=== PATIENT | female | born 1955 | race Caucasian/White ===

== ENCOUNTER 2020-04-24 11:10 | Observation (INO) | payer OTHER ==
[2020-04-24 11:48] LABS: Absolute Lymphocytes (CBC) 1.1 K/uL (0.7-4.9); Basophils % 0.3 % (0-1.3); Protime INR 1.03
[2020-04-24] MEDS ORDERED: ASPIRIN 81 MG CHEWABLE TABLET ONE (11:48)
[2020-04-24] MEDS ORDERED: METOPROLOL TARTRATE 5 MG/5 ML INJ IV ONE (11:49)
[2020-04-24 11:52] LABS: Hematocrit 44.4 % (36.0-45.0); Lymphocytes % 10.5 % (15.3-44.8)
[2020-04-24] MEDS ORDERED: NA CHLORIDE 0.9% 1,000 ML ONE (12:02)
--- NOTE | 2020-04-24 12:10 | RAD REPORT ---
EXAM DESCRIPTION: RAD - Chest Single View - 04/24/2020 12:05 pm CLINICAL HISTORY: CHEST PAIN Chest pain. COMPARISON: No comparisons FINDINGS: Portable technique limits examination quality. The lungs are grossly clear. The heart is normal in size. No displaced fractures. IMPRESSION: No acute intrathoracic process suspected.
[2020-04-24 12:13] LABS: ALT/SGPT 10 U/L (12-78); AST/SGOT 7 U/L (15-37); Albumin 3.6 g/dL (3.4-5.0); Alkaline Phosphatase 55 U/L (45-117); BUN Blood Urea Nitrogen 22 mg/dL (7-18); Bicarbonate 24 mmol/L (21-32); Bilirubin Direct 0.4 mg/dL (0-0.2); Bilirubin Total 0.8 mg/dL (0.2-1.0); Glucose Level 95 mg/dL (74-106); Magnesium 2.3 mg/dL (1.8-2.4); NT PRO-BNP 700 pg/mL (<125); Potassium 3.6 mmol/L (3.5-5.1); Protein, Total 7.9 g/dL (6.4-8.2); Sodium Level 136 mmol/L (136-145); Troponin (Emerg Dept Use Only) < 0.02 ng/mL (0.0-0.045)
[2020-04-24 12:19] LABS: Blood Morphology Comment NOT SEEN (NOT SEEN); Platelet Estimate ADEQ
[2020-04-24] MEDS ORDERED: MORPHINE 4 MG/ML SYR ONE (12:41)
[2020-04-24] MEDS ORDERED: ONDANSETRON 4 MG/2 ML VIAL ONE (12:42)
--- NOTE | 2020-04-24 13:12 | RAD REPORT ---
EXAM DESCRIPTION: CT - Head Brain Wo Cont - 04/24/2020 12:49 pm CLINICAL HISTORY: HEADACHE Headache, drowsiness COMPARISON: No comparisons TECHNIQUE: All CT scans are performed using dose optimization technique as appropriate and may inclu de automated exposure control or mA/KV adjustment according to patient size. FINDINGS: No intracranial hemorrhage, hydrocephalus or extra-axial fluid collection.Mild brain atrop hy is present.No areas of brain edema or evidence of midline shift. The paranasal sinuses and mastoids are clear. The calvarium is intact. IMPRESSION: No acute intracranial abnormality.
--- NOTE | 2020-04-24 13:13 | RAD REPORT ---
EXAM DESCRIPTION: CT - Chest For Pe Angio - 04/24/2020 12:49 pm CLINICAL HISTORY: Chest pain. Chest pain;SOB COMPARISON: No comparisons TECHNIQUE: CT angiogram of the pulmonary arteries was performed with MIP. All CT scans are performed using dose optimization technique as appropriate and may include automated exposure control or mA/KV adjustment according to patient size. FINDINGS: No evidence of pulmonary thromboembolism. No acute aortic finding demonstrated. Interstitial prominence is present throughout the lungs. Small right pleural effusion is noted. No concerning bony finding. Postsurgical changes are present about the stomach. IMPRESSION: No evidence of pulmonary thromboembolism. Mild interstitial pulmonary edema versus viral pneumonitis/ bronchitis pattern.
--- NOTE | 2020-04-24 13:32 | ER ---
Nurse's Notes [facility] Name: Kianna Lan Age: 64 yrs Sex: Female : 1955 Arrival Date: 04/24/2020 Time: 11:14 Bed 6 Private MD: Diagnosis: Chest pain, unspecified;Tachycardia, unspecified Presentation: 04/24 11:28 Chief complaint: Patient states: intermittent chest pressure that began 4-5 days ago. ss Pt reports that today she has been short of breath and that is what ultimately made her come to the ED today. Also c/o headache that began today and a few occasions yesterday where she was getting her words mixed up every so often which is unusual for her. Coronavirus screen: Client denies travel out of the [place] in the last 14 days. Ebola Screen: Patient denies exposure to infectious person. Patient denies travel to an Ebola-affected area in the 21 days before illness onset. Initial Sepsis Screen: Does the patient meet any 2 criteria? No. Patient's initial sepsis screen is negative. Does the patient have a suspected source of infection? No. Patient's initial sepsis screen is negative. Risk Assessment: Do you want to hurt yourself or someone else? Patient reports no desire to harm self or others. Onset of symptoms was April 19, 2020. 11:28 Method Of Arrival: Ambulatory 11:28 Acuity: MICHAEL 3 Triage Assessment: 12:27 General: Appears comfortable, Behavior is calm, cooperative. Pain: Complains of pain in ll1 chest. Historical: - Allergies: 11:33 Demerol; ss 11:33 Augmentin; ss - PMHx: 11:33 Seizures; Hypertension; ss - Immunization history:: Adult Immunizations up to date. - Social history:: Smoking status: Patient denies any tobacco usage or history of. Screenin:27 Abuse screen: Denies threats or abuse. Nutritional screening: No deficits noted. ll1 Tuberculosis screening: No symptoms or risk factors identified. Fall Risk IV access (20 points). Gait- Weak (10 pts.). Total Verdugo Fall Scale indicates Low Risk Score (25-44 pts). Fall prevention measures have been instituted. Side Rails Up X 2 Frequent Obs/Assesments occuring As available Patient and Family Educated on Fall Prevention Program and strategies. Assessment: 12:25 Pain: Complains of pain in chest Pain does not radiate. Quality of pain is described as ll1 aching, Pain began 4-5 days ago. Neuro: No deficits noted. Cardiovascular: Reports chest pain, shortness of breath, Heart tones S1 S2 Capillary refill < 3 seconds Clubbing of nail beds is absent JVD is absent Patient's skin is warm and dry. Rhythm is sinus tachycardia. Respiratory: Airway is patent Trachea midline Respiratory effort is even, unlabored, Respiratory pattern is regular, symmetrical, Breath sounds are clear the patient has mild shortness of breath. GI: No deficits noted. 13:30 Reassessment: Patient and/or family updated on plan of care and expected duration. Pain ll1 level reassessed. Patient is alert, oriented x 3, equal unlabored respirations, skin warm/dry/pink. 14:30 Reassessment: Patient and/or family updated on plan of care and expected duration. Pain ll1 level reassessed. Patient is alert, oriented x 3, equal unlabored respirations, skin warm/dry/pink. 15:35 Reassessment: Awaiting admit orders for bed assignment. ss 16:30 Reassessment: Patient and/or family updated on plan of care and expected duration. Pain ll1 level reassessed. Patient is alert, oriented x 3, equal unlabored respirations, skin warm/dry/pink. 17:25 Reassessment: Patient and/or family updated on plan of care and expected duration. Pain ll1 level reassessed. Patient is alert, oriented x 3, equal unlabored respirations, skin warm/dry/pink. Vital Signs: 11:28 BP 132 / 72; Pulse 140; Resp 20; Temp 98.7(TE); Pulse Ox 99% on R/A; Weight 116.12 kg; ss Height 5 ft. 5 in. (165.10 cm); Pain 6/10; 12:02 BP 106 / 74; Pulse 108; ll1 12:25 BP 107 / 67; Pulse 108; Resp 18; Pulse Ox 100% ; ll1 13:57 BP 113 / 71; Pulse 103; ll1 15:17 BP 113 / 77; Pulse 108; Resp 18; Pulse Ox 100% ; ll1 16:49 BP 122 / 85; Pulse 108; Resp 18; Temp 98.1; Pulse Ox 100% ; Pain 6/10; ll1 11:28 Body Mass Index 42.60 (116.12 kg, 165.10 cm) ED Course: 11:14 Patient arrived in ED. mr 11:17 Stanley Awan, JAIDA is PHCP. pm1 11:18 Ayo Vogel MD is Attending Physician. pm1 11:29 Initial lab(s) drawn, by me, sent to lab. EKG done, by ED staff, reviewed by Stanley cummins1 Emperatriz SENA. 11:29 Inserted saline lock: 20 gauge in right antecubital area, using aseptic technique. kj1 Blood collected. 11:30 Hayley Guzman, RN is Primary Nurse. hb 11:32 Triage completed. ss 11:33 Arm band placed on left wrist. ss 12:00 Patient has correct armband on for positive identification. Placed in gown. Bed in low ll1 position. Call light in reach. Side rails up X 1. athletic monitor on. Pulse ox on. NIBP on. 12:05 XRAY Chest (1 view) In Process Unspecified. EDMS 12:28 No provider procedures requiring assistance completed. Patient maintains SpO2 ll1 saturation greater than 95% on room air. 12:49 CT Chest For PE Angio In Process Unspecified. EDMS 12:50 CT Head Brain wo Cont In Process Unspecified. EDMS 13:31 Tim Wilson MD is Hospitalizing Provider. pm1 15:17 Chad Foley, BRIDGER is Primary Nurse. ll1 17:25 Patient admitted, IV remains in place. ll1 Administered Medications: 11:44 Drug: Aspirin Chewable Tablet 324 mg Route: PO; ll1 15:19 Follow up: Response: No adverse reaction ll1 11:45 Drug: Lopressor 5 mg Route: IVP; Site: right antecubital; ll1 11:56 Drug: Lopressor 5 mg Route: IVP; Site: right antecubital; ll1 11:56 Drug: NS 0.9% 1000 ml Route: IV; Rate: 1000 ml; Site: right antecubital; ll1 15:20 Follow up: Response: No adverse reaction; IV Status: Completed infusion; IV Intake: ll1 1000ml 13:28 Drug: Lopressor 5 mg Route: IVP; Site: right antecubital; ll2 15:19 Follow up: Response: No adverse reaction; RASS: Alert and Calm (0) ll1 13:28 Drug: morphine 4 mg Route: IVP; Site: right antecubital; ll2 15:19 Follow up: Response: No adverse reaction ll1 13:28 Drug: Zofran (Ondansetron) 4 mg Route: IVP; Site: right antecubital; ll2 15:19 Follow up: Response: No adverse reaction ll1 13:51 Drug: Lovenox 1 mg/kg Route: Sub-Q; Site: abdomen; ll2 15:19 Follow up: Response: No adverse reaction ll1 Intake: 15:20 IV: 1000ml; Total: 1000ml. ll1 Outcome: 13:32 Decision to Hospitalize by Provider. pm1 17:25 Admitted to Tele accompanied by tech, via wheelchair, room 425, with chart, Report ll1 called to Nurse Abbey on 4th. 17:25 Condition: stable 17:25 Instructed on the need for admit. 17:45 Patient left the ED. 1 Signatures: Dispatcher [employer] Katty Quintero Shelby, RN RN Stanley Alvarado, NIGHT TIME BABYSITTER NIGHT TIME BABYSITTER pm1 Hayley Guzman RN RN Susana Garcias kj1 Adriane Bolden RN RN ll2 Chad Foley RN RN ll1
--- NOTE | 2020-04-24 13:32 | EDPHYS ---
Physician Documentation [facility] Name: Kianna Lan Age: 64 yrs Sex: Female : 1955 Arrival Date: 04/24/2020 Time: 11:14 Bed 6 Private MD: ED Physician Ayo Vogel HPI: 04/24 11:36 This 64 yrs old Female presents to ER via Ambulatory with complaints of Chest pm1 Pain. 11:36 The patient or guardian reports chest pain that is located primarily in the mid-sternal pm1 area. Onset: 3 day(s) ago. The pain does not radiate. Associated signs and symptoms: Pertinent positives: headache, shortness of breath, Pertinent negatives: abdominal pain, cough, nausea, vomiting. The chest pain is described as a pressure. Duration: The patient or guardian reports multiple episodes, that are intermittent, vary in duration. At its worse last night it lasted for 4 hours. Currently pain lasting for the past 2 hours. Modifying factors: The symptoms are alleviated by nothing. the symptoms are aggravated by nothing. Severity of pain: in the emergency department the pain has improved is a 7 / 10. The patient has not experienced similar symptoms in the past. The patient has not recently seen a physician, and does not have an established primary care provider, just moved [facility]. Historical: - Allergies: 11:33 Demerol; ss 11:33 Augmentin; ss - PMHx: 11:33 Seizures; Hypertension; ss - Immunization history:: Adult Immunizations up to date. - Social history:: Smoking status: Patient denies any tobacco usage or history of. ROS: 11:36 Constitutional: Negative for fever, chills, and weight loss, Eyes: Negative for injury, pm1 pain, redness, and discharge, ENT: Negative for injury, pain, and discharge, Neck: Negative for injury, pain, and swelling. 11:36 Abdomen/GI: Negative for abdominal pain, nausea, vomiting, diarrhea, and constipation, Back: Negative for injury and pain, MS/Extremity: Negative for injury and deformity, Skin: Negative for injury, rash, and discoloration. 11:36 Cardiovascular: Positive for chest pain, Negative for edema, palpitations. 11:36 Respiratory: Positive for shortness of breath, Negative for cough, sputum production, wheezing. 11:36 Neuro: Positive for headache, Dizziness yesterday. Exam: 11:36 Constitutional: This is a well developed, well nourished patient who is awake, alert, pm1 and in no acute distress. Head/Face: Normocephalic, atraumatic. Chest/axilla: Normal chest wall appearance and motion. Nontender with no deformity. No lesions are appreciated. 11:36 Back: No spinal tenderness. No costovertebral tenderness. Full range of motion. Skin: Warm, dry with normal turgor. Normal color with no rashes, no lesions, and no evidence of cellulitis. MS/ Extremity: Pulses equal, no cyanosis. Neurovascular intact. Full, normal range of motion. 11:36 Cardiovascular: Rate: tachycardic, actual rate is 140 bpm, Rhythm: regular, Pulses: no pulse deficits are appreciated, Edema: is not appreciated. 11:36 Respiratory: Exam negative for acute changes, respiratory distress, shortness of breath. 11:36 Abdomen/GI: Exam negative for acute changes, Inspection: abdomen appears normal, Palpation: abdomen is soft and non-tender, in all quadrants. 11:36 Neuro: Exam negative for acute changes, Orientation: is normal, Mentation: is normal, Motor: is normal, moves all fours, Sensation: is normal, no obvious gross deficits. Vital Signs: 11:28 BP 132 / 72; Pulse 140; Resp 20; Temp 98.7(TE); Pulse Ox 99% on R/A; Weight 116.12 kg; ss Height 5 ft. 5 in. (165.10 cm); Pain 6/10; 12:02 BP 106 / 74; Pulse 108; ll1 12:25 BP 107 / 67; Pulse 108; Resp 18; Pulse Ox 100% ; ll1 13:57 BP 113 / 71; Pulse 103; ll1 15:17 BP 113 / 77; Pulse 108; Resp 18; Pulse Ox 100% ; ll1 16:49 BP 122 / 85; Pulse 108; Resp 18; Temp 98.1; Pulse Ox 100% ; Pain 6/10; ll1 11:28 Body Mass Index 42.60 (116.12 kg, 165.10 cm) MDM: 11:18 Patient medically screened. pm1 13:31 Data reviewed: vital signs. Data interpreted: Pulse oximetry: on room air is 100 %. pm1 Interpretation: normal. Counseling: I had a detailed discussion with the patient and/or guardian regarding: the historical points, exam findings, and any diagnostic results supporting the discharge/admit diagnosis, lab results, radiology results, the need for further work-up and treatment in the hospital. 13:57 Physician consultation: Tim Wilson MD regarding admission, patient's condition, and pm1 will see patient. 04/24 11:30 Order name: Basic Metabolic Panel; Complete Time: 12:14 pm04/24 11:30 Order name: CBC with Diff; Complete Time: 12:23 pm04/24 11:30 Order name: LFT's; Complete Time: 12:14 pm1 04/24 11:30 Order name: Magnesium; Complete Time: 12:14 pm04/24 11:30 Order name: NT PRO-BNP; Complete Time: 12:14 pm04/24 11:30 Order name: PT-INR; Complete Time: 12:05 pm04/24 11:30 Order name: Troponin (emerg Dept Use Only); Complete Time: 12:14 pm04/24 11:31 Order name: TSH; Complete Time: 12:14 pm04/24 11:32 Order name: Depakote; Complete Time: 12:05 pm1 04/24 11:40 Order name: Glucose, Ancillary Testing; Complete Time: 12:05 [facility] 04/24 11:53 Order name: Manual Differential; Complete Time: 12:23 [facility] 04/24 15:51 Order name: Basic Metabolic Panel [facility] 04/24 15:51 Order name: Basic Metabolic Panel [facility] 04/24 15:51 Order name: CBC with Automated Diff [facility] 04/24 11:30 Order name: XRAY Chest (1 view); Complete Time: 12:14 pm04/24 11:31 Order name: CT Chest For PE Angio; Complete Time: 13:18 pm04/24 12:30 Order name: CT Head Brain wo Cont; Complete Time: 13:14 pm04/24 15:51 Order name: Echo with Doppler [facility] 04/24 15:51 Order name: CBC with Automated Diff [facility] 04/24 15:51 Order name: Lipid Profile [facility] 04/24 15:51 Order name: Lipid Profile [facility] 04/24 15:51 Order name: Troponin I [facility] 04/24 15:51 Order name: Troponin I [facility] 04/24 15:51 Order name: Troponin I [facility] 04/24 11:31 Order name: EKG; Complete Time: 11:31 pm04/24 11:31 Order name: Cardiac monitoring; Complete Time: 11:49 pm04/24 11:31 Order name: EKG - Nurse/Tech; Complete Time: 11:49 pm04/24 11:31 Order name: IV Saline Lock; Complete Time: 11:49 pm04/24 11:31 Order name: Labs collected and sent; Complete Time: 11:49 pm04/24 11:31 Order name: O2 Per Protocol; Complete Time: 11:49 pm04/24 11:31 Order name: O2 Sat Monitoring; Complete Time: 11:49 pm04/24 15:51 Order name: CONS Physician Consult [facility] 04/24 15:51 Order name: Heart Healthy [facility] 04/24 15:51 Order name: NPO [facility] 04/24 15:51 Order name: EKG Electrocardiogram [facility] 04/24 15:51 Order name: EKG Electrocardiogram [facility] Administered Medications: 11:44 Drug: Aspirin Chewable Tablet 324 mg Route: PO; ll1 15:19 Follow up: Response: No adverse reaction ll1 11:45 Drug: Lopressor 5 mg Route: IVP; Site: right antecubital; ll1 11:56 Drug: Lopressor 5 mg Route: IVP; Site: right antecubital; ll1 11:56 Drug: NS 0.9% 1000 ml Route: IV; Rate: 1000 ml; Site: right antecubital; ll1 15:20 Follow up: Response: No adverse reaction; IV Status: Completed infusion; IV Intake: ll1 1000ml 13:28 Drug: Lopressor 5 mg Route: IVP; Site: right antecubital; ll2 15:19 Follow up: Response: No adverse reaction; RASS: Alert and Calm (0) ll1 13:28 Drug: morphine 4 mg Route: IVP; Site: right antecubital; ll2 15:19 Follow up: Response: No adverse reaction ll1 13:28 Drug: Zofran (Ondansetron) 4 mg Route: IVP; Site: right antecubital; ll2 15:19 Follow up: Response: No adverse reaction ll1 13:51 Drug: Lovenox 1 mg/kg Route: Sub-Q; Site: abdomen; ll2 15:19 Follow up: Response: No adverse reaction ll1 Disposition: 04/25 10:57 Co-signature as Attending Physician, yAo Vogel MD I agree with the assessment and xiomara plan of care. Disposition: 04/24/20 13:32 Hospitalization ordered by Tim Wilson for Observation. Preliminary diagnosis are Chest pain, unspecified, Tachycardia, unspecified. - Bed requested for Telemetry/MedSurg (observation). - Status is Observation. ll1 - Condition is Stable. - Problem is new. - Symptoms have improved. Signatures: Dispatcher [employer] EDAddis Cagle RN Ayo Lauren MD MD cha Smirch, Shelby RN Stanley Reddy, JAIDA ADOBE ARCHITECT pm1 Adriane Bolden RN RN ll2 Chad Foley RN RN ll1 Corrections: (The following items were deleted from the chart) 04/24 16:46 13:32 Hospitalization Ordered by Tim Wilson MD for Observation. Preliminary dw diagnosis is Chest pain, unspecified; Tachycardia, unspecified. Bed requested for Telemetry/MedSurg (observation). Status is Observation. Condition is Stable. Problem is new. Symptoms have improved. pm1 17:45 16:46 04/24/2020 13:32 Hospitalization Ordered by Tim Wilson MD for Observation. ll1 Preliminary diagnosis is Chest pain, unspecified; Tachycardia, unspecified. Bed requested for Telemetry/MedSurg (observation). Status is Observation. Condition is Stable. Problem is new. Symptoms have improved. dw
[2020-04-24] MEDS ORDERED: ENOXAPARIN 100 MG/ML SYR SQ ONE (13:42)
[2020-04-24] MEDS ORDERED: ENOXAPARIN 30 MG/0.3 ML SQ ONE ×2 (13:43→13:52)
[2020-04-24] MEDS ORDERED: ENOXAPARIN 40 MG/0.4 ML SQ ONE (13:52)
[2020-04-24] MEDS ORDERED: ENOXAPARIN 80 MG/0.8 ML SQ ONE (13:57)
[2020-04-24] MEDS ORDERED: ALPRAZOLAM 0.25 MG TABLET PO PRN (15:48)
[2020-04-24] MEDS ORDERED: ACETAMINOPHEN 500 MG TAB PO PRN (15:48)
--- NOTE | 2020-04-24 17:04 | P.HP ---
Certification for Inpatient Patient admitted to: Observation With expected LOS: <2 Midnights Patient will require the following post-hospital care: None Practitioner: I am a practitioner with admitting privileges, knowledge of patient current condition, hospital course, and medical plan of care. Services: Services provided to patient in accordance with Admission requirements found in Title 42 Section 412.3 of the Code of Federal Regulations Patient History Date of Service: 04/24/20 Reason for admission: Chest pain rule out acute coronary syndrome History of Present Illness: Patient is a 64-year-old female came to the hospital with chest discomfort. Pain was mainly in the sternal region. She states that it also hurt when she took a deep breath. She decided to come into the emergency room for further evaluation. She lives in the [facility] but moved here recently. She has had a cardiac workup about 4 years ago including stress test and cardiac catheterization that was unremarkable. The chest pain came about 3 days ago and it has been waxing and waning. She also has been having vertigo. She says the room is been spending whenever she gets up. She was trying to deal with it but when the chest pain got progressively worse she came into the emergency room. Initial workup in the ER including EKG and troponins have been unremarkable. She does have a sinus tachyarrhythmia. Will get further cardiac testing and lab testing to try to figure out what's causing her sinus tachycardia. Allergies amoxicillin [From Augmentin] Allergy (Verified 04/24/20 15:16) Hives/Rash clavulanic acid [From Augmentin] Allergy (Verified 04/24/20 15:16) Hives/Rash meperidine [From Demerol] Allergy (Verified 04/24/20 15:16) Hives - Past Medical/Surgical History -: Seizure history -: Hypertension Past Surgical History: Patient denies surgical history - Family History Father Family History: Reviewed- Non-Contributory - Social History Smoking Status: Never smoker CD- Drugs: No Caffeine use: No Review of Systems 10-point ROS is otherwise unremarkable Physical Examination - Vital Signs Temperature: 98.9 F Blood Pressure: 140/70 Pulse: 120 Respirations: 18 Pulse Ox (%): 96 - Physical Exam General: Alert, In no apparent distress, Oriented x3 HEENT: Atraumatic, PERRLA, Mucous membr. moist/pink, EOMI, Sclerae nonicteric Neck: Supple, 2+ carotid pulse no bruit, No LAD, Without JVD or thyroid abnormal ity Respiratory: Clear to auscultation bilaterally, Normal air movement Cardiovascular: Regular rate/rhythm, Normal S1 S2, No murmurs Gastrointestinal: Normal bowel sounds, Soft and benign, Non-distended, No tenderness Musculoskeletal: No clubbing, No swelling, No tenderness Integumentary: No rashes Neurological: Normal gait, Normal speech, Normal strength at 5/5 x4 extr, Normal tone, Sensation intact, Cranial nerves 3-12 intact, Normal affect Lymphatics: No axilla or inguinal lymphadenopathy - Studies Laboratory Data (last 24 hrs) 04/24/20 11:29: PT 12.1, INR 1.03 04/24/20 11:29: WBC 10.6, Hgb 14.8, Hct 44.4, Plt Count 192 04/24/20 11:29: Sodium 136, Potassium 3.6, BUN 22 H, Creatinine 0.78, Glucose 95, Magnesium 2.3, Total Bilirubin 0.8, AST 7 L, ALT 10 L, Alkaline Phosphatase 55 Assessment & Plan - Problems (Diagnosis) (1) Chest pain, rule out acute myocardial infarction Current Visit: Yes Status: Acute (2) Hypertension Current Visit: Yes Status: Acute (3) Vertigo Current Visit: Yes Status: Acute - Plan 1. Serial troponins and EKG 2. Cardiology consultation 3. Echocardiogram and stress test if cardiology is agreeable 4. Anti-platelet therapy, anti coagulation, beta-aakash, statin, and O2 as needed 5. Monitor on telemetry 6. Carotid Doppler 7. Antivert 8. GI and DVT prophylaxis Discharge Plan: Home Plan to discharge in: 24 Hours - Advance Directives Does patient have a Living Will: No Does patient have a Durable POA for Healthcare: No - Code Status/Comfort Care Code Status Assessed: Yes Code Status: Full Code Critical Care: No Time Spent Managing PTS Care (In Minutes): 45
[2020-04-24 17:51] VITALS: BMI 25.6
[2020-04-24] MEDS: MORPHINE 4 MG/ML SYR IV PRN (18:54)
[2020-04-24] MEDS: DIVALPROEX DR 500MG TAB PO SCH (20:03)
[2020-04-24] MEDS: lamoTRIgine 150 MG TAB PO SCH (20:46)
[2020-04-24] MEDS ORDERED: ATORVASTATIN 10 MG TAB PO SCH (21:00)
[2020-04-24] MEDS ORDERED: METOPROLOL TAR 25 MG TAB PO SCH (21:00)
[2020-04-24] MEDS ORDERED: METOPROLOL TAR 50 MG TAB PO SCH (21:00)
[2020-04-25] MEDS: MORPHINE 4 MG/ML SYR IV PRN ×2 (00:04→08:11)
[2020-04-25 04:10] LABS: Absolute Lymphocytes (CBC) 1.5 K/uL (0.7-4.9); Basophils % 0.2 % (0-1.3); Lymphocytes % 20.9 % (15.3-44.8); RBC Red Blood Cell Count 3.65 M/uL (3.86-4.86)
[2020-04-25 04:21] LABS: BUN Blood Urea Nitrogen 18 mg/dL (7-18); Bicarbonate 27 mmol/L (21-32); Glucose Level 89 mg/dL (74-106); HDL Cholesterol 61 mg/dL (40-60); LDL Cholesterol, Calculated 63 (<130); Sodium Level 135 mmol/L (136-145)
[2020-04-25] MEDS: DIVALPROEX DR 500MG TAB PO SCH ×2 (08:12→14:00)
[2020-04-25] MEDS: lamoTRIgine 150 MG TAB PO SCH (08:12)
[2020-04-25] MEDS ORDERED: ASPIRIN EC 81 MG TAB PO SCH (09:00)
[2020-04-25] MEDS ORDERED: lisinopriL 10 MG TAB PO SCH (09:00)
[2020-04-25] MEDS ORDERED: ENOXAPARIN 40 MG/0.4 ML SQ SCH (09:00)
[2020-04-25] MEDS ORDERED: PNEUMOCOCCAL VACCINE 0.5 ML IMVAC ONE ×2 (10:00→17:00)
[2020-04-25] MEDS ORDERED: NA CHLORIDE 0.9% 0 ML ONE (11:24)
--- NOTE | 2020-04-25 11:28 | CON ---
Date of Consultation: 04/25/2020 Chief Complaint: Chest pain. History Of Present Illness: A 64-year-old female comes in with chest pain. She has history of hyper tension. No other medical history. Chest pain started yesterday, pressure-like, travels to her neck , on and off, waxing and waning, but feels slightly nauseated and no diaphoresis. Pain is not relate d to the exertion and the patient otherwise is healthy. No other medical problems. Medications: Refer to reconciliation sheet for detailed list. Past Medical History: Hypertension and seizure disorder. Allergies: SHE IS ALLERGIC TO AMOXICILLIN, CLAVULANIC ACID, AND MEPERIDINE. Social History: She does not smoke or drink. Does not use any drugs. Family History: No premature coronary artery disease or cancer. Review of Systems: All systems reviewed and they were negative except for mentioned in the HPI. Physical Examination: Vital Signs: Temperature is 97.8, pulse 80, breathing at 14, blood pressure 120/62, saturating 97% o n room air. General: Pleasant middle-aged female, in no apparent distress. Head and Neck: Pupils are equal, react to light. Intact eye movements. No JVD. No cervical lympha denopathy. Neck is supple. Thyroid is not enlarged. Lungs: Clear to auscultation bilaterally. No rhonchi, rales, crackles. No accessory muscle use. Heart: Regular rate and rhythm. No extra sounds. Abdomen: Soft, nontender. Bowel sounds positive. No organomegaly. No masses or hernia. No rigidi ty or rebound. Extremities: No edema, clubbing, or cyanosis. Intact pulses. Skin: No rashes. Neurologic: Alert, awake, oriented x3. No acute focal deficits appreciated. Investigations: Sodium 135, creatinine 0.59. Troponin less than 0.02. TSH 1.4. White blood cell c ount 7, hemoglobin 11.9, platelet count is 153. Assessment And Plan: Chest pain, etiology could be cardiac as the pain is being coming and going sin ce yesterday and this could represent unstable angina. Given the fact that she is still symptomatic, recommend to proceed with coronary angiogram. Risks, benefits, and alternatives were explained to h er. She agreed with the procedure and signed informed consent. We will plan to keep her n.p.o. for coronary angiography later this morning. Thank you for the courtesy of this consultation. /MANI Voice ID: [id number] Report ID: [id number]
[2020-04-25] MEDS ORDERED: HEPA 1000U/500MLS 2,000 UNIT/1,000 ML BAG IV ONE (11:45)
[2020-04-25] MEDS ORDERED: NA CHLORIDE 0.9% 500 ML ONE (12:33)
--- NOTE | 2020-04-25 13:49 | ECHO ---
HEIGHT: 5 ft 5 in WEIGHT: 154 lb 0 oz DATE OF STUDY: 04/25/[address]: Tim Wilson MD 2-DIMENSIONAL: YES M.MODE: YES DOPPLER: YES COLOR FLOW: YES TDS: NO PORTABLE: NO DEFINITY: NO BUBBLE STUDY: NO DIAGNOSIS: CHEST PAIN CARDIAC HISTORY: CATHERIZATION: NO SURGERY: NO PROSTHETIC VALVE: NO PACEMAKER: NO MEASUREMENTS (cm) DIASTOLIC (NORMALS) SYSTOLIC (NORMALS) IVSd 1.1 (0.6-1.2) LA Diam 3.1 (1.9-4.0) LVEF 59% LVIDd 3.9 (3.5-5.7) LVIDs 2.7 (2.0-3.5) %FS 31% LVPWd 1.2 (0.6-1.2) Ao Diam 2.5 (2.0-3.7) 2 DIMENSIONAL ASSESSMENT: RIGHT ATRIUM: NORMAL LEFT ATRIUM: POORLY SEEN RIGHT VENTRICLE: NORMAL LEFT VENTRICLE: APPEARS NORMAL TRICUSPID VALVE: NORMAL MITRAL VALVE: NORMAL PULMONIC VALVE: NORMAL AORTIC VALVE: NORMAL PERICARDIAL EFFUSION: NONE AORTIC ROOT: NORMAL LEFT VENTRICULAR WALL MOTION: UNABLE TO EVALUATE DUE TO POOR WINDOWS. DOPPLER/COLOR FLOW: NORMAL. COMMENTS: LEFT VENTRICULAR EJECTION FRACTION APPEARS NORMAL 55-60%. POOR STUDY OTHERWISE. TECHNOLOGIST: OLU HURLEY
[2020-04-25] MEDS ORDERED: HEPARIN 5000 UNIT/ML 1 ML VIAL ONE (14:20)
[2020-04-25] MEDS ORDERED: ATROPINE SULF 1 MG/10 ML SYR IV ONE (14:20)
[2020-04-25] MEDS ORDERED: MIDAZOLAM HCL 2 MG/2 ML INJ ONE ×2 (14:20→14:29)
[2020-04-25] MEDS ORDERED: HEPARIN 10,000 UNIT/10 ML VIAL IV ONE (14:20)
[2020-04-25] MEDS ORDERED: NITROGLYCERIN 100 MCG/ML SYR (for cath lab use only) IV ONE (14:20)
[2020-04-25] MEDS ORDERED: NICARDIPINE HCL 25 MG/10 ML IV ONE (14:20)
[2020-04-25] MEDS ORDERED: FENTANYL CITR 100 MCG/2 ML ONE (14:20)
--- NOTE | 2020-04-25 15:01 | P.DS ---
Admission Date: 04/24/20 Discharge Date: 04/25/20 Disposition: ROUTINE DISCHARGE Discharge Condition: GOOD Reason for Admission: Chest pain rule out acute coronary syndrome Consultations: cardiology-Dr. Devine Procedures: ECHO: 59% LEFT VENTRICULAR WALL MOTION: UNABLE TO EVALUATE DUE TO POOR WINDOWS. DOPPLER/COLOR FLOW: NORMAL. COMMENTS: LEFT VENTRICULAR EJECTION FRACTION APPEARS NORMAL 55-60%. POOR STUDY OTHERWISE. CT Head: Unremarkable CTA Chest: FINDINGS: No evidence of pulmonary thromboembolism. No acute aortic finding demonstrated. Interstitial prominence is present throughout the lungs. Small right pleural effusion is noted. No concerning bony finding. Postsurgical changes are present about the stomach. IMPRESSION: No evidence of pulmonary thromboembolism. Mild interstitial pulmonary edema versus viral pneumonitis/ bronchitis pattern. Medical Problem List: Chest pain atypical heart catheterization unremarkable Hypertension Seizure disorder Brief History of Present Illness: 64-year-old female presented with chest pain. Patient with history of hypertension. Patient admitted for further evaluation and treatment. Hospital Course: Patient presented with chest pain. Patient was seen and evaluated by Cardiology. Echocardiogram unremarkable. CT chest unremarkable. CT head unremarkable. Cardiac enzymes unremarkable. Cardiology recommended heart catheterization to further evaluate. Heart catheterization unremarkable. No further workup required at this time. Patient without chest pain at discharge. Patient with underlying hypertension. Patient may continue with her medications including metoprolol 25 mg at bedtime and lisinopril 2.5 mg daily. Recommend to maintain blood pressure less 150/80. Further adjustment can be done by her PCP. May need to hold medication if blood pressure systolic less than 110. Patient with seizure disorder. At discharge she will continue with her medications including Depakote and Lamictal. Recommend follow up with neurology as an outpatient to further evaluate. CT head unremarkable. Vital Signs/Physical Exam: Temp Pulse Resp BP Pulse Ox 97 F 81 15 120/62 98 04/25/20 12:19 04/25/20 12:19 04/25/20 12:04/25/20 12:04/25/20 12:00 General: Alert, In no apparent distress, Oriented x3, Cooperative HEENT: Atraumatic Neck: Supple Respiratory: Clear to auscultation bilaterally, Normal air movement Cardiovascular: Normal pulses, Regular rate/rhythm Gastrointestinal: Normal bowel sounds, Soft and benign, Non-distended, No tenderness, No masses, No rebound, No guarding Neurological: Normal speech, Normal strength at 5/5 x4 extr, Normal tone, Normal affect Laboratory Data at Discharge: WBC 7.0 K/uL (4.3-10.9) D 04/25/20 03:40 Hgb 11.9 g/dL (12.0-15.0) L D 04/25/20 03:40 Hct 35.0 % (36.0-45.0) L D 04/25/20 03:40 Plt Count 153 K/uL (152-406) D 04/25/20 03:40 PT 12.1 SECONDS (9.5-12.5) 04/24/20 11:29 INR 1.03 04/24/20 11:29 Sodium 135 mmol/L (136-145) L 04/25/20 03:40 Potassium 4.0 mmol/L (3.5-5.1) 04/25/20 03:40 BUN 18 mg/dL (7-18) 04/25/20 03:40 Creatinine 0.59 mg/dL (0.55-1.3) 04/25/20 03:40 Glucose 89 mg/dL (74-106) 04/25/20 03:40 Magnesium 2.3 mg/dL (1.8-2.4) 04/24/20 11:29 Total Bilirubin 0.8 mg/dL (0.2-1.0) 04/24/20 11:29 AST 7 U/L (15-37) L 04/24/20 11:29 ALT 10 U/L (12-78) L 04/24/20 11:29 Alkaline Phosphatase 55 U/L (45-117) 04/24/20 11:29 Troponin I < 0.02 ng/mL (0.0-0.045) 04/25/20 03:40 Triglycerides Cancelled 04/25/20 06:00 Cholesterol Cancelled 04/25/20 06:00 HDL Cholesterol Cancelled 04/25/20 06:00 Cholesterol/HDL Ratio Cancelled 04/25/20 06:00 Home Medications: Atorvastatin Calcium 1 tab PO BEDTIME 04/24/20 Divalproex Sodium 1 tab PO TID 04/24/20 Lamotrigine [Lamictal] 75 mg PO BID 04/24/20 Metoprolol Tartrate 25 mg PO BEDTIME 04/24/20 lisinopriL [Lisinopril] 2.5 mg PO DAILY 04/24/20 Patient Discharge Instructions: 1. Follow up with PCP to further monitor and address. 2. Patient presented with atypical chest pain evaluated by Cardiology. Heart catheterization unremarkable. Patient also with underlying hypertension. At discharge she may continue with her current medications. Recommend follow up with cardiology in 2-4 weeks to follow up this hospitalization. No further intervention required at this time. 3. Patient with seizure disorder. At discharge she may continue with her medication. Diet: AHA Activity: Ad bryon Time spent managing pt's care (in minutes): 55
[2020-04-25 15:43] VITALS: O2SAT 100
[2020-04-25 16:50] VITALS: BP 120/56; TEMP 97.6
[2020-04-25] MEDS ORDERED: METOPROLOL TAR 25 MG TAB PO SCH (21:00)
--- NOTE | 2020-04-26 02:38 | OP ---
Date of Procedure: 04/25/2020 Surgeon: BREONNA WARD Procedures Performed: 1.Selective coronary angiogram. 2.Left heart catheterization. Indication: Unstable angina. Access: Right radial artery 6-Mexican closed with TR band. Anesthesia: Total sedation time was 20 minutes. Complications: None. Bleeding: Less than 5 mL. Description Of Procedure: After risks, benefits, and alternatives were explained to the patient, the patient agreed to proceed and signed informed consent. The patient was brought back to the cardiac labor supervisor and prepped and draped in the usual sterile fashion. Then, we accessed the right radial art winnie using a pediatric micropuncture kit and placed a 6-Mexican slender sheath. Took a 5-Mexican [place] catheter into the aortic root over a J-wire, accessed the right coronary artery and left main coronar y artery and took standard views. Then, we removed all catheters and wires, and closed the access wi th TR band. Findings: 1.Left main is normal. 2.LAD, normal proximal mid and distal portions, moderate-size vessel. 3.Left circumflex normal. No significant disease. 4.RCA is dominant circulation and normal. Conclusion: 1.Normal coronary angiogram. 2.Advanced the catheter over the wire into the LV across aortic valve, measured LVEDP at 30 mmHg and upon pullback, there was no difference in pressure. We took all the catheters out and we closed wit h a TR band with good hemostasis. Recommendations: Medical management. SR/MODL Voice ID: [id number] Report ID: [id number]
[2020-04-26] MEDS ORDERED: lisinopriL 5 MG TAB PO SCH (09:00)
== END 2020-04-25 17:39 | disposition home or self-care (01) ==
LOC: ER 11:10 → ERHOLD 15:48 → 4TH 17:25
PROVIDERS: ADMIT Hospitalist; ATTEND Family Medicine
DX: R07.89 Other chest pain (principal); I10 Essential (primary) hypertension; G40.909 Epilepsy, unspecified, not intractable, without status epilepticus; R00.0 Tachycardia, unspecified; R42 Dizziness and giddiness; Z23 Encounter for immunization; Z20.828 Contact with and (suspected) exposure to other viral communicable diseases; Z88.0 Allergy status to penicillin; Z88.6 Allergy status to analgesic agent; Z82.49 Family history of ischemic heart disease and other diseases of the circulatory system
CPT/HCPCS: 96361; 93005 ×2; 93306; 85025 ×2; 80048 ×2; 36415; 83735; 85610; 80061; 82947; 85379; 80076; 80164; 84443; 84484 ×3; 83880; 70450; 71275; 71045; 90471; 93458; 90670; 96375; 96372; 96374; 99285; U0002; Q9967; C1893; J1644 ×2; J2250 ×2; J3010; G0378 ×4; J7040; J7030; J2405; J1650

== ENCOUNTER 2020-05-18 13:45 | Inpatient (IN) | payer OTHER ==
[2020-05-18 14:37] LABS: Absolute Lymphocytes (CBC) 0.5 K/uL (0.7-4.9); Basophils % 0.2 % (0-1.3); Hematocrit 36.3 % (36.0-45.0); MPV 8.6 fL (7.6-11.3); RBC Red Blood Cell Count 3.81 M/uL (3.86-4.86)
[2020-05-18] MEDS ORDERED: NA CHLORIDE 0.9% 1,000 ML ONE (14:41)
--- NOTE | 2020-05-18 14:50 | RAD REPORT ---
EXAM DESCRIPTION: CT - Head Brain Wo Cont - 05/18/2020 2:32 pm CLINICAL HISTORY: weakness;Dizziness Headache, drowsiness COMPARISON: Head Brain Wo Cont dated 04/24/2020 TECHNIQUE: All CT scans are performed using dose optimization technique as appropriate and may inclu de automated exposure control or mA/KV adjustment according to patient size. FINDINGS: No intracranial hemorrhage, hydrocephalus or extra-axial fluid collection.Moderate brain a trophy.No areas of brain edema or evidence of midline shift. The paranasal sinuses and mastoids are clear. The calvarium is intact. IMPRESSION: No acute intracranial abnormality.
[2020-05-18 15:01] LABS: BUN Blood Urea Nitrogen 34 mg/dL (7-18); Bicarbonate 23 mmol/L (21-32); Glucose Level 112 mg/dL (74-106); Magnesium 2.6 mg/dL (1.8-2.4); Potassium 4.2 mmol/L (3.5-5.1); Sodium Level 134 mmol/L (136-145); Thyroid Stimulating Hormone 0.573 uIU/mL (0.360-3.740)
--- NOTE | 2020-05-18 15:02 | RAD REPORT ---
EXAM DESCRIPTION: CTAbdomen Pelvis W Contrast - 05/18/2020 2:32 pm CLINICAL HISTORY: Abdominal pain. abd pain, vomiting COMPARISON: Chest For Pe Angio dated 04/24/2020 TECHNIQUE: Biphasic CT imaging of the abdomen and pelvis was performed with 100 ml non-ionic IV cont rast. All CT scans are performed using dose optimization technique as appropriate and may include automated exposure control or mA/KV adjustment according to patient size. FINDINGS: Small bilateral pleural effusions are present with atelectasis in both lung bases, greater on the left. Small pericardial effusion. Postsurgical changes about the stomach noted. No aggressive liver lesion. No biliary dilatation. Sple en, pancreas, adrenal glands and kidneys are within normal limits. No bowel obstruction, free air, free fluid or abscess. The appendix is dilated to 13 mm. There is mi nimal periappendiceal fat stranding of the distal aspect of the appendix. No evidence of significant lymphadenopathy. No suspicious bony findings. IMPRESSION: Appendix is thickened to 13 mm with minimal distal periappendiceal stranding. Acute appe ndicitis is suspected. Small bilateral pleural effusions and small pericardial effusion. Opacities in both lung bases, great er on the left, could represent atelectasis or developing pneumonia.
--- NOTE | 2020-05-18 15:04 | RAD REPORT ---
EXAM DESCRIPTION: RAD - Chest Single View - 05/18/2020 2:53 pm CLINICAL HISTORY: COUGH Chest pain. COMPARISON: Chest Single View dated 04/24/2020 FINDINGS: Portable technique limits examination quality. Small opacity in the left lung base may represent atelectasis or developing infiltrate. The heart is mildly prominent in size. No displaced fractures.
--- NOTE | 2020-05-18 15:22 | EDPHYS ---
Physician Documentation [facility] Name: Kianna Lan Age: 64 yrs Sex: Female : 1955 Arrival Date: 05/18/2020 Time: 13:47 Bed 7 Private MD: ED Physician Evert Reyes HPI: 05/18 14:32 This 64 yrs old Female presents to ER via Wheelchair with complaints of rn Nausea/Vomiting, Trouble Walking, Decreased Appetite. 14:32 The patient presents to the emergency department with nausea, vomiting. rn 14:32 The patient presents with generalized weakness, confusion. rn 14:33 Onset: The symptoms/episode began/occurred 3 day(s) ago. Possible causes: unknown. rn Current symptoms: In the emergency department the patient's symptoms have improved. The patient has experienced a previous episode. Reports nausea/vomiting, confusion, generalized weakness, trouble walking and concentrating, happening for a couple of weeks, worse over last 3 days, similar episode in past but worse last time, diagnosed and admitted for metabolic encephalopathy. Reports takes depakote and lamictal. Son also reports she sneaks unprescribed lunesta and pain medication. Historical: - Allergies: 14:04 Augmentin; ca1 14:04 Demerol; ca1 - Home Meds: 14:04 Lamictal Oral [Active]; Depakote Oral [Active]; ca1 - PMHx: 14:04 Hypertension; Seizures; ca1 - PSHx: 14:04 Gastric Bypass; ca1 - Immunization history:: Adult Immunizations not up to date. - Social history:: Smoking status: Patient denies any tobacco usage or history of. - Family history:: not pertinent. - Hospitalizations: : No recent hospitalization is reported. ROS: 14:33 Constitutional: Negative for fever, chills Eyes: Negative for injury, pain, redness, rn and discharge, Neck: Negative for injury, pain, and swelling, Cardiovascular: Negative for chest pain, palpitations, and edema, Respiratory: Negative for shortness of breath, cough, wheezing, and pleuritic chest pain, Abdomen/GI: Negative for constipation : Negative for injury, bleeding, discharge, and swelling, MS/Extremity: Negative for injury and deformity, Skin: Negative for injury, rash, and discoloration, Neuro: Negative for headache, numbness, tingling, and seizure. Exam: 14:33 Constitutional: This is a well developed, well nourished patient who is awake, alert, rn and in no acute distress. Head/Face: Normocephalic, atraumatic. ENT: dry mm Cardiovascular: Tachycardic, regular Respiratory: Speaking full sentences. No increased work of breathing, no retractions or nasal flaring. Abdomen/GI: soft, mild right sided tenderness, no rebound or peritoneal signs. Skin: Warm, dry MS/ Extremity: Pulses equal, no cyanosis. No clonus. Neuro: Awake and alert, GCS 15, oriented to person, place, time, and situation. Cranial nerves II-XII grossly intact. Motor strength 4/5 bilateral upper ext, 3+/5 bilateral lower extremities. Sensory grossly intact. Vital Signs: 14:00 BP 130 / 94; Pulse 129; Resp 18 S; Temp 97.1(TE); Pulse Ox 96% on R/A; Weight 68.95 kg ca1 (R); Height 5 ft. 8 in. (172.72 cm) (R); 14:53 BP 131 / 80; Pulse 128; Resp 16 S; Pulse Ox 99% on R/A; aa5 15:45 BP 127 / 85; Pulse 125; Resp 14 S; Temp 97.9(O); Pulse Ox 99% on R/A; aa5 16:25 BP 139 / 69; Pulse 124; Resp 16 S; Temp 98.0(O); Pulse Ox 100% on R/A; aa5 14:00 Body Mass Index 23.11 (68.95 kg, 172.72 cm) ca1 MDM: 13:50 Patient medically screened. rn 15:15 Differential Diagnosis: electrolyte abnormality, pneumonia, seizure, sepsis, TIA, UTI, rn volume depletion, appendicitis. Data reviewed: vital signs, nurses notes, lab test result(s), radiologic studies, CT scan, and as a result, I will admit patient. Counseling: I had a detailed discussion with the patient and/or guardian regarding: the historical points, exam findings, and any diagnostic results supporting the discharge/admit diagnosis, lab results, radiology results, the need for further work-up and treatment in the hospital. Response to treatment: the patient's symptoms have mildly improved after treatment, and as a result, I will admit patient. Admission orders: after a detailed discussion of the patient's condition and case, the admit orders are written by me. ED course: Improving mental status with fluids, + possible pneumonia given CXR finding of infiltrate and reported cough, + acute appendicitis on CT abdomen. Will admit to Dr. Mittal with consult out to Dr. Cain. . 05/18 14:15 Order name: CBC with Diff rn 05/18 14:15 Order name: Basic Metabolic Panel rn 05/18 14:15 Order name: Urine Drug Screen rn 05/18 14:15 Order name: Urine Culture rn 05/18 14:15 Order name: Urine Microscopic Only rn 05/18 14:15 Order name: Depakote rn 05/18 14:15 Order name: AMMONIA; Complete Time: 14:55 rn 05/18 14:15 Order name: TSH rn 05/18 14:15 Order name: T4 Free rn 05/18 14:15 Order name: Magnesium rn 05/18 14:16 Order name: CBC with Automated Diff; Complete Time: 14:55 EDMS 05/18 16:03 Order name: LAB Add On bd 05/18 16:43 Order name: Liver (Hepatic) Function EDMS 05/18 16:43 Order name: CREATININE WHOLE BLOOD EDMS 05/18 14:15 Order name: CT Head Brain wo Cont; Complete Time: 14:55 rn 05/18 14:15 Order name: IV Start; Complete Time: 14:27 rn 05/18 14:15 Order name: EKG; Complete Time: 14:16 rn 05/18 14:15 Order name: EKG - Nurse/Tech; Complete Time: 14:42 rn 05/18 14:15 Order name: CT Abd/Pelvis - IV Contrast Only; Complete Time: 15:04 rn 05/18 14:17 Order name: XRAY Chest (1 view); Complete Time: 15:10 rn 05/18 15:14 Order name: NPO; Complete Time: 15:30 rn Administered Medications: 14:42 Drug: NS 0.9% 1000 ml Route: IV; Rate: 1000 ml; Site: right antecubital; aa5 15:45 Follow up: IV Status: Completed infusion; IV Intake: 1000ml aa5 15:45 Drug: Flagyl 500 mg Volume: 100 ml; Route: IVPB; Rate: 200 ml/hr; Infused Over: 30 aa5 mins; Site: right antecubital; 16:16 Follow up: Response: No adverse reaction; IV Status: Completed infusion aa5 16:16 Follow up: Response: No adverse reaction; IV Status: Completed infusion aa5 16:16 Drug: LevaQUIN 750 mg Volume: 150 ml; Route: IVPB; Infused Over: 90 mins; Site: right aa5 antecubital; 16:30 Follow up: Response: No adverse reaction aa5 16:55 Follow up: Response: No adverse reaction; IV Status: Infusion continued upon admission aa5 Disposition: 05/18/20 15:22 Hospitalization ordered by [facility] for Inpatient Admission. Preliminary diagnosis are Dehydration, Acute appendicitis, Weakness. - Bed requested for Telemetry/MedSurg (Inpatient). - Status is Inpatient Admission. aa5 - Condition is Stable. - Problem is new. - Symptoms have improved. Signatures: Dispatcher [employer] EDMS Nataliia Foley RN RN kl Nieto, Roman, MD MD rn Calderon, Audri, RN RN aa5 Rosa M Starks RN BRIDGER ca1 Corrections: (The following items were deleted from the chart) 15:56 15:22 Hospitalization Ordered by Prince Daxa GRIGGS for Inpatient Admission. Preliminary kl diagnosis is Dehydration; Acute appendicitis; Weakness. Bed requested for Telemetry/MedSurg (Inpatient). Status is Inpatient Admission. Condition is Stable. Problem is new. Symptoms have improved. rn 16:30 14:15 Urine Dipstick-Ancillary ordered. bridger lópez 17:09 15:56 05/18/2020 15:22 Hospitalization Ordered by Prince Daxa GRIGGS for Inpatient aa5 Admission. Preliminary diagnosis is Dehydration; Acute appendicitis; Weakness. Bed requested for Telemetry/MedSurg (Inpatient). Status is Inpatient Admission. Condition is Stable. Problem is new. Symptoms have improved. kl
--- NOTE | 2020-05-18 15:22 | ER ---
Nurse's Notes [facility] Name: Kianna Lan Age: 64 yrs Sex: Female : 1955 Arrival Date: 05/18/2020 Time: 13:47 Bed 7 Private MD: Diagnosis: Dehydration;Acute appendicitis;Weakness Presentation: 05/18 14:00 Chief complaint: Patient states: N/V/ decreased appetite, generalized weakness, mostly ca1 on bilateral lower extremities x 3 days. Reports R sided abdominal pain today. Reports cough. Denies fever. Denies urinary symptoms. Coronavirus screen: Client denies travel out of the [place] in the last 14 days. fatigue, nausea, vomiting. Client presents with at least one sign or symptom that may indicate coronavirus-19. Standard/surgical mask placed on the client. Provider contacted for isolation considerations. Ebola Screen: Patient negative for fever greater than or equal to 101.5 degrees Fahrenheit, and additional compatible Ebola Virus Disease symptoms Patient denies exposure to infectious person. Patient denies travel to an Ebola-affected area in the 21 days before illness onset. No symptoms or risks identified at this time. Initial Sepsis Screen: Does the patient meet any 2 criteria? No. Patient's initial sepsis screen is negative. Does the patient have a suspected source of infection? No. Patient's initial sepsis screen is negative. Risk Assessment: Do you want to hurt yourself or someone else? Patient reports no desire to harm self or others. Onset of symptoms Onset of symptoms was May 18, 2020. 14:00 Method Of Arrival: Wheelchair ca1 14:00 Acuity: MICHAEL 3 ca1 Historical: - Allergies: 14:04 Augmentin; ca1 14:04 Demerol; ca1 - Home Meds: 14:04 Lamictal Oral [Active]; Depakote Oral [Active]; ca1 - PMHx: 14:04 Hypertension; Seizures; ca1 - PSHx: 14:04 Gastric Bypass; ca1 - Immunization history:: Adult Immunizations not up to date. - Social history:: Smoking status: Patient denies any tobacco usage or history of. - Family history:: not pertinent. - Hospitalizations: : No recent hospitalization is reported. Screenin:43 Abuse screen: Denies threats or abuse. Nutritional screening: No deficits noted. aa5 Tuberculosis screening: No symptoms or risk factors identified. Fall Risk Secondary diagnosis (15 points) seizures, IV access (20 points). Total Verdugo Fall Scale indicates Low Risk Score (25-44 pts). Fall prevention measures have been instituted. Side Rails Up X 2 Placed close to Nursing Station. Assessment: 14:00 General: Appears comfortable, Behavior is calm, cooperative. Pain: Complains of pain in aa5 right upper quadrant and right lower quadrant Pain does not radiate. Pain currently is 7 out of 10 on a pain scale. Is continuous. Neuro: Level of Consciousness is awake, alert, obeys commands, Oriented to person, place, time, situation, Chemic Mangler are weak bilaterally Moves all extremities. Speech is normal, Facial symmetry appears normal, Reports Generalized weakness . Cardiovascular: Heart tones S1 S2 present Rhythm is regular. Respiratory: Reports cough that is non-productive, Pt reports negative COVID-19 approximately 1 week ago, pt states "I had a colonoscopy and endoscopy last week and they tested me for COVID". Airway is patent Respiratory effort is even, unlabored, Respiratory pattern is regular, symmetrical. GI: Abdomen is round non-distended, Bowel sounds present X 4 quads. Abd is soft and non tender X 4 quads. Reports nausea, and decreased appetite Patient currently denies vomiting, Pt reports she is still waiting on colonoscopy and endoscopy results. : Denies burning with urination, inability to void. EENT: No signs and/or symptoms were reported regarding the EENT system. Derm: Skin is pink, warm \\T\\ dry. Musculoskeletal: Range of motion: intact in all extremities. 14:42 Reassessment: Patient is alert, oriented x 3, equal unlabored respirations, skin aa5 warm/dry/pink. Pt back from CT scan, EKG completed by [facility] and x-ray being completed at this time. . 15:45 Reassessment: Patient is alert, oriented x 3, equal unlabored respirations, skin aa5 warm/dry/pink. Awaiting room assignment . 15:45 General: Appears comfortable. aa5 15:55 Reassessment: Dr. Mittal (Hospitalist) at bedside . aa5 16:16 Reassessment: Patient is alert, oriented x 3, equal unlabored respirations, skin aa5 warm/dry/pink. Vital Signs: 14:00 BP 130 / 94; Pulse 129; Resp 18 S; Temp 97.1(TE); Pulse Ox 96% on R/A; Weight 68.95 kg ca1 (R); Height 5 ft. 8 in. (172.72 cm) (R); 14:53 BP 131 / 80; Pulse 128; Resp 16 S; Pulse Ox 99% on R/A; aa5 15:45 BP 127 / 85; Pulse 125; Resp 14 S; Temp 97.9(O); Pulse Ox 99% on R/A; aa5 16:25 BP 139 / 69; Pulse 124; Resp 16 S; Temp 98.0(O); Pulse Ox 100% on R/A; aa5 14:00 Body Mass Index 23.11 (68.95 kg, 172.72 cm) ca1 ED Course: 13:47 Patient arrived in ED. ag5 13:50 Evert Reyes MD is Attending Physician. rn 14:00 Arm band placed on right wrist. aa5 14:00 Patient has correct armband on for positive identification. Placed in gown. Bed in low aa5 position. Call light in reach. Side rails up X2. 14:03 Argenis Yost, RN is Primary Nurse. aa5 14:03 Triage completed. ca1 14:15 Missed attempt(s): 20 gauge in right antecubital area. Bleeding controlled, band aid aa5 applied, catheter tip intact. 14:17 Initial lab(s) drawn, by ca, sent to lab. Inserted saline lock: 20 gauge in right aa5 antecubital area, using aseptic technique. Blood collected. 14:30 CT Head Brain wo Cont In Process Unspecified. EDMS 14:32 CT Abd/Pelvis - IV Contrast Only In Process Unspecified. EDMS 14:53 XRAY Chest (1 view) In Process Unspecified. EDMS 15:21 Prince Mittal MD is Hospitalizing Provider. rn 16:25 No provider procedures requiring assistance completed. Patient admitted, IV remains in aa5 place. Administered Medications: 14:42 Drug: NS 0.9% 1000 ml Route: IV; Rate: 1000 ml; Site: right antecubital; aa5 15:45 Follow up: IV Status: Completed infusion; IV Intake: 1000ml aa5 15:45 Drug: Flagyl 500 mg Volume: 100 ml; Route: IVPB; Rate: 200 ml/hr; Infused Over: 30 aa5 mins; Site: right antecubital; 16:16 Follow up: Response: No adverse reaction; IV Status: Completed infusion aa5 16:16 Follow up: Response: No adverse reaction; IV Status: Completed infusion aa5 16:16 Drug: LevaQUIN 750 mg Volume: 150 ml; Route: IVPB; Infused Over: 90 mins; Site: right aa5 antecubital; 16:30 Follow up: Response: No adverse reaction aa5 16:55 Follow up: Response: No adverse reaction; IV Status: Infusion continued upon admission aa5 Intake: 15:45 IV: 1000ml; Total: 1000ml. aa5 Outcome: 15:22 Decision to Hospitalize by Provider. rn 16:25 Admitted to Med/surg accompanied by tech, via wheelchair, with chart, Report called to aa5 BRIDGER Santa at 1625 16:25 Condition: stable 16:25 Instructed on the need for admit, Demonstrated understanding of instructions. 16:55 Patient left the ED. aa5 Signatures: Dispatcher [facility] EDMS Evert Reyes MD MD rn Calderon, Audri RN RN aa5 Rosa M Starks RN RN ca1 Leann, [place] ag5 Corrections: (The following items were deleted from the chart) 14:35 14:04 Arm band placed on right wrist. ca1 aa5 14:48 14:00 GI: Abdomen is round non-distended, Bowel sounds present X 4 quads. Abd is soft aa5 and non tender X 4 quads. Reports nausea, and decreased appetite Patient currently denies vomiting, aa5 15:54 15:45 Reassessment: Patient is alert, oriented x 3, equal unlabored respirations, skin aa5 warm/dry/pink. Awaiting room assignment . aa5 15:54 15:00 BP 131 / 80; Pulse 128bpm; Resp 16bpm; Spontaneous; Pulse Ox 99% RA; aa5 aa5 17:12 17:09 Patient left the ED. aa5 aa5 17:25 16:55 Response: No adverse reaction; IV Status: Completed infusion aa5 aa5
--- NOTE | 2020-05-18 15:45 | P.HP ---
Certification for Inpatient Patient admitted to: Inpatient With expected LOS: >2 Midnights Practitioner: I am a practitioner with admitting privileges, knowledge of patient current condition, hospital course, and medical plan of care. Services: Services provided to patient in accordance with Admission requirements found in Title 42 Section 412.3 of the Code of Federal Regulations Patient History Date of Service: 05/18/20 History of Present Illness: Raymon is a 64-year-old female with a past medical history of seizure disorder, hypertension and hyperlipidemia. She comes to the ER accompanied by complaining of a four-day history of right-sided abdominal pain. She is reporting a non-radiating right lower quadrant pain along with nausea, vomiting and diarrhea. She has had a few episodes of vomiting and diarrhea. Patient is been extremely weak over this period. She is unable to stand or ambulate without assistance. ER course was marked by a rapid atrial flutter. CT abdomen and pelvis showed acute appendicitis. She received a dose of levofloxacin and Flagyl along with 1 L bolus IV fluid. Surgery has been consulted by ER. Allergies amoxicillin [From Augmentin] Allergy (Verified 04/24/20 15:16) Hives/Rash clavulanic acid [From Augmentin] Allergy (Verified 04/24/20 15:16) Hives/Rash meperidine [From Demerol] Allergy (Verified 04/24/20 15:16) Hives Home Medications: Atorvastatin Calcium 1 tab PO BEDTIME 04/24/20 Divalproex Sodium 1 tab PO TID 04/24/20 Lamotrigine [Lamictal] 75 mg PO BID 04/24/20 Metoprolol Tartrate 25 mg PO BEDTIME 04/24/20 lisinopriL [Lisinopril] 2.5 mg PO DAILY 04/24/20 - Past Medical/Surgical History Diabetic: No -: Seizure history -: Hypertension -: Gastric Bypass -: Colonoscopy -: Endoscopy - Family History Father -: Cancer Mother -: Cancer, Other (see notes) Notes: Leukemia - Social History Alcohol use: No CD- Drugs: No Caffeine use: Yes Physical Examination - Physical Exam General: Cooperative, Mild distress, Other (extremily lethargic) HEENT: Atraumatic, Normocephalic, EOMI Neck: Supple Respiratory: Clear to auscultation bilaterally, Normal air movement Cardiovascular: Regular rate/rhythm, Normal S1 S2, Other (tachycardic) Gastrointestinal: Normal bowel sounds, Soft and benign, Non-distended Musculoskeletal: No clubbing, No swelling, No contractures, No erythema, No tenderness, No warmth Integumentary: No rashes, No breakdown, No significant lesion, No tenderness/swelling, No erythema, No warmth, No cyanosis Neurological: Normal speech, Sensation intact, Normal affect - Studies Laboratory Data (last 24 hrs) 05/18/20 14:17: Sodium 134 L, Potassium 4.2, BUN 34 H, Creatinine 0.62, Glucose 112 H, Magnesium 2.6 H 05/18/20 14:17: WBC 7.8, Hgb 12.2, Hct 36.3, Plt Count 224 Assessment and Plan - Problems (Diagnosis) (1) Acute appendicitis Current Visit: Yes Status: Acute (2) Atrial flutter with rapid ventricular response Current Visit: Yes Status: Acute (3) Generalized weakness Current Visit: Yes Status: Acute (4) Seizure disorder Current Visit: Yes Status: Acute (5) Hyperlipidemia Current Visit: Yes Status: Acute (6) Hypertension Current Visit: No Status: Acute - Advance Directives Does patient have a Living Will: No Does patient have a Durable POA for Healthcare: Yes Physician Review Additional Text: Assessment Patient is a 64-year-old female with a past medical history of hypertension, hyperlipidemia, seizure disorder currently admitted with right lower quadrant pain and generalized weakness. A CT scan showed acute appendicitis. She has already received 1 round of levofloxacin, Flagyl and a 1 bolus of IV fluids. 1. Acute appendicitis 2. Rapid atrial flutter 3. Generalized weakness 4. Seizure disorder 5. Hypertension 6. Hyperlipidemia PLAN Admit inpatient with telemetry Continue IV fluid infusion along with antibiotics (levofloxacin and Flagyl) Consult Cardiology for rapid atrial flutter Resume home dose of metoprolol Resume home dose of Valproic acid and lamotrigine PT/OT
[2020-05-18] MEDS ORDERED: Levofloxacin 750mg IV 750 MG/150 ML BAG IV ONE (15:51)
[2020-05-18] MEDS ORDERED: METRONIDAZOLE 500mg IVPB 500 MG/100 ML BAG IV ONE (15:51)
[2020-05-18 16:43] LABS: ALT/SGPT 7 U/L (12-78); AST/SGOT 7 U/L (15-37); Albumin 2.7 g/dL (3.4-5.0); Alkaline Phosphatase 67 U/L (45-117); Bilirubin Direct 0.3 mg/dL (0-0.2); Bilirubin Total 0.6 mg/dL (0.2-1.0); Protein, Total 7.6 g/dL (6.4-8.2)
[2020-05-18] MEDS: METRONIDAZOLE 500mg IVPB 500 MG/100 ML BAG IV SCH (17:01)
[2020-05-18] MEDS ORDERED: Levofloxacin 750mg IV 750 MG/150 ML BAG IV SCH (17:01)
[2020-05-18] MEDS: ONDANSETRON 4 MG/2 ML VIAL IV PRN (17:07)
[2020-05-18 17:31] VITALS: BMI 25.2
[2020-05-18] MEDS: lamoTRIgine 150 MG TAB PO SCH (20:48)
[2020-05-18] MEDS: MORPHINE 2 MG/ML SYR IV PRN (20:48)
[2020-05-18] MEDS: DIVALPROEX DR 500MG TAB PO SCH (20:48)
[2020-05-18] MEDS: ATORVASTATIN 10 MG TAB PO SCH (20:48)
[2020-05-18] MEDS ORDERED: HOME MED 1 EA UNK (Metoprolol Tartrate [Metoprolol Tartrate] 25 MG) PO SCH (21:00)
[2020-05-18] MEDS ORDERED: METOPROLOL TAR 25 MG TAB PO SCH (21:00)
[2020-05-18] MEDS ORDERED: NA CHLORIDE 0.9% 1,000 ML IV SCH (23:00)
--- NOTE | 2020-05-18 23:33 | P.CNS ---
Date of Consult: 05/18/20 PC: I was asked to see this 64-year-old female regards to her right lower quadrant abdominal pain HPC: This patient presented to the emergency room with a 2 to three-day history of abdominal pain being in the right lower quadrant. Causing her increasing pain in discomfort. Says she was unable stand up earlier today. Says her health has been poor this last couple of months. Has lost 75 lb since [place]. Does not have much of an appetite. PMH: Hypertension, hypercholesterolemia PSHx: Gastric bypass 15 years ago, upper endoscopy, colonoscopies, SOC: Allergies to amoxicillin and general SYS REVIEW: Says she has had a dry hacking cough for the last few weeks. Nonproductive. Concert have dry heaves. Has not had much of an appetite. No urinary complaints. O/E awake alert vital signs are stable not in any acute distress does not complain after she coughs or retches HEENT: Nonicteric Chest: Chest movement equal bilaterally ABD: Flat no visible masses abdomen is soft, has some right lower tenderness but no true guarding or rebound LOCO: Intact DATA: White cell count some 0.3 with left jackson IMPRESSION: Abdominal pain possible appendicitis PLAN: The CT scan was read as possible appendicitis. Clinically she does have right lower quadrant abdominal pain. I had intended on taking her to the operating room for laparoscopic appendectomy. However the CV was noted that the patient had atrial flutter. Apparently has had some kind of a workup for this recently. I will postpone her surgery until tomorrow pending a cardiology consult. In the meantime, IV fluids, antibiotics, pain medicine, and reassess in the a.m..
[2020-05-19] MEDS: METRONIDAZOLE 500mg IVPB 500 MG/100 ML BAG IV SCH ×4 (00:29→17:00)
[2020-05-19] MEDS: MORPHINE 2 MG/ML SYR IV PRN (06:14)
[2020-05-19] MEDS ORDERED: DIGOXIN 0.25 MG/ML AMP IV ONE (06:44)
[2020-05-19] MEDS: lisinopriL 5 MG TAB PO SCH (09:00)
[2020-05-19] MEDS: NA CHLORIDE 0.9% 1,000 ML IV SCH ×3 (09:10→20:17)
[2020-05-19] MEDS: DIVALPROEX DR 500MG TAB PO SCH ×3 (09:11→20:56)
[2020-05-19] MEDS: lamoTRIgine 150 MG TAB PO SCH ×2 (09:11→20:56)
--- NOTE | 2020-05-19 09:22 | P.PN ---
Subjective Date of Service: 05/19/20 Subjective: Improving (Tachycardic and hypotensive. Holding beta blockers. Received a dose of digoxin. Surgery requesting cardiology clearance prior to appendectomy) Physical Examination - Vital Signs Temperature: 97.2 F Blood Pressure: 100/60 Pulse: 124 Respirations: 18 Pulse Ox (%): 96 - Physical Exam General: Alert, In no apparent distress, Cooperative HEENT: Atraumatic, Normocephalic, EOMI Neck: Supple Respiratory: Clear to auscultation bilaterally, Normal air movement Cardiovascular: No edema, Normal S1 S2 (Tachycardia), Other Gastrointestinal: Normal bowel sounds, Soft and benign, Non-distended Musculoskeletal: No clubbing, No swelling, No contractures, No erythema, No tenderness, No warmth Integumentary: No rashes, No breakdown, No significant lesion, No tenderness/swelling, No erythema, No warmth, No cyanosis Neurological: Normal speech, Sensation intact, Normal affect - Studies Laboratory Data (last 24 hrs) 05/18/20 14:17: Sodium 134 L, Potassium 4.2, BUN 34 H, Creatinine 0.62, Glucose 112 H, Magnesium 2.6 H, Total Bilirubin 0.6, AST 7 L, ALT 7 L, Alkaline Phosphatase 67 05/18/20 14:17: WBC 7.8, Hgb 12.2, Hct 36.3, Plt Count 224 Assessment & Plan - Problems (Diagnosis) (1) Acute appendicitis Current Visit: Yes Status: Acute (2) Atrial flutter with rapid ventricular response Current Visit: Yes Status: Acute (3) Generalized weakness Current Visit: Yes Status: Acute (4) Seizure disorder Current Visit: Yes Status: Acute (5) Hyperlipidemia Current Visit: Yes Status: Acute (6) Hypertension Current Visit: No Status: Acute Physician Review Additional Text: Assessment Patient is a 64-year-old female with a past medical history of hypertension, hyperlipidemia, seizure disorder currently admitted with right lower quadrant pain and generalized weakness. A CT scan showed acute appendicitis. Surgery agrees with appendectomy but to request cardiology clearance 1st for rapid atrial flutter. 1. Acute appendicitis 2. Rapid atrial flutter 3. Generalized weakness 4. Seizure disorder 5. Hypertension 6. Hyperlipidemia PLAN Continue telemetry monitoring Give 1x injection of digoxin, 500 mcg Continue IV fluid infusion along with antibiotics (levofloxacin and Flagyl) Consult Cardiology for rapid atrial flutter Hold home dose of metoprolol Control home dose of Valproic acid and lamotrigine PT/OT post op
[2020-05-19] MEDS ORDERED: METOPROLOL XL 50 MG TAB PO STA (11:42)
[2020-05-19 12:16] LABS: Urine Appearance CLOUDY; Urine Blood NEGATIVE (NEG); Urine Color DK YELLOW; Urine Glucose NEGATIVE (NEG); Urine Protein 1+ (NEG); Urine Specific Gravity >=1.030 (1.005-1.030); Urine pH 6.5 (5.0-7.0)
[2020-05-19 12:17] LABS: Urine Bilirubin 2+ (NEG); Urine Microscopic Reflex ORDER UMIC
[2020-05-19 12:18] LABS: Absolute Lymphocytes (CBC) 0.9 K/uL (0.7-4.9); Basophils % 0.3 % (0-1.3); Hematocrit 33.2 % (36.0-45.0); Lymphocytes % 17.9 % (15.3-44.8); MPV 8.1 fL (7.6-11.3); RBC Red Blood Cell Count 3.48 M/uL (3.86-4.86)
[2020-05-19 12:27] LABS: Urine Bacteria >50 /HPF (<20); Urine Culture Reflex Order REFLEXED; Urine RBC <5 /HPF (NONE SEEN)
[2020-05-19 12:28] LABS: BUN Blood Urea Nitrogen 24 mg/dL (7-18); Bicarbonate 27 mmol/L (21-32); Glucose Level 91 mg/dL (74-106); Potassium 4.3 mmol/L (3.5-5.1); Sodium Level 138 mmol/L (136-145)
--- NOTE | 2020-05-19 14:56 | P.PN ---
Date of Service: 05/19/20 S: Patient states she feels a whole lot better today. Now states her pain that was on her right side is over on the left but it is not as bad as yesterday and she is feeling a little better. She states she would just like to eat. O: Abdomen is soft, nontender at the moment, no guarding rebound or any peritoneal sign A: Patient yesterday had signs of early appendicitis on the CT scan. Today her clinical exam is less than impressive. Her white cell count is also gone down. She is being investigated from a medical point of view regarding her atrial flutter atrial fibrillation. She does not require any surgical intervention at the moment. 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 She is probably not going t o need any surgical intervention during this hospital stay. She does however need a workup which could be done as an outpatient for weight loss and general malaise.
--- NOTE | 2020-05-19 15:17 | CON ---
Date of Consultation: 05/19/2020 Reason For Consultation: Atrial fibrillation/flutter. History Of Present Illness: This is a 64-year-old female with history of seizure disorder, hypertens ion, dyslipidemia, who was diagnosed with acute appendicitis. She was taken to the OR and then she w ent into atrial flutter with rapid ventricular response. Surgery was canceled and I was consulted to see the patient. Apparently, the patient had recent coronary angiogram that was normal. By bedside , she is asymptomatic. Past Medical History: As outlined above in the HPI. Medications: Refer to reconciliation sheet for detailed list. Allergies: AMOXICILLIN, AUGMENTIN, AND MEPERIDINE. Social History: Does not smoke or drink. Does not use any drugs. Review of Systems: All systems reviewed and they were negative except what mentioned in the HPI. Physical Examination: Vital Signs: Temperature is 97.3, pulse 92, breathing 18, blood pressure 111/62, saturating 96% on r oom air. General: Pleasant, middle-aged female, in no apparent distress. Head and Neck: Pupils are equal, reactive to light. Intact eye movements. No JVD. No cervical lym phadenopathy. Neck is supple. Thyroid is not enlarged. Lungs: Clear to auscultation bilaterally. No rhonchi, rales, or crackles. No accessory muscle use. Heart: Regular rate and rhythm. No extra sounds. Abdomen: Soft, nontender. Bowel sounds positive. No organomegaly. No masses or hernia. No rigidi ty or rebound. Extremities: No edema, clubbing, or cyanosis. Intact pulses. Skin: No rash noted. Neurologic: Alert, awake, oriented x3. No acute focal deficits appreciated. Investigations: Sodium 138, creatinine 0.6. White blood cell count is 5.1, hemoglobin 11.1. Assessment And Plan: Atrial fibrillation/flutter with rapid ventricular response, now rate is contro lled. Recommend to load with amiodarone 150 mg over 10 minutes and then 1 mg per minute after that. From Cardiology standpoint, it is okay to proceed with the appendectomy as soon as today if determin ed appropriate by Surgery and no further testing is needed prior to the surgery. Once the patient wa s loaded with amiodarone for 24 hours, this can be switched to oral for rate control. If she does no t convert to sinus rhythm, then possible anticoagulation upon discharge. Thank you for the courtesy of this consultation. ANTOINE Voice ID: [id number] Report ID: [id number]
[2020-05-19] MEDS ORDERED: AMIODARONE HCL 150 MG in D5W 100 ML IV STA (15:30)
[2020-05-19] MEDS ORDERED: Levofloxacin 750mg IV 750 MG/150 ML BAG IV SCH (16:00)
[2020-05-19] MEDS: AMIODARONE HCL 900 MG in Dextrose 5%-Water 482 ML IV SCH (16:12)
[2020-05-19] MEDS ORDERED: PIPER/TAZO/NS 3.375gm 3.375 GM/100 ML BAG IVPB SCH (17:00)
[2020-05-19] MEDS: METOPROLOL XL 50 MG TAB PO SCH ×2 (18:00→20:56)
[2020-05-19] MEDS ORDERED: METRONIDAZOLE 500mg IVPB 500 MG/100 ML BAG IV ONE (18:08)
[2020-05-19] MEDS: CEFEPIME/SWI 1gm 10 ML IVP SCH (18:24)
[2020-05-19] MEDS ORDERED: MORPHINE 2 MG/ML SYR IV PRN (19:54)
[2020-05-19] MEDS ORDERED: DIVALPROEX DR 500MG TAB PO ONE (20:54)
[2020-05-19] MEDS ORDERED: METOPROLOL XL 50 MG TAB PO ONE (20:54)
[2020-05-19] MEDS ORDERED: ATORVASTATIN 10 MG TAB ONE (20:54)
[2020-05-19] MEDS: ATORVASTATIN 10 MG TAB PO SCH (20:58)
[2020-05-19 22:53] LABS: Barbiturates NEGATIVE (NEGATIVE); Benzodiazepines NEGATIVE (NEGATIVE); Cocaine NEGATIVE (NEGATIVE); METHAMPHETAM NEGATIVE (NEGATIVE); Methadone NEGATIVE (NEGATIVE); Opiates POSITIVE (NEGATIVE); Phencyclidine NEGATIVE (NEGATIVE); THC Cannibis NEGATIVE (NEGATIVE)
[2020-05-20] MEDS: METRONIDAZOLE 500mg IVPB 500 MG/100 ML BAG IV SCH ×4 (00:13→16:25)
[2020-05-20] MEDS ORDERED: METRONIDAZOLE 500mg IVPB 500 MG/100 ML BAG IV ONE ×3 (00:24→16:36)
[2020-05-20] MEDS: ONDANSETRON 4 MG/2 ML VIAL IV PRN (03:04)
[2020-05-20] MEDS ORDERED: ONDANSETRON 4 MG/2 ML VIAL ONE (03:16)
[2020-05-20] MEDS: METOPROLOL XL 50 MG TAB PO SCH (05:40)
[2020-05-20] MEDS: NA CHLORIDE 0.9% 1,000 ML IV SCH ×2 (05:41→16:25)
[2020-05-20] MEDS ORDERED: NA CHLORIDE 0.9% 1,000 ML ONE ×2 (05:46→16:36)
[2020-05-20 05:56] LABS: Absolute Lymphocytes (CBC) 1.1 K/uL (0.7-4.9); Basophils % 0.4 % (0-1.3); Hematocrit 35.4 % (36.0-45.0); MPV 8.1 fL (7.6-11.3)
[2020-05-20 05:58] LABS: BUN Blood Urea Nitrogen 17 mg/dL (7-18); Bicarbonate 26 mmol/L (21-32); Glucose Level 91 mg/dL (74-106); Potassium 3.9 mmol/L (3.5-5.1); Sodium Level 140 mmol/L (136-145)
[2020-05-20 07:48] LABS: Blood Morphology Comment NOT SEEN (NOT SEEN); Platelet Estimate ADEQ; White Blood Cell Scan OK (OK)
[2020-05-20] MEDS: AMIODARONE HCL 900 MG in Dextrose 5%-Water 482 ML IV SCH (08:28)
[2020-05-20] MEDS: CEFEPIME/SWI 1gm 10 ML IVP SCH ×2 (08:35→20:38)
[2020-05-20] MEDS: lisinopriL 5 MG TAB PO SCH (08:57)
[2020-05-20] MEDS: lamoTRIgine 150 MG TAB PO SCH ×2 (08:59→20:38)
[2020-05-20] MEDS ORDERED: lisinopriL 5 MG TAB ONE (09:06)
[2020-05-20] MEDS: DIVALPROEX DR 500MG TAB PO SCH ×3 (09:55→20:39)
--- NOTE | 2020-05-20 11:10 | P.DS ---
Admission Date: 05/18/20 Discharge Date: 05/20/20 Disposition: ROUTINE DISCHARGE Discharge Condition: GOOD - Problems (1) Acute appendicitis Current Visit: Yes Status: Acute (2) Atrial flutter with rapid ventricular response Current Visit: Yes Status: Acute (3) Generalized weakness Current Visit: Yes Status: Acute (4) Seizure disorder Current Visit: Yes Status: Acute (5) Hyperlipidemia Current Visit: Yes Status: Acute (6) Hypertension Current Visit: No Status: Acute Brief History of Present Illness: Raymon is a 64-year-old female with a past medical history of seizure disorder, hypertension and hyperlipidemia. She comes to the ER accompanied by complaining of a four-day history of right-sided abdominal pain. She is reporting a non-radiating right lower quadrant pain along with nausea, vomiting and diarrhea. She has had a few episodes of vomiting and diarrhea. Patient is been extremely weak over this period. She is unable to stand or ambulate without assistance. ER course was marked by a rapid atrial flutter. CT abdomen and pelvis showed acute appendicitis. She received a dose of levofloxacin and Flagyl along with 1 L bolus IV fluid. Surgery has been consulted by ER. Hospital Course: Patient was admitted with a working diagnosis of acute appendicitis. Surgery requested Cardiology clearance as patient went into a rapid atrial flutter. After evaluation, Surgery decided this could probably be followed up and worked up as outpatient. Surgery was deemed non urgent for this admission. Patient is currently feeling better. Vital Signs/Physical Exam: Temp Pulse Resp BP Pulse Ox 98.5 F 61 20 125/73 99 05/20/20 08:00 05/20/20 09:00 05/20/20 09:00 05/20/20 09:00 05/20/20 09:00 General: Alert, In no apparent distress, Cooperative HEENT: Atraumatic, Normocephalic, EOMI Neck: Supple Respiratory: Clear to auscultation bilaterally, Normal air movement Cardiovascular: No edema, Normal pulses, Regular rate/rhythm, Normal S1 S2 Gastrointestinal: Normal bowel sounds, Soft and benign, Non-distended, No tenderness Musculoskeletal: No clubbing, No swelling, No contractures, No erythema, No tenderness, No warmth Integumentary: No rashes, No breakdown, No significant lesion, No tenderness/swelling, No erythema, No warmth, No cyanosis Neurological: Normal speech, Sensation intact, Normal affect Laboratory Data at Discharge: WBC 5.9 K/uL (4.3-10.9) D 05/20/20 05:23 Hgb 12.0 g/dL (12.0-15.0) 05/20/20 05:23 Hct 35.4 % (36.0-45.0) L 05/20/20 05:23 Plt Count 244 K/uL (152-406) 05/20/20 05:23 Sodium 140 mmol/L (136-145) 05/20/20 05:23 Potassium 3.9 mmol/L (3.5-5.1) 05/20/20 05:23 BUN 17 mg/dL (7-18) 05/20/20 05:23 Creatinine 0.52 mg/dL (0.55-1.3) L 05/20/20 05:23 Glucose 91 mg/dL (74-106) 05/20/20 05:23 Magnesium 2.6 mg/dL (1.8-2.4) H 05/18/20 14:17 Total Bilirubin 0.6 mg/dL (0.2-1.0) 05/18/20 14:17 AST 7 U/L (15-37) L 05/18/20 14:17 ALT 7 U/L (12-78) L 05/18/20 14:17 Alkaline Phosphatase 67 U/L (45-117) 05/18/20 14:17 Home Medications: Atorvastatin Calcium 1 tab PO BEDTIME 04/24/20 Divalproex Sodium 1 tab PO TID 04/24/20 Lamotrigine [Lamictal] 75 mg PO BID 04/24/20 lisinopriL [Lisinopril] 2.5 mg PO DAILY 04/24/20 Metoprolol Succinate [Toprol Xl*] 50 mg PO BID 6AM 6PM #60 tab 05/20/20 New Medications: Metoprolol Succinate [Toprol Xl*] 50 mg PO BID 6AM 6PM #60 tab Diet: AHA
[2020-05-20] MEDS: AMIODARONE HCL 200 MG TAB PO SCH ×2 (11:42→20:38)
[2020-05-20] MEDS ORDERED: AMIODARONE HCL 200 MG TAB ONE (11:52)
--- NOTE | 2020-05-20 13:58 | P.PN ---
Date of Service: 05/20/20 S: Patient is a specific complaints. Still has some occasional minimal tenderness in the lower abdomen. O: Abdomen soft, no tenderness to guarding or rebound A: Surgically stable P: Patient is not require surgery at this time. She will be discharged from my point of view. She apparently has an appointment with the GI doctor who has been working with her on Saturday. I have requested that she be sent home with her disc of the CT scan for further review. Should she have any questions or problems, she knows to return to the emergency room or contact me.
--- NOTE | 2020-05-20 14:02 | P.PN ---
Subjective Date of Service: 05/20/20 Subjective: Improving Physical Examination - Vital Signs Temperature: 98.6 F Blood Pressure: 125/73 Pulse: 65 Respirations: 20 Pulse Ox (%): 99 - Physical Exam General: In no apparent distress, Cooperative, Other (deconditioned) HEENT: Atraumatic, Normocephalic, EOMI Neck: Supple Respiratory: Clear to auscultation bilaterally, Normal air movement Cardiovascular: No edema, Normal pulses, Regular rate/rhythm, Normal S1 S2 Gastrointestinal: Normal bowel sounds, Soft and benign, Non-distended, No tenderness Musculoskeletal: No clubbing, No swelling, No contractures, No erythema, No tenderness, No warmth Integumentary: No rashes, No breakdown, No significant lesion, No tenderness/swelling, No erythema, No warmth, No cyanosis Neurological: Normal speech, Sensation intact, Normal affect Assessment & Plan - Problems (Diagnosis) (1) Acute appendicitis Current Visit: Yes Status: Acute (2) Atrial flutter with rapid ventricular response Current Visit: Yes Status: Acute (3) Generalized weakness Current Visit: Yes Status: Acute (4) Seizure disorder Current Visit: Yes Status: Acute (5) Hyperlipidemia Current Visit: Yes Status: Acute (6) Hypertension Current Visit: No Status: Acute Physician Review Additional Text: Assessment Patient is a 64-year-old female with a past medical history of hypertension, hyperlipidemia, seizure disorder currently admitted with right lower quadrant pain and generalized weakness. A CT scan showed acute appendicitis. She developed rapid atrial flutter while in the ER. Surgery initially contemplated appendectomy after cardiac clearance. However, after re- evaluation, it's been decided that her appendicitis can be followed up as outpatient. She is medically cleared pending PT/OT clearance. She did poorly with her first session of physical therapy. Discharge cancelled. 1. Acute appendicitis 2. Rapid atrial flutter 3. Generalized weakness 4. Seizure disorder 5. Hypertension 6. Hyperlipidemia PLAN Transition from IV to PO amiodarone. 400 mg BID x 7 days, and 200 mg daily Continue metoprolol 50 mg BID Downgrade to general floor Control home dose of Valproic acid and lamotrigine Consult case management for disposition
[2020-05-20] MEDS: RIVAROXABAN 20 MG TABLET PO SCH (17:12)
[2020-05-20] MEDS: ATORVASTATIN 10 MG TAB PO SCH (20:39)
[2020-05-21] MEDS: NA CHLORIDE 0.9% 1,000 ML IV SCH ×4 (00:33→16:49)
[2020-05-21] MEDS: METRONIDAZOLE 500mg IVPB 500 MG/100 ML BAG IV SCH ×3 (00:33→16:49)
[2020-05-21] MEDS: ACETAMINOPHEN 325 MG TABLET PO PRN (03:32)
[2020-05-21] MEDS: ONDANSETRON 4 MG/2 ML VIAL IV PRN (06:40)
[2020-05-21] MEDS: AMIODARONE HCL 200 MG TAB PO SCH ×2 (07:51→20:46)
[2020-05-21] MEDS: lisinopriL 5 MG TAB PO SCH (07:51)
[2020-05-21] MEDS: DIVALPROEX DR 500MG TAB PO SCH ×3 (07:51→20:48)
[2020-05-21] MEDS: lamoTRIgine 150 MG TAB PO SCH ×2 (07:53→20:48)
[2020-05-21] MEDS: CEFEPIME/SWI 1gm 10 ML IVP SCH ×2 (09:33→20:49)
--- NOTE | 2020-05-21 11:12 | P.PN ---
Subjective Date of Service: 05/21/20 Subjective: Improving (Patient is medically cleared pending placement to rehab) Physical Examination - Vital Signs Temperature: 97.1 F Blood Pressure: 124/62 Pulse: 60 Respirations: 16 Pulse Ox (%): 96 - Physical Exam General: In no apparent distress, Cooperative, Other (physical deconditioning) HEENT: Atraumatic, Normocephalic, EOMI Neck: Supple Respiratory: Clear to auscultation bilaterally, Normal air movement Cardiovascular: No edema, Normal pulses, Regular rate/rhythm, Normal S1 S2 Gastrointestinal: Normal bowel sounds, Soft and benign, Non-distended Neurological: Normal speech, Sensation intact, Normal affect Assessment & Plan - Problems (Diagnosis) (1) Acute appendicitis Current Visit: Yes Status: Acute (2) Atrial flutter with rapid ventricular response Current Visit: Yes Status: Acute (3) Generalized weakness Current Visit: Yes Status: Acute (4) Seizure disorder Current Visit: Yes Status: Acute (5) Hyperlipidemia Current Visit: Yes Status: Acute (6) Hypertension Current Visit: No Status: Acute Physician Review Additional Text: Assessment Patient is a 64-year-old female with a past medical history of hypertension, hyperlipidemia, seizure disorder currently admitted with right lower quadrant pain and generalized weakness. A CT scan showed acute appendicitis. She developed rapid atrial flutter while in the ER. Surgery initially contemplated appendectomy after cardiac clearance. However, after re- evaluation, it's been decided that her appendicitis can be followed up as outpatient. She is medically cleared pending PT/OT clearance. She did poorly with her first session of physical therapy. Discharge cancelled. 1. Acute appendicitis 2. Rapid atrial flutter 3. Generalized weakness 4. Seizure disorder 5. Hypertension 6. Hyperlipidemia PLAN Continue multi-modal pain regimen Continue amiodarone 400 mg BID x 6 days, and 200 mg daily Continue metoprolol 50 mg BID Continue home dose of Valproic acid and lamotrigine Patient is pending placement to rehab
[2020-05-21] MEDS: RIVAROXABAN 20 MG TABLET PO SCH (16:49)
[2020-05-21] MEDS: ATORVASTATIN 10 MG TAB PO SCH (20:46)
--- NOTE | 2020-05-21 21:13 | PN ---
Subjective: Ms. Lan was seen by Dr. Devine for cardiac clearance on 05/19/2020. The patient w as going to have surgery for gallstone, possible acute pancreatitis. She was found to be in atrial f ibrillation flutter. She was started by Dr. Devine on IV amiodarone and she went back to sinus rhyth m. She has a history of seizure, hypertension, dyslipidemia, normal coronaries in the past. Surgery apparently was canceled at this point. There is a normal echocardiogram that was done. She can go home on p.o. amiodarone 400 mg 1 p.o. b.i.d. for a week along with Xarelto 20 mg daily. I will see h er in the office in 1 week. LIA/MANI Voice ID: [id number] Report ID: [id number]
[2020-05-22] MEDS: NA CHLORIDE 0.9% 1,000 ML IV SCH ×5 (00:23→23:00)
[2020-05-22] MEDS: METRONIDAZOLE 500mg IVPB 500 MG/100 ML BAG IV SCH ×2 (00:23→07:55)
[2020-05-22] MEDS: ACETAMINOPHEN 325 MG TABLET PO PRN (07:52)
[2020-05-22] MEDS: lisinopriL 5 MG TAB PO SCH (07:53)
[2020-05-22] MEDS: DIVALPROEX DR 500MG TAB PO SCH ×3 (07:53→20:38)
[2020-05-22] MEDS: AMIODARONE HCL 200 MG TAB PO SCH ×2 (07:54→20:40)
[2020-05-22] MEDS: lamoTRIgine 150 MG TAB PO SCH ×2 (07:55→20:41)
[2020-05-22] MEDS: CEFEPIME/SWI 1gm 10 ML IVP SCH (07:56)
--- NOTE | 2020-05-22 09:50 | P.PN ---
Subjective Date of Service: 05/22/20 Subjective: No new changes, Improving Physical Examination - Vital Signs Temperature: 97.4 F Blood Pressure: 144/67 Pulse: 60 Respirations: 16 Pulse Ox (%): 95 - Physical Exam General: Alert, In no apparent distress, Cooperative, Other (lethargic) HEENT: Atraumatic, Normocephalic, EOMI Neck: Supple Respiratory: Clear to auscultation bilaterally, Normal air movement Cardiovascular: No edema, Normal pulses, Regular rate/rhythm, Normal S1 S2 Gastrointestinal: Normal bowel sounds, Soft and benign, Non-distended, Other (mild RLQ tenderness), Tenderness Musculoskeletal: No clubbing, No swelling, No contractures, No erythema, No tenderness, No warmth Integumentary: No rashes, No breakdown, No significant lesion, No tenderness/swelling, No erythema, No warmth, No cyanosis Neurological: Normal speech, Sensation intact, Normal affect, Other (bilateral lower extremity weakness, 2-3/5 strenght) Assessment & Plan - Problems (Diagnosis) (1) Acute appendicitis Current Visit: Yes Status: Acute (2) Atrial flutter with rapid ventricular response Current Visit: Yes Status: Acute (3) Generalized weakness Current Visit: Yes Status: Acute (4) Seizure disorder Current Visit: Yes Status: Acute (5) Hyperlipidemia Current Visit: Yes Status: Acute (6) Hypertension Current Visit: No Status: Acute Physician Review Additional Text: Assessment Patient is a 64-year-old female with a past medical history of hypertension, hyperlipidemia, seizure disorder currently admitted with right lower quadrant pain and generalized weakness. A CT scan showed acute appendicitis. She developed rapid atrial flutter while in the ER. Surgery initially contemplated appendectomy after cardiac clearance. However, after re- evaluation, it's been decided that her appendicitis can be followed up as outpatient. She is medically cleared pending PT/OT clearance. She did poorly with her first session of physical therapy. Discharge cancelled. Pending transfer to rehab upstairs (5th floor). 1. Acute appendicitis 2. Rapid atrial flutter 3. Generalized weakness 4. Seizure disorder 5. Hypertension 6. Hyperlipidemia PLAN Switch IV abx to Augmentin. Tx for a total of 7 days Continue multi-modal pain regimen Continue amiodarone 400 mg BID x 5 days, and 200 mg daily Continue metoprolol 50 mg BID Continue home dose of Valproic acid and lamotrigine Patient is pending placement to rehab
--- NOTE | 2020-05-22 11:17 | EKG ---
Test Date: 2020-05-20 Test Time: 02:06:17 Detasseler: UNA MEASUREMENT RESULTS: Intervals: Rate: 62 WI: 182 QRSD: 98 QT: 416 QTc: 422 Peacham: P: 5 WI: 182 QRS: 46 T: -14 INTERPRETIVE STATEMENTS: Normal sinus rhythm Low voltage QRS Nonspecific T wave abnormality Abnormal ECG Compared to ECG 05/18/2020 14:43:11 Low QRS voltage now present T-wave abnormality now present Atrial flutter no longer present ST (T wave) deviation no longer present Electronically Signed On 05-22-20 11:14:00 CDT by Robert Varma
[2020-05-22] MEDS: RIVAROXABAN 20 MG TABLET PO SCH (16:13)
[2020-05-22] MEDS ORDERED: RIVAROXABAN 10 MG TABLET ONE ×2 (16:21→16:22)
[2020-05-22] MEDS: ATORVASTATIN 10 MG TAB PO SCH (20:40)
[2020-05-22] MEDS ORDERED: AMOX/K CLAV 875 MG TAB PO SCH (21:00)
[2020-05-22] MEDS: metroNIDAZOLE 500 MG TABLET PO SCH (23:31)
[2020-05-22] MEDS ORDERED: levoFLOXacin 750 MG TAB PO SCH (23:45)
[2020-05-23] MEDS: ACETAMINOPHEN 325 MG TABLET PO PRN (02:40)
[2020-05-23] MEDS: metroNIDAZOLE 500 MG TABLET PO SCH ×2 (06:45→14:36)
[2020-05-23] MEDS: AMIODARONE HCL 200 MG TAB PO SCH (08:16)
[2020-05-23] MEDS: METOPROLOL TAR 25 MG TAB PO SCH ×2 (08:17→16:59)
[2020-05-23] MEDS ORDERED: METOPROLOL TAR 25 MG TAB ONE (08:25)
[2020-05-23] MEDS: DIVALPROEX DR 500MG TAB PO SCH ×2 (08:29→14:35)
[2020-05-23 08:39] VITALS: O2SAT 93
[2020-05-23] MEDS ORDERED: metroNIDAZOLE 500 MG TABLET PO SCH (09:00)
[2020-05-23] MEDS ORDERED: levoFLOXacin 750 MG TAB PO SCH (09:00)
[2020-05-23] MEDS: lamoTRIgine 150 MG TAB PO SCH (11:35)
[2020-05-23] MEDS: lisinopriL 5 MG TAB PO SCH (11:35)
--- NOTE | 2020-05-23 14:59 | P.DS ---
Admission Date: 05/18/20 Discharge Date: 05/23/20 Disposition: TRANSFER TO INPATIENT REHAB Discharge Condition: GOOD - Problems (1) Acute appendicitis Current Visit: Yes Status: Acute (2) Atrial flutter with rapid ventricular response Current Visit: Yes Status: Acute (3) Generalized weakness Current Visit: Yes Status: Acute (4) Seizure disorder Current Visit: Yes Status: Acute (5) Hyperlipidemia Current Visit: Yes Status: Acute (6) Hypertension Current Visit: No Status: Acute Brief History of Present Illness: Raymon is a 64-year-old female with a past medical history of seizure disorder, hypertension and hyperlipidemia. She comes to the ER accompanied by complaining of a four-day history of right-sided abdominal pain. She is reporting a non-radiating right lower quadrant pain along with nausea, vomiting and diarrhea. She has had a few episodes of vomiting and diarrhea. Patient is been extremely weak over this period. She is unable to stand or ambulate without assistance. ER course was marked by a rapid atrial flutter. CT abdomen and pelvis showed acute appendicitis. She received a dose of levofloxacin and Flagyl along with 1 L bolus IV fluid. Surgery has been consulted by ER. Hospital Course: Patient was admitted with a working diagnosis of acute appendicitis. Surgery evaluated the patient on multiple occasions and opted he eventually for a nonoperative approach. Patient will need to follow up with surgery if her symptoms recurred. Patient's hospital course was marked by rapid AFib shortly after admission. Cardiology was consulted and started on amiodarone. She is also on metoprolol. She is going to be discharged to inpatient rehab due to physical deconditioning Vital Signs/Physical Exam: Temp Pulse Resp BP Pulse Ox 98.1 F 63 19 122/70 96 05/23/20 12:00 05/23/20 12:00 05/23/20 12:00 05/23/20 12:00 05/23/20 12:00 General: In no apparent distress, Cooperative, Other (deconditioned) HEENT: Atraumatic, Normocephalic, EOMI Neck: Supple Respiratory: Clear to auscultation bilaterally, Normal air movement Cardiovascular: No edema, Normal pulses, Regular rate/rhythm, Normal S1 S2 Gastrointestinal: Normal bowel sounds, Soft and benign, Non-distended, No tenderness Musculoskeletal: No clubbing, No swelling, No contractures, No erythema, No tenderness, No warmth Neurological: Normal speech, Sensation intact, Normal affect Laboratory Data at Discharge: WBC 5.9 K/uL (4.3-10.9) D 05/20/20 05:23 Hgb 12.0 g/dL (12.0-15.0) 05/20/20 05:23 Hct 35.4 % (36.0-45.0) L 05/20/20 05:23 Plt Count 244 K/uL (152-406) 05/20/20 05:23 Sodium 140 mmol/L (136-145) 05/20/20 05:23 Potassium 3.9 mmol/L (3.5-5.1) 05/20/20 05:23 BUN 17 mg/dL (7-18) 05/20/20 05:23 Creatinine 0.52 mg/dL (0.55-1.3) L 05/20/20 05:23 Glucose 91 mg/dL (74-106) 05/20/20 05:23 Magnesium 2.6 mg/dL (1.8-2.4) H 05/18/20 14:17 Total Bilirubin 0.6 mg/dL (0.2-1.0) 05/18/20 14:17 AST 7 U/L (15-37) L 05/18/20 14:17 ALT 7 U/L (12-78) L 05/18/20 14:17 Alkaline Phosphatase 67 U/L (45-117) 05/18/20 14:17 Home Medications: Atorvastatin Calcium 1 tab PO BEDTIME 04/24/20 Divalproex Sodium 1 tab PO TID 04/24/20 Lamotrigine [Lamictal] 75 mg PO BID 04/24/20 lisinopriL [Lisinopril] 2.5 mg PO DAILY 04/24/20 Amiodarone HCl [Cordarone*] 400 mg PO BID #14 tab 05/20/20 Rivaroxaban [Xarelto] 20 mg PO DAILY #14 tablet 05/20/20 Acetaminophen [Tylenol*] 650 mg PO Q6H PRN tab 05/23/20 Metoprolol Tartrate [Lopressor*] 25 mg PO BID 6AM 6PM tab 05/23/20 New Medications: Amiodarone HCl [Cordarone*] 400 mg PO BID #14 tab Rivaroxaban [Xarelto] 20 mg PO DAILY #14 tablet Diet: AHA Followup: Robert Varma MD [ACTIVE - CAN ADMIT] - If your Symptoms Worsen (appointment at 05/26/20 @0830 am to follow up)
[2020-05-23] MEDS: RIVAROXABAN 20 MG TABLET PO SCH (16:40)
[2020-05-23 17:00] VITALS: BP 135/88
[2020-05-23 17:27] VITALS: TEMP 97.6
== END 2020-05-23 19:42 | DRG 395 ==
LOC: ER 13:45 → ERHOLD 15:40 → 2ND 16:30 → ERHOLD 05-19 15:31 → 4TH 05-20 16:59 → 2ND 05-22 15:16
PROVIDERS: ADMIT Internal Medicine; ATTEND Internal Medicine
DX: K35.80 Unspecified acute appendicitis (principal); I48.91 Unspecified atrial fibrillation; I10 Essential (primary) hypertension; E78.5 Hyperlipidemia, unspecified; Z88.5 Allergy status to narcotic agent; Z88.1 Allergy status to other antibiotic agents; Z79.899 Other long term (current) drug therapy; Z98.84 Bariatric surgery status; Z20.828 Contact with and (suspected) exposure to other viral communicable diseases
CPT/HCPCS: 36415; 70450; 71045; 74177; 80048; 80076; 80164; 80307; 81003; 81015; 82140; 82565; 83735; 84439; 84443; 85025; 87086; 87088; 93005; 94010; 96361; 96365; 96367; 97112; 97116; 97161; 97530; 99285; J0282; J0692; J1160; J2270; J2405; J7030; J7060; Q9967; U0002

== ENCOUNTER 2020-05-23 11:45 | Inpatient (IN) | payer OTHER ==
--- NOTE | 2020-05-23 14:43 | R.PREADM ---
PRE-ADMISSION SCREENING FORM SCREENING DATE AND TIME 05/23/2020 13:03 (CDT) ANTICIPATED REHAB ADMISSION DATE 05/25/2020 REFERRING FACILITY [facility] REFERRAL DATE AND TIME 05/23/2020 13:04 (CDT) REFERRAL ROOM# 206 ACUTE ADMIT DATE 05/23/2020 Previous Rehabilitation(s): No. ACUTE LIBRARY MONITOR/DC SALES VICE PRESIDENT Marita ATTENDING PHYSICIAN KHOAPRINCE Errol REFERRING PHYSICIAN [facility] CLINICAL LIAISON Tarik Robins PHYSICIAN REVIEWER Dr. Arsh Milton M.D. MR# [id number] NAME RON MEDRANO ADDRESS [address] [place] [address] PHONE [facility] [id number] DATE OF 1955 AGE 64 SSN# [id number] GENDER female MARITAL STATUS RACE unknown race ADMIT FROM 02 - [facility] PRE-HOSPITAL LIVING SETTING 01 - Home (private home/apt. board/care, assisted living, alf, transitional living) HOME TYPE AND DETAILS Type of home: single family house # of levels in the residence: 1 # of steps within the residence: 0 # of steps to enter the residence: 0 PRE-HOSPITAL LIVING WITH Family/Relatives FAMILY SUPPORT Yes PRIMARY FAMILY CONTACT NAME RACHELLE MEDRANO PRIMARY FAMILY CONTACT PHONE PHONE PRIMARY FAMILY CONTACT ON ADM.? no IS PRIMARY FAMILY CONTACT AUTH. REP.? no 1ST EMERGENCY CONTACT RACHELLE MEDRANO 1ST CONTACT PHONE PHONE 1ST CONTACT ON ADM. no IS 1ST CONTACT AUTH. REP.? no PHONE 2ND CONTACT ON ADM.? no PATIENT EMPLOYMENT STATUS Retired (for age) PATIENT EMPLOYER No Employer PAYOR INFORMATION: 1ST PAYOR NAME MEDICARE 1ST PAYOR PHONE 1ST PAYOR INJURY/ILLNESS DUE TO ACCIDENT? No ANOTHER CONSTITUTION PARTY RESPONSIBLE? No PRIMARY REHAB/ACUTE DIAGNOSIS: ATRIAL FLUTTER WITH RAPID VENTRICULAR RESPONSE ONSET DATE 05/23/2020 REHAB IMPAIRMENT CATEGORY (TRACY): 14 Cardiac does NOT meet 60% rule PRIMARY DIAGNOSIS-RELATED SURGERIES: No surgeries related to the primary diagnosis were performed. SUMMARY OF ACUTE HOSPITALIZATION: Pt. is a 64 yo Right-handed female of unknown race. On 05/23/2020 she was admitted to [facility] with diagnosis ATRIAL FLUTTER WITH RAPID VE NTRICULAR RESPONSE. Her impairment category is Cardiac 09 - Cardiac Disorders (09). Pre-morbidly, Pt. was independent/mod-I in Safety Awareness, Balance, Social Cognition, Self-Care, an d Communication; and she had good Sphincter Control and Locomotion. Currently, she has deficits of Balance, Communication, Endurance, and Locomotion. Pt. is now referred to [facility] for acute in-patient rehabilitation in order to maximize patient's functional independence in activities of daily living, strength, ROM, and mobi lity. Patient has realistic goal of being discharged at assistance level 7-Ind to reside at Home with Fami ly/Relatives. Ron Medrano is a 64 year -old female that lives independently at home with her Rachelle, in a one-story house. She has one stair to enter the home. Patient has a past medical history of seizure disorder,hypertension,and hyperlipidemia. She came to the ER accompanied by her complaining of a four -day history of right-sided abdominal pain. She is unable to stand or ambulate without assistance. The ER was worry about atrial flutter. CT abdomen and pelvis showed acute appendicitis. She received a dose of levofloxacin and flagyl along with 1 l bolus IV fluid. The patient would most definitely benefit from acute inpatient rehab and has become severely debilitated and unable to live at her prior level of activity at home getting her stronger to be back living at home independently is our goal. It is reasonable and necessary for the patient to come to acute inpatient rehab for approximately 7-10 days in order to return to her prior level of care. She now being transferred to [facility] Inpatient rehabilitation and is medically stable with relatively stable labs. She is now medically stable but in need of 24 hour nursing, doctor supervision and oversight while receiving active and participate in 3 hours of therapy a day/15 hours per week and receive care with intensive interdisciplinary approach. COVID-19 screening performed; spoke with patient via phone. Patient denies new onset of fever, cough, difficulty breathing, sore throat, body aches and non-allergy nasal congestion in the past 24 hours. Patient denies travel outside of [place] in the past 14 days. Patient denies any contact with someone who has a confirmed diagnosis of or is under investigation for COVID-19 in the past 14 days. Patient has been tested negative for COVID- 19. PAST MEDICAL HISTORY SEIZURE HISTORY HYPERTENSION GASTRIC BYPASS COLONOSCOPY ENDOSCOPY MEDICATION ALLERGIES: No Known Drug Allergies (NKDA) ENVIRONMENTAL ALLERGIES: - Substance Allergies None Known - Other Allergies None Known CODE STATUS: Full code WEIGHT/HEIGHT/BMI: WEIGHT 152 lbs HEIGHT 5' HE5IGHT_INCHES" BMI 25.3 DIET: - Diet Type Regular - Diet - Solid Texture Regular - Diet - Liquid Texture Regular - Tube Feed N/A REVIEW OF SYSTEMS: - Gen Alert and awake Lying in bed No apparent distress Oriented to: person, time, and place - Vital Signs Temperature: 98.1 F SBP/DBP: 122/70 Pulse: 63 SP 19 Vital signs stable, afebrile - CVS RRR VITAL SIGNS Temperature: 98.1 F SBP/DBP: 122/70 Pulse: 63 Resp: 19 Vital signs stable, afebrile MEDICATIONS/TREATMENT: Other- See attached MAR (Medication Administration Record). CURRENT SPHINCTER CONTROL: Pre-hospital bladder status: unspecified # of bladder accidents in the last 7 days prior to screenin Pre-hospital bowel status: unspecified # of bowel accidents in the last 7 days prior to screenin Last Bowel Movement Date: 05/23/2020 CURRENT LOCOMOTION STATUS: distance walked 270 feet WITH RW DETAILED CURRENT FUNCTIONAL STATUS: - Bladder accident frequency: Ind - No accidents in the past 7 days - Bowel accident frequency: Ind - No accidents in the past 7 days - Walking score based on distance walked: 0(N/A) score based on distance walked: 3(>=150ft) - Wheelchair score based on distance traveled: 0(N/A) QI SCORES: - Self-Care A. Eating 03-Partial/moderate assistance B. Oral hygiene 03-Partial/moderate assistance C. Toileting hygiene 03-Partial/moderate assistance E. Shower/bathe self 03-Partial/moderate assistance F. Upper body dressing 03-Partial/moderate assistance G. Lower body dressing 03-Partial/moderate assistance H. Putting on/taking off footwear 88-Not attempted due to medical condition or safety concerns - Mobility A. Roll left and right 03-Partial/moderate assistance B. Sit to lying 03-Partial/moderate assistance C. Lying to sitting on side of bed 03-Partial/moderate assistance D. Sit to stand 03-Partial/moderate assistance E. Chair/fzz-mu-ferdc transfer 03-Partial/moderate assistance F. Toilet transfer 03-Partial/moderate assistance G. Car transfer 88-Not attempted due to medical condition or safety concerns I. Walk 10 feet 03-Partial/moderate assistance J. Walk 50 feet with two turns 03-Partial/moderate assistance K. Walk 150 feet 03-Partial/moderate assistance L. Walking 10 feet on uneven surfaces 88-Not attempted due to medical condition or safety concerns M. 1 step (curb) 88-Not attempted due to medical condition or safety concerns N. 4 steps 88-Not attempted due to medical condition or safety concerns O. 12 steps 88-Not attempted due to medical condition or safety concerns P. Picking up object 88-Not attempted due to medical condition or safety concerns R. Wheel 50 feet with two turns 03-Partial/moderate assistance S. Wheel 150 feet 88-Not attempted due to medical condition or safety concerns - Bladder and Bowel Bladder continence Bowel continence - Endurance Fair - Balance Poor - Safety Awareness Fair CURRENT FUNC. DEFICITS: Self-Care, Mobility, Endurance, Balance, and Safety Awareness CURRENT / PREVIOUS ASSISTIVE DEVICES: Rolling Walker HISTORY OF FALLS. HAS THE PATIENT HAD TWO OR MORE FALLS IN THE PAST YEAR OR ANY FALL WITH INJURY IN T HE PAST YEAR?: No PRIOR SURGERY. DID THE PATIENT HAVE MAJOR SURGERY DURING THE 100 DAYS PRIOR TO ADMISSION?: No THERAPY NOTES FROM ACUTE CARE: Attached. SPECIAL NEEDS: - Safety Concerns Skin breakdown precautions needed due to skin breakdown risk PATIENT NEEDS ACTIVE AND ONGOING THERAPEUTIC INTERVENTION OF MULTIPLE THERAPY DISCIPLINES, INCLUDING: - Dietary and Nutrition Adequate Nutrition. Nutritional Education. Nutritional Supplements. PATIENT NEEDS CLOSE MEDICAL SUPERVISION BY A REHABILITATION PHYSICIAN FOR: Coordination of Treatment Team PATIENT REQUIRES 24X7 REHAB NURSING FOR MEDICAL AND FUNCTIONAL MGT. OF THE FOLLOWING DEFICITS: Disease Management Medication Management Patient/Family Education Providing Safe Environment PATIENT REQUIRES INTENSIVE, COORDINATED INTERDISCIPLINARY APPROACH TO REHAB: Arranging Home Equipment/Services Discharge Planning Family Intervention/Training Physical Therapy Assistant/Case Management PATIENT REHAB POTENTIAL: SergioAmanda MEDRANO is able and expected to receive 3 hours of individualized therapy daily on at least 5 of every 7 days Magali MEDRANO's prognosis for significant practical improvement within a reasonable period of time verito ears Good Expected level of measurable improvement will be of a practical value to Magali MEDRANO's functional ca pacity or adaptations to impairments Has a viable Discharge Plan Medically appropriate; condition is sufficiently stable to participate in intensive rehab program DISCHARGE PLAN: - Estimated Length of Stay (days) 10. - Consensus on plan Discharge plan has been discussed with primary caregiver. Patient/Family is in agreement with the diane n. Primary caregiver is in agreement with the plan. - Patient/Family Goals Return home independently. - Planned Living Setting Upon Discharge Home, to live with Family/Relatives. Transitional Living. RECOMMENDED CARE LEVEL: IRF RECOMMENDATION DETAILS: Recommended Admission to Comprehensive Rehabilitation Program to Increase Functional [place] SCREENER'S COMPLETENESS CONFIRMATION: - Screening Confirmation The patient data collection on this preadmission screening form is finished PHYSICIANS REVIEW AND ADMISSION DETERMINATION Admit - Based on my review of the Pre-Admission Screening results, in my medical judgment and experie nce, I concur with the findings and recommend admission to [facility], as this patient requires an IRF level of care. SIGNATURE PANEL: Clinical Nurse Leader - [electronically] signed by Tarik Robins on 05/23/2020 at 13:48 (CDT) Clinical Nurse Leader - [electronically] signed by Sukhdeep Sal PT on 05/23/2020 at 14:12 (CDT) Physician Reviewer - [electronically] signed by Dr. Arsh Milton M.D. on 05/23/2020 at 14:41 (CDT )
[2020-05-23] MEDS: ACETAMINOPHEN 325 MG TABLET PO PRN (21:22)
[2020-05-23] MEDS: DIVALPROEX DR 500MG TAB PO SCH (21:22)
[2020-05-23] MEDS: ATORVASTATIN 10 MG TAB PO SCH (21:22)
[2020-05-23] MEDS: ZOLPIDEM TARTRATE 5 MG TABLET PO PRN (21:23)
[2020-05-24] MEDS: METOPROLOL TAR 25 MG TAB PO SCH ×2 (05:27→16:45)
[2020-05-24 06:07] LABS: Absolute Lymphocytes (CBC) 1.5 K/uL (0.7-4.9); Basophils % 0.8 % (0-1.3); Hematocrit 33.8 % (36.0-45.0); Lymphocytes % 31.7 % (15.3-44.8); MPV 7.5 fL (7.6-11.3); RBC Red Blood Cell Count 3.61 M/uL (3.86-4.86)
[2020-05-24 06:22] LABS: Albumin 2.4 g/dL (3.4-5.0); BUN Blood Urea Nitrogen 4 mg/dL (7-18); Bicarbonate 30 mmol/L (21-32); Glucose Level 85 mg/dL (74-106); Potassium 3.2 mmol/L (3.5-5.1); Prealbumin 12.5 mg/dL (20-40); Sodium Level 141 mmol/L (136-145)
[2020-05-24 07:20] LABS: Blood Morphology Comment NOT SEEN (NOT SEEN); Platelet Estimate ADEQ
[2020-05-24] MEDS: ACETAMINOPHEN 325 MG TABLET PO PRN ×2 (07:58→16:10)
[2020-05-24] MEDS: DIVALPROEX DR 500MG TAB PO SCH ×3 (07:59→20:14)
[2020-05-24] MEDS: lisinopriL 5 MG TAB PO SCH (07:59)
[2020-05-24] MEDS ORDERED: AMIODARONE HCL 200 MG TAB PO SCH (08:00)
[2020-05-24] MEDS: lamoTRIgine 150 MG TAB PO SCH ×2 (08:00→20:19)
[2020-05-24] MEDS: AMIODARONE HCL 200 MG TAB PO SCH ×2 (08:00→20:14)
[2020-05-24] MEDS ORDERED: POTASSIUM CL SA 10 MEQ TAB PO ONE (08:55)
[2020-05-24] MEDS: metroNIDAZOLE 500 MG TABLET PO SCH ×3 (08:58→20:14)
[2020-05-24 09:40] LABS: Urine Appearance CLEAR; Urine Bilirubin NEGATIVE (NEG); Urine Blood NEGATIVE (NEG); Urine Color YELLOW; Urine Glucose NEGATIVE (NEG); Urine Protein NEGATIVE (NEG); Urine Urobilinogen 0.2 mg/dL (0.2-1.0); Urine pH 7.5 (5.0-7.0)
[2020-05-24] MEDS: ONDANSETRON 4 MG (ODT) TAB PO PRN (10:27)
[2020-05-24 10:29] LABS: Urine Bacteria <20 /HPF (<20); Urine Culture Reflex Order NOT NEEDED; Urine RBC NONE SEEN /HPF (NONE SEEN)
[2020-05-24] MEDS: MAGNESIUM OXIDE 400 MG TAB PO SCH (13:34)
[2020-05-24] MEDS: RIVAROXABAN 20 MG TABLET PO SCH (16:45)
[2020-05-24] MEDS ORDERED: RIVAROXABAN 10 MG TABLET PO SCH (17:00)
--- NOTE | 2020-05-24 18:25 | R.HP ---
HISTORY AND PHYSICAL FACILITY: [facility] ENCOUNTER DATE AND TIME: 05/24/2020 18:20 (CDT) MR#: [id number] NAME RON LAN ADDRESS: [address] [place] [address] CITY: [place] [address]IP [id number] PHONE: DATE OF : 1955 AGE: 64 SSN# [id number] GENDER: Female DEXTERITY Right-handed MARITAL STATUS RACE Unknown race PRE-HOSPITAL LIVING SETTING 01 - Home (private home/apt. board/care, assisted living, senior living, transitional living) PRE-HOSPITAL LIVING WITH Family/Relatives ENCOUNTER PHYSICIAN: Dr. Arsh Milton M.D. REFERRING DOCTOR: COLEMAN ROMAN DATE OF ADMISSION: 05/23/2020 18:05 (CDT) REFERRING FACILITY [facility] HOME TYPE AND DETAILS: Type of home: single family house # of levels in the residence: 1 # of steps within the residence: 0 # of steps to enter the residence: 0 ONSET DATE: 05/23/2020 PRIMARY DIAGNOSIS-RELATED SURGERIES: No surgeries related to the primary diagnosis were performed. HISTORY OF PRESENT ILLNESS (HPI): Pt. is a 64 yo Right-handed female of unknown race. On 05/23/2020 she was admitted to [facility] with diagnosis ATRIAL FLUTTER WITH RAPID VE NTRICULAR RESPONSE. Her impairment category is Cardiac 09 - Cardiac Disorders (09). Pre-morbidly, Pt. was independent/mod-I in Safety Awareness, Balance, Social Cognition, Self-Care, an d Communication; and she had good Sphincter Control and Locomotion. Currently, she has deficits of Balance, Communication, Endurance, and Locomotion. Pt. is now referred to [facility] for acute in-patient rehabilitation in order to maximize patient's functional independence in activities of daily living, strength, ROM, and mobi lity. Patient has realistic goal of being discharged at assistance level 7-Ind to reside at Home with Fami ly/Relatives. Ron Lan is a 64 year -old female that lives independently at home with her Uvaldo, in a one-story house. She has one stair to enter the home. Patient has a past medical history of seizure disorder,hypertension,and hyperlipidemia. She came to the ER accompanied by her complaining of a four -day history of right-sided abdominal pain. She is unable to stand or ambulate without assistance. The ER was worry about atrial flutter. CT abdomen and pelvis showed acute appendicitis. She received a dose of levofloxacin and flagyl along with 1 l bolus IV fluid. The patient would most definitely benefit from acute inpatient rehab and has become severely debilitated and unable to live at her prior level of activity at home getting her stronger to be back living at home independently is our goal. It is reasonable and necessary for the patient to come to acute inpatient rehab for approximately 7-10 days in order to return to her prior level of care. She now being transferred to [facility] Inpatient rehabilitation and is medically stable with relatively stable labs. She is now medically stable but in need of 24 hour nursing, doctor supervision and oversight while receiving active and participate in 3 hours of therapy a day/15 hours per week and receive care with intensive interdisciplinary approach. COVID-19 screening performed; spoke with patient via phone. Patient denies new onset of fever, cough, difficulty breathing, sore throat, body aches and non-allergy nasal congestion in the past 24 hours. Patient denies travel outside of [place] in the past 14 days. Patient denies any contact with someone who has a confirmed diagnosis of or is under investigation for COVID-19 in the past 14 days. Patient has been tested negative for COVID- 19. MEDICATION ALLERGIES: No Known Drug Allergies (NKDA) ENVIRONMENTAL ALLERGIES: - Substance Allergies None Known - Other Allergies None Known PAST MEDICAL HISTORY: SEIZURE HISTORY HYPERTENSION GASTRIC BYPASS COLONOSCOPY ENDOSCOPY SOCIAL HISTORY: - Home Living Family/Relatives REVIEW OF SYSTEMS: - Gen No Chills Fatigue No Fever - Eyes No Double Vision No itchiness - ENMT No Difficulty Swallowing - CVS No Chest Discomfort No Chest Pain Fatigue No Weight Gain - Resp No Cough No Shortness of Breath - GI Continent No Abdominal Pain No Constipation No Diarrhea - Continent No Kidney Pain No Painful Urination No Urinary Urgency - MSK No Joint Pain Muscle Cramps Stiffness - Skin No Itching No Rash No Suspicious Lesions - Neuro Coordination Difficulty No Difficulty with Concentration No Memory Loss No Seizures Weakness - Psych No Anxiety No Depression No HIV Exposure No Persistent Infections No Seasonal Allergies - Endo No Cold/Heat Intolerance No Excessive Hunger No Excessive Thirst No Excessive Urination PHYSICAL EXAM - Gen Alert and awake Lying in bed No apparent distress Oriented to: person, time, and place - Skin No skin breakdown. No abnormalities - Eyes No abnormalities - ENMT No abnormalities - Neck No abnormalities No cervical adenopathy - CVS RRR - Chest No abnormalities - Resp Clear to auscultation - Abd Soft - GI Non distended No abnormalities - No abnormalities - Ext Mild bilateral lower extremity edema. - MSK 4+/5 weakness in both lower extremities. - Neuro No focal deficits - Psych No abnormalities VITAL SIGNS Temperature: 98.1 F SBP/DBP: 118/60 Pulse: 56 Resp: 16 NURSING: - Shower allowing shower ACTIVITIES OOB only with supervision QI SCORES: - Self-Care A. Eating 03-Partial/moderate assistance B. Oral hygiene 03-Partial/moderate assistance C. Toileting hygiene 03-Partial/moderate assistance E. Shower/bathe self 03-Partial/moderate assistance F. Upper body dressing 03-Partial/moderate assistance G. Lower body dressing 03-Partial/moderate assistance H. Putting on/taking off footwear 88-Not attempted due to medical condition or safety concerns - Mobility A. Roll left and right 03-Partial/moderate assistance B. Sit to lying 03-Partial/moderate assistance C. Lying to sitting on side of bed 03-Partial/moderate assistance D. Sit to stand 03-Partial/moderate assistance E. Chair/fdi-fo-avrtl transfer 03-Partial/moderate assistance F. Toilet transfer 03-Partial/moderate assistance G. Car transfer 88-Not attempted due to medical condition or safety concerns I. Walk 10 feet 03-Partial/moderate assistance J. Walk 50 feet with two turns 03-Partial/moderate assistance K. Walk 150 feet 03-Partial/moderate assistance L. Walking 10 feet on uneven surfaces 88-Not attempted due to medical condition or safety concerns M. 1 step (curb) 88-Not attempted due to medical condition or safety concerns N. 4 steps 88-Not attempted due to medical condition or safety concerns O. 12 steps 88-Not attempted due to medical condition or safety concerns P. Picking up object 88-Not attempted due to medical condition or safety concerns R. Wheel 50 feet with two turns 03-Partial/moderate assistance S. Wheel 150 feet 88-Not attempted due to medical condition or safety concerns - Bladder and Bowel Bladder continence Bowel continence - Endurance Fair - Balance Poor - Safety Awareness Fair CURRENT FUNC. DEFICITS: Self-Care, Mobility, Endurance, Balance, and Safety Awareness MEDICATIONS: - Other See attached MAR (Medication Administration Record) ASSESSMENT: Pt. is a 64 yo Right-handed female of unknown race.On 05/23/2020 she was admitted to [facility] with diagnosis ATRIAL FLUTTER WITH RAPID VENTRICULAR RESPONSE.Her impairment category is Card iac 09 - Cardiac Disorders (09).Pre-morbidly, Pt. was independent/mod-I in Safety Awareness, Balance , Social Cognition, Self-Care, and Communication; and she had good Sphincter Control and Locomotion.C urrently, she has deficits of Balance, Communication, Endurance, and Locomotion.Pt. is now referred t [facility] for acute in-patient rehabilitation in order to maximize patient' s functional independence in activities of daily living, strength, ROM, and mobility.- Rehab Goal Patient has realistic goal of being discharged at assistance level 7-Ind to reside at Home with Fami ly/Relatives. Ron Lan is a 64 year -old female that lives independently at home with her Uvaldo, in a one-story house. She has one stair to enter the home. Patient has a past medical history of seizure disorder,hypertension,and hyperlipidemia. She came to the ER accompanied by her complaining of a four -day history of right-sided abdominal pain. She is unable to stand or ambulate without assistance. The ER was worry about atrial flutter. CT abdomen and pelvis showed acute appendicitis. She received a dose of levofloxacin and flagyl along with 1 l bolus IV fluid. The patient would most definitely benefit from acute inpatient rehab and has become severely debilitated and unable to live at her prior level of activity at home getting her stronger to be back living at home independently is our goal. It is reasonable and necessary for the patient to come to acute inpatient rehab for approximately 7-10 days in order to return to her prior level of care. She now being transferred to [facility] Inpatient rehabilitation and is medically stable with relatively stable labs. She is now medically stable but in need of 24 hour nursing, doctor supervision and oversight while receiving active and participate in 3 hours of therapy a day/15 hours per week and receive care with intensive interdisciplinary approach. COVID-19 screening performed; spoke with patient via phone. Patient denies new onset of fever, cough, difficulty breathing, sore throat, body aches and non-allergy nasal congestion in the past 24 hours. Patient denies travel outside of [place] in the past 14 days. Patient denies any contact with someone who has a confirmed diagnosis of or is under investigation for COVID-19 in the past 14 days. Patient has been tested negative for COVID- 19.REHAB PLAN: - Physical Therapy Gait dysfunction - to improve, our physical therapists will perform initial evaluation of pt's status upon admission and devise an individualized program for Gait Training, and Wheel Chair mobility Need for home safety evaluation - to improve, our physical therapists will perform initial evaluation of pt's status upon admission and devise an individualized program for Home Evaluation Need in caregiver upon discharge - to improve, our physical therapists will perform initial evaluatio n of pt's status upon admission and devise an individualized program for Caregiver Training New precaution - to improve, our physical therapists will perform initial evaluation of pt's status u desirae admission and devise an individualized program for Patient precaution education Edema - to improve, our physical therapists will perform initial evaluation of pt's status upon admi ssion and devise an individualized program for Elevation Training, and Lymphedema Therapy Poor balance - to improve, our physical therapists will perform initial evaluation of pt's status upo n admission and devise an individualized program for Balance Training Poor endurance - to improve, our physical therapists will perform initial evaluation of pt's status u desirae admission and devise an individualized program for Endurance Training Weakness - to improve, our physical therapists will perform initial evaluation of pt's status upon ad mission and devise an individualized program for Aquatic Therapy, Neuromuscular Reeducation, and Stre ngthening Achieving independence - to improve, our physical therapists will perform initial evaluation of pt's status upon admission and devise an individualized program for Community Reintegration Activities - Occupational Therapy Need for care director rn - to improve, our occupation therapists will perform initial evaluation of pt's s tatus upon admission and devise an individualized program for Caregiver Training Weakness - to improve, our occupation therapists will perform initial evaluation of pt's status upon admission and devise an individualized program for Aquatic Therapy, Balance, Endurance, UE ROM, and U E strengthening MEDICAL PLAN: - Diet Type Start Regular - Diet - Liquid Texture Start Regular - Tube Feed Start N/A - Other See attached MAR (Medication Administration Record) - Diet - Solid Texture Regular - Shower shower DISCHARGE PLAN: - Estimated Length of Stay (days) 10. - Consensus on plan Discharge plan has been discussed with primary caregiver. Patient/Family is in agreement with the diane n. Primary caregiver is in agreement with the plan. - Patient/Family Goals Return home independently. - Planned Living Setting Upon Discharge Home, to live with Family/Relatives. Transitional Living. SIGNATURE PANEL: (CDT)
--- NOTE | 2020-05-24 18:40 | PAPE ---
POST ADMISSION PHYSICIAN EVALUATION PATIENT: [facility] MR# [id number] REFERRING DOCTOR COLEMAN ROMAN EVALUATION DATE AND TIME 05/24/2020 18:37 (CDT) NAME RON MEDRANO DATE OF 1955 AGE 64 PHONE N# [id number] GENDER female EVALUATING PHYSICIAN Dr. Arsh Milton M.D. ADMISSION DIAGNOSIS: ATRIAL FLUTTER WITH RAPID VENTRICULAR RESPONSE ONSET DATE 05/23/2020 POST-ADMISSION FUNCTIONAL/MEDICAL STATUS: - Bladder Same accident frequency: Ind - No accidents in the past 7 days - Bowel Same accident frequency: Ind - No accidents in the past 7 days - Walking Same score based on distance walked: 0(N/A) Same score based on distance walked: 3(>=150ft) - Wheelchair Same score based on distance traveled: 0(N/A) STATUS CHANGE EVALUATION: No change in Functional or Medical Status is identified compared with Pre-Admission screening. PATIENT NEEDS CLOSE MEDICAL SUPERVISION BY A REHABILITATION PHYSICIAN FOR: Coordination of Treatment Team PATIENT REQUIRES 24X7 REHAB NURSING FOR MEDICAL AND FUNCTIONAL MGT. OF THE FOLLOWING DEFICITS: Disease Management Medication Management Patient/Family Education Providing Safe Environment PATIENT REQUIRES INTENSIVE, COORDINATED INTERDISCIPLINARY APPROACH TO REHAB: Arranging Home Equipment/Services Discharge Planning Family Intervention/Training System Admin/Case Management LIST OF IDENTIFIED AND POTENTIAL PROBLEMS: Alteration in leisure activities Bladder, Incontinence Bowel, Incontinence Infection, Actual or Potential Mobility Impaired Pain, Alteration in Comfort Self Care Deficit Skin Integrity, Actual or Potential Urinary Tract Infection (UTI), Actual or Potential PATIENT COULD BE AT RISK FOR COMPLICATIONS FROM ADVERSE MEDICAL CONDITIONS DUE TO HIS/HER COMORBIDITI ES AND THE RIGORS OF THE INTENSIVE REHABILLITATION PROGRAM. METHODS OR INTERVENTIONS TO AVOID COMPLIC ATIONS INCLUDE: - Infection Clinical staff to assess and manage the signs and symptoms of infection including fever, redness, war mth, etc. - Urinary Tract Infection - Falls Patient will be evaluated for Fall Precautions and will be placed on Fall Precautions as indicated pe r protocol. - Skin Breakdown Nursing will assess skin daily using assessment tool and will place on Skin Breakdown Precautions as indicated per protocol. - Pain Clinical staff may employ non-medication methods such as massage, distraction, decrease stimulus, etc . as needed. Clinical staff will assess patient's pain level every shift per protocol to assess and e nsure pain management effectiveness. Medications will be given and the pain level re-assessed. PRELIMINARY PLAN OF CARE: - Physical Therapy Patient needs Physical Therapy for a daily minimum of 1.5 hours at least 5 out of 7 days, to improve: Mobility, Strengthening, Transfers, Stretching, ROM, Endurance, Ability to manage stairs, Gait, and Balance. - Speech Therapy Patient needs Speech Therapy for a daily minimum of 0.5 hours at least 5 out of 7 days, to improve: S wallowing, Cognition, Language Skills, and Compensatory Strategies. - Rehabilitation Nursing Patient requires 24x7 Rehabilitation Nursing for: Pain Issues, Identifying and preventing risk factor s, Monitoring and reporting current medical conditions, Assisting with ambulation and transfer, Hai ting with all ADL-s, Teaching patients about disease process and medications, Family teaching, Provid ing safe environment, Bowel and Bladder Issues, Skin Integrity, and Medication Management. Patient needs System Admin and/or Case Management for: Discharge Planning, Arranging Home Equipmen t or Services, and Family Interventions. - Dietary and Nutrition Services Patient needs Dietary and Nutrition Services for: Adequate Nutrition, Nutritional Supplements, and Nu tritional Education. - Occupational Therapy Patient needs Occupational Therapy for a daily minimum of 1.5 hours at least 5 out of 7 days, to impr ove Activities of Daily Living, including: Eating, Grooming, Bathing, Dressing, Toileting, Toilet Tra nsfers, Community Reintegration, Higher functional activities, Adaptive Equipment, Splinting, Househo ld Tasks, and Other activities as determined. QI SCORES: - Self-Care A. Eating 03-Partial/moderate assistance B. Oral hygiene 03-Partial/moderate assistance C. Toileting hygiene 03-Partial/moderate assistance E. Shower/bathe self 03-Partial/moderate assistance F. Upper body dressing 03-Partial/moderate assistance G. Lower body dressing 03-Partial/moderate assistance H. Putting on/taking off footwear 88-Not attempted due to medical condition or safety concerns - Mobility A. Roll left and right 03-Partial/moderate assistance B. Sit to lying 03-Partial/moderate assistance C. Lying to sitting on side of bed 03-Partial/moderate assistance D. Sit to stand 03-Partial/moderate assistance E. Chair/kmh-to-ctuzz transfer 03-Partial/moderate assistance F. Toilet transfer 03-Partial/moderate assistance G. Car transfer 88-Not attempted due to medical condition or safety concerns I. Walk 10 feet 03-Partial/moderate assistance J. Walk 50 feet with two turns 03-Partial/moderate assistance K. Walk 150 feet 03-Partial/moderate assistance L. Walking 10 feet on uneven surfaces 88-Not attempted due to medical condition or safety concerns M. 1 step (curb) 88-Not attempted due to medical condition or safety concerns N. 4 steps 88-Not attempted due to medical condition or safety concerns O. 12 steps 88-Not attempted due to medical condition or safety concerns P. Picking up object 88-Not attempted due to medical condition or safety concerns R. Wheel 50 feet with two turns 03-Partial/moderate assistance S. Wheel 150 feet 88-Not attempted due to medical condition or safety concerns - Bladder and Bowel Bladder continence Bowel continence - Endurance Fair - Balance Poor - Safety Awareness Fair POTENTIAL FUNCTIONAL GOALS FOR PATIENT TO ACHIEVE BY DISCHARGE: - Safety Precaution Patient will remain free from falls or injury at time of discharge. - Bed Mobility Patient will perform bed mobility at 4-Nicole level of assistance. - Transfers Patient will complete transfers from bed to chair at 4-Nicole level of assistance. - Mobility Patient will ambulate 150 ft with 4-Nicole level of assistance with RW. PATIENT REHAB POTENTIAL Magali MEDRANO is able and expected to receive 3 hours of individualized therapy daily on at least 5 of every 7 days Magali MEDRANO's prognosis for significant practical improvement within a reasonable period of time verito ears Good Expected level of measurable improvement will be of a practical value to Magali MEDRANO's functional ca pacity or adaptations to impairments Has a viable Discharge Plan Medically appropriate; condition is sufficiently stable to participate in intensive rehab program DISCHARGE PLAN: - Estimated Length of Stay (days) 10. - Consensus on plan Discharge plan has been discussed with primary caregiver. Patient/Family is in agreement with the diane n. Primary caregiver is in agreement with the plan. - Patient/Family Goals Return home independently. - Planned Living Setting Upon Discharge Home, to live with Family/Relatives. Transitional Living. CONCLUSION ON REHABILITATION NECESSITY: I have evaluated patient's pre-admission functional status and, comparing it to the patient's post-ad mission functional status now, I conclude that the pre-admission assessment was accurate. Patient's c ondition on admission supports the medical necessity of admission to [facility]. It is safe to proceed with patient's therapy program. SIGNATURE PANEL: (CDT)
[2020-05-24] MEDS: ATORVASTATIN 10 MG TAB PO SCH (20:14)
[2020-05-24] MEDS: ZOLPIDEM TARTRATE 5 MG TABLET PO PRN (20:15)
[2020-05-24] MEDS: ENSURE HIGH PROTEIN 237 ML CAN PO SCH (20:19)
[2020-05-25] MEDS: METOPROLOL TAR 25 MG TAB PO SCH ×2 (05:05→17:17)
[2020-05-25] MEDS: ACETAMINOPHEN 325 MG TABLET PO PRN ×3 (07:08→20:20)
[2020-05-25] MEDS: lisinopriL 5 MG TAB PO SCH (09:15)
[2020-05-25] MEDS: lamoTRIgine 150 MG TAB PO SCH ×2 (09:15→20:19)
[2020-05-25] MEDS: DIVALPROEX DR 500MG TAB PO SCH ×3 (09:16→20:21)
[2020-05-25] MEDS: MAGNESIUM OXIDE 400 MG TAB PO SCH (09:16)
[2020-05-25] MEDS: POTASSIUM CL SA 10 MEQ TAB PO SCH (09:16)
[2020-05-25] MEDS: metroNIDAZOLE 500 MG TABLET PO SCH ×3 (09:16→20:21)
[2020-05-25] MEDS: AMIODARONE HCL 200 MG TAB PO SCH ×2 (09:16→20:21)
[2020-05-25] MEDS: ENSURE HIGH PROTEIN 237 ML CAN PO SCH ×3 (09:18→20:22)
--- NOTE | 2020-05-25 16:05 | FAST ---
OT QI REPORT FORM ENCOUNTER DATE AND TIME: 05/25/2020 08:00 (CDT) NAME RON MEDRANO DATE OF : 1955 DATE OF ADMISSION: 05/23/2020 18:05 (CDT) PHONE: AGE: 64 N# [id number] GENDER: Female ENCOUNTER PHYSICIAN: Dr. Arsh Milton M.D. ADMISSION DIAGNOSIS: - Cardiac 09 - Cardiac Disorders () ATRIAL FLUTTER WITH RAPID VENTRICULAR RESPONSE. EATING: Not assessed/no information CODE: - ORAL HYGIENE: Not assessed/no information CODE: - TOILETING HYGIENE: Not assessed/no information CODE: - BATHING: Not assessed/no information CODE: - DRESSING - UPPER BODY: DRESSING - UPPER BODY - STEP 1: Does the patient complete the activity by him/herself with no assistance (physical, verbal/nonverbal cueing, setup/clean-up)? No. DRESSING - UPPER BODY - STEP 2: Does the patient need only setup/clean-up assistance from one helper? Yes. 1. [id number] ADMISSION PERFORMANCE: Setup or clean-up assistance CODE: 05 DRESSING - LOWER BODY: DRESSING - LOWER BODY - STEP 1: Does the patient complete the activity by him/herself with no assistance (physical, verbal/nonverbal cueing, setup/clean-up)? No. DRESSING - LOWER BODY - STEP 2: Does the patient need only setup/clean-up assistance from one helper? Yes. 1. [id number] ADMISSION PERFORMANCE: Setup or clean-up assistance CODE: 05 PUTTING ON/TAKING OFF FOOTWEAR: Not assessed/no information CODE: - DOES THE PATIENT USE A WHEELCHAIR/SCOOTER? CODE: EXPR INDICATE THE TYPE OF WHEELCHAIR/SCOOTER USED: CODE: EXPR INDICATE THE TYPE OF WHEELCHAIR/SCOOTER USED: CODE: EXPR BLADDER AND BOWEL: CODE: EXPR CODE: EXPR SIGNATURE PANEL: The following modified sections: 1. [id number] Admission Performance, 1. [id number] Admission Performance w ere [electronically] signed by Natalya Lockwood OT on SatMay 25 2020 16:05:05 GMT-0500 ([place] Daylight Time)
[2020-05-25] MEDS: RIVAROXABAN 20 MG TABLET PO SCH (17:17)
--- NOTE | 2020-05-25 19:33 | R.PN ---
PROGRESS NOTES ENCOUNTER DATE AND TIME: 05/25/2020 19:28 (CDT) NAME RON MEDRANO DATE OF : 1955 DATE OF ADMISSION: 05/23/2020 18:05 (CDT) ATRIAL FLUTTER WITH RAPID VENTRICULAR RESPONSECHIEF COMPLAINT: Debility and aflutter with rapid response SUBJECTIVE: Pt denied any Shortness of Breath. Pt denied any depression. WBC 4.8, Hgb 11.5, prealbumin 12.5, UA is normal. Ambulated 1000' with standby assistance without an assistive device. VITAL SIGNS Temperature: 97.7 F SBP/DBP: 124/60 Pulse: 63 Resp: 16 MEDICATION ALLERGIES: No Known Drug Allergies (NKDA) ENVIRONMENTAL ALLERGIES: - Substance Allergies None Known - Other Allergies None Known NURSING: - Shower allowing shower ACTIVITIES OOB only with supervision THERAPIES: - Dietary and Nutrition Adequate Nutrition. Nutritional Education. Nutritional Supplements. PHYSICAL EXAM - Gen Alert and awake Lying in bed No apparent distress Oriented to: person, time, and place - Skin No skin breakdown. No abnormalities - Eyes No abnormalities - ENMT No abnormalities - Neck No abnormalities No cervical adenopathy - CVS RRR - Chest No abnormalities - Resp Clear to auscultation - Abd Soft - GI Non distended No abnormalities - No abnormalities - Ext Mild bilateral lower extremity edema. - MSK 4+/5 weakness in both lower extremities. - Neuro No focal deficits - Psych No abnormalities ASSESSMENT: Pt. is a 64 yo Right-handed female of unknown race.On 05/23/2020 she was admitted to [facility] with diagnosis ATRIAL FLUTTER WITH RAPID VENTRICULAR RESPONSE.Her impairment category is Card iac 09 - Cardiac Disorders (09).Pre-morbidly, Pt. was independent/mod-I in Safety Awareness, Balance , Social Cognition, Self-Care, and Communication; and she had good Sphincter Control and Locomotion.C urrently, she has deficits of Balance, Communication, Endurance, and Locomotion.Pt. is now referred t [facility] for acute in-patient rehabilitation in order to maximize patient' s functional independence in activities of daily living, strength, ROM, and mobility.- Rehab Goal Patient has realistic goal of being discharged at assistance level 7-Ind to reside at Home with Fami ly/Relatives. MDM/PLAN: - Physical Therapy Gait dysfunction - to improve, our physical therapists will perform initial evaluation of pt's statu s upon admission and devise an individualized program for Gait Training, and Wheel Chair mobility Need for home safety evaluation - to improve, our physical therapists will perform initial evaluatio n of pt's status upon admission and devise an individualized program for Home Evaluation Need in caregiver upon discharge - to improve, our physical therapists will perform initial evaluati on of pt's status upon admission and devise an individualized program for Caregiver Training New precaution - to improve, our physical therapists will perform initial evaluation of pt's status upon admission and devise an individualized program for Patient precaution education Edema - to improve, our physical therapists will perform initial evaluation of pt's status upon admis siva and devise an individualized program for Elevation Training, and Lymphedema Therapy Poor balance - to improve, our physical therapists will perform initial evaluation of pt's status up on admission and devise an individualized program for Balance Training Poor endurance - to improve, our physical therapists will perform initial evaluation of pt's status upon admission and devise an individualized program for Endurance Training Weakness - to improve, our physical therapists will perform initial evaluation of pt's status upon a dmission and devise an individualized program for Aquatic Therapy, Neuromuscular Reeducation, and Str engthening Achieving independence - to improve, our physical therapists will perform initial evaluation of pt's status upon admission and devise an individualized program for Community Reintegration Activities - Occupational Therapy Need for patient care coordinator - to improve, our occupation therapists will perform initial evaluation of pt's status upon admission and devise an individualized program for Caregiver Training Weakness - to improve, our occupation therapists will perform initial evaluation of pt's status upon admission and devise an individualized program for Aquatic Therapy, Balance, Endurance, UE ROM, and UE strengthening - Other See attached MAR (Medication Administration Record) - Diet Type Continue Regular - Diet - Liquid Texture Continue Regular - Tube Feed Continue N/A - Diet - Solid Texture Continue Regular - Shower allowing shower FUNCTIONAL STATUS: UPDATED AT WEEKLY TEAM CONFERENCE - Bladder Same accident frequency: 7-Ind - No accidents in the past 7 days - Bowel Same accident frequency: 7-Ind - No accidents in the past 7 days - Walking Same score based on distance walked: 0(N/A) Same score based on distance walked: 3(>=150ft) - Wheelchair Same score based on distance traveled: 0(N/A) FUNCTIONAL STATUS: - Self-Care A. Eating Ind B. Grooming Sarah C. Bathing sup D. Dressing - Upper sup E. Dressing - Lower Nicole F. Toileting sup - Sphincter Control G. Bladder control sup H. Bowel control sup - Transfers Control I. Bed/Chair/Wheelchair Sarah J. Toilet Sarah K. Tub/Shower sup - Locomotion L. Walk/Wheelchair (B) Sarah M. Stairs Sarah - Communication N. Comprehension (B) Ind O. Expression (B) Ind - Social Cognition P. Social Interaction Ind Q. Problem Solving Ind R. Memory Ind - Endurance Good - Balance Good - Safety Awareness Good QI SCORES: - Self-Care A. Eating 03-Partial/moderate assistance B. Oral hygiene 03-Partial/moderate assistance C. Toileting hygiene 03-Partial/moderate assistance E. Shower/bathe self 03-Partial/moderate assistance F. Upper body dressing 03-Partial/moderate assistance G. Lower body dressing 03-Partial/moderate assistance H. Putting on/taking off footwear 88-Not attempted due to medical condition or safety concerns - Mobility A. Roll left and right 03-Partial/moderate assistance B. Sit to lying 03-Partial/moderate assistance C. Lying to sitting on side of bed 03-Partial/moderate assistance D. Sit to stand 03-Partial/moderate assistance E. Chair/gcq-zv-dsyeg transfer 03-Partial/moderate assistance F. Toilet transfer 03-Partial/moderate assistance G. Car transfer 88-Not attempted due to medical condition or safety concerns I. Walk 10 feet 03-Partial/moderate assistance J. Walk 50 feet with two turns 03-Partial/moderate assistance K. Walk 150 feet 03-Partial/moderate assistance L. Walking 10 feet on uneven surfaces 88-Not attempted due to medical condition or safety concerns M. 1 step (curb) 88-Not attempted due to medical condition or safety concerns N. 4 steps 88-Not attempted due to medical condition or safety concerns O. 12 steps 88-Not attempted due to medical condition or safety concerns P. Picking up object 88-Not attempted due to medical condition or safety concerns R. Wheel 50 feet with two turns 03-Partial/moderate assistance S. Wheel 150 feet 88-Not attempted due to medical condition or safety concerns - Bladder and Bowel Bladder continence Bowel continence - Endurance Fair - Balance Poor - Safety Awareness Fair CURRENT [facility]. DEFICITS: Self-Care, Mobility, Endurance, Balance, and Safety Awareness SIGNATURE PANEL: (CDT)
[2020-05-25] MEDS: ATORVASTATIN 10 MG TAB PO SCH (20:21)
[2020-05-25] MEDS: ZOLPIDEM TARTRATE 5 MG TABLET PO PRN (20:21)
[2020-05-26] MEDS: METOPROLOL TAR 25 MG TAB PO SCH ×2 (04:59→17:58)
[2020-05-26 06:52] LABS: Absolute Lymphocytes (CBC) 1.3 K/uL (0.7-4.9); Basophils % 0.3 % (0-1.3); Hematocrit 34.9 % (36.0-45.0); Lymphocytes % 15.8 % (15.3-44.8); MPV 7.6 fL (7.6-11.3); RBC Red Blood Cell Count 3.71 M/uL (3.86-4.86)
[2020-05-26 07:13] LABS: Albumin 2.5 g/dL (3.4-5.0); BUN Blood Urea Nitrogen 9 mg/dL (7-18); Bicarbonate 28 mmol/L (21-32); Glucose Level 85 mg/dL (74-106); Prealbumin 14.4 mg/dL (20-40); Sodium Level 139 mmol/L (136-145)
[2020-05-26] MEDS: lisinopriL 5 MG TAB PO SCH (08:00)
[2020-05-26] MEDS: lamoTRIgine 150 MG TAB PO SCH ×2 (08:28→19:40)
[2020-05-26] MEDS: AMIODARONE HCL 200 MG TAB PO SCH ×2 (08:28→19:41)
[2020-05-26] MEDS: MAGNESIUM OXIDE 400 MG TAB PO SCH (08:28)
[2020-05-26] MEDS: metroNIDAZOLE 500 MG TABLET PO SCH ×3 (08:30→19:59)
[2020-05-26] MEDS: ENSURE HIGH PROTEIN 237 ML CAN PO SCH ×3 (08:31→19:59)
[2020-05-26] MEDS: POTASSIUM CL SA 10 MEQ TAB PO SCH (08:31)
[2020-05-26] MEDS: DIVALPROEX DR 500MG TAB PO SCH ×3 (08:33→19:59)
[2020-05-26] MEDS: ACETAMINOPHEN 325 MG TABLET PO PRN (09:05)
--- NOTE | 2020-05-26 14:59 | RAD REPORT ---
EXAM DESCRIPTION: RAD - Chest Pa And Lat (2 Views) - 05/26/2020 2:50 pm CLINICAL HISTORY: chest pain COMPARISON: May 18 chest film, May 18 CT study TECHNIQUE: Frontal and lateral views of the chest were obtained. FINDINGS: The lungs are normal volume. Left base opacification is present. Patient has a known left pleural effusion. There is additional atelectasis/ or infiltrate present in the posterior left base. Remainder of the left lung field is clear. The right lung field is clear. Heart size is normal and c entral vasculature is within normal limits. No pleural effusion or pneumothorax seen. No acute bony finding noted. No aortic abnormality. IMPRESSION: Small left pleural effusion with infiltrate and/or atelectasis present.
[2020-05-26] MEDS: HYDROCODONE/APAP 5/325 MG TAB PO PRN ×2 (16:25→21:25)
[2020-05-26] MEDS: RIVAROXABAN 20 MG TABLET PO SCH (17:13)
--- NOTE | 2020-05-26 17:37 | R.PN ---
PROGRESS NOTES ENCOUNTER DATE AND TIME: 05/26/2020 17:31 (CDT) NAME RON MEDRANO DATE OF : 1955 DATE OF ADMISSION: 05/23/2020 18:05 (CDT) ATRIAL FLUTTER WITH RAPID VENTRICULAR RESPONSECHIEF COMPLAINT: Debility and aflutter with rapid response SUBJECTIVE: Pt denied any Shortness of Breath. Pt denied any depression. WBC 8.2, Hgb 12.0, prealbumin 14.4, UA is normal. Chest x-ray shows known mild left lung base pleural effusion. Will encourage incentive spirometry. Ambulated 1000' with standby assistance without an assistive device. VITAL SIGNS Temperature: 98.4 F SBP/DBP: 121/61 Pulse: 63 Resp: 16 MEDICATION ALLERGIES: No Known Drug Allergies (NKDA) ENVIRONMENTAL ALLERGIES: - Substance Allergies None Known - Other Allergies None Known NURSING: - Shower allowing shower ACTIVITIES OOB only with supervision THERAPIES: - Dietary and Nutrition Adequate Nutrition. Nutritional Education. Nutritional Supplements. PHYSICAL EXAM - Gen Alert and awake Lying in bed No apparent distress Oriented to: person, time, and place - Skin No skin breakdown. No abnormalities - Eyes No abnormalities - ENMT No abnormalities - Neck No abnormalities No cervical adenopathy - CVS RRR - Chest No abnormalities - Resp Clear to auscultation - Abd Soft - GI Non distended No abnormalities - No abnormalities - Ext Mild bilateral lower extremity edema. - MSK 4+/5 weakness in both lower extremities. - Neuro No focal deficits - Psych No abnormalities ASSESSMENT: Pt. is a 64 yo Right-handed female of unknown race.On 05/23/2020 she was admitted to [facility] with diagnosis ATRIAL FLUTTER WITH RAPID VENTRICULAR RESPONSE.Her impairment category is Card iac 09 - Cardiac Disorders (09).Pre-morbidly, Pt. was independent/mod-I in Safety Awareness, Balance , Social Cognition, Self-Care, and Communication; and she had good Sphincter Control and Locomotion.C urrently, she has deficits of Balance, Communication, Endurance, and Locomotion.Pt. is now referred t [facility] for acute in-patient rehabilitation in order to maximize patient' s functional independence in activities of daily living, strength, ROM, and mobility.- Rehab Goal Patient has realistic goal of being discharged at assistance level 7-Ind to reside at Home with Fami ly/Relatives. MDM/PLAN: - Physical Therapy Gait dysfunction - to improve, our physical therapists will perform initial evaluation of pt's statu s upon admission and devise an individualized program for Gait Training, and Wheel Chair mobility Need for home safety evaluation - to improve, our physical therapists will perform initial evaluatio n of pt's status upon admission and devise an individualized program for Home Evaluation Need in caregiver upon discharge - to improve, our physical therapists will perform initial evaluati on of pt's status upon admission and devise an individualized program for Caregiver Training New precaution - to improve, our physical therapists will perform initial evaluation of pt's status upon admission and devise an individualized program for Patient precaution education Edema - to improve, our physical therapists will perform initial evaluation of pt's status upon admi ssion and devise an individualized program for Elevation Training, and Lymphedema Therapy Poor balance - to improve, our physical therapists will perform initial evaluation of pt's status up on admission and devise an individualized program for Balance Training Poor endurance - to improve, our physical therapists will perform initial evaluation of pt's status upon admission and devise an individualized program for Endurance Training Weakness - to improve, our physical therapists will perform initial evaluation of pt's status upon a dmission and devise an individualized program for Aquatic Therapy, Neuromuscular Reeducation, and Str engthening Achieving independence - to improve, our physical therapists will perform initial evaluation of pt's status upon admission and devise an individualized program for Community Reintegration Activities - Occupational Therapy Need for specialist wound care - to improve, our occupation therapists will perform initial evaluation of pt's status upon admission and devise an individualized program for Caregiver Training Weakness - to improve, our occupation therapists will perform initial evaluation of pt's status upon admission and devise an individualized program for Aquatic Therapy, Balance, Endurance, UE ROM, and UE strengthening - Other See attached MAR (Medication Administration Record) - Diet Type Continue Regular - Diet - Liquid Texture Continue Regular - Tube Feed Continue N/A - Diet - Solid Texture Continue Regular - Shower allowing shower FUNCTIONAL STATUS: UPDATED AT WEEKLY TEAM CONFERENCE - Bladder Same accident frequency: 7-Ind - No accidents in the past 7 days - Bowel Same accident frequency: 7-Ind - No accidents in the past 7 days - Walking Same score based on distance walked: 0(N/A) Same score based on distance walked: 3(>=150ft) - Wheelchair Same score based on distance traveled: 0(N/A) FUNCTIONAL STATUS: - Self-Care A. Eating Ind B. Grooming Sarah C. Bathing sup D. Dressing - Upper sup E. Dressing - Lower Nicole F. Toileting sup - Sphincter Control G. Bladder control sup H. Bowel control sup - Transfers Control I. Bed/Chair/Wheelchair Sarah J. Toilet Sarah K. Tub/Shower sup - Locomotion L. Walk/Wheelchair (B) Sarah M. Stairs Sarah - Communication N. Comprehension (B) Ind O. Expression (B) Ind - Social Cognition P. Social Interaction Ind Q. Problem Solving Ind R. Memory Ind - Endurance Good - Balance Good - Safety Awareness Good QI SCORES: - Self-Care A. Eating 03-Partial/moderate assistance B. Oral hygiene 03-Partial/moderate assistance C. Toileting hygiene 03-Partial/moderate assistance E. Shower/bathe self 03-Partial/moderate assistance F. Upper body dressing 03-Partial/moderate assistance G. Lower body dressing 03-Partial/moderate assistance H. Putting on/taking off footwear 88-Not attempted due to medical condition or safety concerns - Mobility A. Roll left and right 03-Partial/moderate assistance B. Sit to lying 03-Partial/moderate assistance C. Lying to sitting on side of bed 03-Partial/moderate assistance D. Sit to stand 03-Partial/moderate assistance E. Chair/mkt-at-oiwog transfer 03-Partial/moderate assistance F. Toilet transfer 03-Partial/moderate assistance G. Car transfer 88-Not attempted due to medical condition or safety concerns I. Walk 10 feet 03-Partial/moderate assistance J. Walk 50 feet with two turns 03-Partial/moderate assistance K. Walk 150 feet 03-Partial/moderate assistance L. Walking 10 feet on uneven surfaces 88-Not attempted due to medical condition or safety concerns M. 1 step (curb) 88-Not attempted due to medical condition or safety concerns N. 4 steps 88-Not attempted due to medical condition or safety concerns O. 12 steps 88-Not attempted due to medical condition or safety concerns P. Picking up object 88-Not attempted due to medical condition or safety concerns R. Wheel 50 feet with two turns 03-Partial/moderate assistance S. Wheel 150 feet 88-Not attempted due to medical condition or safety concerns - Bladder and Bowel Bladder continence Bowel continence - Endurance Fair - Balance Poor - Safety Awareness Fair CURRENT [facility]. DEFICITS: Self-Care, Mobility, Endurance, Balance, and Safety Awareness SIGNATURE PANEL: (CDT)
[2020-05-26] MEDS: ATORVASTATIN 10 MG TAB PO SCH (19:59)
[2020-05-26] MEDS: ZOLPIDEM TARTRATE 5 MG TABLET PO PRN (19:59)
[2020-05-27] MEDS: HYDROCODONE/APAP 5/325 MG TAB PO PRN ×4 (02:40→21:37)
[2020-05-27] MEDS: METOPROLOL TAR 25 MG TAB PO SCH ×2 (04:59→16:59)
[2020-05-27] MEDS: ACETAMINOPHEN 325 MG TABLET PO PRN (07:53)
[2020-05-27] MEDS: POTASSIUM CL SA 10 MEQ TAB PO SCH (07:55)
[2020-05-27] MEDS: lisinopriL 5 MG TAB PO SCH (07:55)
[2020-05-27] MEDS: DULOXETINE 20 MG CAP PO SCH (07:55)
[2020-05-27] MEDS: metroNIDAZOLE 500 MG TABLET PO SCH ×3 (07:55→20:13)
[2020-05-27] MEDS: DIVALPROEX DR 500MG TAB PO SCH ×3 (07:55→20:13)
[2020-05-27] MEDS: MAGNESIUM OXIDE 400 MG TAB PO SCH (07:56)
[2020-05-27] MEDS: lamoTRIgine 150 MG TAB PO SCH ×2 (07:56→19:52)
[2020-05-27] MEDS: ENSURE HIGH PROTEIN 237 ML CAN PO SCH ×2 (07:57→13:57)
[2020-05-27] MEDS: AMIODARONE HCL 200 MG TAB PO SCH ×2 (07:59→19:52)
[2020-05-27] MEDS: ONDANSETRON 4 MG (ODT) TAB PO PRN ×2 (09:50→15:25)
--- NOTE | 2020-05-27 09:55 | P.RH.PN ---
Estimated Length of Stay: 11 Expected Discharge Date: 06/02/20 Discharge Disposition Plan: Home Family Support: Yes Mcfp Goal: Mobility, Transfers, Self Care Vital Signs: Last Vital Signs Temp 98.0 F 05/27/20 07:22 Pulse 73 05/27/20 07:55 Resp 17 05/27/20 09:15 BP 115/59 L 05/27/20 07:55 Pulse Ox 94 05/27/20 09:15 Laboratory: Laboratory Last Values WBC 8.2 K/uL (4.3-10.9) D 05/26/20 06:17 RBC 3.71 M/uL (3.86-4.86) L 05/26/20 06:17 Hgb 12.0 g/dL (12.0-15.0) 05/26/20 06:17 Hct 34.9 % (36.0-45.0) L 05/26/20 06:17 MCV 94.2 fL (80-100) 05/26/20 06:17 MCH 32.3 pg (27.0-35.0) 05/26/20 06:17 MCHC 34.3 g/dL (32.0-36.0) 05/26/20 06:17 RDW 14.7 % (12.1-15.2) 05/26/20 06:17 Plt Count 303 K/uL (152-406) 05/26/20 06:17 MPV 7.6 fL (7.6-11.3) 05/26/20 06:17 Neutrophils % 67.7 % (41.7-73.7) 05/26/20 06:17 Lymphocytes % 15.8 % (15.3-44.8) 05/26/20 06:17 Monocytes % 15.7 % (3.3-12.3) H 05/26/20 06:17 Eosinophils % 0.5 % (0-4.4) 05/26/20 06:17 Basophils % 0.3 % (0-1.3) 05/26/20 06:17 Absolute Neutrophils 5.6 K/uL (1.8-8.0) 05/26/20 06:17 Segmented Neutrophils 49 % (40-80) 05/24/20 05:44 Absolute Lymphocytes 1.3 K/uL (0.7-4.9) 05/26/20 06:17 Lymphocytes 34 % (15-42) 05/24/20 05:44 Monocytes 13 % (0-10) H 05/24/20 05:44 Absolute Monocytes 1.3 K/uL (0.1-1.3) 05/26/20 06:17 Absolute Eosinophils 0.0 K/uL (0-0.5) 05/26/20 06:17 Absolute Basophils 0.0 K/uL (0-0.5) 05/26/20 06:17 Metamyelocytes 4 % (0-0) H 05/24/20 05:44 Platelet Estimate Adeq 05/24/20 05:44 Morphology Comment Not seen (NOT SEEN) 05/24/20 05:44 Sodium 139 mmol/L (136-145) 05/26/20 06:17 Potassium 4.0 mmol/L (3.5-5.1) 05/26/20 06:17 Chloride 105 mmol/L (98-107) 05/26/20 06:17 Carbon Dioxide 28 mmol/L (21-32) 05/26/20 06:17 BUN 9 mg/dL (7-18) 05/26/20 06:17 Creatinine 0.57 mg/dL (0.55-1.3) 05/26/20 06:17 Estimated GFR > 90 mL/min (=/>90) 05/26/20 06:17 Glucose 85 mg/dL (74-106) 05/26/20 06:17 Calcium 8.0 mg/dL (8.5-10.1) L 05/26/20 06:17 Magnesium 2.0 mg/dL (1.8-2.4) D 05/24/20 05:44 Albumin 2.5 g/dL (3.4-5.0) L 05/26/20 06:17 Prealbumin 14.4 mg/dL (20-40) L 05/26/20 06:17 Urine Color Yellow 05/24/20 09:15 Urine Appearance Clear 05/24/20 09:15 Urine pH 7.5 (5.0-7.0) H 05/24/20 09:15 Ur Specific Lucien 1.010 (1.005-1.030) 05/24/20 09:15 Glucose (UA)(Auto) Negative (NEG) 05/24/20 09:15 Urine Ketones Trace (NEG) 05/24/20 09:15 Urine Blood Negative (NEG) 05/24/20 09:15 Urine Nitrite Negative (NEG) 05/24/20 09:15 Urine Bilirubin Negative (NEG) 05/24/20 09:15 Urine Urobilinogen 0.2 mg/dL (0.2-1.0) 05/24/20 09:15 Ur Leukocyte Esterase Negative (NEG) 05/24/20 09:15 Urine RBC None seen /HPF (NONE SEEN) 05/24/20 09:15 Urine WBC <5 /HPF (<5) 05/24/20 09:15 Ur Squamous Epith Cells <5 /HPF (NONE SEEN) 05/24/20 09:15 Urine Bacteria <20 /HPF (<20) 05/24/20 09:15 Urine Culture Reflexed Not needed 05/24/20 09:15 Urine Total Protein Negative (NEG) 05/24/20 09:15 Weight: 152 lb Wound Present: No Closed Surgical Incision Present: No Negative Pressure Wound Therapy Present: No Physician Update: Her blood work was reviewed and are essentially unremarkable. She has mild left upper chest disconfort with her physical exercises. She is making fair overall progress with all therapy. Summary: Patient's care plan and alf goals have been reviewed and revised as necessary. Please see the Rehabilitation Signature page for all necessary signatures.
[2020-05-27] MEDS: RIVAROXABAN 20 MG TABLET PO SCH (17:01)
[2020-05-27] MEDS: ZOLPIDEM TARTRATE 5 MG TABLET PO PRN (20:13)
[2020-05-27] MEDS: ATORVASTATIN 10 MG TAB PO SCH (20:13)
[2020-05-28] MEDS: HYDROCODONE/APAP 5/325 MG TAB PO PRN ×3 (00:27→15:58)
[2020-05-28] MEDS: METOPROLOL TAR 25 MG TAB PO SCH ×2 (05:08→17:06)
[2020-05-28] MEDS: lisinopriL 5 MG TAB PO SCH ×2 (08:00→12:13)
[2020-05-28] MEDS: metroNIDAZOLE 500 MG TABLET PO SCH ×3 (08:37→20:07)
[2020-05-28] MEDS: DULOXETINE 20 MG CAP PO SCH (08:37)
[2020-05-28] MEDS: DIVALPROEX DR 500MG TAB PO SCH ×3 (08:39→20:07)
[2020-05-28] MEDS: MAGNESIUM OXIDE 400 MG TAB PO SCH (08:40)
[2020-05-28] MEDS: AMIODARONE HCL 200 MG TAB PO SCH ×2 (08:40→20:07)
[2020-05-28] MEDS: POTASSIUM CL SA 10 MEQ TAB PO SCH (08:40)
[2020-05-28] MEDS: lamoTRIgine 150 MG TAB PO SCH ×2 (08:41→20:07)
[2020-05-28] MEDS: ONDANSETRON 4 MG (ODT) TAB PO PRN ×2 (10:11→20:31)
--- NOTE | 2020-05-28 14:54 | FAST ---
[employer] FORM SHIFT START DATE/TIME: 05/28/2020 07:00 (CDT) SHIFT END DATE/TIME: 05/28/2020 19:00 (CDT) NAME RON MEDRANO DATE OF : 1955 DATE OF ADMISSION: 05/23/2020 18:05 (CDT) PHONE: AGE: 64 N# [id number] GENDER: Female ENCOUNTER PHYSICIAN: Dr. Arsh Milton M.D. ADMISSION DIAGNOSIS: - Cardiac 09 - Cardiac Disorders () ATRIAL FLUTTER WITH RAPID VENTRICULAR RESPONSE. EATING: EATING - STEP 1: Does the patient complete the activity by him/herself with no assistance (physical, verbal/nonverbal cueing, setup/clean-up)? No. EATING - STEP 2: Does the patient need only setup/clean-up assistance from one helper? Yes. 1. [id number] ADMISSION PERFORMANCE: Setup or clean-up assistance CODE: 05 ORAL HYGIENE: ORAL HYGIENE - STEP 1: Does the patient complete the activity by him/herself with no assistance (physical, verbal/nonverbal cueing, setup/clean-up)? No. ORAL HYGIENE - STEP 2: Does the patient need only setup/clean-up assistance from one helper? Yes. 1. [id number] ADMISSION PERFORMANCE: Setup or clean-up assistance CODE: 05 TOILETING HYGIENE: TOILETING HYGIENE - STEP 1: Does the patient complete the activity by him/herself with no assistance (physical, verbal/nonverbal cueing, setup/clean-up)? No. TOILETING HYGIENE - STEP 2: Does the patient need only setup/clean-up assistance from one helper? Yes. 1. [id number] ADMISSION PERFORMANCE: Setup or clean-up assistance CODE: 05 BATHING: Not assessed/no information CODE: - DRESSING - UPPER BODY: DRESSING - UPPER BODY - STEP 1: Does the patient complete the activity by him/herself with no assistance (physical, verbal/nonverbal cueing, setup/clean-up)? No. DRESSING - UPPER BODY - STEP 2: Does the patient need only setup/clean-up assistance from one helper? No. DRESSING - UPPER BODY - STEP 3: Does the patient need only verbal/nonverbal cueing or touching/steadying/contact guard assistance fro m one helper? Yes. 1. [id number] ADMISSION PERFORMANCE: Supervision or touching assistance CODE: 04 DRESSING - LOWER BODY: DRESSING - LOWER BODY - STEP 1: Does the patient complete the activity by him/herself with no assistance (physical, verbal/nonverbal cueing, setup/clean-up)? No. DRESSING - LOWER BODY - STEP 2: Does the patient need only setup/clean-up assistance from one helper? No. DRESSING - LOWER BODY - STEP 3: Does the patient need only verbal/nonverbal cueing or touching/steadying/contact guard assistance fro m one helper? Yes. 1. [id number] ADMISSION PERFORMANCE: Supervision or touching assistance CODE: 04 PUTTING ON/TAKING OFF FOOTWEAR: FOOTWEAR - STEP 1: Does the patient complete the activity by him/herself with no assistance (physical, verbal/nonverbal cueing, setup/clean-up)? No. FOOTWEAR - STEP 2: Does the patient need only setup/clean-up assistance from one helper? No. FOOTWEAR - STEP 3: Does the patient need only verbal/nonverbal cueing or touching/steadying/contact guard assistance fro m one helper? Yes. 1. [id number] ADMISSION PERFORMANCE: Supervision or touching assistance CODE: 04 ROLL LEFT AND RIGHT: ROLL LEFT AND RIGHT - STEP 1: Does the patient complete the activity by him/herself with no assistance (physical, verbal/nonverbal cueing, setup/clean-up)? No. ROLL LEFT AND RIGHT - STEP 2: Does the patient need only setup/clean-up assistance from one helper? Yes. 1. [id number] ADMISSION PERFORMANCE: Setup or clean-up assistance CODE: 05 SIT TO LYING: SIT TO LYING - STEP 1: Does the patient complete the activity by him/herself with no assistance (physical, verbal/nonverbal cueing, setup/clean-up)? No. SIT TO LYING - STEP 2: Does the patient need only setup/clean-up assistance from one helper? Yes. 1. [id number] ADMISSION PERFORMANCE: Setup or clean-up assistance CODE: 05 LYING TO SITTING: LYING TO SITTING ON SIDE OF BED - STEP 1: Does the patient complete the activity by him/herself with no assistance (physical, verbal/nonverbal cueing, setup/clean-up)? No. LYING TO SITTING ON SIDE OF BED - STEP 2: Does the patient need only setup/clean-up assistance from one helper? Yes. 1. [id number] ADMISSION PERFORMANCE: Setup or clean-up assistance CODE: 05 SIT TO STAND: SIT TO STAND - STEP 1: Does the patient complete the activity by him/herself with no assistance (physical, verbal/nonverbal cueing, setup/clean-up)? No. SIT TO STAND - STEP 2: Does the patient need only setup/clean-up assistance from one helper? Yes. 1. [id number] ADMISSION PERFORMANCE: Setup or clean-up assistance CODE: 05 TRANSFERS: BED, CHAIR: CHAIR/[id number] TRANSFER - STEP 1: Does the patient complete the activity by him/herself with no assistance (physical, verbal/nonverbal cueing, setup/clean-up)? No. CHAIR/[id number] TRANSFER - STEP 2: Does the patient need only setup/clean-up assistance from one helper? Yes. 1. [id number] ADMISSION PERFORMANCE: Setup or clean-up assistance CODE: 05 TRANSFER TOILET: TOILET TRANSFER - STEP 1: Does the patient complete the activity by him/herself with no assistance (physical, verbal/nonverbal cueing, setup/clean-up)? No. TOILET TRANSFER - STEP 2: Does the patient need only setup/clean-up assistance from one helper? Yes. 1. [id number] ADMISSION PERFORMANCE: Setup or clean-up assistance CODE: 05 TRANSFERS: CAR: Not assessed/no information CODE: - WALK 10 FEET: Not assessed/no information CODE: - 1 STEP (CURB): Not assessed/no information CODE: - PICKING UP OBJECT: Not assessed/no information CODE: - DOES THE PATIENT USE A WHEELCHAIR/SCOOTER? Q1. DOES THE PATIENT USE A WHEELCHAIR/SCOOTER?: Yes CODE: 1 WHEEL 50 FEET WITH TWO TURNS: WHEEL 50 FEET WITH TWO TURNS - STEP 1: Does the patient complete the activity by him/herself with no assistance (physical, verbal/nonverbal cueing, setup/clean-up)? No. WHEEL 50 FEET WITH TWO TURNS - STEP 2: Does the patient need only setup/clean-up assistance from one helper? Yes. 1. [id number] ADMISSION PERFORMANCE: Setup or clean-up assistance CODE: 05 INDICATE THE TYPE OF WHEELCHAIR/SCOOTER USED: RR1. INDICATE THE TYPE OF WHEELCHAIR/SCOOTER USED.: Manual CODE: 1 WHEEL 150 FEET: Not assessed/no information CODE: - INDICATE THE TYPE OF WHEELCHAIR/SCOOTER USED: SS1. INDICATE THE TYPE OF WHEELCHAIR/SCOOTER USED.: Manual CODE: 1 BLADDER AND BOWEL: H350. BLADDER CONTINENCE (3-DAY ASSESSMENT PERIOD): Always continent (no documented incontinence) CODE: 0 H400. BOWEL CONTINENCE (3-DAY ASSESSMENT PERIOD): Always continent CODE: 0 SIGNATURE PANEL: The following modified sections: 1. [id number] Admission Performance, 1. [id number] Admission Performance, 1. WC1324B Admission Performance, 1. [id number] Admission Performance, 1. IW5400c Admission Performance, 1. ZX8714a Admission Performance, 1. [id number] Admission Performance, 1. [id number] Admission Performance , 1. [id number] Admission Performance, 1. [id number] Admission Performance, 1. [id number] Admission Performanc e, 1. [id number] Admission Performance, Q1. Does the patient use a wheelchair/scooter?, 1. [id number] Admis siva Performance, RR1. Indicate the type of wheelchair/scooter used., Code, SS1. Indicate the type of wheelchair/scooter used., H350. Bladder Continence (3-day assessment period), H400. Bowel Continence (3-day assessment period) were [electronically] signed by Samantha Callejas C.N.A. on Sat May 28 2020 14 :52:58 T-0500 (Central Daylight Time)
[2020-05-28] MEDS: RIVAROXABAN 20 MG TABLET PO SCH (17:03)
[2020-05-28] MEDS: PROMOD 30 ML DOSE PO SCH (20:07)
[2020-05-28] MEDS: ZOLPIDEM TARTRATE 5 MG TABLET PO PRN (20:07)
[2020-05-28] MEDS: ATORVASTATIN 10 MG TAB PO SCH (20:07)
[2020-05-28] MEDS: ACETAMINOPHEN 325 MG TABLET PO PRN (20:31)
[2020-05-29] MEDS: METOPROLOL TAR 25 MG TAB PO SCH ×2 (05:06→17:02)
[2020-05-29] MEDS: ACETAMINOPHEN 325 MG TABLET PO PRN ×2 (05:06→20:15)
[2020-05-29] MEDS ORDERED: AMIODARONE HCL 200 MG TAB PO SCH (08:00)
[2020-05-29] MEDS: lisinopriL 5 MG TAB PO SCH (08:00)
[2020-05-29] MEDS: POTASSIUM CL SA 10 MEQ TAB PO SCH (08:59)
[2020-05-29] MEDS: metroNIDAZOLE 500 MG TABLET PO SCH ×3 (08:59→20:04)
[2020-05-29] MEDS: DIVALPROEX DR 500MG TAB PO SCH ×3 (08:59→20:04)
[2020-05-29] MEDS: lamoTRIgine 150 MG TAB PO SCH ×2 (09:00→20:04)
[2020-05-29] MEDS: MAGNESIUM OXIDE 400 MG TAB PO SCH (09:00)
[2020-05-29] MEDS: DULOXETINE 20 MG CAP PO SCH (09:00)
[2020-05-29] MEDS: HYDROCODONE/APAP 5/325 MG TAB PO PRN ×2 (09:03→15:47)
[2020-05-29] MEDS: ONDANSETRON 4 MG (ODT) TAB PO PRN ×2 (13:33→20:15)
[2020-05-29] MEDS: PROMOD 30 ML DOSE PO SCH ×2 (13:33→20:05)
[2020-05-29 15:35] LABS: Absolute Lymphocytes (CBC) 1.3 K/uL (0.7-4.9); Basophils % 0.2 % (0-1.3); Hematocrit 40.2 % (36.0-45.0); Lymphocytes % 9.6 % (15.3-44.8); MPV 8.3 fL (7.6-11.3); RBC Red Blood Cell Count 4.21 M/uL (3.86-4.86)
[2020-05-29 15:48] LABS: BUN Blood Urea Nitrogen 16 mg/dL (7-18); Bicarbonate 25 mmol/L (21-32); Glucose Level 146 mg/dL (74-106); Potassium 4.9 mmol/L (3.5-5.1); Sodium Level 127 mmol/L (136-145)
[2020-05-29 16:42] LABS: Blood Morphology Comment NOTED (NOT SEEN); Platelet Estimate ADEQ; Poikilocytosis 1+; White Blood Cell Scan OK (OK)
[2020-05-29] MEDS ORDERED: NA CHLORIDE 0.9% 1,000 ML IV SCH (17:00)
[2020-05-29] MEDS: RIVAROXABAN 20 MG TABLET PO SCH (17:30)
--- NOTE | 2020-05-29 18:15 | RAD REPORT ---
EXAM DESCRIPTION: RAD - Chest Single View - 05/29/2020 5:40 pm CLINICAL HISTORY: to compare with previous xray Chest pain. COMPARISON: Chest Pa And Lat (2 Views) dated 05/26/2020; Chest Single View dated 05/18/2020; Chest Si ngle View dated 04/24/2020 FINDINGS: Portable technique limits examination quality. Left lung base pleural and parenchymal opacification appear mildly worsened since comparative study. Right lung remains clear. Heart is mildly prominent. No displaced fractures. IMPRESSION: Mild worsening in left lung base aeration noted since comparative study.
[2020-05-29] MEDS: ATORVASTATIN 10 MG TAB PO SCH (20:04)
[2020-05-29] MEDS: ZOLPIDEM TARTRATE 5 MG TABLET PO PRN (20:05)
[2020-05-29 20:30] LABS: Urine Appearance CLOUDY; Urine Bilirubin NEGATIVE (NEG); Urine Blood NEGATIVE (NEG); Urine Color DK YELLOW; Urine Glucose NEGATIVE (NEG); Urine Protein NEGATIVE (NEG); Urine Specific Gravity 1.025 (1.005-1.030); Urine Urobilinogen 0.2 mg/dL (0.2-1.0)
[2020-05-29 20:45] LABS: Urine Microscopic Reflex ORDER UMIC
[2020-05-29 21:05] LABS: Urine Amorphous Sediment 3+ /HPF (NONE SEEN); Urine Bacteria 20-50 /HPF (<20); Urine Culture Reflex Order NOT NEEDED; Urine Mucus MOD /HPF (NONE SEEN); Urine RBC NONE SEEN /HPF (NONE SEEN)
[2020-05-30] MEDS: HYDROCODONE/APAP 5/325 MG TAB PO PRN ×4 (00:43→23:43)
[2020-05-30] MEDS: METOPROLOL TAR 25 MG TAB PO SCH (05:08)
[2020-05-30] MEDS: ACETAMINOPHEN 325 MG TABLET PO PRN (05:10)
[2020-05-30 06:13] LABS: Basophils % 0.3 % (0-1.3); Hematocrit 33.1 % (36.0-45.0); Lymphocytes % 9.9 % (15.3-44.8); RBC Red Blood Cell Count 3.52 M/uL (3.86-4.86)
[2020-05-30 06:25] LABS: BUN Blood Urea Nitrogen 13 mg/dL (7-18); Bicarbonate 25 mmol/L (21-32); Glucose Level 88 mg/dL (74-106); Potassium 4.4 mmol/L (3.5-5.1); Sodium Level 128 mmol/L (136-145)
[2020-05-30] MEDS: PANTOPRAZOLE 40MG TABLET PO SCH (06:27)
[2020-05-30 06:40] LABS: Blood Morphology Comment NOT SEEN (NOT SEEN); Platelet Estimate ADEQ
[2020-05-30] MEDS: POTASSIUM CL SA 10 MEQ TAB PO SCH (07:49)
[2020-05-30] MEDS: PROMOD 30 ML DOSE PO SCH ×3 (07:49→20:06)
[2020-05-30] MEDS: DULOXETINE 20 MG CAP PO SCH (07:50)
[2020-05-30] MEDS: MAGNESIUM OXIDE 400 MG TAB PO SCH (07:50)
[2020-05-30] MEDS: metroNIDAZOLE 500 MG TABLET PO SCH (07:50)
[2020-05-30] MEDS: DIVALPROEX DR 500MG TAB PO SCH ×4 (07:50→20:06)
[2020-05-30] MEDS: lamoTRIgine 150 MG TAB PO SCH ×2 (07:50→20:05)
[2020-05-30] MEDS: AMIODARONE HCL 200 MG TAB PO SCH (07:51)
[2020-05-30] MEDS: lisinopriL 5 MG TAB PO SCH ×2 (07:51→17:44)
[2020-05-30] MEDS: ONDANSETRON 4 MG/2 ML VIAL IV PRN ×3 (10:53→20:06)
[2020-05-30] MEDS: CRANBERRY FRUIT EXTRACT 200 MG CAP PO SCH ×2 (13:36→20:05)
[2020-05-30] MEDS: RIVAROXABAN 20 MG TABLET PO SCH (16:46)
--- NOTE | 2020-05-30 18:03 | R.PN ---
PROGRESS NOTES ENCOUNTER DATE AND TIME: 05/30/2020 17:58 (CDT) NAME RON MEDRANO DATE OF : 1955 DATE OF ADMISSION: 05/23/2020 18:05 (CDT) ATRIAL FLUTTER WITH RAPID VENTRICULAR RESPONSECHIEF COMPLAINT: Debility and aflutter with rapid response SUBJECTIVE: Pt denied any Shortness of Breath. Pt denied any depression. WBC 10.2, Hgb 11.5, Na 128, Calcium 7.7. Repeat UA shows 2+ esterase, bacteria 20-50. Will encourag e incentive spirometry. Ambulated 1000' with standby assistance without an assistive device. VITAL SIGNS Temperature: 97.5 F SBP/DBP: 151/73 Pulse: 75 Resp: 16 MEDICATION ALLERGIES: No Known Drug Allergies (NKDA) ENVIRONMENTAL ALLERGIES: - Substance Allergies None Known - Other Allergies None Known NURSING: - Shower allowing shower ACTIVITIES OOB only with supervision THERAPIES: - Dietary and Nutrition Adequate Nutrition. Nutritional Education. Nutritional Supplements. PHYSICAL EXAM - Gen Alert and awake Lying in bed No apparent distress Oriented to: person, time, and place - Skin No skin breakdown. No abnormalities - Eyes No abnormalities - ENMT No abnormalities - Neck No abnormalities No cervical adenopathy - CVS RRR - Chest No abnormalities - Resp Clear to auscultation - Abd Soft - GI Non distended No abnormalities - No abnormalities - Ext Mild bilateral lower extremity edema. - MSK 4+/5 weakness in both lower extremities. - Neuro No focal deficits - Psych No abnormalities ASSESSMENT: Pt. is a 64 yo Right-handed female of unknown race.On 05/23/2020 she was admitted to [facility] with diagnosis ATRIAL FLUTTER WITH RAPID VENTRICULAR RESPONSE.Her impairment category is Card iac 09 - Cardiac Disorders (09).Pre-morbidly, Pt. was independent/mod-I in Safety Awareness, Balance , Social Cognition, Self-Care, and Communication; and she had good Sphincter Control and Locomotion.C urrently, she has deficits of Balance, Communication, Endurance, and Locomotion.Pt. is now referred t [facility] for acute in-patient rehabilitation in order to maximize patient' s functional independence in activities of daily living, strength, ROM, and mobility.- Rehab Goal Patient has realistic goal of being discharged at assistance level 7-Ind to reside at Home with Fami ly/Relatives. MDM/PLAN: - Physical Therapy Gait dysfunction - to improve, our physical therapists will perform initial evaluation of pt's statu s upon admission and devise an individualized program for Gait Training, and Wheel Chair mobility Need for home safety evaluation - to improve, our physical therapists will perform initial evaluatio n of pt's status upon admission and devise an individualized program for Home Evaluation Need in caregiver upon discharge - to improve, our physical therapists will perform initial evaluati on of pt's status upon admission and devise an individualized program for Caregiver Training New precaution - to improve, our physical therapists will perform initial evaluation of pt's status upon admission and devise an individualized program for Patient precaution education Edema - to improve, our physical therapists will perform initial evaluation of pt's status upon admi ssion and devise an individualized program for Elevation Training, and Lymphedema Therapy Poor balance - to improve, our physical therapists will perform initial evaluation of pt's status up on admission and devise an individualized program for Balance Training Poor endurance - to improve, our physical therapists will perform initial evaluation of pt's status upon admission and devise an individualized program for Endurance Training Weakness - to improve, our physical therapists will perform initial evaluation of pt's status upon a dmission and devise an individualized program for Aquatic Therapy, Neuromuscular Reeducation, and Str engthening Achieving independence - to improve, our physical therapists will perform initial evaluation of pt's status upon admission and devise an individualized program for Community Reintegration Activities - Occupational Therapy Need for resident caregiver - to improve, our occupation therapists will perform initial evaluation of pt's status upon admission and devise an individualized program for Caregiver Training Weakness - to improve, our occupation therapists will perform initial evaluation of pt's status upon admission and devise an individualized program for Aquatic Therapy, Balance, Endurance, UE ROM, and UE strengthening - Other See attached MAR (Medication Administration Record) - Diet Type Continue Regular - Diet - Liquid Texture Continue Regular - Tube Feed Continue N/A - Diet - Solid Texture Continue Regular - Shower allowing shower FUNCTIONAL STATUS: UPDATED AT WEEKLY TEAM CONFERENCE - Bladder Same accident frequency: 7-Ind - No accidents in the past 7 days - Bowel Same accident frequency: 7-Ind - No accidents in the past 7 days - Walking Same score based on distance walked: 0(N/A) Same score based on distance walked: 3(>=150ft) - Wheelchair Same score based on distance traveled: 0(N/A) FUNCTIONAL STATUS: - Self-Care A. Eating Ind B. Grooming Sarah C. Bathing sup D. Dressing - Upper sup E. Dressing - Lower Nicole F. Toileting sup - Sphincter Control G. Bladder control sup H. Bowel control sup - Transfers Control I. Bed/Chair/Wheelchair Sarah J. Toilet Sarah K. Tub/Shower sup - Locomotion L. Walk/Wheelchair (B) Sarah M. Stairs Sarah - Communication N. Comprehension (B) Ind O. Expression (B) Ind - Social Cognition P. Social Interaction Ind Q. Problem Solving Ind R. Memory Ind - Endurance Good - Balance Good - Safety Awareness Good QI SCORES: - Self-Care A. Eating 03-Partial/moderate assistance B. Oral hygiene 03-Partial/moderate assistance C. Toileting hygiene 03-Partial/moderate assistance E. Shower/bathe self 03-Partial/moderate assistance F. Upper body dressing 03-Partial/moderate assistance G. Lower body dressing 03-Partial/moderate assistance H. Putting on/taking off footwear 88-Not attempted due to medical condition or safety concerns - Mobility A. Roll left and right 03-Partial/moderate assistance B. Sit to lying 03-Partial/moderate assistance C. Lying to sitting on side of bed 03-Partial/moderate assistance D. Sit to stand 03-Partial/moderate assistance E. Chair/zpg-jy-sbfyx transfer 03-Partial/moderate assistance F. Toilet transfer 03-Partial/moderate assistance G. Car transfer 88-Not attempted due to medical condition or safety concerns I. Walk 10 feet 03-Partial/moderate assistance J. Walk 50 feet with two turns 03-Partial/moderate assistance K. Walk 150 feet 03-Partial/moderate assistance L. Walking 10 feet on uneven surfaces 88-Not attempted due to medical condition or safety concerns M. 1 step (curb) 88-Not attempted due to medical condition or safety concerns N. 4 steps 88-Not attempted due to medical condition or safety concerns O. 12 steps 88-Not attempted due to medical condition or safety concerns P. Picking up object 88-Not attempted due to medical condition or safety concerns R. Wheel 50 feet with two turns 03-Partial/moderate assistance S. Wheel 150 feet 88-Not attempted due to medical condition or safety concerns - Bladder and Bowel Bladder continence Bowel continence - Endurance Fair - Balance Poor - Safety Awareness Fair CURRENT [facility]. DEFICITS: Self-Care, Mobility, Endurance, Balance, and Safety Awareness SIGNATURE PANEL: (CDT)
[2020-05-30] MEDS: ATORVASTATIN 10 MG TAB PO SCH (20:06)
[2020-05-30] MEDS: ZOLPIDEM TARTRATE 5 MG TABLET PO PRN (20:15)
[2020-05-31] MEDS: ACETAMINOPHEN 325 MG TABLET PO PRN (04:36)
[2020-05-31] MEDS: PANTOPRAZOLE 40MG TABLET PO SCH (06:29)
[2020-05-31] MEDS: HYDROCODONE/APAP 5/325 MG TAB PO PRN ×4 (06:33→20:25)
[2020-05-31] MEDS: ONDANSETRON 4 MG/2 ML VIAL IV PRN ×3 (06:34→19:20)
[2020-05-31] MEDS: PROMOD 30 ML DOSE PO SCH ×2 (07:35→20:00)
[2020-05-31] MEDS: AMIODARONE HCL 200 MG TAB PO SCH (07:47)
[2020-05-31] MEDS: lamoTRIgine 150 MG TAB PO SCH ×2 (07:47→20:00)
[2020-05-31] MEDS: CRANBERRY FRUIT EXTRACT 200 MG CAP PO SCH ×2 (07:48→20:25)
[2020-05-31] MEDS: lisinopriL 5 MG TAB PO SCH ×2 (07:49→15:18)
[2020-05-31] MEDS: MAGNESIUM OXIDE 400 MG TAB PO SCH (07:49)
[2020-05-31] MEDS: DIVALPROEX DR 500MG TAB PO SCH ×3 (07:49→20:25)
[2020-05-31] MEDS: POTASSIUM CL SA 10 MEQ TAB PO SCH (07:49)
[2020-05-31] MEDS: DULOXETINE 20 MG CAP PO SCH (07:49)
[2020-05-31] MEDS ORDERED: AMIODARONE HCL 200 MG TAB PO SCH (08:00)
--- NOTE | 2020-05-31 14:08 | RAD REPORT ---
EXAM DESCRIPTION: CT - Head Brain Wo Cont - 05/31/2020 1:51 pm CLINICAL HISTORY: ataxia COMPARISON: 05/18/2020 and April 2020 TECHNIQUE: Computed axial tomography of the head was obtained. IV contrast was not requested. All CT scans are performed using dose optimization technique as appropriate and may include automated exposure control or mA/KV adjustment according to patient size. FINDINGS: An intracranial bleed is not seen . The ventricles are normal in caliber. No extra-axial fluid collection is noted. Low-density area within right anterior basal ganglia and left centrum semiovale unchanged consistent with either areas ischemia or small old infarct. . Fluid within the sinuses/ mastoids is not seen. IMPRESSION: No acute intracranial abnormality is seen. If patient's symptoms persist MRI of the bra in would be recommended.
[2020-05-31] MEDS: RIVAROXABAN 20 MG TABLET PO SCH (16:42)
--- NOTE | 2020-05-31 16:52 | R.PN ---
PROGRESS NOTES ENCOUNTER DATE AND TIME: 05/31/2020 16:28 (CDT) NAME RON MEDRANO DATE OF : 1955 DATE OF ADMISSION: 05/23/2020 18:05 (CDT) ATRIAL FLUTTER WITH RAPID VENTRICULAR RESPONSECHIEF COMPLAINT: Debility and aflutter with rapid response SUBJECTIVE: Pt denied any Shortness of Breath. Pt denied any depression. WBC 10.2, Hgb 11.5, Na 128, Calcium 7.7. Repeat UA shows 2+ esterase, bacteria 20-50. Will encourag e incentive spirometry. Ambulated 200' with minimum to moderate assistance using a rolling walker. She appears mildly depress ed over the last 3-4 day and shows less participation. She is on Cymbalta 20 mg daily for depression. Will discuss with her daughter. Procalcitonin <0.05, lactic acid 1.0, valproic acid level is 98, head CT shows no acute changes. O2 s at 93 % on room air. BP 101/57 to 120/64. VITAL SIGNS Temperature: 97.5 F SBP/DBP: 140/67 Pulse: 80 Resp: 16 MEDICATION ALLERGIES: No Known Drug Allergies (NKDA) ENVIRONMENTAL ALLERGIES: - Substance Allergies None Known - Other Allergies None Known NURSING: - Shower allowing shower ACTIVITIES OOB only with supervision THERAPIES: - Dietary and Nutrition Adequate Nutrition. Nutritional Education. Nutritional Supplements. PHYSICAL EXAM - Gen Alert and awake Lying in bed No apparent distress Oriented to: person, time, and place - Skin No skin breakdown. No abnormalities - Eyes No abnormalities - ENMT No abnormalities - Neck No abnormalities No cervical adenopathy - CVS RRR - Chest No abnormalities - Resp Clear to auscultation - Abd Soft - GI Non distended No abnormalities - No abnormalities - Ext Mild bilateral lower extremity edema. - MSK 4+/5 weakness in both lower extremities. - Neuro No focal deficits - Psych No abnormalities ASSESSMENT: Pt. is a 64 yo Right-handed female of unknown race.On 05/23/2020 she was admitted to [facility] with diagnosis ATRIAL FLUTTER WITH RAPID VENTRICULAR RESPONSE.Her impairment category is Card iac 09 - Cardiac Disorders (09).Pre-morbidly, Pt. was independent/mod-I in Safety Awareness, Balance , Social Cognition, Self-Care, and Communication; and she had good Sphincter Control and Locomotion.C urrently, she has deficits of Balance, Communication, Endurance, and Locomotion.Pt. is now referred t [facility] for acute in-patient rehabilitation in order to maximize patient' s functional independence in activities of daily living, strength, ROM, and mobility.- Rehab Goal Patient has realistic goal of being discharged at assistance level 7-Ind to reside at Home with Fami ly/Relatives. MDM/PLAN: - Physical Therapy Gait dysfunction - to improve, our physical therapists will perform initial evaluation of pt's statu s upon admission and devise an individualized program for Gait Training, and Wheel Chair mobility Need for home safety evaluation - to improve, our physical therapists will perform initial evaluatio n of pt's status upon admission and devise an individualized program for Home Evaluation Need in caregiver upon discharge - to improve, our physical therapists will perform initial evaluati on of pt's status upon admission and devise an individualized program for Caregiver Training New precaution - to improve, our physical therapists will perform initial evaluation of pt's status upon admission and devise an individualized program for Patient precaution education Edema - to improve, our physical therapists will perform initial evaluation of pt's status upon admi ssion and devise an individualized program for Elevation Training, and Lymphedema Therapy Poor balance - to improve, our physical therapists will perform initial evaluation of pt's status up on admission and devise an individualized program for Balance Training Poor endurance - to improve, our physical therapists will perform initial evaluation of pt's status upon admission and devise an individualized program for Endurance Training Weakness - to improve, our physical therapists will perform initial evaluation of pt's status upon a dmission and devise an individualized program for Aquatic Therapy, Neuromuscular Reeducation, and Str engthening Achieving independence - to improve, our physical therapists will perform initial evaluation of pt's status upon admission and devise an individualized program for Community Reintegration Activities - Occupational Therapy Need for child care attendant - to improve, our occupation therapists will perform initial evaluation of pt's status upon admission and devise an individualized program for Caregiver Training Weakness - to improve, our occupation therapists will perform initial evaluation of pt's status upon admission and devise an individualized program for Aquatic Therapy, Balance, Endurance, UE ROM, and UE strengthening - Other See attached MAR (Medication Administration Record) - Diet Type Continue Regular - Diet - Liquid Texture Continue Regular - Tube Feed Continue N/A - Diet - Solid Texture Continue Regular - Shower allowing shower FUNCTIONAL STATUS: UPDATED AT WEEKLY TEAM CONFERENCE - Bladder Same accident frequency: 7-Ind - No accidents in the past 7 days - Bowel Same accident frequency: 7-Ind - No accidents in the past 7 days - Walking Same score based on distance walked: 0(N/A) Same score based on distance walked: 3(>=150ft) - Wheelchair Same score based on distance traveled: 0(N/A) FUNCTIONAL STATUS: - Self-Care A. Eating Ind B. Grooming Sarah C. Bathing sup D. Dressing - Upper sup E. Dressing - Lower Nicole F. Toileting sup - Sphincter Control G. Bladder control sup H. Bowel control sup - Transfers Control I. Bed/Chair/Wheelchair Sarah J. Toilet Sarah K. Tub/Shower sup - Locomotion L. Walk/Wheelchair (B) Sarah M. Stairs Sarah - Communication N. Comprehension (B) Ind O. Expression (B) Ind - Social Cognition P. Social Interaction Ind Q. Problem Solving Ind R. Memory Ind - Endurance Good - Balance Good - Safety Awareness Good QI SCORES: - Self-Care A. Eating 03-Partial/moderate assistance B. Oral hygiene 03-Partial/moderate assistance C. Toileting hygiene 03-Partial/moderate assistance E. Shower/bathe self 03-Partial/moderate assistance F. Upper body dressing 03-Partial/moderate assistance G. Lower body dressing 03-Partial/moderate assistance H. Putting on/taking off footwear 88-Not attempted due to medical condition or safety concerns - Mobility A. Roll left and right 03-Partial/moderate assistance B. Sit to lying 03-Partial/moderate assistance C. Lying to sitting on side of bed 03-Partial/moderate assistance D. Sit to stand 03-Partial/moderate assistance E. Chair/pjq-qy-goleq transfer 03-Partial/moderate assistance F. Toilet transfer 03-Partial/moderate assistance G. Car transfer 88-Not attempted due to medical condition or safety concerns I. Walk 10 feet 03-Partial/moderate assistance J. Walk 50 feet with two turns 03-Partial/moderate assistance K. Walk 150 feet 03-Partial/moderate assistance L. Walking 10 feet on uneven surfaces 88-Not attempted due to medical condition or safety concerns M. 1 step (curb) 88-Not attempted due to medical condition or safety concerns N. 4 steps 88-Not attempted due to medical condition or safety concerns O. 12 steps 88-Not attempted due to medical condition or safety concerns P. Picking up object 88-Not attempted due to medical condition or safety concerns R. Wheel 50 feet with two turns 03-Partial/moderate assistance S. Wheel 150 feet 88-Not attempted due to medical condition or safety concerns - Bladder and Bowel Bladder continence Bowel continence - Endurance Fair - Balance Poor - Safety Awareness Fair [facility] DEFICITS: Self-Care, Mobility, Endurance, Balance, and Safety Awareness SIGNATURE PANEL: (CDT)
[2020-05-31] MEDS: ZOLPIDEM TARTRATE 5 MG TABLET PO PRN (20:25)
[2020-05-31] MEDS: ATORVASTATIN 10 MG TAB PO SCH (20:25)
[2020-06-01] MEDS: ONDANSETRON 4 MG (ODT) TAB PO PRN (00:33)
[2020-06-01] MEDS: ACETAMINOPHEN 325 MG TABLET PO PRN (00:34)
[2020-06-01] MEDS: HYDROCODONE/APAP 5/325 MG TAB PO PRN ×3 (03:32→22:58)
[2020-06-01] MEDS: ONDANSETRON 4 MG/2 ML VIAL IV PRN ×3 (06:45→15:57)
[2020-06-01] MEDS: CRANBERRY FRUIT EXTRACT 200 MG CAP PO SCH ×2 (07:29→19:53)
[2020-06-01] MEDS: MAGNESIUM OXIDE 400 MG TAB PO SCH (07:29)
[2020-06-01] MEDS: POTASSIUM CL SA 10 MEQ TAB PO SCH (07:29)
[2020-06-01] MEDS: DULOXETINE 20 MG CAP PO SCH (07:29)
[2020-06-01] MEDS: PROMOD 30 ML DOSE PO SCH ×2 (07:30→19:20)
[2020-06-01] MEDS: lamoTRIgine 150 MG TAB PO SCH ×2 (07:30→19:53)
[2020-06-01] MEDS: PANTOPRAZOLE 40MG TABLET PO SCH (07:33)
[2020-06-01] MEDS: lisinopriL 5 MG TAB PO SCH (08:00)
[2020-06-01] MEDS: AMIODARONE HCL 200 MG TAB PO SCH (08:24)
[2020-06-01] MEDS: DIVALPROEX DR 500MG TAB PO SCH ×3 (08:24→19:54)
[2020-06-01] MEDS ORDERED: LORAZEPAM 0.5 MG TABLET PO PRN (13:56)
--- NOTE | 2020-06-01 17:29 | R.PN ---
PROGRESS NOTES ENCOUNTER DATE AND TIME: 06/01/2020 17:23 (CDT) NAME RON MEDRANO DATE OF : 1955 DATE OF ADMISSION: 05/23/2020 18:05 (CDT) ATRIAL FLUTTER WITH RAPID VENTRICULAR RESPONSECHIEF COMPLAINT: Debility and aflutter with rapid response SUBJECTIVE: Pt denied any Shortness of Breath. Pt denied any depression. WBC 10.2, Hgb 11.5, Na 128, Calcium 7.7. Repeat UA shows 2+ esterase, bacteria 20-50. Will encourag e incentive spirometry. Ambulated 100' with minimum assistance using a rolling walker. She appears mildly depressed over the last 3-4 day and shows less participation. She is on Cymbalta 20 mg daily for depression. Discuss wit h her daughter. Procalcitonin <0.05, lactic acid 1.0, valproic acid level is 98, head CT shows no acute changes. O2 s at 93 % on room air. BP 101/57 to 120/64. Brain MRI was attempted to evaluate vertigo but the patient refused. Will do Regine maneuver for posit ional vertigo. She has chronic dementia. Her MOCA is 23/30. Will start Namenda 5 mg daily. VITAL SIGNS Temperature: 97.2 F SBP/DBP: 103/57 Pulse: 74 Resp: 16 MEDICATION ALLERGIES: No Known Drug Allergies (NKDA) ENVIRONMENTAL ALLERGIES: - Substance Allergies None Known - Other Allergies None Known NURSING: - Shower allowing shower ACTIVITIES OOB only with supervision THERAPIES: - Dietary and Nutrition Adequate Nutrition. Nutritional Education. Nutritional Supplements. PHYSICAL EXAM - Gen Alert and awake Lying in bed No apparent distress Oriented to: person, time, and place - Skin No skin breakdown. No abnormalities - Eyes No abnormalities - ENMT No abnormalities - Neck No abnormalities No cervical adenopathy - CVS RRR - Chest No abnormalities - Resp Clear to auscultation - Abd Soft - GI Non distended No abnormalities - No abnormalities - Ext Mild bilateral lower extremity edema. - MSK 4+/5 weakness in both lower extremities. - Neuro No focal deficits - Psych No abnormalities ASSESSMENT: Pt. is a 64 yo Right-handed female of unknown race.On 05/23/2020 she was admitted to [facility] with diagnosis ATRIAL FLUTTER WITH RAPID VENTRICULAR RESPONSE.Her impairment category is Card iac 09 - Cardiac Disorders (09).Pre-morbidly, Pt. was independent/mod-I in Safety Awareness, Balance , Social Cognition, Self-Care, and Communication; and she had good Sphincter Control and Locomotion.C urrently, she has deficits of Balance, Communication, Endurance, and Locomotion.Pt. is now referred t [facility] for acute in-patient rehabilitation in order to maximize patient' s functional independence in activities of daily living, strength, ROM, and mobility.- Rehab Goal Patient has realistic goal of being discharged at assistance level 7-Ind to reside at Home with Fami ly/Relatives. MDM/PLAN: - Physical Therapy Gait dysfunction - to improve, our physical therapists will perform initial evaluation of pt's statu s upon admission and devise an individualized program for Gait Training, and Wheel Chair mobility Need for home safety evaluation - to improve, our physical therapists will perform initial evaluatio n of pt's status upon admission and devise an individualized program for Home Evaluation Need in caregiver upon discharge - to improve, our physical therapists will perform initial evaluati on of pt's status upon admission and devise an individualized program for Caregiver Training New precaution - to improve, our physical therapists will perform initial evaluation of pt's status upon admission and devise an individualized program for Patient precaution education Edema - to improve, our physical therapists will perform initial evaluation of pt's status upon admi ssion and devise an individualized program for Elevation Training, and Lymphedema Therapy Poor balance - to improve, our physical therapists will perform initial evaluation of pt's status up on admission and devise an individualized program for Balance Training Poor endurance - to improve, our physical therapists will perform initial evaluation of pt's status upon admission and devise an individualized program for Endurance Training Weakness - to improve, our physical therapists will perform initial evaluation of pt's status upon a dmission and devise an individualized program for Aquatic Therapy, Neuromuscular Reeducation, and Str engthening Achieving independence - to improve, our physical therapists will perform initial evaluation of pt's status upon admission and devise an individualized program for Community Reintegration Activities - Occupational Therapy Need for lawn care technician - to improve, our occupation therapists will perform initial evaluation of pt's status upon admission and devise an individualized program for Caregiver Training Weakness - to improve, our occupation therapists will perform initial evaluation of pt's status upon admission and devise an individualized program for Aquatic Therapy, Balance, Endurance, UE ROM, and UE strengthening - Other See attached MAR (Medication Administration Record) - Diet Type Continue Regular - Diet - Liquid Texture Continue Regular - Tube Feed Continue N/A - Diet - Solid Texture Continue Regular - Shower allowing shower FUNCTIONAL STATUS: UPDATED AT WEEKLY TEAM CONFERENCE - Bladder Same accident frequency: 7-Ind - No accidents in the past 7 days - Bowel Same accident frequency: 7-Ind - No accidents in the past 7 days - Walking Same score based on distance walked: 0(N/A) Same score based on distance walked: 3(>=150ft) - Wheelchair Same score based on distance traveled: 0(N/A) FUNCTIONAL STATUS: - Self-Care A. Eating Ind B. Grooming Sarah C. Bathing sup D. Dressing - Upper sup E. Dressing - Lower Nicole F. Toileting sup - Sphincter Control G. Bladder control sup H. Bowel control sup - Transfers Control I. Bed/Chair/Wheelchair Sarah J. Toilet Sarah K. Tub/Shower sup - Locomotion L. Walk/Wheelchair (B) Sarah M. Stairs Sarah - Communication N. Comprehension (B) Ind O. Expression (B) Ind - Social Cognition P. Social Interaction Ind Q. Problem Solving Ind R. Memory Ind - Endurance Good - Balance Good - Safety Awareness Good QI SCORES: - Self-Care A. Eating 03-Partial/moderate assistance B. Oral hygiene 03-Partial/moderate assistance C. Toileting hygiene 03-Partial/moderate assistance E. Shower/bathe self 03-Partial/moderate assistance F. Upper body dressing 03-Partial/moderate assistance G. Lower body dressing 03-Partial/moderate assistance H. Putting on/taking off footwear 88-Not attempted due to medical condition or safety concerns - Mobility A. Roll left and right 03-Partial/moderate assistance B. Sit to lying 03-Partial/moderate assistance C. Lying to sitting on side of bed 03-Partial/moderate assistance D. Sit to stand 03-Partial/moderate assistance E. Chair/[id number]-[id number] transfer 03-Partial/moderate assistance F. Toilet transfer 03-Partial/moderate assistance G. Car transfer 88-Not attempted due to medical condition or safety concerns I. Walk 10 feet 03-Partial/moderate assistance J. Walk 50 feet with two turns 03-Partial/moderate assistance K. Walk 150 feet 03-Partial/moderate assistance L. Walking 10 feet on uneven surfaces 88-Not attempted due to medical condition or safety concerns M. 1 step (curb) 88-Not attempted due to medical condition or safety concerns N. 4 steps 88-Not attempted due to medical condition or safety concerns O. 12 steps 88-Not attempted due to medical condition or safety concerns P. Picking up object 88-Not attempted due to medical condition or safety concerns R. Wheel 50 feet with two turns 03-Partial/moderate assistance S. Wheel 150 feet 88-Not attempted due to medical condition or safety concerns - Bladder and Bowel Bladder continence Bowel continence - Endurance Fair - Balance Poor - Safety Awareness Fair CURRENT [facility]. DEFICITS: Self-Care, Mobility, Endurance, Balance, and Safety Awareness SIGNATURE PANEL: (CDT)
[2020-06-01] MEDS: RIVAROXABAN 20 MG TABLET PO SCH (18:29)
[2020-06-01] MEDS: ZOLPIDEM TARTRATE 5 MG TABLET PO PRN (19:53)
[2020-06-01] MEDS: ATORVASTATIN 10 MG TAB PO SCH (19:53)
[2020-06-02] MEDS: ACETAMINOPHEN 325 MG TABLET PO PRN ×2 (02:36→08:15)
[2020-06-02] MEDS: HYDROCODONE/APAP 5/325 MG TAB PO PRN ×3 (04:49→20:46)
[2020-06-02 06:23] LABS: Absolute Lymphocytes (CBC) 1.1 K/uL (0.7-4.9); Basophils % 0.4 % (0-1.3); Hematocrit 36.3 % (36.0-45.0); Lymphocytes % 14.1 % (15.3-44.8); MPV 7.6 fL (7.6-11.3); RBC Red Blood Cell Count 3.92 M/uL (3.86-4.86)
[2020-06-02 06:43] LABS: Albumin 2.5 g/dL (3.4-5.0); BUN Blood Urea Nitrogen 8 mg/dL (7-18); Bicarbonate 27 mmol/L (21-32); Glucose Level 78 mg/dL (74-106); Magnesium 2.2 mg/dL (1.8-2.4); Potassium 4.7 mmol/L (3.5-5.1); Prealbumin 12.7 mg/dL (20-40); Sodium Level 130 mmol/L (136-145)
[2020-06-02] MEDS: lamoTRIgine 150 MG TAB PO SCH ×2 (07:09→20:45)
[2020-06-02] MEDS: DULOXETINE 20 MG CAP PO SCH (07:10)
[2020-06-02] MEDS: CRANBERRY FRUIT EXTRACT 200 MG CAP PO SCH ×2 (07:10→20:45)
[2020-06-02] MEDS: POTASSIUM CL SA 10 MEQ TAB PO SCH (07:10)
[2020-06-02] MEDS: AMIODARONE HCL 200 MG TAB PO SCH (07:11)
[2020-06-02] MEDS: MEMANTINE HCL 10 MG TABLET PO SCH (07:11)
[2020-06-02] MEDS: MAGNESIUM OXIDE 400 MG TAB PO SCH (07:11)
[2020-06-02] MEDS: PANTOPRAZOLE 40MG TABLET PO SCH (07:11)
[2020-06-02] MEDS: lisinopriL 5 MG TAB PO SCH (07:12)
[2020-06-02] MEDS: PROMOD 30 ML DOSE PO SCH ×2 (07:12→20:00)
[2020-06-02] MEDS: DIVALPROEX DR 500MG TAB PO SCH ×3 (08:17→20:45)
[2020-06-02] MEDS: ONDANSETRON 4 MG/2 ML VIAL IV PRN (08:30)
[2020-06-02] MEDS: MECLIZINE HCL 12.5 MG TAB PO PRN (09:10)
[2020-06-02] MEDS ORDERED: LORAZEPAM 0.5 MG TABLET PO ONE (13:54)
[2020-06-02] MEDS ORDERED: LORAZEPAM 0.5 MG TABLET PO PRN ×3 (13:55→14:36)
[2020-06-02] MEDS: RIVAROXABAN 20 MG TABLET PO SCH (17:14)
--- NOTE | 2020-06-02 17:40 | R.PN ---
PROGRESS NOTES ENCOUNTER DATE AND TIME: 06/02/2020 17:33 (CDT) NAME RON MEDRANO DATE OF : 1955 DATE OF ADMISSION: 05/23/2020 18:05 (CDT) ATRIAL FLUTTER WITH RAPID VENTRICULAR RESPONSECHIEF COMPLAINT: Debility and aflutter with rapid response SUBJECTIVE: Pt denied any Shortness of Breath. Pt denied any depression. WBC 7.7, Hgb 12.6, Na 130, Calcium 8.4. Repeat UA shows 2+ esterase, bacteria 20-50. Encourage incen tive spirometry. Valprocic acid level is 98.0 Ambulated 370' with standby assistance using a rolling walker. She appears less depressed over the la st 2 day and shows more participation. She is on Cymbalta 20 mg daily for depression. Discussed with her . Procalcitonin <0.05, lactic acid 1.0, valproic acid level is 98, head CT shows no acute changes. O2 s at 93 % on room air. BP 101/57 to 120/64. Brain MRI was attempted to evaluate vertigo but the patient refused. Will do Regine maneuver for posit ional vertigo. She has chronic dementia. Her MOCA is 23/30. Namenda 5 mg daily. VITAL SIGNS Temperature: 97.5 F SBP/DBP: 117/64 Pulse: 74 Resp: 16 MEDICATION ALLERGIES: No Known Drug Allergies (NKDA) ENVIRONMENTAL ALLERGIES: - Substance Allergies None Known - Other Allergies None Known NURSING: - Shower allowing shower ACTIVITIES OOB only with supervision THERAPIES: - Dietary and Nutrition Adequate Nutrition. Nutritional Education. Nutritional Supplements. PHYSICAL EXAM - Gen Alert and awake Lying in bed No apparent distress Oriented to: person, time, and place - Skin No skin breakdown. No abnormalities - Eyes No abnormalities - ENMT No abnormalities - Neck No abnormalities No cervical adenopathy - CVS RRR - Chest No abnormalities - Resp Clear to auscultation - Abd Soft - GI Non distended No abnormalities - No abnormalities - Ext Mild bilateral lower extremity edema. - MSK 4+/5 weakness in both lower extremities. - Neuro No focal deficits - Psych No abnormalities ASSESSMENT: Pt. is a 64 yo Right-handed female of unknown race.On 05/23/2020 she was admitted to [facility] with diagnosis ATRIAL FLUTTER WITH RAPID VENTRICULAR RESPONSE.Her impairment category is Card iac 09 - Cardiac Disorders (09).Pre-morbidly, Pt. was independent/mod-I in Safety Awareness, Balance , Social Cognition, Self-Care, and Communication; and she had good Sphincter Control and Locomotion.C urrently, she has deficits of Balance, Communication, Endurance, and Locomotion.Pt. is now referred t [facility] for acute in-patient rehabilitation in order to maximize patient' s functional independence in activities of daily living, strength, ROM, and mobility.- Rehab Goal Patient has realistic goal of being discharged at assistance level 7-Ind to reside at Home with Fami ly/Relatives. MDM/PLAN: - Physical Therapy Gait dysfunction - to improve, our physical therapists will perform initial evaluation of pt's statu s upon admission and devise an individualized program for Gait Training, and Wheel Chair mobility Need for home safety evaluation - to improve, our physical therapists will perform initial evaluatio n of pt's status upon admission and devise an individualized program for Home Evaluation Need in caregiver upon discharge - to improve, our physical therapists will perform initial evaluati on of pt's status upon admission and devise an individualized program for Caregiver Training New precaution - to improve, our physical therapists will perform initial evaluation of pt's status upon admission and devise an individualized program for Patient precaution education Edema - to improve, our physical therapists will perform initial evaluation of pt's status upon admi ssion and devise an individualized program for Elevation Training, and Lymphedema Therapy Poor balance - to improve, our physical therapists will perform initial evaluation of pt's status up on admission and devise an individualized program for Balance Training Poor endurance - to improve, our physical therapists will perform initial evaluation of pt's status upon admission and devise an individualized program for Endurance Training Weakness - to improve, our physical therapists will perform initial evaluation of pt's status upon a dmission and devise an individualized program for Aquatic Therapy, Neuromuscular Reeducation, and Str engthening Achieving independence - to improve, our physical therapists will perform initial evaluation of pt's status upon admission and devise an individualized program for Community Reintegration Activities - Occupational Therapy Need for long term care pharmacist - to improve, our occupation therapists will perform initial evaluation of pt's status upon admission and devise an individualized program for Caregiver Training Weakness - to improve, our occupation therapists will perform initial evaluation of pt's status upon admission and devise an individualized program for Aquatic Therapy, Balance, Endurance, UE ROM, and UE strengthening - Other See attached MAR (Medication Administration Record) - Diet Type Continue Regular - Diet - Liquid Texture Continue Regular - Tube Feed Continue N/A - Diet - Solid Texture Continue Regular - Shower allowing shower FUNCTIONAL STATUS: UPDATED AT WEEKLY TEAM CONFERENCE - Bladder Same accident frequency: 7-Ind - No accidents in the past 7 days - Bowel Same accident frequency: 7-Ind - No accidents in the past 7 days - Walking Same score based on distance walked: 0(N/A) Same score based on distance walked: 3(>=150ft) - Wheelchair Same score based on distance traveled: 0(N/A) FUNCTIONAL STATUS: - Self-Care A. Eating Ind B. Grooming Sarah C. Bathing sup D. Dressing - Upper sup E. Dressing - Lower Nicole F. Toileting sup - Sphincter Control G. Bladder control sup H. Bowel control sup - Transfers Control I. Bed/Chair/Wheelchair Sarah J. Toilet Sarah K. Tub/Shower sup - Locomotion L. Walk/Wheelchair (B) Sarah M. Stairs Sarah - Communication N. Comprehension (B) Ind O. Expression (B) Ind - Social Cognition P. Social Interaction Ind Q. Problem Solving Ind R. Memory Ind - Endurance Good - Balance Good - Safety Awareness Good QI SCORES: - Self-Care A. Eating 03-Partial/moderate assistance B. Oral hygiene 03-Partial/moderate assistance C. Toileting hygiene 03-Partial/moderate assistance E. Shower/bathe self 03-Partial/moderate assistance F. Upper body dressing 03-Partial/moderate assistance G. Lower body dressing 03-Partial/moderate assistance H. Putting on/taking off footwear 88-Not attempted due to medical condition or safety concerns - Mobility A. Roll left and right 03-Partial/moderate assistance B. Sit to lying 03-Partial/moderate assistance C. Lying to sitting on side of bed 03-Partial/moderate assistance D. Sit to stand 03-Partial/moderate assistance E. Chair/qau-qk-osnij transfer 03-Partial/moderate assistance F. Toilet transfer 03-Partial/moderate assistance G. Car transfer 88-Not attempted due to medical condition or safety concerns I. Walk 10 feet 03-Partial/moderate assistance J. Walk 50 feet with two turns 03-Partial/moderate assistance K. Walk 150 feet 03-Partial/moderate assistance L. Walking 10 feet on uneven surfaces 88-Not attempted due to medical condition or safety concerns M. 1 step (curb) 88-Not attempted due to medical condition or safety concerns N. 4 steps 88-Not attempted due to medical condition or safety concerns O. 12 steps 88-Not attempted due to medical condition or safety concerns P. Picking up object 88-Not attempted due to medical condition or safety concerns R. Wheel 50 feet with two turns 03-Partial/moderate assistance S. Wheel 150 feet 88-Not attempted due to medical condition or safety concerns - Bladder and Bowel Bladder continence Bowel continence - Endurance Fair - Balance Poor - Safety Awareness Fair CURRENT [facility]. DEFICITS: Self-Care, Mobility, Endurance, Balance, and Safety Awareness SIGNATURE PANEL: (CDT)
[2020-06-02] MEDS: ATORVASTATIN 10 MG TAB PO SCH (20:45)
[2020-06-02] MEDS: ZOLPIDEM TARTRATE 5 MG TABLET PO PRN (20:45)
--- NOTE | 2020-06-02 20:58 | RAD REPORT ---
EXAM DESCRIPTION: MRI - Brain W/Wo Cont - 06/02/2020 8:43 pm CLINICAL HISTORY: dizziness, poor balance, double vision Headache, drowsiness COMPARISON: MRA Head Wo Cont dated 06/02/2020 TECHNIQUE: Multi-sequence, multiplanar MR imaging of the brain was performed with contrast. FINDINGS: No intracranial hemorrhage, hydrocephalus, or extra-axial fluid collection.Mild periventri cular T2 and FLAIR hyperintensities compatible with chronic microvascular ischemia. No edema or shift of midline structures. No intracranial mass. DWI is negative for acute CVA. The midline structures are normally formed. Mastoid air cells and paranasal sinuses are clear. Post-contrast images show no abnormal enhancement to suggest tumor or infection. IMPRESSION: Negative for acute CVA or other acute intracranial process. No pathologic post-contrast enhancement suspected.
--- NOTE | 2020-06-02 21:00 | RAD REPORT ---
EXAM DESCRIPTION: MRI - MRA Head Wo Cont - 06/02/2020 8:43 pm CLINICAL HISTORY: dizziness, poor balance, double vision CVA COMPARISON: Head Brain Wo Cont dated 05/31/2020 FINDINGS: 3D noncontrast [id number] MR angiography of the [place] was performed. No aneurysm, flow-limiting stenosis or vascular malformation is seen. Forward flow seen in mildly lef t-sided dominant vertebral arteries. The visualized dural venous sinuses appear patent. IMPRESSION: No significant flow abnormality of the [place] is identified.
--- NOTE | 2020-06-02 21:02 | RAD REPORT ---
EXAM DESCRIPTION: MRI - MRA Neck W/Wo Cont - 06/02/2020 8:43 pm CLINICAL HISTORY: dizziness, poor balance, double vision Headache, drowsiness, poor balance COMPARISON: No comparisons FINDINGS: Contrast enhance 2D [id number] MR angiography of the neck vessels was performed. A left aortic arch is noted. Both common carotid arteries and subclavian arteries appear widely patent. Both internal carotid arteries are mildly tortuous without significant stenosis. Antegrade flow seen in both vertebral arteries. Small left pleural effusion is noted. IMPRESSION: No significant flow abnormality of neck vessels.
[2020-06-03] MEDS: HYDROCODONE/APAP 5/325 MG TAB PO PRN ×3 (03:49→19:09)
[2020-06-03] MEDS: PANTOPRAZOLE 40MG TABLET PO SCH (06:24)
[2020-06-03] MEDS: lamoTRIgine 150 MG TAB PO SCH ×2 (07:48→19:50)
[2020-06-03] MEDS: ONDANSETRON 4 MG/2 ML VIAL IV PRN ×2 (07:48→14:28)
[2020-06-03] MEDS: DIVALPROEX DR 500MG TAB PO SCH ×3 (07:49→20:20)
[2020-06-03] MEDS: CRANBERRY FRUIT EXTRACT 200 MG CAP PO SCH ×2 (07:49→19:49)
[2020-06-03] MEDS: AMIODARONE HCL 200 MG TAB PO SCH (07:50)
[2020-06-03] MEDS: DULOXETINE 20 MG CAP PO SCH (07:50)
[2020-06-03] MEDS: MEMANTINE HCL 10 MG TABLET PO SCH (07:50)
[2020-06-03] MEDS: POTASSIUM CL SA 10 MEQ TAB PO SCH ×2 (07:50→20:20)
[2020-06-03] MEDS: MAGNESIUM OXIDE 400 MG TAB PO SCH (07:51)
[2020-06-03] MEDS: lisinopriL 5 MG TAB PO SCH ×2 (07:51→20:20)
[2020-06-03] MEDS: PROMOD 30 ML DOSE PO SCH ×2 (07:51→19:49)
--- NOTE | 2020-06-03 09:48 | P.RH.PN ---
Estimated Length of Stay: 16 Expected Discharge Date: 06/07/20 Discharge Disposition Plan: Home Family Support: Yes Senior Care Goal: Mobility, Transfers, Self Care Vital Signs: Last Vital Signs Temp 97.4 F 06/03/20 07:40 Pulse 69 06/03/20 07:51 Resp 16 06/03/20 07:40 BP 126/60 06/03/20 07:51 Pulse Ox 98 06/03/20 07:40 Laboratory: Laboratory Last Values WBC 7.7 K/uL (4.3-10.9) D 06/02/20 06:06 RBC 3.92 M/uL (3.86-4.86) 06/02/20 06:06 Hgb 12.6 g/dL (12.0-15.0) 06/02/20 06:06 Hct 36.3 % (36.0-45.0) 06/02/20 06:06 MCV 92.6 fL (80-100) 06/02/20 06:06 MCH 32.0 pg (27.0-35.0) 06/02/20 06:06 MCHC 34.6 g/dL (32.0-36.0) 06/02/20 06:06 RDW 14.3 % (12.1-15.2) 06/02/20 06:06 Plt Count 375 K/uL (152-406) D 06/02/20 06:06 MPV 7.6 fL (7.6-11.3) 06/02/20 06:06 Neutrophils % 71.0 % (41.7-73.7) 06/02/20 06:06 Lymphocytes % 14.1 % (15.3-44.8) L 06/02/20 06:06 Monocytes % 13.8 % (3.3-12.3) H 06/02/20 06:06 Eosinophils % 0.7 % (0-4.4) 06/02/20 06:06 Basophils % 0.4 % (0-1.3) 06/02/20 06:06 Absolute Neutrophils 5.5 K/uL (1.8-8.0) 06/02/20 06:06 Segmented Neutrophils 70 % (40-80) 05/30/20 05:55 Absolute Lymphocytes 1.1 K/uL (0.7-4.9) 06/02/20 06:06 Lymphocytes 17 % (15-42) 05/30/20 05:55 Monocytes 12 % (0-10) H 05/30/20 05:55 Absolute Monocytes 1.1 K/uL (0.1-1.3) 06/02/20 06:06 Eosinophils 1 % (0-3) 05/30/20 05:55 Absolute Eosinophils 0.1 K/uL (0-0.5) 06/02/20 06:06 Absolute Basophils 0.0 K/uL (0-0.5) 06/02/20 06:06 Metamyelocytes 4 % (0-0) H 05/24/20 05:44 Platelet Estimate Adeq 05/30/20 05:55 Poikilocytosis 1+ 05/29/20 15:22 Morphology Comment Not seen (NOT SEEN) 05/30/20 05:55 Sodium 130 mmol/L (136-145) L 06/02/20 06:06 Potassium 4.7 mmol/L (3.5-5.1) 06/02/20 06:06 Chloride 97 mmol/L (98-107) L 06/02/20 06:06 Carbon Dioxide 27 mmol/L (21-32) 06/02/20 06:06 BUN 8 mg/dL (7-18) 06/02/20 06:06 Creatinine 0.51 mg/dL (0.55-1.3) L 06/02/20 06:06 Estimated GFR > 90 mL/min (=/>90) 06/02/20 06:06 Glucose 78 mg/dL (74-106) 06/02/20 06:06 Lactic Acid 1.0 mmol/L (0.4-2.0) 05/31/20 13:58 Calcium 8.4 mg/dL (8.5-10.1) L 06/02/20 06:06 Magnesium 2.2 mg/dL (1.8-2.4) 06/02/20 06:06 Albumin 2.5 g/dL (3.4-5.0) L 06/02/20 06:06 Prealbumin 12.7 mg/dL (20-40) L 06/02/20 06:06 Procalcitonin < 0.05 ng/mL (<0.50) 05/31/20 13:58 Urine Color Dk yellow 05/29/20 20:10 Urine Appearance Cloudy 05/29/20 20:10 Urine pH 7.0 (5.0-7.0) 05/29/20 20:10 Ur Specific [place] 1.025 (1.005-1.030) 05/29/20 20:10 Glucose (UA)(Auto) Negative (NEG) 05/29/20 20:10 Urine Ketones 1+ (NEG) H 05/29/20 20:10 Urine Blood Negative (NEG) 05/29/20 20:10 Urine Nitrite Negative (NEG) 05/29/20 20:10 Urine Bilirubin Negative (NEG) 05/29/20 20:10 Urine Urobilinogen 0.2 mg/dL (0.2-1.0) 05/29/20 20:10 Ur Leukocyte Esterase 2+ (NEG) H 05/29/20 20:10 Urine RBC None seen /HPF (NONE SEEN) 05/29/20 20:10 Urine WBC 5-10 /HPF (<5) H 05/29/20 20:10 Ur Squamous Epith Cells 20-50 /HPF (NONE SEEN) H 05/29/20 20:10 Amorphous Sediment 3+ /HPF (NONE SEEN) H 05/29/20 20:10 Urine Bacteria 20-50 /HPF (<20) H 05/29/20 20:10 Urine Mucus Mod /HPF (NONE SEEN) 05/29/20 20:10 Urine Culture Reflexed Not needed 05/29/20 20:10 Ur Random Sodium 91 mmol/L (27-287) 05/29/20 20:10 Urine Total Protein Negative (NEG) 05/29/20 20:10 Valproic Acid 98.0 ug/mL (50-100) 05/29/20 15:22 Smear Scan Ok (OK) 05/29/20 15:22 Weight: 151 lb 9 oz Wound Present: No Closed Surgical Incision Present: No Negative Pressure Wound Therapy Present: No Physician Update: She is doing better with her physical, occupational and speech therapy. Her brain MRI ruled out acute stroke. He has positive findings for peripheral vertigo and has improved her dizziness with the Regine maneuver. She will continue physical therapy until next week. Mild difficuly with memory and speed of information processing. Medical Issues: HX SEIZURE, HTN, GASTRIC BYPASS, ENDOSCOPY, COLONOSCOPY. Pain Issues: TAKING TYLENOL, NORCO 5/325 FOR PAIN. Functional Improvement: Patient experienced a set-back, possibly due to vertigo. Patient currently completing DHP manuever to aide in deficit; patient presented w/ improved balance and functional techniques post manuever. 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 Please see the Rehabilitation Signature page for all necessary signatures.
[2020-06-03] MEDS: POLYETHYL GLY 3350 17 GM/DOSE PO PRN (14:24)
[2020-06-03] MEDS: RIVAROXABAN 20 MG TABLET PO SCH (16:24)
[2020-06-03] MEDS: ONDANSETRON 4 MG (ODT) TAB PO PRN (19:03)
[2020-06-03] MEDS: MECLIZINE HCL 12.5 MG TAB PO PRN (19:03)
[2020-06-03] MEDS: ATORVASTATIN 10 MG TAB PO SCH (20:20)
[2020-06-03] MEDS: ZOLPIDEM TARTRATE 5 MG TABLET PO PRN (20:20)
[2020-06-03] MEDS: DOCUSATE NA/SENNA CONC 1 TAB PO PRN (20:20)
[2020-06-04] MEDS: HYDROCODONE/APAP 5/325 MG TAB PO PRN ×4 (02:10→19:11)
[2020-06-04 05:21] VITALS: BMI 24.7
[2020-06-04] MEDS: PANTOPRAZOLE 40MG TABLET PO SCH (07:29)
[2020-06-04] MEDS: PROMOD 30 ML DOSE PO SCH ×2 (08:00→19:11)
[2020-06-04] MEDS: CRANBERRY FRUIT EXTRACT 200 MG CAP PO SCH ×2 (08:25→19:10)
[2020-06-04] MEDS: DIVALPROEX DR 500MG TAB PO SCH ×3 (08:25→19:59)
[2020-06-04] MEDS: AMIODARONE HCL 200 MG TAB PO SCH (08:27)
[2020-06-04] MEDS: MAGNESIUM OXIDE 400 MG TAB PO SCH (08:27)
[2020-06-04] MEDS: MEGESTROL 40 MG TAB PO SCH (08:28)
[2020-06-04] MEDS: DULOXETINE 20 MG CAP PO SCH (08:28)
[2020-06-04] MEDS: MEMANTINE HCL 10 MG TABLET PO SCH (08:29)
[2020-06-04] MEDS: lamoTRIgine 150 MG TAB PO SCH ×2 (08:30→19:11)
[2020-06-04] MEDS ORDERED: BISACODYL 10 MG RECTAL SUPP PR PRN (09:43)
[2020-06-04] MEDS ORDERED: FLEET ENEMA ADULT PR PRN (10:56)
[2020-06-04] MEDS: POLYETHYL GLY 3350 17 GM/DOSE PO PRN (13:39)
[2020-06-04] MEDS ORDERED: MAGNESIUM HYDROXIDE 8% 30 ML PO PRN (13:43)
[2020-06-04] MEDS: RIVAROXABAN 20 MG TABLET PO SCH (16:24)
[2020-06-04] MEDS: MECLIZINE HCL 12.5 MG TAB PO PRN ×2 (18:55→19:00)
[2020-06-04] MEDS: DOCUSATE NA/SENNA CONC 1 TAB PO PRN (19:10)
[2020-06-04] MEDS: ZOLPIDEM TARTRATE 5 MG TABLET PO PRN (19:59)
[2020-06-04] MEDS: ATORVASTATIN 10 MG TAB PO SCH (19:59)
[2020-06-04] MEDS: lisinopriL 5 MG TAB PO SCH (19:59)
[2020-06-04] MEDS: POTASSIUM CL SA 10 MEQ TAB PO SCH (19:59)
[2020-06-05] MEDS: HYDROCODONE/APAP 5/325 MG TAB PO PRN ×3 (01:45→20:18)
[2020-06-05 06:26] LABS: Potassium 5.1 mmol/L (3.5-5.1)
[2020-06-05] MEDS: PANTOPRAZOLE 40MG TABLET PO SCH (06:57)
[2020-06-05] MEDS: PROMOD 30 ML DOSE PO SCH ×2 (08:00→20:00)
[2020-06-05] MEDS: MEMANTINE HCL 10 MG TABLET PO SCH (08:14)
[2020-06-05] MEDS: DULOXETINE 20 MG CAP PO SCH (08:15)
[2020-06-05] MEDS: DIVALPROEX DR 500MG TAB PO SCH ×3 (08:15→20:17)
[2020-06-05] MEDS: MAGNESIUM OXIDE 400 MG TAB PO SCH (08:16)
[2020-06-05] MEDS: MEGESTROL 40 MG TAB PO SCH (08:17)
[2020-06-05] MEDS: AMIODARONE HCL 200 MG TAB PO SCH (08:17)
[2020-06-05] MEDS: CRANBERRY FRUIT EXTRACT 200 MG CAP PO SCH ×2 (08:18→20:17)
[2020-06-05] MEDS: lamoTRIgine 150 MG TAB PO SCH ×2 (08:19→20:17)
[2020-06-05] MEDS: POLYETHYL GLY 3350 17 GM/DOSE PO PRN (10:55)
[2020-06-05] MEDS: ONDANSETRON 4 MG (ODT) TAB PO PRN (10:55)
[2020-06-05] MEDS: ACETAMINOPHEN 325 MG TABLET PO PRN (13:25)
[2020-06-05] MEDS: RIVAROXABAN 20 MG TABLET PO SCH (16:23)
[2020-06-05] MEDS: ATORVASTATIN 10 MG TAB PO SCH (20:17)
[2020-06-05] MEDS: MECLIZINE HCL 12.5 MG TAB PO PRN (20:17)
[2020-06-05] MEDS: lisinopriL 5 MG TAB PO SCH (20:17)
[2020-06-05] MEDS: ZOLPIDEM TARTRATE 5 MG TABLET PO PRN (20:18)
[2020-06-06] MEDS: HYDROCODONE/APAP 5/325 MG TAB PO PRN ×4 (01:18→20:48)
[2020-06-06] MEDS: PANTOPRAZOLE 40MG TABLET PO SCH (06:31)
[2020-06-06] MEDS: lamoTRIgine 150 MG TAB PO SCH ×2 (07:51→19:23)
[2020-06-06] MEDS: MEMANTINE HCL 10 MG TABLET PO SCH (07:52)
[2020-06-06] MEDS: CRANBERRY FRUIT EXTRACT 200 MG CAP PO SCH ×2 (07:52→19:22)
[2020-06-06] MEDS: DIVALPROEX DR 500MG TAB PO SCH ×3 (07:52→19:23)
[2020-06-06] MEDS: AMIODARONE HCL 200 MG TAB PO SCH (07:53)
[2020-06-06] MEDS: MAGNESIUM OXIDE 400 MG TAB PO SCH (07:53)
[2020-06-06] MEDS: DULOXETINE 20 MG CAP PO SCH (07:53)
[2020-06-06] MEDS: MEGESTROL 40 MG TAB PO SCH (07:53)
[2020-06-06] MEDS: PROMOD 30 ML DOSE PO SCH ×2 (07:53→19:23)
[2020-06-06] MEDS: ONDANSETRON 4 MG (ODT) TAB PO PRN ×2 (09:57→15:34)
[2020-06-06] MEDS: RIVAROXABAN 20 MG TABLET PO SCH (16:37)
--- NOTE | 2020-06-06 17:20 | R.PN ---
PROGRESS NOTES ENCOUNTER DATE AND TIME: 06/06/2020 17:14 (CDT) NAME RON MEDRANO DATE OF : 1955 DATE OF ADMISSION: 05/23/2020 18:05 (CDT) ATRIAL FLUTTER WITH RAPID VENTRICULAR RESPONSECHIEF COMPLAINT: Debility and aflutter with rapid response SUBJECTIVE: Pt denied any Shortness of Breath. Pt denied any depression. WBC 7.7, Hgb 12.6, Na 130, Calcium 8.5. Repeat UA shows 2+ esterase, bacteria 20-50. Encourage incen tive spirometry. Valprocic acid level is 98.0 She did not feel up to ambulating today. Discussed with her . Procalcitonin <0.05, lactic acid 1.0, valproic acid level is 98, head CT shows no acute changes. O2 s at 93 % on room air. BP 101/57 to 120/64. Brain MRI was attempted to evaluate vertigo but the patient refused. Will do Regine maneuver for posit ional vertigo. She has chronic dementia. Her MOCA is 23/30. Namenda 5 mg daily. She had an episode of hypotension this AM with SBP about 99. She felt tired. After her SBP increased to normal her fatigue resolved. VITAL SIGNS Temperature: 97.2 F SBP/DBP: 109/60 Pulse: 79 Resp: 16 MEDICATION ALLERGIES: No Known Drug Allergies (NKDA) ENVIRONMENTAL ALLERGIES: - Substance Allergies None Known - Other Allergies None Known NURSING: - Shower allowing shower ACTIVITIES OOB only with supervision THERAPIES: - Dietary and Nutrition Adequate Nutrition. Nutritional Education. Nutritional Supplements. PHYSICAL EXAM - Gen Alert and awake Lying in bed No apparent distress Oriented to: person, time, and place - Skin No skin breakdown. No abnormalities - Eyes No abnormalities - ENMT No abnormalities - Neck No abnormalities No cervical adenopathy - CVS RRR - Chest No abnormalities - Resp Clear to auscultation - Abd Soft - GI Non distended No abnormalities - No abnormalities - Ext Mild bilateral lower extremity edema. - MSK 4+/5 weakness in both lower extremities. - Neuro No focal deficits - Psych No abnormalities ASSESSMENT: Pt. is a 64 yo Right-handed female of unknown race.On 05/23/[address] [facility] with diagnosis ATRIAL FLUTTER WITH RAPID VENTRICULAR RESPONSE.Her impairment category is Card iac 09 - Cardiac Disorders (09).Pre-morbidly, Pt. was independent/mod-I in Safety Awareness, Balance , Social Cognition, Self-Care, and Communication; and she had good Sphincter Control and Locomotion.C urrently, she has deficits of Balance, Communication, Endurance, and Locomotion.Pt. is now referred t [facility] for acute in-patient rehabilitation in order to maximize patient' s functional independence in activities of daily living, strength, ROM, and mobility.- Rehab Goal Patient has realistic goal of being discharged at assistance level 7-Ind to reside at Home with Fami ly/Relatives. MDM/PLAN: - Physical Therapy Gait dysfunction - to improve, our physical therapists will perform initial evaluation of pt's statu s upon admission and devise an individualized program for Gait Training, and Wheel Chair mobility Need for home safety evaluation - to improve, our physical therapists will perform initial evaluatio n of pt's status upon admission and devise an individualized program for Home Evaluation Need in caregiver upon discharge - to improve, our physical therapists will perform initial evaluati on of pt's status upon admission and devise an individualized program for Caregiver Training New precaution - to improve, our physical therapists will perform initial evaluation of pt's status upon admission and devise an individualized program for Patient precaution education Edema - to improve, our physical therapists will perform initial evaluation of pt's status upon admi ssion and devise an individualized program for Elevation Training, and Lymphedema Therapy Poor balance - to improve, our physical therapists will perform initial evaluation of pt's status up on admission and devise an individualized program for Balance Training Poor endurance - to improve, our physical therapists will perform initial evaluation of pt's status upon admission and devise an individualized program for Endurance Training Weakness - to improve, our physical therapists will perform initial evaluation of pt's status upon a dmission and devise an individualized program for Aquatic Therapy, Neuromuscular Reeducation, and Str engthening Achieving independence - to improve, our physical therapists will perform initial evaluation of pt's status upon admission and devise an individualized program for Community Reintegration Activities - Occupational Therapy Need for manager critical care unit - to improve, our occupation therapists will perform initial evaluation of pt's status upon admission and devise an individualized program for Caregiver Training Weakness - to improve, our occupation therapists will perform initial evaluation of pt's status upon admission and devise an individualized program for Aquatic Therapy, Balance, Endurance, UE ROM, and UE strengthening - Other See attached MAR (Medication Administration Record) - Diet Type Continue Regular - Diet - Liquid Texture Continue Regular - Tube Feed Continue N/A - Diet - Solid Texture Continue Regular - Shower allowing shower FUNCTIONAL STATUS: UPDATED AT WEEKLY TEAM CONFERENCE - Bladder Same accident frequency: 7-Ind - No accidents in the past 7 days - Bowel Same accident frequency: 7-Ind - No accidents in the past 7 days - Walking Same score based on distance walked: 0(N/A) Same score based on distance walked: 3(>=150ft) - Wheelchair Same score based on distance traveled: 0(N/A) FUNCTIONAL STATUS: - Self-Care A. Eating Ind B. Grooming Sarah C. Bathing sup D. Dressing - Upper sup E. Dressing - Lower Nicole F. Toileting sup - Sphincter Control G. Bladder control sup H. Bowel control sup - Transfers Control I. Bed/Chair/Wheelchair Sarah J. Toilet Sarah K. Tub/Shower sup - Locomotion L. Walk/Wheelchair (B) Sarah M. Stairs Sarah - Communication N. Comprehension (B) Ind O. Expression (B) Ind - Social Cognition P. Social Interaction Ind Q. Problem Solving Ind R. Memory Ind - Endurance Good - Balance Good - Safety Awareness Good QI SCORES: - Self-Care A. Eating 03-Partial/moderate assistance B. Oral hygiene 03-Partial/moderate assistance C. Toileting hygiene 03-Partial/moderate assistance E. Shower/bathe self 03-Partial/moderate assistance F. Upper body dressing 03-Partial/moderate assistance G. Lower body dressing 03-Partial/moderate assistance H. Putting on/taking off footwear 88-Not attempted due to medical condition or safety concerns - Mobility A. Roll left and right 03-Partial/moderate assistance B. Sit to lying 03-Partial/moderate assistance C. Lying to sitting on side of bed 03-Partial/moderate assistance D. Sit to stand 03-Partial/moderate assistance E. Chair/ygc-es-qgwyj transfer 03-Partial/moderate assistance F. Toilet transfer 03-Partial/moderate assistance G. Car transfer 88-Not attempted due to medical condition or safety concerns I. Walk 10 feet 03-Partial/moderate assistance J. Walk 50 feet with two turns 03-Partial/moderate assistance K. Walk 150 feet 03-Partial/moderate assistance L. Walking 10 feet on uneven surfaces 88-Not attempted due to medical condition or safety concerns M. 1 step (curb) 88-Not attempted due to medical condition or safety concerns N. 4 steps 88-Not attempted due to medical condition or safety concerns O. 12 steps 88-Not attempted due to medical condition or safety concerns P. Picking up object 88-Not attempted due to medical condition or safety concerns R. Wheel 50 feet with two turns 03-Partial/moderate assistance S. Wheel 150 feet 88-Not attempted due to medical condition or safety concerns - Bladder and Bowel Bladder continence Bowel continence - Endurance Fair - Balance Poor - Safety Awareness Fair CURRENT [facility]. DEFICITS: Self-Care, Mobility, Endurance, Balance, and Safety Awareness SIGNATURE PANEL: (CDT)
[2020-06-06] MEDS: ZOLPIDEM TARTRATE 5 MG TABLET PO PRN (19:23)
[2020-06-06] MEDS: ATORVASTATIN 10 MG TAB PO SCH (19:23)
[2020-06-06] MEDS: lisinopriL 5 MG TAB PO SCH (19:23)
[2020-06-07] MEDS: HYDROCODONE/APAP 5/325 MG TAB PO PRN ×3 (02:22→15:51)
[2020-06-07] MEDS: PANTOPRAZOLE 40MG TABLET PO SCH (06:33)
[2020-06-07] MEDS: CRANBERRY FRUIT EXTRACT 200 MG CAP PO SCH ×2 (07:44→20:22)
[2020-06-07] MEDS: MEGESTROL 40 MG TAB PO SCH (07:44)
[2020-06-07] MEDS: AMIODARONE HCL 200 MG TAB PO SCH (07:44)
[2020-06-07] MEDS: lamoTRIgine 150 MG TAB PO SCH ×2 (07:45→20:23)
[2020-06-07] MEDS: MAGNESIUM OXIDE 400 MG TAB PO SCH (07:46)
[2020-06-07] MEDS: MEMANTINE HCL 10 MG TABLET PO SCH (07:46)
[2020-06-07] MEDS: DIVALPROEX DR 500MG TAB PO SCH ×3 (07:46→20:23)
[2020-06-07] MEDS: PROMOD 30 ML DOSE PO SCH ×2 (07:46→20:00)
[2020-06-07] MEDS: DULOXETINE 20 MG CAP PO SCH ×2 (07:46→13:31)
[2020-06-07] MEDS: ONDANSETRON 4 MG (ODT) TAB PO PRN ×2 (09:01→15:51)
[2020-06-07] MEDS: MECLIZINE HCL 12.5 MG TAB PO PRN (09:05)
[2020-06-07] MEDS ORDERED: NA CHLORIDE 0.9% 1,000 ML IV SCH (14:00)
[2020-06-07] MEDS: RIVAROXABAN 20 MG TABLET PO SCH (17:12)
--- NOTE | 2020-06-07 18:17 | R.PN ---
PROGRESS NOTES ENCOUNTER DATE AND TIME: 06/07/2020 18:11 (CDT) NAME RON MEDRANO DATE OF : 1955 DATE OF ADMISSION: 05/23/2020 18:05 (CDT) ATRIAL FLUTTER WITH RAPID VENTRICULAR RESPONSECHIEF COMPLAINT: Debility and aflutter with rapid response SUBJECTIVE: Pt denied any Shortness of Breath. Pt denied any depression. WBC 7.7, Hgb 12.6, Na 130, Calcium 8.5. Repeat UA shows 2+ esterase, bacteria 20-50. Encourage incen tive spirometry. Valprocic acid level is 98.0 She did not feel up to ambulating today. Discussed with her . Procalcitonin <0.05, lactic acid 1.0, valproic acid level is 98, head CT shows no acute changes. O2 s at 93 % on room air. BP 101/57 to 120/64. She has chronic dementia. Her MOCA is 23/30. Namenda 5 mg daily. Brain MRI negative for acute stroke or abnormalities. MRA of brain and neck show no significant flow abnormality. Ambulated 150' x 2 with contact guard to standby assistance using a rolling walker. Self-propelled wh eelchair 150' with standby assistance. VITAL SIGNS Temperature: 97.4 F SBP/DBP: 135/70 Pulse: 80 Resp: 16 MEDICATION ALLERGIES: No Known Drug Allergies (NKDA) ENVIRONMENTAL ALLERGIES: - Substance Allergies None Known - Other Allergies None Known NURSING: - Shower allowing shower ACTIVITIES OOB only with supervision THERAPIES: - Dietary and Nutrition Adequate Nutrition. Nutritional Education. Nutritional Supplements. PHYSICAL EXAM - Gen Alert and awake Lying in bed No apparent distress Oriented to: person, time, and place - Skin No skin breakdown. No abnormalities - Eyes No abnormalities - ENMT No abnormalities - Neck No abnormalities No cervical adenopathy - CVS RRR - Chest No abnormalities - Resp Clear to auscultation - Abd Soft - GI Non distended No abnormalities - No abnormalities - Ext Mild bilateral lower extremity edema. - MSK 4+/5 weakness in both lower extremities. - Neuro No focal deficits - Psych No abnormalities ASSESSMENT: Pt. is a 64 yo Right-handed female of unknown race.On 05/23/2020 she was admitted to [facility] with diagnosis ATRIAL FLUTTER WITH RAPID VENTRICULAR RESPONSE.Her impairment category is Card iac 09 - Cardiac Disorders (09).Pre-morbidly, Pt. was independent/mod-I in Safety Awareness, Balance , Social Cognition, Self-Care, and Communication; and she had good Sphincter Control and Locomotion.C urrently, she has deficits of Balance, Communication, Endurance, and Locomotion.Pt. is now referred t [facility] for acute in-patient rehabilitation in order to maximize patient' s functional independence in activities of daily living, strength, ROM, and mobility.- Rehab Goal Patient has realistic goal of being discharged at assistance level 7-Ind to reside at Home with Fami ly/Relatives. MDM/PLAN: - Physical Therapy Gait dysfunction - to improve, our physical therapists will perform initial evaluation of pt's statu s upon admission and devise an individualized program for Gait Training, and Wheel Chair mobility Need for home safety evaluation - to improve, our physical therapists will perform initial evaluatio n of pt's status upon admission and devise an individualized program for Home Evaluation Need in caregiver upon discharge - to improve, our physical therapists will perform initial evaluati on of pt's status upon admission and devise an individualized program for Caregiver Training New precaution - to improve, our physical therapists will perform initial evaluation of pt's status upon admission and devise an individualized program for Patient precaution education Edema - to improve, our physical therapists will perform initial evaluation of pt's status upon admi ssion and devise an individualized program for Elevation Training, and Lymphedema Therapy Poor balance - to improve, our physical therapists will perform initial evaluation of pt's status up on admission and devise an individualized program for Balance Training Poor endurance - to improve, our physical therapists will perform initial evaluation of pt's status upon admission and devise an individualized program for Endurance Training Weakness - to improve, our physical therapists will perform initial evaluation of pt's status upon a dmission and devise an individualized program for Aquatic Therapy, Neuromuscular Reeducation, and Str engthening Achieving independence - to improve, our physical therapists will perform initial evaluation of pt's status upon admission and devise an individualized program for Community Reintegration Activities - Occupational Therapy Need for resident caregiver - to improve, our occupation therapists will perform initial evaluation of pt's status upon admission and devise an individualized program for Caregiver Training Weakness - to improve, our occupation therapists will perform initial evaluation of pt's status upon admission and devise an individualized program for Aquatic Therapy, Balance, Endurance, UE ROM, and UE strengthening - Other See attached MAR (Medication Administration Record) - Diet Type Continue Regular - Diet - Liquid Texture Continue Regular - Tube Feed Continue N/A - Diet - Solid Texture Continue Regular - Shower allowing shower FUNCTIONAL STATUS: UPDATED AT WEEKLY TEAM CONFERENCE - Bladder Same accident frequency: 7-Ind - No accidents in the past 7 days - Bowel Same accident frequency: 7-Ind - No accidents in the past 7 days - Walking Same score based on distance walked: 0(N/A) Same score based on distance walked: 3(>=150ft) - Wheelchair Same score based on distance traveled: 0(N/A) FUNCTIONAL STATUS: - Self-Care A. Eating Ind B. Grooming Sarah C. Bathing sup D. Dressing - Upper sup E. Dressing - Lower Nicole F. Toileting sup - Sphincter Control G. Bladder control sup H. Bowel control sup - Transfers Control I. Bed/Chair/Wheelchair Sarah J. Toilet Sarah K. Tub/Shower sup - Locomotion L. Walk/Wheelchair (B) Sarah M. Stairs Sarah - Communication N. Comprehension (B) Ind O. Expression (B) Ind - Social Cognition P. Social Interaction Ind Q. Problem Solving Ind R. Memory Ind - Endurance Good - Balance Good - Safety Awareness Good QI SCORES: - Self-Care A. Eating 03-Partial/moderate assistance B. Oral hygiene 03-Partial/moderate assistance C. Toileting hygiene 03-Partial/moderate assistance E. Shower/bathe self 03-Partial/moderate assistance F. Upper body dressing 03-Partial/moderate assistance G. Lower body dressing 03-Partial/moderate assistance H. Putting on/taking off footwear 88-Not attempted due to medical condition or safety concerns - Mobility A. Roll left and right 03-Partial/moderate assistance B. Sit to lying 03-Partial/moderate assistance C. Lying to sitting on side of bed 03-Partial/moderate assistance D. Sit to stand 03-Partial/moderate assistance E. Chair/rjl-yl-resgk transfer 03-Partial/moderate assistance F. Toilet transfer 03-Partial/moderate assistance G. Car transfer 88-Not attempted due to medical condition or safety concerns I. Walk 10 feet 03-Partial/moderate assistance J. Walk 50 feet with two turns 03-Partial/moderate assistance K. Walk 150 feet 03-Partial/moderate assistance L. Walking 10 feet on uneven surfaces 88-Not attempted due to medical condition or safety concerns M. 1 step (curb) 88-Not attempted due to medical condition or safety concerns N. 4 steps 88-Not attempted due to medical condition or safety concerns O. 12 steps 88-Not attempted due to medical condition or safety concerns P. Picking up object 88-Not attempted due to medical condition or safety concerns R. Wheel 50 feet with two turns 03-Partial/moderate assistance S. Wheel 150 feet 88-Not attempted due to medical condition or safety concerns - Bladder and Bowel Bladder continence Bowel continence - Endurance Fair - Balance Poor - Safety Awareness Fair [facility] DEFICITS: Self-Care, Mobility, Endurance, Balance, and Safety Awareness SIGNATURE PANEL: (CDT)
[2020-06-07] MEDS: ZOLPIDEM TARTRATE 5 MG TABLET PO PRN (20:23)
[2020-06-07] MEDS: DOCUSATE NA/SENNA CONC 1 TAB PO PRN (20:23)
[2020-06-07] MEDS: ATORVASTATIN 10 MG TAB PO SCH (20:23)
[2020-06-08] MEDS: HYDROCODONE/APAP 5/325 MG TAB PO PRN (01:35)
[2020-06-08] MEDS: PANTOPRAZOLE 40MG TABLET PO SCH (06:53)
[2020-06-08 07:19] VITALS: BP 100/60; TEMP 97.3
[2020-06-08] MEDS ORDERED: DULOXETINE 20 MG CAP PO SCH (08:00)
[2020-06-08] MEDS: PROMOD 30 ML DOSE PO SCH (08:00)
[2020-06-08] MEDS: CRANBERRY FRUIT EXTRACT 200 MG CAP PO SCH (08:42)
[2020-06-08] MEDS: DIVALPROEX DR 500MG TAB PO SCH (08:42)
[2020-06-08] MEDS: AMIODARONE HCL 200 MG TAB PO SCH (08:42)
[2020-06-08] MEDS: MEMANTINE HCL 10 MG TABLET PO SCH (08:43)
[2020-06-08] MEDS: ACETAMINOPHEN 325 MG TABLET PO PRN (08:43)
[2020-06-08] MEDS: MAGNESIUM OXIDE 400 MG TAB PO SCH (08:43)
[2020-06-08] MEDS: MEGESTROL 40 MG TAB PO SCH (08:44)
[2020-06-08] MEDS: lamoTRIgine 150 MG TAB PO SCH (08:44)
[2020-06-08] MEDS: MECLIZINE HCL 12.5 MG TAB PO PRN (08:45)
--- NOTE | 2020-06-08 12:04 | FAST ---
OT QI REPORT FORM ENCOUNTER DATE AND TIME: 06/08/2020 08:00 (CDT) NAME RON MEDRANO DATE OF : 1955 DATE OF ADMISSION: 05/23/2020 18:05 (CDT) PHONE: AGE: 64 N# [id number] GENDER: Female ENCOUNTER PHYSICIAN: Dr. Arsh Milton M.D. ADMISSION DIAGNOSIS: - Cardiac 09 - Cardiac Disorders () ATRIAL FLUTTER WITH RAPID VENTRICULAR RESPONSE. EATING: Not assessed/no information CODE: - ORAL HYGIENE: ORAL HYGIENE - STEP 1: Does the patient complete the activity by him/herself with no assistance (physical, verbal/nonverbal cueing, setup/clean-up)? Yes. 1. [id number] ADMISSION PERFORMANCE: Independent CODE: 06 TOILETING HYGIENE: Not assessed/no information CODE: - BATHING: SHOWER/BATHE SELF - STEP 1: Does the patient complete the activity by him/herself with no assistance (physical, verbal/nonverbal cueing, setup/clean-up)? No. SHOWER/BATHE SELF - STEP 2: Does the patient need only setup/clean-up assistance from one helper? Yes. 1. [id number] ADMISSION PERFORMANCE: Setup or clean-up assistance CODE: 05 DRESSING - UPPER BODY: DRESSING - UPPER BODY - STEP 1: Does the patient complete the activity by him/herself with no assistance (physical, verbal/nonverbal cueing, setup/clean-up)? Yes. 1. [id number] ADMISSION PERFORMANCE: Independent CODE: 06 DRESSING - LOWER BODY: DRESSING - LOWER BODY - STEP 1: Does the patient complete the activity by him/herself with no assistance (physical, verbal/nonverbal cueing, setup/clean-up)? No. DRESSING - LOWER BODY - STEP 2: Does the patient need only setup/clean-up assistance from one helper? No. DRESSING - LOWER BODY - STEP 3: Does the patient need only verbal/nonverbal cueing or touching/steadying/contact guard assistance fro m one helper? Yes. 1. [id number] ADMISSION PERFORMANCE: Supervision or touching assistance CODE: 04 PUTTING ON/TAKING OFF FOOTWEAR: FOOTWEAR - STEP 1: Does the patient complete the activity by him/herself with no assistance (physical, verbal/nonverbal cueing, setup/clean-up)? Yes. 1. [id number] ADMISSION PERFORMANCE: Independent CODE: 06 DOES THE PATIENT USE A WHEELCHAIR/SCOOTER? CODE: EXPR INDICATE THE TYPE OF WHEELCHAIR/SCOOTER USED: CODE: EXPR INDICATE THE TYPE OF WHEELCHAIR/SCOOTER USED: CODE: EXPR BLADDER AND BOWEL: CODE: EXPR CODE: EXPR SIGNATURE PANEL: The following modified sections: 1. [id number] Admission Performance, 1. [id number] Admission Performance, 1. [id number] Admission Performance, 1. [id number] Admission Performance, 1. [id number] Admission Performance, 1. [id number] Admission Performance were [electronically] signed by FLIP Pedersen on SatJun 08 2020 12:03:52 T-0500 (Central Daylight Time)
== END 2020-06-08 11:15 | disposition home health service (06) | DRG 310 ==
LOC: 5TH 20:05
PROVIDERS: ADMIT Psychiatry & Neurology Neurology with Special Qualifications in Child Neurology; ATTEND Psychiatry & Neurology Neurology with Special Qualifications in Child Neurology
DX: I48.92 Unspecified atrial flutter (principal); F03.90 Unspecified dementia, unspecified severity, without behavioral disturbance, psychotic disturbance, mood disturbance, and anxiety; H81.399 Other peripheral vertigo, unspecified ear; I10 Essential (primary) hypertension; R53.81 Other malaise; Z98.84 Bariatric surgery status; Z20.828 Contact with and (suspected) exposure to other viral communicable diseases
CPT/HCPCS: 36415; 70450; 70544; 70549; 70553; 71045; 71046; 80048; 80164; 81001; 81003; 81015; 82040; 83605; 83735; 84134; 84145; 84300; 85025; 87086; 87088; 92507; 92523; 93005; 94010; 97110; 97112; 97116; 97127; 97140; 97161; 97530; A9577; J2405; J7030; U0002

== ENCOUNTER 2020-08-08 10:46 | Inpatient (IN) | payer OTHER ==
--- OUTSIDE RECORDS SUMMARY | 2020-08-08 11:16 | XMS REPORT | Continuity of Care Document ---
:1955 Author Organization [facility] Care Team Providers Name Role Phone [facility] Unavailable Un available Problems No Data Provided for This Section Medications Medication Details Route Status Patient Ordering Order Source Instructions Provider Date cetirizine 10 mg 10 mg = 1 Active MH oral tablet tab, PO, 020 Medical Daily, # 30 Group tab, 0 Refill(s), other Brompheniramine 7.5 mL, PO, Active MH Maleate 0.4 MG/ML / TID, PRN 020 Med ical Dextromethorphan cough, X 8 Grou p Hydrobromide 2 day, # 150 MG/ML / mL, 0 Pseudoephedrine Refill(s), Hydrochloride 6 Pharmacy: MG/ML Oral Solution [facility], 165.1, cm, 05/11/20 15:22:00 CDT, Height, 72.045, kg, 05/11/20 15:22:00 CDT, Weight Aspirin 81 MG 81 mg = 1 Active MH Chewable Tablet tab, PO, 020 Medical Daily, # 90 Group tab, 1 Refill(s), Pharmacy: [facility] 1221, 165.1, cm, 05/11/20 15:22:00 CDT, Height, 72.045, kg, 05/11/20 15:22:00 CDT, Weight Divalproex Sodium 500 mg = 1 Active MH 500 MG Enteric tab, PO, 020 Medical Coated Tablet TID, # 90 Group [Depakote] tab, 0 Refill(s) metoprolol 25 mg = 1 Active MH succinate 25 mg cap, PO, 020 Medical oral capsule, Daily, 0 Group extended release Refill(s) lisinopril 2.5 mg 2.5 mg = 1 Active MH oral tablet tab, PO, 020 Medical Daily, 0 Group Refill(s) atorvastatin 10 mg 10 mg = 1 Active oral tablet tab, PO, 020 Medical Daily, 0 Group Refill(s) lamotrigine 150 MG 1/2 TAB, Active Oral Tablet PO, BID, 0 020 Medical Refill(s) Group Allergies, Adverse Reactions, Alerts Substance Category Reaction Severity Reaction Status Date Comments S ource type Reported Augmentin Assertion Drug Active allergy Medical Group Demerol Assertion Drug Active allergy Medical Group Immunizations No Data Provided for This Section Results Order Results Value Reference Date Interpretation Comments Source Name Range LIPIDS Chol 156 <200 mg/dL Result 020 Comment: Medical
Lab test Group performed by:
[facility]
[address]
[place] [address]<br/ >Yousuf Rosales LIPIDS HDL 58 > OR = 50 mg/dL 020 Medical [facility] LIPIDS Trig 87 <150 mg/dL 020 [facility] LIPIDS LDL 81 Result (Calculate 020 Comment: Medical d) Reference Group range: <100

Desirable range <100 mg/dL for primary prevention;
<70 mg/dL for patients with CHD or diabetic patients
with > or = 2 CHD risk factors.

LDL-C is now calculated using the Katie
calculati on, which is a validated novel method providing
better accuracy than the Friedewald equation in the
estimatio n of LDL-C.
Vamshi KANG et al. MARY. 2013;310(19): 2048-0276
(http://e ducation.[facility].co m/faq/PXG862) LIPIDS CHD Risk 2.7 <5.0 (CALC) 020 [facility] LIPIDS Non HDL 98 <130 mg/dL Result Chol 020 Comment: For Medical patients with Group diabetes plus 1 major ASCVD risk
factor, treating to a non-HDL-C goal of <100 mg/dL
(LDL-C of <70 mg/dL) is considered a therapeutic
option.<b r/>FASTING:NO< br/>
FASTI NG: NO Pathology Reports No Data Provided for This Section Diagnostic Reports No Data Provided for This Section Consultation Notes No Data Provided for This Section Discharge Summaries No Data Provided for This Section History and Physicals No Data Provided for This Section Vital Signs Vital Sign Value Date Comments Source Systolic (mm Hg) 123 05/11/2020 Medical Group Diastolic (mm Hg) 75 05/11/2020 Medical Group Heart Rate 104 05/11/2020 Medical [facility] p Temperature Oral (F) 97.8 F 05/11/2020 [facility]i [facility] Height 165.1 cm 05/11/2020 Medical Gr[facility] p Weight 72.045 05/11/2020 Medical Gr[facility] p BMI Calculated 26.43 05/11/2020 Medical Gr oup Encounters Location Location Encounter Encounter Reason Attending ADM DC Stat us Source Details Type Number For Provider Date Date Visit Outpatient [id number] [facility] 05/11 [facility] Outpatient [id number] Aku[facility] 05/11 05/12 [facility] [place] Procedures No Data Provided for This Section Assessment and Plan No Data Provided for This Section Plan of Care No Data Provided for This Section Social History Social History Date Source Social History TypeResponse 05/11/2020 [facility] Smoking Status Never smoker; Exposure to Tobacco Smoke None; Cigarette Smoking Last 365 Days No; Reg Smoking Cessation Counseling No entered on: 05/11/20 Family History No Data Provided for This Section Advance Directives No Data Provided for This Section Functional Status No Data Provided for This Section
[2020-08-08] MEDS ORDERED: ONDANSETRON 4 MG/2 ML VIAL ONE ×2 (12:15→21:59)
[2020-08-08] MEDS ORDERED: MORPHINE 4 MG/ML SYR ONE ×3 (12:15→21:59)
[2020-08-08] MEDS ORDERED: NA CHLORIDE 0.9% 1,000 ML ONE ×3 (12:15→21:59)
[2020-08-08 12:25] LABS: Urine Blood 1+ (NEG); Urine Glucose NEGATIVE (NEG); Urine Protein 1+ (NEG)
[2020-08-08 12:27] LABS: Absolute Lymphocytes (CBC) 1.1 K/uL (0.7-4.9); Basophils % 0.5 % (0-1.3); Hematocrit 42.1 % (36.0-45.0); Lymphocytes % 17.5 % (15.3-44.8); MPV 9.6 fL (7.6-11.3)
[2020-08-08 12:46] LABS: Urine Bacteria 20-50 /HPF (<20); Urine Mucus MOD /HPF (NONE SEEN)
[2020-08-08 12:47] LABS: Albumin 3.6 g/dL (3.4-5.0); Bilirubin Direct 0.2 mg/dL (0-0.2); Bilirubin Total 0.6 mg/dL (0.2-1.0); Potassium 4.4 mmol/L (3.5-5.1); Protein, Total 7.5 g/dL (6.4-8.2)
--- NOTE | 2020-08-08 12:52 | RAD REPORT ---
EXAM DESCRIPTION: CT - Abdomen Pelvis W Contrast - 08/08/2020 12:33 pm CLINICAL HISTORY: FLANK PAIN, right lower COMPARISON: Abdomen Pelvis W Contrast dated 05/18/2020 TECHNIQUE: Biphasic, helical CT imaging of the abdomen and pelvis was performed following 100 ml non -ionic IV contrast. No oral contrast administered. All CT scans are performed using dose optimization technique as appropriate and may include automated exposure control or mA/KV adjustment according to patient size. FINDINGS: No suspicious findings in the lung bases. The liver, spleen, and pancreas show no suspicious findings. Intrahepatic and extrahepatic biliary tr ee dilatation are present with the common duct is 9 mm in diameter. No duct stone or mass seen though duct stones can be occult. Gallbladder is distended with no gallstones seen. Gallstones can be occul t. There is wall thickening and edema. A trace amount of pericholecystic fluid and edematous strandin g noted. Symmetric renal function is seen with no hydronephrosis or suspicious renal mass. No pyelonephritis o r acute parenchymal process. Urinary bladder is fully contracted. No adrenal abnormalities. Uterus is absent. Ovaries are absent or atrophic. Gastric surgical changes are noted with no gastric dilatation or mass. No dilated small bowel loops. Moderate stool volume present through the colon. The appendix is 8 mm in diameter which is upper norm al to slightly enlarged. This is a smaller diameter than seen in May and there is none of the terrell nt edema or stranding in the periappendiceal fat. No appendicolith seen. Acute appendicitis is not monroy spected for this retrocecal appendix. No free air, free fluid or pneumatosis. No other areas of inflammatory stranding. No hernia, mass o r bulky lymphadenopathy. No suspicious bony findings. IMPRESSION: Gallbladder is distended with wall thickening, edema and adjacent stranding. Biliary nguyen e is dilated. No mass identified. Gallstones and duct stones can be occult on CT imaging. Correlation is needed with any clinical findings that would support acute cholecystitis and/or acute biliary obstruction. As detailed above, there are no findings of acute appendicitis or other acute GI process.
--- NOTE | 2020-08-08 13:43 | RAD REPORT ---
EXAM DESCRIPTION: US - Abdomen Exam Limited - 08/08/2020 1:33 pm CLINICAL HISTORY: RUQ pain COMPARISON: Abdomen Pelvis W Contrast dated 08/08/2020 FINDINGS: Gallbladder is distended. No gallstones are identified. There is a small layer of sludge p resent. Gallbladder wall is thickened. Wall edema is seen. No focal mass the gallbladder wall. Common bile duct measures 6 mm on this study. CT imaging showed an 8 millimeter diameter with intrahe patic dilatation seen. Collective findings would support an obstructive biliary process. A duct stone is not identified. IMPRESSION: The combined ultrasound and CT findings are consistent with an acute cholecystitis. Combined CT and ultrasound findings would support biliary obstruction with no duct stone or mass iden tifiable.
[2020-08-08 15:12] LABS: Platelet Estimate DECR; White Blood Cell Scan OK (OK)
[2020-08-08 15:13] LABS: Blood Morphology Comment NOTED (NOT SEEN); Poikilocytosis 1+
[2020-08-08] MEDS ORDERED: LORazepam 2 MG/ML VIAL ONE (15:35)
[2020-08-08] MEDS ORDERED: CIPROFLOXACIN 400mg IV 400 MG/200 ML BAG IV ONE (15:41)
[2020-08-08] MEDS ORDERED: METRONIDAZOLE 500mg IVPB 500 MG/100 ML BAG IV ONE (15:41)
--- NOTE | 2020-08-08 16:39 | RAD REPORT ---
EXAM DESCRIPTION: MRI - Cholangiogram - 08/08/2020 4:30 pm CLINICAL HISTORY: Right flank pain, abdominal pain, abnormal CT study COMPARISON: Ultrasound same date, CT study same date TECHNIQUE: Axial and coronal heavily T2 weighted sequences were obtained. Coronal T2 HASTE fat satur ation static and coronal multiplane reconstruction imaging generated and reviewed. Horizontal and tamera tical axis rotational views obtained using maximum intensity projection (MIP) protocol. FINDINGS: Dilated gallbladder is again identified. No stone seen on MRCP imaging within the lumen of the gallbladder. Extrahepatic and intrahepatic biliary tree dilatation are present. This matches the CT study. No panc reatic duct dilatation. Exam has respiratory motion degradation limitations. No duct stone, stricture or mass confirmed on this study. IMPRESSION: Motion degraded study shows biliary tree dilatation similar to CT study with no strictur e, mass or stone identifiable. Dilated gallbladder with no gallstone identified.
--- NOTE | 2020-08-08 17:09 | EDPHYS ---
Physician Documentation [facility] Name: Kianna Lan Age: 65 yrs Sex: Female : 1955 Arrival Date: 08/08/2020 Time: 10:49 Bed 19 Private MD: ED Physician Evert Reyes HPI: 08/08 11:30 This 65 yrs old Female presents to ER via Wheelchair with complaints of Flank pm1 Pain. 11:30 The patient complains of pain in the right mid back and right lower quadrant. Onset: pm1 The symptoms/episode began/occurred 2 day(s) ago. Modifying factors: The symptoms are alleviated by nothing. the symptoms are aggravated by nothing. Associated signs and symptoms: Pertinent negatives: diarrhea, dysuria, fever, nausea, vomiting. Severity of pain: in the emergency department the pain is actually worse. Patient is concerned that it might be her appendix. 2 months ago diagnosed with acute appendicitis and she did not clear cardiac clearance during hospitalization so she was treated with antibiotics. She did not follow up with the surgeon or any physicians after being discharged from the hospital. The patient has not recently seen a physician. Historical: - Allergies: 11:03 Augmentin; iw 11:03 Demerol; iw - PMHx: 11:03 Hypertension; Seizures; iw - PSHx: 11:03 Gastric Bypass; iw - Immunization history:: Flu vaccine status is unknown. - Social history:: Smoking status: unknown. ROS: 11:30 Constitutional: Negative for fever, chills, and weight loss, Eyes: Negative for injury, pm1 pain, redness, and discharge, ENT: Negative for injury, pain, and discharge, Neck: Negative for injury, pain, and swelling, Cardiovascular: Negative for chest pain, palpitations, and edema, Respiratory: Negative for shortness of breath, cough, wheezing, and pleuritic chest pain. 11:30 : Negative for injury, bleeding, discharge, and swelling, MS/Extremity: Negative for injury and deformity, Skin: Negative for injury, rash, and discoloration, Neuro: Negative for headache, weakness, numbness, tingling, and seizure. 11:30 Abdomen/GI: Positive for abdominal pain, of the right lower quadrant, Negative for nausea, vomiting, and diarrhea, constipation. 11:30 Back: Positive for flank pain, on the right. Exam: 11:30 Constitutional: This is a well developed, well nourished patient who is awake, alert, pm1 and in no acute distress. Head/Face: Normocephalic, atraumatic. 11:30 Skin: Warm, dry with normal turgor. Normal color with no rashes, no lesions, and no evidence of cellulitis. MS/ Extremity: Pulses equal, no cyanosis. Neurovascular intact. Full, normal range of motion. 11:30 Cardiovascular: Exam negative for acute changes, Rate: normal, Rhythm: regular, Pulses: no pulse deficits are appreciated, Edema: is not appreciated. 11:30 Respiratory: Exam negative for acute changes, respiratory distress, shortness of breath. 11:30 Abdomen/GI: Inspection: abdomen appears normal, Palpation: soft, in all quadrants, mild abdominal tenderness, in the right upper quadrant. 11:30 Neuro: Exam negative for acute changes, Orientation: is normal, Mentation: is normal, Motor: is normal, moves all fours. Vital Signs: 10:59 BP 137 / 87; Pulse 87; Resp 16; Temp 98.3; Pulse Ox 100% on R/A; Weight 65.77 kg; Pain iw 7/10; 13:00 BP 133 / 68; Pulse 80; Resp 18; Pulse Ox 100% on R/A; Pain 6/10; em 14:30 BP 152 / 81; Pulse 86; Resp 16; Pulse Ox 100% on R/A; em 17:00 BP 145 / 97; Pulse 85; Resp 18; Pulse Ox 98% on R/A; Pain 7/10; em 19:28 BP 140 / 80; Pulse 81; Resp 18; Pulse Ox 98% on R/A; mg2 MDM: 11:28 Patient medically screened. pm1 15:33 Data reviewed: vital signs. Data interpreted: Pulse oximetry: on room air is 100 %. pm1 Interpretation: normal. 16:50 Counseling: I had a detailed discussion with the patient and/or guardian regarding: the pm1 historical points, exam findings, and any diagnostic results supporting the discharge/admit diagnosis, lab results, radiology results, the need for further work-up and treatment in the hospital. 16:55 Physician consultation: Roland Barboza MD was called at 16:55, was contacted at 17:00, pm1 regarding consult, patient's condition, would like admission per Dr. Tim Wilson MD NPO, IV fluids, pain medications, antiemetics, call housekeeping cleaner to place in his room tomorrow, and admit to the hospitalist. 17:03 Physician consultation: Tim Wilson MD was called at 17:03, was contacted at 17:03, pm1 regarding admission, patient's condition, and will see patient. 08/08 11:30 Order name: Basic Metabolic Panel; Complete Time: 12:58 pm1 08/08 11:30 Order name: CBC with Diff; Complete Time: 15:43 pm1 08/08 11:30 Order name: Hepatic Function; Complete Time: 12:58 pm1 08/08 11:30 Order name: Lipase; Complete Time: 12:58 pm1 08/08 11:30 Order name: Urine Microscopic Only; Complete Time: 12:58 pm1 08/08 12:20 Order name: Urine Dipstick--Ancillary (enter results); Complete Time: 12:43 eb 08/08 12:36 Order name: CREATININE WHOLE BLOOD; Complete Time: 12:43 EDMS 08/08 12:36 Order name: CREATININE WHOLE BLOOD EDHI 08/08 15:12 Order name: CBC Smear Scan; Complete Time: 15:43 EDMS 08/08 18:20 Order name: CBC with Automated Diff EDHI 08/08 18:20 Order name: CBC with Automated Diff EDHI 08/08 18:20 Order name: Comprehensive Metabolic Panel EDHI 08/08 18:20 Order name: Comprehensive Metabolic Panel EDHI 08/08 18:20 Order name: Protime (+INR) EDHI 08/08 11:30 Order name: CT Abd/Pelvis - IV Contrast Only; Complete Time: 12:58 pm1 08/08 13:02 Order name: US Abdomen Limited; Complete Time: 13:45 pm1 08/08 14:04 Order name: Cholangiogram; Complete Time: 16:42 EDMS 08/08 18:20 Order name: Protime (+INR) EDHI 08/08 18:20 Order name: PTT, Activated Partial Thromb EDHI 08/08 18:20 Order name: PTT, Activated Partial Thromb EDHI 08/08 19:26 Order name: COVID-19 mg2 08/08 20:09 Order name: CORONAVIRUS EDHI 08/08 20:57 Order name: SARS-COV-2 RT PCR; Complete Time: 21:22 EDHI 08/08 11:30 Order name: IV Saline Lock; Complete Time: 12:22 pm1 08/08 11:30 Order name: Labs collected and sent; Complete Time: 12:22 pm1 08/08 11:30 Order name: Urine Dipstick-Ancillary (obtain specimen); Complete Time: 12:15 pm1 08/08 11:30 Order name: NPO; Complete Time: 11:36 pm1 08/08 18:20 Order name: CONS Pharmacy Consult EDHI 08/08 18:20 Order name: CONS Physician Consult EDHI 08/08 18:20 Order name: NPO EDMS Administered Medications: 12:20 Drug: Zofran (Ondansetron) 4 mg Route: IVP; Site: left antecubital; em 13:00 Follow up: Response: No adverse reaction; Marked relief of symptoms em 12:22 Drug: morphine 4 mg Route: IVP; Site: left antecubital; em 13:00 Follow up: Response: No adverse reaction; Marked relief of symptoms; Pain is decreased; em RASS: Alert and Calm (0) 12:54 Drug: NS 0.9% 1000 ml Route: IV; Rate: 1000 ml; Site: left antecubital; em 13:30 Follow up: IV Status: Completed infusion; IV Intake: 1000ml em 14:48 Drug: morphine 4 mg Route: IVP; Site: left antecubital; em 15:21 Follow up: Response: No adverse reaction; Marked relief of symptoms; Pain is decreased; em RASS: Alert and Calm (0) 15:24 Drug: Ativan 0.5 mg Route: IVP; Site: left antecubital; em 16:30 Follow up: Response: No adverse reaction; Marked relief of symptoms em 16:14 Drug: Ativan 0.5 mg Route: IVP; Site: left antecubital; iw 16:30 Follow up: Response: No adverse reaction; Marked relief of symptoms; Anxiety decreased em 17:20 Drug: Flagyl 500 mg Volume: 100 ml; Route: IVPB; Rate: 200 ml/hr; Infused Over: 30 em mins; Site: left antecubital; 18:10 Follow up: Response: No adverse reaction; IV Status: Completed infusion; IV Intake: em 100ml 17:20 Drug: NS 0.9% 1000 ml Route: IV; Rate: 100 ml/hr; Site: left antecubital; em 18:22 Drug: Ciprofloxacin 400 mg Volume: 200 ml; Route: IVPB; Infused Over: 60 mins; Site: em left antecubital; 19:26 Follow up: Response: No adverse reaction; IV Status: Completed infusion mg2 Disposition: 08/09 13:22 Co-signature as Attending Physician, Evert Reyes MD. rn Disposition: 08/08/20 17:09 Hospitalization ordered by Tim Wilson for Inpatient Admission. Preliminary diagnosis is Acute cholecystitis. - Bed requested for Telemetry/MedSurg (Inpatient). - Status is Inpatient Admission. jl7 - Condition is Stable. - Problem is new. - Symptoms have improved. Signatures: Dispatcher [employer] Reed Beck, RN RN Lucinda Sumner RN RN Evert Reyes MD MD rn Garcia, Cindy, RN RN Stanley Awan, BUSINESS ACCOUNT LEADER BUSINESS ACCOUNT LEADER pm1 Xavire Luna RN RN jl7 Sulma Diane Jose Graves RN RN mg2 Corrections: (The following items were deleted from the chart) 08/08 17:08 16:55 Physician consultation: Roland Barboza MD was called at 16:55, pm1 pm1 21:01 17:09 Hospitalization Ordered by Tim Wilson MD for Inpatient Admission. Preliminary cg diagnosis is Acute cholecystitis. Bed requested for Telemetry/MedSurg (Inpatient). Status is Inpatient Admission. Condition is Stable. Problem is new. Symptoms have improved. pm1 08/09 10:34 08/08 21:01 08/08/2020 17:09 Hospitalization Ordered by Tim Wilson MD for Inpatient eb Admission. Preliminary diagnosis is Acute cholecystitis. Bed requested for [facility] ER HOLD. Status is Inpatient Admission. Condition is Stable. Problem is new. Symptoms have improved. cg 08/09 12:46 10:34 08/08/2020 17:09 Hospitalization Ordered by Tim Wilson MD for Inpatient jl7 Admission. Preliminary diagnosis is Acute cholecystitis. Bed requested for Telemetry/MedSurg (Inpatient). Status is Inpatient Admission. Condition is Stable. Problem is new. Symptoms have improved. eb
--- NOTE | 2020-08-08 17:09 | ER ---
Nurse's Notes [facility] Name: Kainna Lan Age: 65 yrs Sex: Female : 1955 Arrival Date: 08/08/2020 Time: 10:49 Bed 19 Private MD: Diagnosis: Acute cholecystitis Presentation: 08/08 10:59 Chief complaint: Patient states: was here in May , was told she had acute iw appendicitis but they were unable to due surgery bc she was not cleared by cardiology , was put on abx and was supposed to reschedule her surgery, but past two days has had lots of gracia to her RLQ. Coronavirus screen: At this time, the client does not indicate any symptoms associated with coronavirus-19. Ebola Screen: Patient negative for fever greater than or equal to 101.5 degrees Fahrenheit, and additional compatible Ebola Virus Disease symptoms Patient denies exposure to infectious person. Patient denies travel to an Ebola-affected area in the 21 days before illness onset. No symptoms or risks identified at this time. Initial Sepsis Screen: Does the patient meet any 2 criteria? No. Patient's initial sepsis screen is negative. Does the patient have a suspected source of infection? No. Patient's initial sepsis screen is negative. Risk Assessment: Do you want to hurt yourself or someone else? Patient reports no desire to harm self or others. Onset of symptoms was August 06, 2020. 10:59 Method Of Arrival: Wheelchair iw 10:59 Acuity: MICHAEL 3 iw Historical: - Allergies: 11:03 Augmentin; iw 11:03 Demerol; iw - PMHx: 11:03 Hypertension; Seizures; iw - PSHx: 11:03 Gastric Bypass; iw - Immunization history:: Flu vaccine status is unknown. - Social history:: Smoking status: unknown. Screenin:00 Abuse screen: Denies threats or abuse. Nutritional screening: No deficits noted. em Tuberculosis screening: No symptoms or risk factors identified. Fall Risk None identified. Assessment: 12:00 General: Appears in no apparent distress. comfortable, Behavior is calm, cooperative, em appropriate for age, Denies fever. Pain: Complains of pain in right lower quadrant Pain currently is 7 out of 10 on a pain scale. Neuro: Level of Consciousness is awake, alert, obeys commands, Oriented to person, place, time, situation, Appropriate for age. Cardiovascular: Capillary refill < 3 seconds Patient's skin is warm and dry. Respiratory: Airway is patent Respiratory effort is even, unlabored, Respiratory pattern is regular, symmetrical. GI: Abdomen is flat, Reports nausea. Derm: Skin is intact, is healthy with good turgor, Skin is pink, warm \T\ dry. Musculoskeletal: Capillary refill < 3 seconds, Range of motion: intact in all extremities. 13:00 Reassessment: Patient appears in no apparent distress at this time. Patient and/or em family updated on plan of care and expected duration. Pain level reassessed. Patient is alert, oriented x 3, equal unlabored respirations, skin warm/dry/pink. rates pain 6/10 Patient states feeling better. 13:12 Reassessment: Patient appears in no apparent distress at this time. pt wheeled to US. em 14:30 Reassessment: Patient appears in no apparent distress at this time. Patient and/or em family updated on plan of care and expected duration. Pain level reassessed. Patient is alert, oriented x 3, equal unlabored respirations, skin warm/dry/pink. 17:00 Reassessment: Patient appears in no apparent distress at this time. Patient and/or em family updated on plan of care and expected duration. Pain level reassessed. Patient is alert, oriented x 3, equal unlabored respirations, skin warm/dry/pink. rates pain at 7/10. 18:25 Reassessment: Dr. Wilson at bedside. em 19:28 Reassessment: Patient appears in no apparent distress at this time. Patient and/or mg2 family updated on plan of care and expected duration. Pain level reassessed. Patient is alert, oriented x 3, equal unlabored respirations, skin warm/dry/pink. Vital Signs: 10:59 BP 137 / 87; Pulse 87; Resp 16; Temp 98.3; Pulse Ox 100% on R/A; Weight 65.77 kg; Pain iw 7/10; 13:00 BP 133 / 68; Pulse 80; Resp 18; Pulse Ox 100% on R/A; Pain 6/10; em 14:30 BP 152 / 81; Pulse 86; Resp 16; Pulse Ox 100% on R/A; em 17:00 BP 145 / 97; Pulse 85; Resp 18; Pulse Ox 98% on R/A; Pain 7/10; em 19:28 BP 140 / 80; Pulse 81; Resp 18; Pulse Ox 98% on R/A; mg2 ED Course: 10:49 Patient arrived in ED. rg4 11:02 Triage completed. iw 11:16 Reed Santiago, RN is Primary Nurse. em 11:18 Stanley Awan, LAYER OUT is PHCP. pm1 11:18 Evert Reyes MD is Attending Physician. pm1 12:00 Patient has correct armband on for positive identification. Call light in reach. Adult em w/ patient. Pulse ox on. NIBP on. 12:15 Urine Microscopic Only Sent. dh3 12:20 Initial lab(s) drawn, by me, sent to lab. Inserted saline lock: 20 gauge in left em antecubital area, using aseptic technique. Blood collected. 12:32 CT Abd/Pelvis - IV Contrast Only In Process Unspecified. EDMS 13:33 US Abdomen Limited In Process Unspecified. EDMS 15:56 Cholangiogram In Process Unspecified. EDMS 17:09 Tim Wilson MD is Hospitalizing Provider. pm1 19:29 No provider procedures requiring assistance completed. Patient admitted, IV remains in mg2 place. 20:05 COVID swab sent to lab. mg2 20:05 Arm band placed on. mg2 22:27 Primary Nurse role handed off by Reed Santiago, BRIDGER jp3 08/09 02:41 Jose Graves, RN is Primary Nurse. mg2 07:00 Report received from BRIDGER Leal. jl7 09:30 Report given to BRIDGER Posadas. jl7 Administered Medications: 08/08 12:20 Drug: Zofran (Ondansetron) 4 mg Route: IVP; Site: left antecubital; em 13:00 Follow up: Response: No adverse reaction; Marked relief of symptoms em 12:22 Drug: morphine 4 mg Route: IVP; Site: left antecubital; em 13:00 Follow up: Response: No adverse reaction; Marked relief of symptoms; Pain is decreased; em RASS: Alert and Calm (0) 12:54 Drug: NS 0.9% 1000 ml Route: IV; Rate: 1000 ml; Site: left antecubital; em 13:30 Follow up: IV Status: Completed infusion; IV Intake: 1000ml em 14:48 Drug: morphine 4 mg Route: IVP; Site: left antecubital; em 15:21 Follow up: Response: No adverse reaction; Marked relief of symptoms; Pain is decreased; em RASS: Alert and Calm (0) 15:24 Drug: Ativan 0.5 mg Route: IVP; Site: left antecubital; em 16:30 Follow up: Response: No adverse reaction; Marked relief of symptoms em 16:14 Drug: Ativan 0.5 mg Route: IVP; Site: left antecubital; iw 16:30 Follow up: Response: No adverse reaction; Marked relief of symptoms; Anxiety decreased em 17:20 Drug: Flagyl 500 mg Volume: 100 ml; Route: IVPB; Rate: 200 ml/hr; Infused Over: 30 em mins; Site: left antecubital; 18:10 Follow up: Response: No adverse reaction; IV Status: Completed infusion; IV Intake: em 100ml 17:20 Drug: NS 0.9% 1000 ml Route: IV; Rate: 100 ml/hr; Site: left antecubital; em 18:22 Drug: Ciprofloxacin 400 mg Volume: 200 ml; Route: IVPB; Infused Over: 60 mins; Site: em left antecubital; 19:26 Follow up: Response: No adverse reaction; IV Status: Completed infusion mg2 Intake: 13:30 IV: 1000ml; Total: 1000ml. em 18:10 IV: 100ml; Total: 1100ml. em Outcome: 17:09 Decision to Hospitalize by Provider. pm1 19:00 Admitted to ER Hold. Please see [facility] for further documentation. jl7 08/09 07:00 Condition: stable jl7 Discharge instructions given to patient, Instructed on the need for admit, Demonstrated understanding of instructions. 12:46 Patient left the ED. jl7 Signatures: Dispatcher [employer] Reed Beck RN RN em Lucinda Sumner RN RN iw Stanley Awan NP LAYER OUT pm1 Kathia Currie rg4 Xavier Luna RN RN jl7 Adelita Gaston 3 Jose Graves RN RN mg2 Sebas Montes jp3 Corrections: (The following items were deleted from the chart) 11:06 07:00 Admitted to ER Hold. Please see [facility] for further documentation. jl7 jl7
--- NOTE | 2020-08-08 18:22 | P.HP ---
Certification for Inpatient Patient admitted to: Inpatient With expected LOS: >2 Midnights Patient will require the following post-hospital care: None Practitioner: I am a practitioner with admitting privileges, knowledge of patient current condition, hospital course, and medical plan of care. Services: Services provided to patient in accordance with Admission requirements found in Title 42 Section 412.3 of the Code of Federal Regulations Patient History Date of Service: 08/08/20 Reason for admission: Acute cholecystitis History of Present Illness: Patient is a 65-year-old female came to the hospital with abdominal pain. She was workup in the emergency room extensively and found have acute cholecystitis on CT scan and abdominal ultrasound. Patient will be admitted to the hospital for acute cholecystitis and IV antibiotic therapy. I spoke to the patient regarding cardiac issues and she says she was told she had elevated heart rate. She showed me the list of her medications and she is on amiodarone and Xarelto. She took the Xarelto this morning. Will have to hold off on her surgery for at least 48 hr. Hold off on Levaquin and will have to use cephalosporin as she is allergic to penicillin. Continue with 3rd generation cephalosporin along with Flagyl. She will be admitted to the hospital for further treatment. Allergies amoxicillin [From Augmentin] Allergy (Verified 05/18/20 17:12) Hives/Rash clavulanic acid [From Augmentin] Allergy (Verified 05/18/20 17:12) Hives/Rash meperidine [From Demerol] Allergy (Verified 05/18/20 17:12) Hives Home Medications: Atorvastatin Calcium 1 tab PO BEDTIME 04/24/20 Divalproex Sodium 1 tab PO TID 04/24/20 Lamotrigine [Lamictal] 75 mg PO BID 04/24/20 Rivaroxaban [Xarelto] 20 mg PO DAILY #14 tablet 05/20/20 Acetaminophen [Tylenol*] 650 mg PO Q6H PRN tab 05/23/20 Acetaminophen [Tylenol*] 650 mg PO Q6H PRN tab 06/06/20 Amiodarone HCl [Cordarone*] 200 mg PO DAILY #30 tab 06/06/20 Cranberry Fruit Extract 400 mg PO BID #120 cap 06/06/20 Docusate/Senna [Senokot-S*] 2 tab PO BEDTIME PRN #60 tab 06/06/20 Duloxetine [Cymbalta *] 20 mg PO DAILY #30 cap 06/06/20 Magnesium Oxide [Mag 0X*] 400 mg PO DAILY #30 tab 06/06/20 Meclizine HCl [Antivert*] 25 mg PO Q8H PRN tab 06/06/20 Megestrol [Megace*] 40 mg PO DAILY #30 tab 06/06/20 Memantine HCl [Namenda*] 5 mg PO DAILY #30 tablet 06/06/20 Pantoprazole [Protonix Tab*] 40 mg PO DAILYAC #30 tab 06/06/20 - Past Medical/Surgical History Diabetic: No -: Seizure history -: Hypertension -: Gastric Bypass -: Colonoscopy -: Endoscopy -: Breast reduction -: Hysterectomy - Family History Father Medical History: Cancer Mother Medical History: Cancer, Other (see notes) Notes: Leukemia - Social History Alcohol use: No CD- Drugs: No Caffeine use: No Review of Systems 10-point ROS is otherwise unremarkable Physical Examination - Vital Signs Temperature: 8 F Blood Pressure: 110/70 Pulse: 80 Respirations: 18 Pulse Ox (%): 99 - Physical Exam General: Alert, In no apparent distress, Oriented x3 HEENT: Atraumatic, PERRLA, Mucous membr. moist/pink, EOMI, Sclerae nonicteric Neck: Supple, 2+ carotid pulse no bruit, No LAD, Without JVD or thyroid abnormality Respiratory: Clear to auscultation bilaterally, Normal air movement Cardiovascular: Regular rate/rhythm, Normal S1 S2, No murmurs Gastrointestinal: Normal bowel sounds, Soft and benign, Non-distended, No tenderness Musculoskeletal: No clubbing, No swelling, No tenderness Integumentary: No rashes Neurological: Normal gait, Normal speech, Normal strength at 5/5 x4 extr, Normal tone, Sensation intact, Cranial nerves 3-12 intact, Normal affect Lymphatics: No axilla or inguinal lymphadenopathy - Studies Laboratory Data (last 24 hrs) 08/08/20 12:20: WBC 6.1, Hgb 13.8, Hct 42.1, Plt Count 146 L 08/08/20 12:20: Sodium 139, Potassium 4.4, BUN 19 H, Creatinine 0.70, Glucose 84, Total Bilirubin 0.6, AST 25, ALT 54, Alkaline Phosphatase 90, Lipase 38 L Assessment & Plan - Problems (Diagnosis) (1) Acute cholecystitis Current Visit: Yes Status: Acute (2) Atrial flutter with rapid ventricular response Current Visit: No Status: Acute (3) Chest pain, rule out acute myocardial infarction Current Visit: No Status: Acute (4) Hyperlipidemia Current Visit: No Status: Acute (5) Hypertension Current Visit: No Status: Acute - Plan 1. Continue with IV hydration 2. Continue with IV antibiotics 3. Continue with pain control 4. Clear liquid diet 5. Continue cardiac meds but hold anti coagulation 6. Monitor CBC, BMP, LFTs and lipase along with electrolytes. 7. GI and DVT prophylaxis Discharge Plan: Home Plan to discharge in: Greater than 2 days - Advance Directives Does patient have a Living Will: No Does patient have a Durable POA for Healthcare: No - Code Status/Comfort Care Code Status Assessed: Yes Code Status: Full Code Critical Care: No Time Spent Managing PTS Care (In Minutes): 45
[2020-08-08] MEDS: NA CHLORIDE 0.9% 1,000 ML IV SCH (19:00)
[2020-08-08] MEDS ORDERED: METOPROLOL TAR 25 MG TAB PO ONE (19:00)
[2020-08-08] MEDS: DIVALPROEX DR 500MG TAB PO SCH (21:00)
[2020-08-08 21:21] VITALS: BMI 24.8
[2020-08-08] MEDS: MORPHINE 4 MG/ML SYR IV PRN (21:58)
[2020-08-08] MEDS ORDERED: METOPROLOL TAR 25 MG TAB ONE (21:59)
[2020-08-08] MEDS: ONDANSETRON 4 MG/2 ML VIAL IV PRN (21:59)
[2020-08-08] MEDS ORDERED: ZOLPIDEM TARTRATE 5 MG TABLET PO ONE (23:59)
[2020-08-09] MEDS ORDERED: ZOLPIDEM TARTRATE 10 MG TABLET ONE (01:04)
[2020-08-09 04:55] LABS: Absolute Lymphocytes (CBC) 1.3 K/uL (0.7-4.9); Basophils % 0.5 % (0-1.3); Hematocrit 38.2 % (36.0-45.0); Lymphocytes % 24.8 % (15.3-44.8); MPV 8.9 fL (7.6-11.3); RBC Red Blood Cell Count 3.93 M/uL (3.86-4.86)
[2020-08-09] MEDS: NA CHLORIDE 0.9% 1,000 ML IV SCH ×2 (05:00→14:38)
[2020-08-09 05:07] LABS: ALT/SGPT 52 U/L (12-78); AST/SGOT 36 U/L (15-37); Albumin 3.1 g/dL (3.4-5.0); Alkaline Phosphatase 141 U/L (45-117); BUN Blood Urea Nitrogen 12 mg/dL (7-18); Bicarbonate 28 mmol/L (21-32); Bilirubin Total 0.6 mg/dL (0.2-1.0); Glucose Level 73 mg/dL (74-106); Potassium 4.2 mmol/L (3.5-5.1); Protein, Total 6.6 g/dL (6.4-8.2); Sodium Level 138 mmol/L (136-145)
[2020-08-09] MEDS: METOPROLOL TAR 25 MG TAB PO SCH ×2 (06:00→18:00)
[2020-08-09] MEDS ORDERED: INFLUENZA VACCINE (for 3y+) 0.5 ML DOSE IMVAC ONE (08:00)
[2020-08-09] MEDS: AMIODARONE HCL 200 MG TAB PO SCH (09:00)
[2020-08-09] MEDS: DIVALPROEX DR 500MG TAB PO SCH ×3 (09:00→20:19)
[2020-08-09] MEDS ORDERED: CEFOXITIN 2 GM in NA CHLORIDE 0.9% 100 ML IVPB SCH (10:00)
[2020-08-09] MEDS: CEFOXITIN/SWI 2gm 2 GM/20 ML SYR IV SCH ×2 (10:12→17:00)
[2020-08-09] MEDS ORDERED: AMIODARONE HCL 200 MG TAB ONE (10:14)
[2020-08-09] MEDS: MORPHINE 4 MG/ML SYR IV PRN ×2 (11:01→22:27)
[2020-08-09] MEDS: ONDANSETRON 4 MG/2 ML VIAL IV PRN (11:03)
[2020-08-09] MEDS ORDERED: ONDANSETRON 4 MG/2 ML VIAL ONE (11:13)
[2020-08-09] MEDS ORDERED: MORPHINE 4 MG/ML SYR ONE (11:13)
--- NOTE | 2020-08-09 11:57 | CON ---
Date of Consultation: 08/08/2020 Reason For Consultation: Abdominal pain. History Of Present Illness: Patient is a 65-year-old female with multiple medical problems, who pres ented to the emergency room with increasing right upper quadrant abdominal pain going to the back for 3 days prior to coming to the ER and she had an extensive workup done and was diagnosed with acute c holecystitis. She was admitted and I was consulted. She in May had a questionable acute appendi citis, for which she was to undergo a lap appy, however, on the table she developed aflutter and the procedure was canceled, and as the diagnosis was equivocal, she was treated conservatively with antib iotics and she improved. However, heart issue where she had an angiogram done at that time, which wa s negative and she has been placed on amiodarone and metoprolol for rate control and Xarelto and her last dose of Xarelto was yesterday. She is still having some pain in the right upper quadrant going to the back. Nausea or vomiting is much better and bloating, belching, or heartburn is better. Review of Systems: Otherwise unremarkable. No sore throat, runny nose, cough, headaches, or dizziness. No chest pain a t this time and no fever or chills. Past Medical History: Significant for seizure history, hypertension. Past Surgical History: Significant for gastric bypass, colonoscopy, breast reduction, hysterectomy. Allergies: AMOXICILLIN, CLAVULANIC ACID, DEMEROL. Social History: Patient does not smoke or drink. Family History: Significant for leukemia in the mother. Physical Examination: Vital Signs: Her vitals are currently stable. General: She is afebrile. She is awake, alert, and oriented x3. Head And Neck: There is no evidence of icterus. Cranial nerves 2 through 12 are grossly within norm al limits. No neck masses. No JVD. Throat clear. Neck is supple. Chest: Clear. Heart: S1 and S2. Abdomen: Soft, nondistended. Positive bowel sounds. Positive right upper quadrant tenderness. Min imal rebound. No rigidity or guarding. Extremities: Adequately perfused. Nontender. Neuro: Nonfocal. Laboratory Data: White count is 5.3, there is no left shift, platelets are 130. INR is 1.0. LFTs a re within normal limits. Alkaline phosphatase, however, this at this point was slightly elevated at 141. She had an MRCP, abdominal ultrasound and abdominal pelvis CT all 3 were reviewed, they are con sistent with sludge and early acute cholecystitis. Assessment: Acute cholecystitis and cholelithiasis in a patient with a complex cardiac history. Recommendations: We will hold the Xarelto for the time being. We will have Cardiology to evaluate p atient and determine if patient is cleared for surgery, at which time we will determine whether patie nt needs to be bridged with Lovenox prior to the intervention and then if the patient is cleared and deemed stable for surgery, anesthetic britt we will proceed with laparoscopic cholecystectomy possible open. The patient understands risks, benefits, and alternatives and agrees to procedure. Please no te, the appendix was compared to the previous CAT scan, the CAT scan was done yesterday and the findi ngs have markedly improved. There was no evidence of acute appendicitis at this time. CICI/MANI Voice ID: [id number] Report ID: [id number]
[2020-08-09] MEDS: METRONIDAZOLE 500mg IVPB 500 MG/100 ML BAG IV SCH ×2 (12:00→17:45)
[2020-08-09] MEDS ORDERED: METRONIDAZOLE 500mg IVPB 500 MG/100 ML BAG IV ONE (12:22)
[2020-08-09] MEDS: ENOXAPARIN 80 MG/0.8 ML SQ SCH ×2 (14:40→20:04)
[2020-08-09] MEDS: CEFOXITIN/SWI 2gm 2 GM/20 ML SYR IVP SCH (18:19)
[2020-08-09] MEDS: ZOLPIDEM TARTRATE 10 MG TABLET PO PRN (20:20)
[2020-08-10] MEDS: CEFOXITIN/SWI 2gm 2 GM/20 ML SYR IVP SCH ×3 (00:14→18:00)
[2020-08-10] MEDS: METRONIDAZOLE 500mg IVPB 500 MG/100 ML BAG IV SCH ×5 (00:14→23:16)
[2020-08-10] MEDS: NA CHLORIDE 0.9% 1,000 ML IV SCH ×3 (00:40→21:00)
[2020-08-10] MEDS: MORPHINE 4 MG/ML SYR IV PRN (02:18)
[2020-08-10] MEDS: METOPROLOL TAR 25 MG TAB PO SCH ×2 (05:41→18:00)
[2020-08-10] MEDS ORDERED: propofoL 200 MG/20 ML VIAL IV ONE (07:33)
[2020-08-10] MEDS ORDERED: MIDAZOLAM HCL 2 MG/2 ML INJ ONE (07:34)
[2020-08-10] MEDS ORDERED: GLYCOPYRROLATE 0.2 MG/ML SYR ONE ×2 (07:34)
[2020-08-10] MEDS ORDERED: LIDOCAINE 2% MPF 5 ML VIAL ONE (07:34)
[2020-08-10] MEDS ORDERED: FENTANYL CITR 250 MCG/5 ML ONE (07:35)
[2020-08-10] MEDS ORDERED: CEFOXITIN/SWI 1gm 1 GM/10 ML SYR ONE (07:47)
[2020-08-10] MEDS ORDERED: ONDANSETRON 4 MG/2 ML VIAL ONE ×2 (07:52→08:03)
[2020-08-10] MEDS ORDERED: ROCURONIUM 50 MG/5 ML VIAL IV ONE (08:03)
[2020-08-10] MEDS ORDERED: EPHEDRINE SULF 50 MG/ML VIAL ONE (08:03)
[2020-08-10] MEDS ORDERED: Phenylephrine HCl 10 MG/ML 1 ML VIAL ONE (08:19)
[2020-08-10] MEDS ORDERED: dexAMETHasone 10 MG/ML VIAL ONE (08:37)
[2020-08-10] MEDS: NA CHLORIDE 0.9% 1,000 ML ONE ×2 (08:43→08:56)
--- NOTE | 2020-08-10 08:52 | P.PN ---
Subjective Date of Service: 08/09/20 Subjective: No new changes, No C/O voiced, Improving Review of Systems 10-point ROS is otherwise unremarkable Physical Examination - Vital Signs Temperature: 97.2 F Blood Pressure: 161/74 Pulse: 74 Respirations: 18 Pulse Ox (%): 98 - Physical Exam General: Alert, In no apparent distress, Oriented x3 Respiratory: Clear to auscultation bilaterally, Normal air movement Cardiovascular: Regular rate/rhythm, Normal S1 S2, No murmurs Gastrointestinal: Normal bowel sounds, Soft and benign, Non-distended, No tenderness, No rebound, No guarding Musculoskeletal: No clubbing Neurological: Normal strength at 5/5 x4 extr, Normal tone, Sensation intact, Cranial nerves 3-12 intact Assessment & Plan - Problems (Diagnosis) (1) Acute cholecystitis Current Visit: Yes Status: Acute (2) Atrial flutter with rapid ventricular response Current Visit: No Status: Acute (3) Chest pain, rule out acute myocardial infarction Current Visit: No Status: Acute (4) Hyperlipidemia Current Visit: No Status: Acute (5) Hypertension Current Visit: No Status: Acute - Plan Continue with plan of care as mentioned below 1. Continue with IV hydration 2. Continue with IV antibiotics 3. Continue with pain control 4. NPO after midnight 5. Continue cardiac meds but hold anti coagulation 6. Monitor CBC, BMP, LFTs and lipase along with electrolytes. 7. GI and DVT prophylaxis Discharge Plan: Home Plan to discharge in: Greater than 2 days - Advance Directives Does patient have a Living Will: No Does patient have a Durable POA for Healthcare: No - Code Status/Comfort Care Code Status: Full Code Critical Care: No Time Spent Managing PTS Care (In Minutes): 35
--- NOTE | 2020-08-10 09:00 | P.OP ---
Farm Laborer: Daina JACINTO Preoperative diagnosis: Acute Cholecystitis and cholelithiasis Postoperative diagnosis: same Primary procedure: Lap Keren Anesthesia: General Estimated blood loss: min Specimen: GB Findings: as above Complications: None Transferred to: Recovery Room Condition: Good
[2020-08-10] MEDS ORDERED: HYDROMORPHONE HCL 1 MG/ML INJ IV PRN (09:09)
--- NOTE | 2020-08-10 09:50 | OP ---
Date of Procedure: 08/10/2020 Surgeon: Roland Barboza MD Olap Developer: ORVILLE Canela. Preoperative Diagnoses: Acute cholecystitis and cholelithiasis. Postoperative Diagnoses: Acute cholecystitis and cholelithiasis. Procedure: Laparoscopic cholecystectomy. Estimated Blood Loss: Minimal. Specimen: Gallbladder finding as above. Anesthesia: General. Complications: None. Condition: The patient tolerated the procedure in stable condition and taken to Recovery in good gen eral condition. Procedure In Detail: The patient was brought to the OR and placed in supine position. General anest hesia was begun. The patient was prepped and draped in the usual sterile fashion. Marcaine 0.5% was infiltrated locally. A 15-blade was used to make a 1 cm supraumbilical midline incision. Subcutane ous tissue divided. Fascia was identified and divided. #1 Vicryl stay suture was placed. Peritonea l cavity was entered with blunt dissection. 2 mm trocar was placed into the peritoneal cavity under direct vision. Pneumoperitoneum was established. Three 5 mm trocars were placed; one in the epigast rium just to the right of midline and two in the right subcostal region. Laparoscopy revealed a dist ended gallbladder which had to be aspirated which was done and then fundus retracted superiorly. The re were some omental adhesions taken down and then body and fundus and infundibulum was identified an d infundibulum retracted inferolaterally. Cystic duct and cystic artery were clearly identified with blunt dissection. Clip was placed. Both structures were divided. Cautery was used to remove the g allbladder from the liver bed. Bleeding on the liver bed was controlled with cautery. The gallbladd er was retrieved through the umbilicus via an EndoCatch bag. Right upper quadrant was irrigated. Ef fluent was clear. No evidence of bleeding or bile leakage appreciated. Subsequently, all trocars we re removed under direct vision. Stay sutures were tied to each other and reapproximated the fascial defect. Subcutaneous wounds were irrigated. Bleeding was controlled with cautery. 3-0 chromic was used to approximate the subcutaneous tissue and close the skin. Sterile dressing was applied. The p atient was awakened and taken to Recovery in good general condition. /MODL Voice ID: [id number] Report ID: [id number]
[2020-08-10] MEDS: HYDROCODONE/APAP 7.5/325 MG TAB PO PRN ×3 (10:35→19:45)
[2020-08-10] MEDS: AMIODARONE HCL 200 MG TAB PO SCH (10:35)
[2020-08-10] MEDS: DIVALPROEX DR 500MG TAB PO SCH ×3 (10:35→21:48)
--- NOTE | 2020-08-10 11:29 | CON ---
Date of Consultation: 08/09/2020 The patient was admitted on 08/08/[address] Wilson. I saw the patient on 08/09/2020. Reason For Consultation: Cardiac clearance for cholecystectomy. History Of Present Illness: Ms. Lan is a 65-year-old white woman. She is known to us from pre vious office visits and admission. In April 2020, she had normal heart catheterization. Followi ng that, she had paroxysmal atrial fibrillation for which she was taken Xarelto at home. She was als o on amiodarone 200 mg daily. She was in sinus rhythm on that regimen. Came in with cholecystitis r equiring cholecystectomy. She had acute cholecystitis and cholelithiasis. Lap choly was planned by Dr. Barboza, who wanted us to do a cardiac clearance. No cardiac symptoms reported, as mentioned earli er normal catheterization, atrial fibrillation that has resolved on amiodarone. Xarelto has been hel d. The patient is cleared for surgery. Past Medical History: Basically include atrial fibrillation. Allergies: INCLUDE AUGMENTIN AND DEMEROL. Review of Systems: Negative. Social History: Negative. Family History: Noncontributory. Medications: At home include amiodarone and Xarelto. Physical Examination: On 08/09/2020, her vital signs were stable. She was afebrile. O2 saturation was 100% per physical e xamination. Diagnostic Data: Within normal limit, except for cholelithiasis and cholecystitis. Her EKG was norm al. Chest x-ray is normal. Impression And Plan: The patient with cholelithiasis, cholecystitis requiring surgery. Xarelto was held. Amiodarone should be continued for atrial fibrillation. She has a normal rhythm. She had a n ormal heart catheterization in April. She is cleared for surgery. We will be available for ques tions if the need arises. LIA/MANI Voice ID: [id number] Report ID: [id number]
[2020-08-10 21:01] VITALS: O2SAT 97
[2020-08-10] MEDS: ZOLPIDEM TARTRATE 10 MG TABLET PO PRN (21:48)
[2020-08-11] MEDS: CEFOXITIN/SWI 2gm 2 GM/20 ML SYR IVP SCH ×2 (00:10→09:37)
[2020-08-11] MEDS ORDERED: KETOROLAC 30 MG/ML INJ IV PRN (01:23)
[2020-08-11] MEDS: ACETAMINOPHEN 325 MG TABLET PO PRN ×2 (01:37→07:50)
[2020-08-11] MEDS: METRONIDAZOLE 500mg IVPB 500 MG/100 ML BAG IV SCH ×2 (06:20→11:50)
[2020-08-11] MEDS: NA CHLORIDE 0.9% 1,000 ML IV SCH (06:21)
[2020-08-11] MEDS: METOPROLOL TAR 25 MG TAB PO SCH (06:21)
[2020-08-11] MEDS: ONDANSETRON 4 MG/2 ML VIAL IV PRN (07:50)
[2020-08-11] MEDS: DIVALPROEX DR 500MG TAB PO SCH (08:34)
[2020-08-11] MEDS: AMIODARONE HCL 200 MG TAB PO SCH (08:34)
[2020-08-11 11:31] LABS: Absolute Lymphocytes (CBC) 1.6 K/uL (0.7-4.9); Basophils % 0.3 % (0-1.3); Hematocrit 40.1 % (36.0-45.0); Lymphocytes % 18.7 % (15.3-44.8); MPV 9.3 fL (7.6-11.3); RBC Red Blood Cell Count 4.08 M/uL (3.86-4.86)
--- NOTE | 2020-08-11 11:42 | PN ---
Date of Progress Note: 08/11/2020 Subjective: The patient is awake, alert. No complaints. Objective: Vital Signs: Stable, afebrile. Abdomen: Benign. Laboratory Data: Pending. Assessment: Status post laparoscopic cholecystectomy for acute cholecystitis. Recommendations: The patient cleared from Surgery's standpoint for discharge and discharge instructi ons given. Follow up with me in [address] Wilson. /MODL Voice ID: [id number] Report ID: [id number]
[2020-08-11 11:48] LABS: Magnesium 2.1 mg/dL (1.8-2.4); Phosphorus 3.1 mg/dL (2.5-4.9); Potassium 3.7 mmol/L (3.5-5.1)
[2020-08-11] MEDS: HYDROCODONE/APAP 7.5/325 MG TAB PO PRN (11:50)
[2020-08-11 14:09] VITALS: BP 128/60; TEMP 97.4
--- NOTE | 2020-08-16 01:37 | P.PN ---
Subjective Date of Service: 08/10/20 Patient status post laparoscopic cholecystectomy. Patient is doing well. Continue with pain control and antibiotic therapy. Review of Systems 10-point ROS is otherwise unremarkable Physical Examination - Vital Signs Temperature: 97.4 F Blood Pressure: 128/60 Pulse: 65 Respirations: 18 Pulse Ox (%): 96 - Physical Exam General: Alert, In no apparent distress, Oriented x3 Respiratory: Clear to auscultation bilaterally, Normal air movement Cardiovascular: Regular rate/rhythm, Normal S1 S2, No murmurs Gastrointestinal: Normal bowel sounds, Soft and benign, Non-distended, No tenderness Musculoskeletal: No clubbing, No swelling, No tenderness Integumentary: No rashes Neurological: Sensation intact, Cranial nerves 3-12 intact - Studies Medications List Reviewed: Yes Assessment & Plan - Problems (Diagnosis) (1) Acute cholecystitis Status: Acute (2) Atrial flutter with rapid ventricular response Status: Acute (3) Chest pain, rule out acute myocardial infarction Status: Acute (4) Hyperlipidemia Status: Acute (5) Hypertension Status: Acute - Plan Continue with plan of care as mentioned below 1. Continue with IV hydration 2. Continue with IV antibiotics 3. Continue with pain control 4. Patient is status post laparoscopic cholecystectomy. Continue with pain control 5. Continue cardiac meds; Resume anticoagulation 48 hours 6. Advance diet as tolerated 7. GI and DVT prophylaxis Discharge Plan: Home Plan to discharge in: 48 Hours - Advance Directives Does patient have a Living Will: No Does patient have a Durable POA for Healthcare: No - Code Status/Comfort Care Code Status: Full Code Critical Care: No Time Spent Managing PTS Care (In Minutes): 35
--- NOTE | 2020-08-16 01:39 | P.DS ---
Discharge Date: 08/11/20 Disposition: ROUTINE DISCHARGE Discharge Condition: GOOD Reason for Admission: Acute cholecystitis Consultations: General surgeon - Problems (1) Acute cholecystitis Status: Acute (2) Atrial flutter with rapid ventricular response Status: Acute (3) Chest pain, rule out acute myocardial infarction Status: Acute (4) Hyperlipidemia Status: Acute (5) Hypertension Status: Acute Brief History of Present Illness: Patient is a 65-year-old female came to the hospital with abdominal pain. She was workup in the emergency room extensively and found have acute cholecystitis on CT scan and abdominal ultrasound. Patient will be admitted to the hospital for acute cholecystitis and IV antibiotic therapy. I spoke to the patient regarding cardiac issues and she says she was told she had elevated heart rate. She showed me the list of her medications and she is on amiodarone and Xarelto. She took the Xarelto this morning. Will have to hold off on her surgery for at least 48 hr. Hold off on Levaquin and will have to use cephalosporin as she is allergic to penicillin. Continue with 3rd generation cephalosporin along with Flagyl. She will be admitted to the hospital for further treatment. Hospital Course: Patient is clinically doing well postoperatively. At this time, patient is stable for discharge with outpatient followup. Patient tolerated diet. Patient's pain is controlled. Patient will follow with general surgery in 1-2 weeks. The patient did not do any heavy lifting. Return to the Emergency room if symptoms worsen. Vital Signs/Physical Exam: Temp Pulse Resp BP Pulse Ox 97.4 F 65 18 128/60 96 08/16/20 01:37 08/16/20 01:37 08/16/20 01:37 08/16/20 01:37 08/16/20 01:37 General: Alert, In no apparent distress, Oriented x3 Laboratory Data at Discharge: WBC 8.3 K/uL (4.3-10.9) D 08/11/20 11:13 Hgb 13.1 g/dL (12.0-15.0) 08/11/20 11:13 Hct 40.1 % (36.0-45.0) 08/11/20 11:13 Plt Count 188 K/uL (152-406) D 08/11/20 11:13 PT 11.8 SECONDS (9.5-12.5) 08/09/20 04:09 INR 1.00 12/29/20 04:09 APTT 29.0 SECONDS (24.3-36.9) 08/09/20 04:09 Sodium 138 mmol/L (136-145) 08/11/20 11:13 Potassium 3.7 mmol/L (3.5-5.1) 08/11/20 11:13 BUN 9 mg/dL (7-18) 08/11/20 11:13 Creatinine 0.95 mg/dL (0.55-1.3) 08/11/20 11:13 Glucose 101 mg/dL (74-106) 08/11/20 11:13 Phosphorus 3.1 mg/dL (2.5-4.9) 08/11/20 11:13 Magnesium 2.1 mg/dL (1.8-2.4) 08/11/20 11:13 Total Bilirubin 0.6 mg/dL (0.2-1.0) 08/09/20 04:09 AST 36 U/L (15-37) 08/09/20 04:09 ALT 52 U/L (12-78) 08/09/20 04:09 Alkaline Phosphatase 141 U/L (45-117) H D 08/09/20 04:09 Lipase 38 U/L (73-393) L 08/08/20 12:20 Home Medications: Divalproex Sodium 1 tab PO TID 04/24/20 Lamotrigine [Lamictal] 75 mg PO BID 04/24/20 Rivaroxaban [Xarelto] 20 mg PO DAILY #14 tablet 05/20/20 Amiodarone HCl [Cordarone*] 200 mg PO DAILY #30 tab 06/06/20 Cranberry Fruit Extract 400 mg PO BID #120 cap 06/06/20 Duloxetine [Cymbalta *] 20 mg PO DAILY #30 cap 06/06/20 Magnesium Oxide [Mag 0X*] 400 mg PO DAILY #30 tab 06/06/20 Meclizine HCl [Antivert*] 25 mg PO Q8H PRN tab 06/06/20 Pantoprazole [Protonix Tab*] 40 mg PO BEDTIME 08/09/20 Cefdinir [Omnicef] 300 mg PO Q12H #10 capsule 08/11/20 Codeine/APAP [Tylenol W/Codeine #3 tab] 1 - 2 tab PO Q6HP PRN #30 tab 08/11/20 New Medications: Cefdinir [Omnicef] 300 mg PO Q12H #10 capsule Codeine/APAP [Tylenol W/Codeine #3 tab] 1 - 2 tab PO Q6HP PRN #30 tab PRN Reason: Pain Patient Discharge Instructions: May shower in am. Keep steri-strips on at all times Diet: Regular Activity: No lifting more than 10 lbs Followup: NONE,NONE [Primary Care Provider] - Roland Barboza MD [ACTIVE - CAN ADMIT] - 1 Week (Call to make an appointment. ) Time spent managing pt's care (in minutes): 35
== END 2020-08-11 13:41 | disposition home or self-care (01) | DRG 417 ==
LOC: ER 10:46 → ERHOLD 18:17 → OBSVTOIN 18:17 → 2ND 08-09 12:17
PROVIDERS: ADMIT Hospitalist; ATTEND Hospitalist
PROC: 0FT44ZZ Resection of Gallbladder, Percutaneous Endoscopic Approach (ICD-10-PCS; principal; 2020-08-10 07:30)
DX: K80.00 Calculus of gallbladder with acute cholecystitis without obstruction (principal); I21.9 Acute myocardial infarction, unspecified; E78.5 Hyperlipidemia, unspecified; I48.91 Unspecified atrial fibrillation; I10 Essential (primary) hypertension; Z88.5 Allergy status to narcotic agent; Z88.1 Allergy status to other antibiotic agents; Z98.84 Bariatric surgery status; Z79.01 Long term (current) use of anticoagulants; Z88.0 Allergy status to penicillin; Z90.710 Acquired absence of both cervix and uterus; Z79.899 Other long term (current) drug therapy; Z20.828 Contact with and (suspected) exposure to other viral communicable diseases
CPT/HCPCS: 36415; 74177; 74181; 76705; 80048; 80053; 80076; 81003; 81015; 82565; 83690; 83735; 84100; 85025; 85610; 85730; 88304; 94010; 96361; 96365; 96367; 96375; 99285; J0694; J0744; J1100; J1170; J2250; J2370; J2405; J2704; J3010; J7030; Q9967; U0003

== ENCOUNTER 2020-10-02 07:59 | Emergency (ER) | payer OTHER ==
--- OUTSIDE RECORDS SUMMARY | 2020-10-02 08:02 | XMS REPORT | Continuity of Care Document ---
:1955 Author Organization [facility] t Address [address] [place] [address] Care Team Providers Name Role Phone Grady Gaona Attending Clinician Problems This patient has no known problems. Allergies, Adverse Reactions, Alerts Allergy Allergy Status Severity Reaction(s) Onset Inactive Treating Comm ents Source Name Type Date Date Clinician Augmenti Augmenti Active Memori a n n l [place] Demerol Demerol Active Memoria olga Wells Social History Smoking Status Start Date Stop Date Source Social History [facility] Medications Ordered Filled Start Stop Current Ordering Indication Dosage Frequency Signature Comments Components Source Medication Medication Date Date Medication? Clinician (SIG) Name Name cetirizine 2020-0 Yes 10 mg = 1 Me moria 10 mg oral 9-30 tab, PO, l tablet 20:58: Daily, # [place] 00 30 tab, 0 Refill(s), other Bromphenira 2020-0 Yes 7.5 mL, Mem oria mine 9-30 PO, TID, l Maleate 0.4 20:56: PRN cough, Russell MG/ML / 00 X 8 day, # Dextrometho 150 mL, 0 rphan Refill(s), Hydrobromid Pharmacy: e 2 MG/ML / [facility] # rine 1221, Hydrochlori 165.1, cm, de 6 MG/ML 05/11/20 Oral 15:22:00 Solution CDT, [Bromfed Height, DM] 72.045, kg, 05/11/20 15:22:00 CDT, Weight Aspirin 81 2020-0 Yes 81 mg = 1 Me moria MG Chewable 9-30 tab, PO, l Tablet 20:47: Daily, # [place] 00 90 tab, 1 Refill(s), Pharmacy: [facility] # 1221, 165.1, cm, 05/11/20 15:22:00 CDT, Height, 72.045, kg, 05/11/20 15:22:00 CDT, Weight Divalproex 2019- Yes 500 mg = 1 M emoria Sodium 500 9-30 tab, PO, l MG Enteric 20:26: TID, # 90 He rmann Coated 00 tab, 0 Tablet Refill(s) [Depakote] metoprolol Yes 25 mg = 1 Me moria succinate 9-30 cap, PO, l 25 mg oral 20:26: Daily, 0 Her [place] capsule, 00 Refill(s) extended release lisinopril Yes 2.5 mg = 1 M emoria 2.5 mg oral 9-30 tab, PO, l tablet 20:26: Daily, 0 [place] 00 Refill(s) atorvastati Yes 10 mg = 1 M emoria n 10 mg 9-30 tab, PO, l oral tablet 20:26: Daily, 0 He rmann 00 Refill(s) lamotrigine 2019-0 Yes 1/2 TAB, Me moria 150 MG Oral 9-30 PO, BID, 0 l Tablet 20:26: Refill(s) Louis n 00 Vital Signs Vital Name Observation Time Observation Value Comments Source Systolic (mm Hg) 2020-05-11 20:22:00 Judd Wells Diastolic (mm Hg) 2020-05-11 20:22:00 Fidel Wells Heart Rate 2020-05-11 20:22:00 [facility] Temperature Oral (F) 2020-05-11 20:22:00 [facility] 2020-05-11 20:22:00 165.1 cm [facility] Weight 2020-05-11 20:22:00 [facility] BMI Calculated 2020-05-11 20:22:00 Tricia Lee Procedures This patient has no known procedures. Encounters Start End Encounter Admission Attending Care Care Encounter Source Date/Time Date/Time Type Type Clinicians Facility Department ID 2020-08-23 2020-08-23 Outpatient [facility] [id number] [facility]:00[facility]00 00[facility]00[facility]00 [facility] 2020-05-11 2020-05-11 Outpatient El[facility] [id number] 465 15:30:00 23:59:59 [place], 00 Akuvi Afefa Results Test Description Test Time Test Comments Results Result Comments Source LIPIDS 2020-05-11 [facility] 21:08:00 LIPIDS 2020-05-11 58 [facility] 21:08:00 LIPIDS 2020-05-11 87 [facility] 21:08:00 LIPIDS 2020-05-11 81 [facility] 21:08:00 LIPIDS 2020-05-11 2.7 [facility] 21:08:00 LIPIDS 2020-05-11 98 [facility] 21:08:00
--- OUTSIDE RECORDS SUMMARY | 2020-10-02 08:02 | XMS REPORT | Continuity of Care Document ---
:1955 Author Organization [facility] Care Team Providers Name Role Phone [facility] Unavailable Un available Problems No Data Provided [...] Refill(s), Hydrochloride 6 Pharmacy: [facility] # [id number], 165.1, cm, 05/11/20 15:22:00 CDT, Height, 72.045, kg, 05/11/20 15:22:00 CDT, Weight Aspirin 81 MG 81 mg = 1 Active MH Chewable Tablet tab, PO, 020 Medical Daily, # 90 Group tab, 1 Refill(s), Pharmacy: [id number], 165.1, cm, 05/11/20 15:22:00 [...] Comment: Medical
Lab test Group performed by:
[facility]
[address] [facility] [facility]
[place] [address]<br/ >Yousuf Rosales LIPIDS HDL 58 > OR = 50 mg/dL 020 [facility] LIPIDS Trig 87 <150 mg/dL 020 [facility] LIPIDS LDL 81 Result (Calculate 020 Comment: [...] LDL-C.
Vamshi KANG et al. MARY. 2013;310(19): 7363-4047
([email or web address] [email or web address]/faq/[email or web address]) LIPIDS CHD Risk 2.7 <5.0 (CALC) 020 [facility] LIPIDS Non HDL 98 <130 mg/dL Result [...] Number For Provider Date Date Visit Outpatient [id number] Akuvi 05/[address] [facility] Outpatient [id number] Akuvi 05/11 05/12 [facility] [place] Procedures No Data Provided for This Section [...]
[2020-10-02 09:11] LABS: Absolute Lymphocytes (CBC) 1.1 K/uL (0.7-4.9); Basophils % 0.3 % (0-1.3); Hematocrit 39.3 % (36.0-45.0); Lymphocytes % 26.8 % (15.3-44.8); MPV 9.7 fL (7.6-11.3); RBC Red Blood Cell Count 4.09 M/uL (3.86-4.86)
[2020-10-02] MEDS ORDERED: MORPHINE 4 MG/ML SYR ONE (09:23)
[2020-10-02 09:24] LABS: BUN Blood Urea Nitrogen 15 mg/dL (7-18); Bicarbonate 27 mmol/L (21-32); Glucose Level 91 mg/dL (74-106); Potassium 3.6 mmol/L (3.5-5.1); Sodium Level 132 mmol/L (136-145)
[2020-10-02] MEDS ORDERED: ONDANSETRON 4 MG/2 ML VIAL ONE (09:24)
[2020-10-02 09:31] LABS: Protime INR 1.06
--- NOTE | 2020-10-02 09:46 | RAD REPORT ---
EXAM DESCRIPTION: CT - Head Brain Wo Cont - 10/02/2020 9:26 am CLINICAL HISTORY: HEADACHEfall, head trauma COMPARISON: Head Brain Wo Cont dated 05/31/2020 TECHNIQUE: Axial 5 mm thick images of the head were obtained without IV contrast. All CT scans are performed using dose optimization technique as appropriate and may include automated exposure control or mA/KV adjustment according to patient size. FINDINGS: No intracranial hemorrhage, mass, edema or shift of mid-line structures. No acute infarcti on changes seen. Atrophy changes are present. Chronic ischemic change is present in the cerebral whit e matter focally more prominent around the frontal horn right lateral ventricle. Pattern is similar t o comparison. Ventricles are normal. Arterial and physiologic calcifications are present. Mastoid air cells and visualized portions of the paranasal sinuses are clear. No acute bony findings. IMPRESSION: Negative non-contrast CT head examination for acute intracranial finding. Atrophy and chronic ischemic white matter pattern matches May 2020.
--- NOTE | 2020-10-02 09:53 | RAD REPORT ---
EXAM DESCRIPTION: CT - Spine Lumbar Wo Con - 10/02/2020 9:37 am CLINICAL HISTORY: LOWER BACK PAIN, fall COMPARISON: CT study August 08, 2020 TECHNIQUE: Thin section axial imaging of the lumbar spine was performed. Sagittal and coronal recon struction images were generated and reviewed. All CT scans are performed using dose optimization technique as appropriate and may include automated exposure control or mA/KV adjustment according to patient size. FINDINGS: Lumbar bodies are normal in height and alignment. No acute compression fracture or acute v ertebral body finding. Concavity in the superior endplate L1 has not changed since the comparison meagan dy. There are fractures of the lateral aspect L1 and L2 transverse processes. No sacral ala fractures seen. Facet joint degenerative changes are identified. Central canal detail is inherently limited on CT imaging. L1-2 and L2-3 mild circumferential disc bulge changes are present. Prominent left foraminal and far l ateral extraforaminal disc bulge changes are present at L3-4. Central canal disc bulge flattens the a nterior thecal sac. No central spinal stenosis. Disc bulge, endplate spurring facet hypertrophy and ligamentous thickening are present L4-5 causing b orderline to mild central spinal stenosis. Right greater than left foraminal disc bulge and endplate spurring changes cause stenosis. L5-S1 disc bulge is present without significant canal or foramen stenosis. No paraspinal soft tissue mass. L4-5 disc space narrowing is present with degenerative gas in the disc space. IMPRESSION: Right transverse process L1-2 fractures are present at the tip no associated paraspinal mass or hematoma. No vertebral body compression fracture. Multilevel disc degenerative changes are present most pronounced at L4-5. L4-5 central canal is borde rline to mildly stenotic.
--- NOTE | 2020-10-02 10:00 | RAD REPORT ---
EXAM DESCRIPTION: CT - Thoracic Spine W/o Cont - 10/02/2020 9:36 am COMPARISON: None. TECHNIQUE: Axial 3 mm thick images of the thoracic spine were obtained with sagittal and coronal rec onstruction images generated and reviewed. All CT scans are performed using dose optimization technique as appropriate and may include automated exposure control or mA/KV adjustment according to patient size. FINDINGS: Thoracic vertebral bodies are normal in height with no subluxation abnormality. There is a ccentuated midthoracic kyphosis. Patient has extensive endplate spurring change with bridging ossific ation along the right anterolateral spanning T4-T10. No fracture or acute vertebral body finding iden tifiable. Midthoracic degenerative disc disease is evident. Disc space narrowing seen T6-7 through T1 0-11. No pathologic bone changes. No paraspinal mass or hematoma. Central canal detail is inherently limited on CT imaging. No gross evidence for traumatic disc hernia tion or significant disc bulge. No significant canal or foramen stenosis identified. IMPRESSION: Thoracic spine degenerative changes are present as detailed. No acute findings identifia ble.
--- NOTE | 2020-10-02 10:02 | RAD REPORT ---
EXAM DESCRIPTION: RAD - Pelvis - 10/02/2020 9:53 am CLINICAL HISTORY: BLUNT TRAUMA COMPARISON: No comparisonsdelete select TECHNIQUE: AP imaging of the pelvis was obtained. FINDINGS: Lower lumbar degenerative changes are present fully addressed on the CT lumbar spine repor t of the same date. No sacral ala fracture identifiable. Overlying bowel content is somewhat limiting . SI joint degenerative changes are present. No fracture of the bony pelvis identifiable. Minimal hip joint degenerative change present. No periarticular hematoma or soft tissue abnormality. No fracture or dislocation of either proximal femur. IMPRESSION: No fracture or other acute pelvic finding.
--- NOTE | 2020-10-02 10:05 | RAD REPORT ---
EXAM DESCRIPTION: RAD - Hip Right 2 View - 10/02/2020 9:53 am CLINICAL HISTORY: PAIN, fall with persistent hip pain COMPARISON: No comparisons FINDINGS: AP and frog-leg views of the right hip were obtained. There is no fracture or dislocation. No AVN or focal head abnormality. No acute or destructive bony p rocess seen. IMPRESSION: Negative right hip examination for acute or significant findings.
--- NOTE | 2020-10-02 10:22 | EDPHYS ---
Physician Documentation [facility] Name: Kianna Lan Age: 65 yrs Sex: Female : 1955 Arrival Date: 10/02/2020 Time: 08:02 Bed 14 Private MD: [facility] ED Physician Evert Reyes HPI: 10/02 08:50 This 65 yrs old Female presents to ER via Wheelchair with complaints of Fall rn Injury. 08:50 Details of fall: The patient fell from an upright position. Onset: The symptoms/episode rn began/occurred just prior to arrival. Associated injuries: The patient sustained upper back injury, injury to the low back. Severity of symptoms: At their worst the symptoms were moderate, in the emergency department the symptoms are unchanged. The patient has not experienced similar symptoms in the past. The patient has not recently seen a physician. Reports fall from standing, landed on back, hit furniture, reports mid and low back pain, hit head but no LOC, on xarelto. Denies pain to hips. Remembers all events. . Historical: - Allergies: 08:14 Augmentin; iw 08:14 Demerol; iw - Home Meds: 08:14 Depakote 500 mg Oral TbEC 1 tab 3 times per day [Active]; Lamictal 150 mg Oral tab 1 iw tab once daily [Active]; - PMHx: 08:14 Hypertension; Seizures; iw - PSHx: 08:14 Gastric Bypass; iw 08:14 Cholecystectomy; iw - Immunization history:: Adult Immunizations up to date. - Social history:: Smoking status: Patient denies any tobacco usage or history of. - Family history:: not pertinent. - Hospitalizations: : No recent hospitalization is reported. ROS: 08:52 Constitutional: Negative for fever, chills, and weight loss, Eyes: Negative for injury, rn pain, redness, and discharge, ENT: Negative for injury, pain, and discharge, Neck: Negative for injury, pain, and swelling, Cardiovascular: Negative for chest pain, palpitations, and edema, Respiratory: Negative for shortness of breath, cough, wheezing, and pleuritic chest pain, Abdomen/GI: Negative for abdominal pain, nausea, vomiting, diarrhea, and constipation, Back: + mid and lower back pain/injury MS/Extremity: Negative for injury and deformity, Skin: Negative for injury, rash, and discoloration, Neuro: Negative for weakness, numbness, tingling, and seizure. Exam: 08:52 Constitutional: This is a well developed, well nourished patient who is awake, alert, rn appears uncomfortable Head/Face: Normocephalic, atraumatic. Eyes: Pupils equal round and reactive to light, extra-ocular motions intact. Lids and lashes normal. Conjunctiva and sclera are non-icteric and not injected. Cornea within normal limits. Periorbital areas with no swelling, redness, or edema. Neck: No midline tenderness Chest/axilla: Normal chest wall appearance and motion. Nontender with no deformity. No lesions are appreciated. Cardiovascular: Regular rate and rhythm. No pulse deficits. Respiratory: No increased work of breathing, no retractions or nasal flaring. Abdomen/GI: soft, non-tender Back: + mid thoracic and upper/mid lumbar perispinal tenderness, no stepoff MS/ Extremity: Pulses equal, no cyanosis. Neurovascular intact. Able to fully range right and left hips, with pain to right lower back with ROM, no bony tenderness of either hip. Neuro: Awake and alert, GCS 15, oriented to person, place, time, and situation. Cranial nerves II-XII grossly intact. Motor strength 5/5 in all extremities. Sensory grossly intact. Cerebellar exam normal. Normal gait. Vital Signs: 08:12 BP 135 / 74; Pulse 83; Resp 16; Temp 98.7; Pulse Ox 100% on R/A; Weight 64.41 kg; iw Height 5 ft. 5 in. (165.10 cm); Pain 10/10; 08:12 Body Mass Index 23.63 (64.41 kg, 165.10 cm) iw MDM: 08:17 Patient medically screened. rn 10:19 Differential diagnosis: contusion, fracture. Data reviewed: vital signs, nurses notes, rn radiologic studies, CT scan, plain films, and as a result, I will discharge patient. Counseling: I had a detailed discussion with the patient and/or guardian regarding: the historical points, exam findings, and any diagnostic results supporting the discharge/admit diagnosis, radiology results, the need for outpatient follow up, to return to the emergency department if symptoms worsen or persist or if there are any questions or concerns that arise at home. Special discussion: I discussed with the patient/guardian in detail that at this point there is no indication for admission to the hospital. It is understood, however, that if the symptoms persist or worsen the patient needs to return immediately for re-evaluation. ED course: Transverse process fractures of L1 and L2, will dc home as non-operative and pt more comfortable. . 10/02 08:28 Order name: CBC with Diff; Complete Time: 10:10 rn 10/02 08:28 Order name: Basic Metabolic Panel; Complete Time: 10:10 rn 10/02 08:28 Order name: CT Thoracic Spine Wo Cont; Complete Time: 10:10 rn 10/02 08:28 Order name: CT Lumbar Spine Wo Con; Complete Time: 10:10 rn 10/02 08:28 Order name: Protime (+inr); Complete Time: 10:10 rn 10/02 08:28 Order name: Ptt, Activated; Complete Time: 10:10 rn 10/02 08:28 Order name: XRAY Pelvis; Complete Time: 10:10 rn 10/02 08:28 Order name: XRAY Hip RIGHT 2 view; Complete Time: 10:10 rn 10/02 08:28 Order name: IV Start; Complete Time: 09:27 rn 10/02 08:52 Order name: CT Head Brain wo Cont; Complete Time: 10:10 rn Administered Medications: 09:20 Drug: morphine 4 mg Route: IVP; Site: left antecubital; jl7 09:20 Drug: Zofran (Ondansetron) 4 mg Route: IVP; Site: left antecubital; jl7 Disposition: 10/02/20 10:21 Discharged to Home. Impression: L1 transverse process fracture, acute, nondisplaced, L2 transverse process fracture, acute, nondisplaced.. - Condition is Stable. - Discharge Instructions: Transverse Process Fracture. - Prescriptions for Tylenol- Codeine #3 300-30 mg Oral Tablet - take 1 tablet by ORAL route every 6 hours As needed; 15 tablet. Cyclobenzaprine 10 mg Oral Tablet - take 1 tablet by ORAL route every 8 hours As needed; 15 tablet. - Medication Reconciliation Form, Thank You Letter, Antibiotic Education, Prescription Opioid Use form. - Follow up: Private Physician; When: As needed; Reason: Recheck today's complaints, Re-evaluation by your physician. - Problem is new. - Symptoms have improved. Signatures: Dispatcher [employer] EDLucinda Zeng RN RN iw Nieto, Roman, MD MD rn Leal, Jahala, RN RN jl7 Corrections: (The following items were deleted from the chart) 10:52 10:21 10/02/2020 10:21 Discharged to Home. Impression: L1 transverse process fracture, iw acute, nondisplaced; L2 transverse process fracture, acute, nondisplaced.. Condition is Stable. Forms are Medication Reconciliation Form, Thank You Letter, Antibiotic Education, Prescription Opioid Use. Follow up: Private Physician; When: As needed; Reason: Recheck today's complaints, Re-evaluation by your physician. Problem is new. Symptoms have improved. rn
--- NOTE | 2020-10-02 10:22 | ER ---
Nurse's Notes [facility] Name: Kianna Lan Age: 65 yrs Sex: Female : 1955 Arrival Date: 10/02/2020 Time: 08:02 Bed 14 Private MD: Ranjit Marsh Diagnosis: L1 transverse process fracture, acute, nondisplaced;L2 transverse process fracture, acute, nondisplaced. Presentation: 10/02 08:11 Chief complaint: Patient states: fell while getting up to bathroom Saturday night, hit end table and fell onto right side , now has pain to right hip and all over her back. 08:11 Acuity: MICHAEL 3 iw 08:11 Method Of Arrival: Wheelchair iw 08:12 Care prior to arrival: None. iw 08:12 Mechanism of Injury: Fall from standing position. Trauma event details: Injury occurred iw in the [facility] [place]. 08:12 Coronavirus screen: At this time, the client does not indicate any symptoms associated iw with coronavirus-19. Ebola Screen: Patient negative for fever greater than or equal to 101.5 degrees Fahrenheit, and additional compatible Ebola Virus Disease symptoms Patient denies exposure to infectious person. Patient denies travel to an Ebola-affected area in the 21 days before illness onset. No symptoms or risks identified at this time. Initial Sepsis Screen: Does the patient meet any 2 criteria? No. Patient's initial sepsis screen is negative. Does the patient have a suspected source of infection? No. Patient's initial sepsis screen is negative. Risk Assessment: Do you want to hurt yourself or someone else? Patient reports no desire to harm self or others. Onset of symptoms was September 30, 2020. Trauma Activation: Not Applicable Physician: ED Physician; Name: ; Notified At: ; Arrived At: Physician: General Surgeon; Name: ; Notified At: ; Arrived At: Physician: Radiology; Name: ; Notified At: ; Arrived At: Physician: Respiratory; Name: ; Notified At: ; Arrived At: Physician: Lab; Name: ; Notified At: ; Arrived At: Historical: - Allergies: 08:14 Augmentin; iw 08:14 Demerol; iw - Home Meds: 08:14 Depakote 500 mg Oral TbEC 1 tab 3 times per day [Active]; Lamictal 150 mg Oral tab 1 iw tab once daily [Active]; - PMHx: 08:14 Hypertension; Seizures; iw - PSHx: 08:14 Gastric Bypass; iw 08:14 Cholecystectomy; iw - Immunization history:: Adult Immunizations up to date. - Social history:: Smoking status: Patient denies any tobacco usage or history of. - Family history:: not pertinent. - Hospitalizations: : No recent hospitalization is reported. Screenin:30 Abuse screen: Denies threats or abuse. Denies injuries from another. Nutritional jl7 screening: No deficits noted. Tuberculosis screening: No symptoms or risk factors identified. Fall Risk Fall in past 12 months (25 points). IV access (20 points). Total Verdugo Fall Scale indicates High Risk Score (45 or more points). Fall prevention measures have been instituted. Side Rails Up X 2 Placed Close to Nursing Station Frequent Obs/Assessments Occuring As available patient and family educated on Fall Prevention Program and Strategies. Assessment: 08:30 General: Appears in no apparent distress. uncomfortable, Behavior is calm, cooperative, jl7 appropriate for age. Pain: Complains of pain in right shoulder, hips Pain currently is 10 out of 10 on a pain scale. Pain began 2-3 days ago. Is continuous. Neuro: Level of Consciousness is awake, alert, obeys commands, Oriented to person, place, time, situation. Cardiovascular: Patient's skin is warm and dry. Respiratory: Airway is patent Respiratory effort is even, unlabored, Respiratory pattern is regular, symmetrical. Derm: Skin is pink, warm \T\ dry. Vital Signs: 08:12 BP 135 / 74; Pulse 83; Resp 16; Temp 98.7; Pulse Ox 100% on R/A; Weight 64.41 kg; iw Height 5 ft. 5 in. (165.10 cm); Pain 10/10; 08:12 Body Mass Index 23.63 (64.41 kg, 165.10 cm) iw ED Course: 08:02 Patient arrived in ED. ag5 08:02 Ranjit Marsh DO is Private Physician. ag5 08:12 Triage completed. iw 08:14 Arm band placed on. iw 08:17 Evert Reyes MD is Attending Physician. rn 08:24 Xavier Luna RN is Primary Nurse. jl7 08:30 Patient has correct armband on for positive identification. Bed in low position. Call jl7 light in reach. Side rails up X 1. Pulse ox on. NIBP on. 09:10 Initial lab(s) drawn, by me, sent to lab. Inserted saline lock: 22 gauge in left jl7 antecubital area, using aseptic technique. Blood collected. 09:26 CT Head Brain wo Cont In Process Unspecified. EDMS 09:36 CT Thoracic Spine Wo Cont In Process Unspecified. EDMS 09:37 CT Lumbar Spine Wo Con In Process Unspecified. EDMS 09:53 XRAY Pelvis In Process Unspecified. EDMS 09:53 XRAY Hip RIGHT 2 view In Process Unspecified. EDMS 10:51 No provider procedures requiring assistance completed. iw Administered Medications: 09:20 Drug: morphine 4 mg Route: IVP; Site: left antecubital; jl7 09:20 Drug: Zofran (Ondansetron) 4 mg Route: IVP; Site: left antecubital; jl7 Outcome: 10:21 Discharge ordered by MD. rn 10:51 Discharged to home via wheelchair, with family. iw 10:51 Condition: good 10:51 Discharge instructions given to patient, Instructed on discharge instructions, follow up and referral plans. medication usage, Demonstrated understanding of instructions, follow-up care, medications. 10:52 Prescriptions given X 2. iw 10:52 Patient left the ED. iw Signatures: Dispatcher [employer] Lucinda Lopez, RN RN iw Evert Reyes MD MD rn Leal, Jahala, RN RN jl7 [place] Noriega ag5 Corrections: (The following items were deleted from the chart) 09:25 08:30 Inserted saline lock: 22 gauge in left antecubital area, using aseptic technique. jl7 Blood collected. jl7 09:25 08:30 Initial lab(s) drawn, by me, sent to lab. jl7 jl7
[2020-10-02 11:54] VITALS: BP 135/74; TEMP 98.7; O2SAT 100
== END 2020-10-02 10:52 | disposition home or self-care (01) ==
LOC: ER 07:59
DX: S32.019A Unspecified fracture of first lumbar vertebra, initial encounter for closed fracture (principal); S32.029A Unspecified fracture of second lumbar vertebra, initial encounter for closed fracture; I10 Essential (primary) hypertension; G40.909 Epilepsy, unspecified, not intractable, without status epilepticus; W18.39XA Other fall on same level, initial encounter; Y93.89 Activity, other specified; Y92.9 Unspecified place or not applicable; Z88.1 Allergy status to other antibiotic agents; Z88.5 Allergy status to narcotic agent
CPT/HCPCS: 85025; 80048; 36415; 85610; 85730; 72131; 70450; 72128; 72170; 73502; 96375; 96374; 99284; J2405

== ENCOUNTER 2023-07-05 05:18 | Inpatient (IN) | payer OTHER ==
--- OUTSIDE RECORDS SUMMARY | 2023-07-05 05:23 | XMS REPORT | Continuity of Care Document ---
:1955 Author Organization [facility] t Address [address] [facility] [address] [place] [address] Care Team Providers Name Role Phone Ranjit Marsh Attending Clinician Unavailable Guy Devine Attending Clinician Unavailable Bharathi Gaona Attending Clinician Guy Devine Admitting Clinician Unavailable Physician, No Primary or Family Admitting Clinician Unavaila ble Payers Payer Name Policy Type Policy Number Effective Date Expiration Date S ource [employer] MEDICARE 53 [id number] 2020 [facility] tem[facility]ope 00:[facility]:00 [facility] MEDICARE MB [id number] 2014 [facility] NOVITAS 00:00:00 [facility] Problems Condition Condition Condition Status Onset Resolution Last Treating Co mments Source Name Details Category Date Date Treatment Clinician Date [id number] Type 2 Problem Common diabetes [facility] mellitus [facility] without St complicati [facility] Atrial AF Problem Common fibrillati (paroxysma Sp temitope on l atrial - [facility] fibrillati St on) [facility] [id number] Vitamin D Problem Comm on deficiency [facility] disease [facility] Routine Routine Problem Common eye exam eye exam [facility] - [facility] [id number] Claustroph Problem Com mon obia [facility] [id number] Grand mal Problem Comm on seizure [facility] [id number] Status Problem Common post [facility] [id number] DDD Problem Common (degenerat Spirit christos disc - [facility] disease), [facility] [id number] Current Problem Commo n use of [facility] - [facility] anticoagul ation [facility] [id number] Atrial Problem Common flutter [facility] with rapid - [facility] ventricula r [facility] [id number] Essential Problem Comm on hypertensi Spirit on - [facility] [id number] GERD Problem Common without Spirit esophagiti - [facility] s [facility] [id number] Mixed Problem Common hyperlipid [facility] emia [facility] Allergies, Adverse Reactions, Alerts Allergy Allergy Status Severity Reaction(s) Onset Inactive Treating Comm ents Source Name Type Date Date Clinician clavulan DA Active SV HIVES [facility] ic acid 5-20 Clear 00:00: Rao 00 [facility] amoxicil DA Active SV HIVES 0 [facility] josafat 5-20 Clear 00:00: Rao 00 [facility] meperidi DA Active SV N/V 0 [facility] ne 5-20 Clear 00:00: Rao 00 [facility] Augmenti Augmenti Active Memori a n n l [place] Demerol Demerol Active Memoria l [place] meperidi meperidi Active Hives Common ne ne [facility] amoxicil amoxicil Active Hives Common josafat / joasfat / Spirit clavulan clavulan - [facility] ate ate [facility] Social History Social Habit Start Date Stop Date Quantity Comments Source History of Tobacco Use Co mmon [facility] Sex Assigned At Com mon [facility] Smoking Status Start Date Stop Date Source Social History [facility] Medications Ordered Filled Start Stop Current Ordering Indication Dosage Frequency Signature Comments Components Source Medication Medication Date Date Medication? Clinician (SIG) Name Name Xanax 0.25 Xanax 0.25 2022-08 No QD Xanax 0.25 MG MG 0-05 MG 00:00: 00 Cyanocobala Cyanocobala 3-1 No 1000ug Common min min 0-05 Spirit 00:00: - [facility] Xanax 0.25 Xanax 0.25 2022-1 No QD Xanax 0.25 MG MG 0-05 MG 00:00: 00 Cyanocobala Cyanocobala 3-1 No 1000ug Common min min 0-05 Spirit 00:00: - [facility] Xanax 0.25 Xanax 0.25 2022-1 No QD Xanax 0.25 MG MG 0-05 MG 00:00: 00 Cyanocobala Cyanocobala 3-1 No 1000ug Common min min 0-05 Spirit 00:00: - [facility] 00 [facility] Xanax 0.25 Xanax 0.25 2022-1 No QD Xanax 0.25 MG MG 0-05 MG 00:00: 00 Cyanocobala Cyanocobala 3-1 No 1000ug Common min min 0-05 Spirit 00:00: - [facility] Cyanocobala Cyanocobala 3-0 No 1000ug Common min min 6- Spirit 00:00: - [facility] 00 [facility] Cyanocobala Cyanocobala 3-0 No 1000ug Common min min 6- Spirit 00:00: - [facility] 00 [facility] Cyanocobala Cyanocobala 3-0 No 1000ug Common min min 6- Spirit 00:00: - [facility] Cyanocobala Cyanocobala 3-0 No 1000ug Common min min 6- Spirit 00:00: - [facility] 00 [facility] Cyanocobala Cyanocobala 3-0 No 1000ug Common min min 2-27 Spirit 00:00: - [facility] Cyanocobala Cyanocobala 3-0 No 1000ug Common min min 2- Spirit 00:00: - [facility] Cyanocobala Cyanocobala 3-0 No 1000ug Common min min 2-27 Spirit 00:00: - [facility] Cyanocobala Cyanocobala 3-0 No 1000ug Common min min 2-27 Spirit 00:00: - [facility] 00 [facility] Vitamin B12 Vitamin B12 2021- No 1000ug Common (Cyanocobal (Cyanocobal 2-09 S pirit gan) gan) 00:00: - [facility]I 00 [facility] Vitamin B12 Vitamin B12 2021- No 1000ug Common (Cyanocobal (Cyanocobal 2-09 S pirit gan) gan) 00:00: - [facility]I 00 [facility] Cyanocobala Cyanocobala 2021-1 No 1000ug Common min min 2 Spirit 00:00: - [facility] 00 [facility] Cyanocobala Cyanocobala 2021-1 No 1000ug Common min min 2 Spirit 00:00: - [facility] 00 [facility] Cyanocobala Cyanocobala 2021-1 No 1000ug Common min min 2 Spirit 00:00: - [facility] 00 [facility] Cyanocobala Cyanocobala 2021- No 1000ug Common min min 2 Spirit 00:00: - [facility] 00 [facility] Vitamin D3 Vitamin D3 2021-1 2023- No 1{capsu Vitamin D3 33335 UNIT 75138 UNIT 0-27 01-24 le} 19240 UNIT 00:00: 00:00 00 :00 Cyanocobala Cyanocobala 2021-1 2023- No 1{ml} Cyanocobal min 1000 min 1000 0-27 01-24 gan 1000 MCG/ML MCG/ML 00:00: 00:00 MCG/ML 00 :00 Vitamin D3 Vitamin D3 2021-1 2023- No 1{capsu Vitamin D3 95443 UNIT 00343 UNIT 0-27 01-24 le} [id number] UNIT 00:00: 00:00 00 :00 Cyanocobala Cyanocobala 2021-1 2023- No 1{ml} Cyanocobal min 1000 min 1000 0-27 01-24 gan 1000 MCG/ML MCG/ML 00:00: 00:00 MCG/ML 00 :00 Cyanocobala Cyanocobala 2021-1 2023- No 1{ml} Cyanocobal min 1000 min 1000 0-27 01-24 gan 1000 MCG/ML MCG/ML 00:00: 00:00 MCG/ML 00 :00 Vitamin D3 Vitamin D3 2021-1 2023- No 1{capsu Vitamin D3 70043 UNIT 16156 UNIT 009-04 le} 57007 UNIT 00:00: 00:00 00 :00 Cyanocobala Cyanocobala 2021-3- No 1{ml} Cyanocobal min 1000 min 1000 09-04 gan 1000 MCG/ML MCG/ML 00:00: 00:00 MCG/ML 00 :00 Vitamin D3 Vitamin D3 2021-3- No 1{capsu Vitamin D3 08449 UNIT 37467 UNIT 09-04 le} 65403 UNIT 00:00: 00:00 00 :00 Vitamin B12 Vitamin B12 2021-0 No 1000ug Common (Cyanocobal (Cyanocobal 6-09 S pirit gan) gan) 00:00: - [facility] 00 [facility] Vitamin B12 Vitamin B12 2021-0 No 1000ug Common (Cyanocobal (Cyanocobal 6-09 S pirit gan) gan) 00:00: - [facility] 00 [facility] Vitamin B12 Vitamin B12 2-0 No 1000ug Common (Cyanocobal (Cyanocobal 6-09 S pirit gan) gan) 00:00: - [facility] 00 [facility] Vitamin B12 Vitamin B12 2-0 No 1000ug Common (Cyanocobal (Cyanocobal 6-09 S pirit gan) gan) 00:00: - [facility] 00 [facility] Vitamin B12 Vitamin B12 2-0 No 1000ug Common (Cyanocobal (Cyanocobal 6-09 S pirit gan) gan) 00:00: - [facility] 00 [facility] Vitamin B12 Vitamin B12 2-0 No 1000ug Common (Cyanocobal (Cyanocobal 6-09 S pirit gan) gan) 00:00: - [facility]I 00 [facility] Vitamin B12 Vitamin B12 2022-0 No 1000ug Common (Cyanocobal (Cyanocobal 6-09 S pirit gan) gan) 00:00: - [facility]I 00 [facility] Vitamin B12 Vitamin B12 2022-0 No 1000ug Common (Cyanocobal (Cyanocobal 6-09 S pirit gan) gan) 00:00: - [facility] 00 [facility] Vitamin B12 Vitamin B12 2022-0 No 1000ug Common (Cyanocobal (Cyanocobal 6-09 S pirit gan) gan) 00:00: - [facility] 00 [facility] Vitamin B12 Vitamin B12 2021-0 No 1000ug Common (Cyanocobal (Cyanocobal 6-09 S pirit gan) gan) 00:00: - [facility] 00 [facility] Vitamin B12 Vitamin B12 2-0 No 1000ug Common (Cyanocobal (Cyanocobal 6-09 S pirit gan) gan) 00:00: - [facility] 00 [facility] Ondansetron Ondansetron 2021-0 No 1{table Ondansetro HCl 4 MG HCl 4 MG 2-15 t} n HCl 4 MG 00:00: 00 Ondansetron Ondansetron 2-0 No 1{table Ondansetro HCl 4 MG HCl 4 MG 2-15 t} n HCl 4 MG 00:00: 00 Ondansetron Ondansetron 2-0 No 1{table Ondansetro HCl 4 MG HCl 4 MG 2-15 t} n HCl 4 MG 00:00: 00 Ondansetron Ondansetron 2-0 No 1{table Ondansetro HCl 4 MG HCl 4 MG 2-15 t} n HCl 4 MG 00:00: 00 Ondansetron Ondansetron 2-0 No 1{table Ondansetro HCl 4 MG HCl 4 MG 2-15 t} n HCl 4 MG 00:00: 00 Ondansetron Ondansetron 2-0 No 1{table Ondansetro HCl 4 MG HCl 4 MG 2-15 t} n HCl 4 MG 00:00: 00 Ondansetron Ondansetron 2-0 No 1{table Ondansetro HCl 4 MG HCl 4 MG 2-15 t} n HCl 4 MG 00:00: 00 Ondansetron Ondansetron 2022-0 No 1{table Ondansetro HCl 4 MG HCl 4 MG 2-15 t} n HCl 4 MG 00:00: 00 Ondansetron Ondansetron 2022-0 No 1{table Ondansetro HCl 4 MG HCl 4 MG 2-15 t} n HCl 4 MG 00:00: 00 Ondansetron Ondansetron 2022-0 No 1{table Ondansetro HCl 4 MG HCl 4 MG 2-15 t} n HCl 4 MG 00:00: 00 Ondansetron Ondansetron No 1{table Ondansetro HCl 4 MG HCl 4 MG 2-15 t} n HCl 4 MG 00:00: 00 Ondansetron Ondansetron No 1{table Ondansetro HCl 4 MG HCl 4 MG 2-15 t} n HCl 4 MG 00:00: 00 Ondansetron Ondansetron No 1{table Ondansetro HCl 4 MG HCl 4 MG 2-15 t} n HCl 4 MG 00:00: 00 Ondansetron Ondansetron No 1{table Ondansetro HCl 4 MG HCl 4 MG 2-15 t} n HCl 4 MG 00:00: 00 Ondansetron Ondansetron No 1{table Ondansetro HCl 4 MG HCl 4 MG 2-15 t} n HCl 4 MG 00:00: 00 cetirizine 2019-0 Yes 10 mg = 1 Me moria 10 mg oral 9-30 tab, PO, l tablet 20:58: Daily, # [place] 00 30 tab, 0 Refill(s), other Bromphenira 2020-0 Yes 7.5 mL, Mem oria mine 9-30 PO, TID, l Maleate 0.4 20:56: PRN cough, Russell MG/ML / 00 X 8 day, # Dextrometho 150 mL, 0 rphan Refill(s), Hydrobromid Pharmacy: e 2 MG/ML / [facility] Pseud[facility]ephed [facility]Y # rine 1221, Hydrochlori 165.1, cm, de 6 MG/ML 05/11/20 Oral 15:22:00 Solution CDT, [Bromfed Height, DM] 72.045, kg, 05/11/20 15:22:00 CDT, Weight Aspirin 81 2020-0 Yes 81 mg = 1 Me moria MG Chewable 9-30 tab, PO, l Tablet 20:47: Daily, # Russell 00 90 tab, 1 Refill(s), Pharmacy: [facility] # [id number], 165.1, cm, 05/11/20 15:22:00 CDT, Height, 72.045, kg, 05/11/20 15:22:00 CDT, Weight Divalproex 2020-0 Yes 500 mg = 1 M emoria Sodium 500 9-30 tab, PO, l MG Enteric 20:26: TID, # 90 He rmann Coated 00 tab, 0 Tablet Refill(s) [Depakote] metoprolol 2020-0 Yes 25 mg = 1 Me moria succinate 9-30 cap, PO, l 25 mg oral 20:26: Daily, 0 Her [place] capsule, 00 Refill(s) extended release lisinopril 2020-0 Yes 2.5 mg = 1 M emoria 2.5 mg oral 30 tab, PO, l tablet 20:26: Daily, 0 Russell 00 Refill(s) atorvastati 2020-0 Yes 10 mg = 1 M emoria n 10 mg 9-30 tab, PO, l oral tablet 20:26: Daily, 0 He rmann 00 Refill(s) lamotrigine 2020-0 Yes 1/2 TAB, Me moria 150 MG Oral 9-30 PO, BID, 0 l Tablet 20:26: Refill(s) Louis n 00 LaMICtal 25 LaMICtal 25 No 2{table BID LaMICtal MG MG ts} 25 MG Xarelto 20 Xarelto 20 No 1{table QD Xarelto 20 MG MG t_with_ MG food} Depakote Depakote No 1{table TID Depakote 500 MG 500 MG t} 500 MG LaMICtal 25 LaMICtal 25 No 2{table BID LaMICtal MG MG ts} 25 MG Xarelto 20 Xarelto 20 No 1{table QD Xarelto 20 MG MG t_with_ MG food} Depakote Depakote No 1{table TID Depakote 500 MG 500 MG t} 500 MG LaMICtal 25 LaMICtal 25 No 2{table BID LaMICtal MG MG ts} 25 MG Xarelto 20 Xarelto 20 No 1{table QD Xarelto 20 MG MG t_with_ MG food} Depakote Depakote No 1{table TID Depakote 500 MG 500 MG t} 500 MG LaMICtal 25 LaMICtal 25 No 2{table BID LaMICtal MG MG ts} 25 MG Xarelto 20 Xarelto 20 No 1{table QD Xarelto 20 MG MG t_with_ MG food} Depakote Depakote No 1{table TID Depakote 500 MG 500 MG t} 500 MG LaMICtal 25 LaMICtal 25 No 2{table BID LaMICtal MG MG ts} 25 MG Xarelto 20 Xarelto 20 No 1{table QD Xarelto 20 MG MG t_with_ MG food} Depakote Depakote No 1{table TID Depakote 500 MG 500 MG t} 500 MG Depakote Depakote No 1{table TID Depakote 500 MG 500 MG t} 500 MG LaMICtal 25 LaMICtal 25 No 2{table BID LaMICtal MG MG ts} 25 MG Xarelto 20 Xarelto 20 No 1{table QD Xarelto 20 MG MG t_with_ MG food} Depakote Depakote No 1{table TID Depakote 500 MG 500 MG t} 500 MG LaMICtal 25 LaMICtal 25 No 2{table BID LaMICtal MG MG ts} 25 MG Xarelto 20 Xarelto 20 No 1{table QD Xarelto 20 MG MG t_with_ MG food} Depakote Depakote No 1{table TID Depakote 500 MG 500 MG t} 500 MG LaMICtal 25 LaMICtal 25 No 2{table BID LaMICtal MG MG ts} 25 MG Xarelto 20 Xarelto 20 No 1{table QD Xarelto 20 MG MG t_with_ MG food} LaMICtal 25 LaMICtal 25 No 2{table BID LaMICtal MG MG ts} 25 MG Xarelto 20 Xarelto 20 No 1{table QD Xarelto 20 MG MG t_with_ MG food} Depakote Depakote No 1{table TID Depakote 500 MG 500 MG t} 500 MG LaMICtal 25 LaMICtal 25 No 2{table BID LaMICtal MG MG ts} 25 MG Xarelto 20 Xarelto 20 No 1{table QD Xarelto 20 MG MG t_with_ MG food} Depakote Depakote No 1{table TID Depakote 500 MG 500 MG t} 500 MG LaMICtal 25 LaMICtal 25 No 2{table BID LaMICtal MG MG ts} 25 MG Xarelto 20 Xarelto 20 No 1{table QD Xarelto 20 MG MG t_with_ MG food} Depakote Depakote No 1{table TID Depakote 500 MG 500 MG t} 500 MG Depakote Depakote No 1{table TID Depakote 500 MG 500 MG t} 500 MG LaMICtal 25 LaMICtal 25 No 2{table BID LaMICtal MG MG ts} 25 MG Xarelto 20 Xarelto 20 No 1{table QD Xarelto 20 MG MG t_with_ MG food} Depakote Depakote No 1{table TID Depakote 500 MG 500 MG t} 500 MG LaMICtal 25 LaMICtal 25 No 2{table BID LaMICtal MG MG ts} 25 MG Xarelto 20 Xarelto 20 No 1{table QD Xarelto 20 MG MG t_with_ MG food} LaMICtal 25 LaMICtal 25 No 2{table BID LaMICtal MG MG ts} 25 MG Xarelto 20 Xarelto 20 No 1{table QD Xarelto 20 MG MG t_with_ MG food} Depakote Depakote No 1{table TID Depakote 500 MG 500 MG t} 500 MG LaMICtal 25 LaMICtal 25 No 2{table BID LaMICtal MG MG ts} 25 MG Xarelto 20 Xarelto 20 No 1{table QD Xarelto 20 MG MG t_with_ MG food} Depakote Depakote No 1{table TID Depakote 500 MG 500 MG t} 500 MG LaMICtal 25 LaMICtal 25 No 2{table BID LaMICtal MG MG ts} 25 MG Cyanocobala Cyanocobala No 1{ml} Cyanocobal min 1000 min 1000 gan 1000 MCG/ML MCG/ML MCG/ML Latanoprost Latanoprost No 1{drop_ QD Latanopros 0.005 % 0.005 % into_af t 0.005 % fected_ eye_in_ the_eve cesar} Depakote Depakote No 1{table TID Depakote 500 MG 500 MG t} 500 MG Naproxen Naproxen No BID Naproxen 500 MG 500 MG 500 MG LaMICtal 25 LaMICtal 25 No 2{table BID LaMICtal MG MG ts} 25 MG Cyanocobala Cyanocobala No 1{ml} Cyanocobal min 1000 min 1000 gan 1000 MCG/ML MCG/ML MCG/ML Latanoprost Latanoprost No 1{drop_ QD Latanopros 0.005 % 0.005 % into_af t 0.005 % fected_ eye_in_ the_eve cesar} Depakote Depakote No 1{table TID Depakote 500 MG 500 MG t} 500 MG Naproxen Naproxen No BID Naproxen 500 MG 500 MG 500 MG LaMICtal 25 LaMICtal 25 No 2{table BID LaMICtal MG MG ts} 25 MG Cyanocobala Cyanocobala No 1{ml} Cyanocobal min 1000 min 1000 gan 1000 MCG/ML MCG/ML MCG/ML Latanoprost Latanoprost No 1{drop_ QD Latanopros 0.005 % 0.005 % into_af t 0.005 % fected_ eye_in_ the_eve cesar} Depakote Depakote No 1{table TID Depakote 500 MG 500 MG t} 500 MG Naproxen Naproxen No BID Naproxen 500 MG 500 MG 500 MG LaMICtal 25 LaMICtal 25 No 2{table BID LaMICtal MG MG ts} 25 MG Cyanocobala Cyanocobala No 1{ml} Cyanocobal min 1000 min 1000 gan 1000 MCG/ML MCG/ML MCG/ML Latanoprost Latanoprost No 1{drop_ QD Latanopros 0.005 % 0.005 % into_af t 0.005 % fected_ eye_in_ the_eve cesar} Depakote Depakote No 1{table TID Depakote 500 MG 500 MG t} 500 MG Naproxen Naproxen No BID Naproxen 500 MG 500 MG 500 MG Amiodarone Amiodarone No 1{table QD Amiodarone HCl 200 MG HCl 200 MG t} HCl 200 MG Memantine Memantine No Memantine HCl 5 MG HCl 5 MG HCl 5 MG Pantoprazol Pantoprazol No 1{table QD Pantoprazo e Sodium 40 e Sodium 40 t} le Sodium MG MG 40 MG Depakote Depakote No 1{table TID Depakote 500 MG 500 MG t} 500 MG Xarelto 20 Xarelto 20 No Xarelto 20 MG MG MG LaMICtal 25 LaMICtal 25 No 3{table BID LaMICtal MG MG t} 25 MG DULoxetine DULoxetine No DULoxetine HCl 20 MG HCl 20 MG HCl 20 MG Amiodarone Amiodarone No 1{table QD Amiodarone HCl 200 MG HCl 200 MG t} HCl 200 MG Memantine Memantine No Memantine HCl 5 MG HCl 5 MG HCl 5 MG Pantoprazol Pantoprazol No 1{table QD Pantoprazo e Sodium 40 e Sodium 40 t} le Sodium MG MG 40 MG Depakote Depakote No 1{table TID Depakote 500 MG 500 MG t} 500 MG Xarelto 20 Xarelto 20 No Xarelto 20 MG MG MG LaMICtal 25 LaMICtal 25 No 3{table BID LaMICtal MG MG t} 25 MG DULoxetine DULoxetine No DULoxetine HCl 20 MG HCl 20 MG HCl 20 MG Memantine Memantine No Memantine HCl 5 MG HCl 5 MG HCl 5 MG Amiodarone Amiodarone No 1{table QD Amiodarone HCl 200 MG HCl 200 MG t} HCl 200 MG Pantoprazol Pantoprazol No 1{table QD Pantoprazo e Sodium 40 e Sodium 40 t} le Sodium MG MG 40 MG DULoxetine DULoxetine No DULoxetine HCl 20 MG HCl 20 MG HCl 20 MG Xarelto 20 Xarelto 20 No Xarelto 20 MG MG MG LaMICtal 25 LaMICtal 25 No 3{table BID LaMICtal MG MG t} 25 MG Depakote Depakote No 1{table TID Depakote 500 MG 500 MG t} 500 MG Immunizations Ordered Filled Immunization Date Status Comments Sourc e Immunization Name Name Prevnar 13 () Prevnar 13 (PCV13) 2021-09-06 [facility]pleted [facility] 16:24[facility] - [facility] Prevnar 13 (PCV13) Prevnar 13 (PCV13) 2021-09-06 [facility]pleted [facility] 16:24:00 - [facility] Prevnar 13 (PCV13) Prevnar 13 (PCV13) 2021-09-06 [facility]pleted [facility] 16:24:00 - [facility] Prevnar 13 (PCV13) Prevnar 13 (PCV13) 2021-09-06 [facility]pleted [facility] 16:24:00 - [facility] Prevnar 13 (PCV13) Prevnar 13 (PCV13) 2021-09-06 [facility]pleted [facility] 16:24:00 - [facility] Prevnar 13 (PCV13) Prevnar 13 (PCV13) 2021-09-06 [facility]pleted [facility] 16:24:00 - [facility] Prevnar 13 (PCV13) Prevnar 13 (PCV13) 2021-09-06 [facility]pleted [facility] 16:24:00 - [facility] Prevnar 13 (PCV13) Prevnar 13 (PCV13) 2021-09-06 [facility]pleted [facility] 16:24:00 - [facility] Prevnar 13 (PCV13) Prevnar 13 (PCV13) 2021-09-06 [facility]pleted [facility] 16:24:00 - [facility] Prevnar 13 (PCV13) Prevnar 13 (PCV13) 2021-09-06 [facility]pleted [facility] 16:24:00 - [facility] Prevnar 13 (PCV13) Prevnar 13 (PCV13) 2021-09-06 [facility]pleted [facility] 16:24:00 - [facility] Prevnar 13 (PCV13) Prevnar 13 (PCV13) 2021-09-06 [facility]pleted [facility] 16:24:00 - [facility] Prevnar 13 (PCV13) Prevnar 13 (PCV13) 2021-09-06 [facility]pleted [facility] 16:24:00 - [facility] Prevnar 13 (PCV13) Prevnar 13 (PCV13) 2021-09-06 [facility]pleted [facility] 16:24:00 - [facility] Prevnar 13 (PCV13) Prevnar 13 (PCV13) 2021-09-06 [facility]pleted [facility] 16:24:00 - [facility] Prevnar 13 (PCV13) Prevnar 13 (PCV13) 2021-09-06 [facility]pleted [facility] 16:24:00 - [facility] FLUZONE HIGH DOSE FLUZONE HIGH DOSE 2021-09-06 Completed [facility] OVER 65 OVER 65 16:23:00 - [facility] FLUZONE HIGH DOSE FLUZONE HIGH DOSE 2021-09-06 Completed [facility] OVER 65 OVER 65 16:23:00 - [facility] FLUZONE HIGH DOSE FLUZONE HIGH DOSE 2021-09-06 Completed [facility] OVER 65 OVER 65 16:23:00 - [facility] FLUZONE HIGH DOSE FLUZONE HIGH DOSE 2021-09-06 Completed [facility] OVER 65 OVER 65 16:23:00 - [facility] FLUZONE HIGH DOSE FLUZONE HIGH DOSE 2021-09-06 Completed [facility] OVER 65 OVER 65 16:23:00 - [facility] FLUZONE HIGH DOSE FLUZONE HIGH DOSE 2021-09-06 Completed [facility] OVER 65 OVER 65 16:23:00 - [facility] FLUZONE HIGH DOSE FLUZONE HIGH DOSE 2021-09-06 Completed [facility] OVER 65 OVER 65 16:23:00 - [facility] FLUZONE HIGH DOSE FLUZONE HIGH DOSE 2021-09-06 Completed [facility] OVER 65 OVER 65 16:23:00 - [facility] FLUZONE HIGH DOSE FLUZONE HIGH DOSE 2021-09-06 Completed [facility] OVER 65 OVER 65 16:23:00 - [facility] FLUZONE HIGH DOSE FLUZONE HIGH DOSE 2021-09-06 Completed [facility] OVER 65 OVER 65 16:23:00 - [facility] FLUZONE HIGH DOSE FLUZONE HIGH DOSE 2021-09-06 Completed [facility] OVER 65 OVER 65 16:23:00 - [facility] FLUZONE HIGH DOSE FLUZONE HIGH DOSE 2021-09-06 Completed [facility] OVER 65 OVER 65 16:23:00 - [facility] FLUZONE HIGH DOSE FLUZONE HIGH DOSE 2021-09-06 Completed [facility] OVER 65 OVER 65 16:23:00 - [facility] FLUZONE HIGH DOSE FLUZONE HIGH DOSE 2021-09-06 Completed [facility] OVER 65 OVER 65 16:23:00 - [facility] FLUZONE HIGH DOSE FLUZONE HIGH DOSE 2021-09-06 Completed [facility] OVER 65 OVER 65 16:23:00 - [facility] FLUZONE HIGH DOSE FLUZONE HIGH DOSE 2021-09-06 Completed [facility] OVER 65 OVER 65 16:23:00 [facility] COVID-19 Vaccine COVID-19 Vaccine 2020-10-27 Completed [facility] (Maria Elena) (Maria Elena) 11:28:00 - [facility] COVID-19 Vaccine COVID-19 Vaccine 2020-10-27 Completed [facility] (Maria Elena) (Maria Elena) 11:28:00 - [facility] COVID-19 Vaccine COVID-19 Vaccine 2020-10-27 Completed [facility] (Maria Elena) (Maria Elena) 11:28:00 - [facility] COVID-19 Vaccine COVID-19 Vaccine 2020-10-27 Completed [facility] (Maria Elena) (Maria Elena) 11:28:00 - [facility] COVID-19 Vaccine COVID-19 Vaccine 2020-10-27 Completed [facility] (Maria Elena) (Maria Elena) 11:28:00 - [facility] COVID-19 Vaccine COVID-19 Vaccine 2020-10-27 Completed [facility] (Maria Elena) (Maria Elena) 11:28:00 - [facility] COVID-19 Vaccine COVID-19 Vaccine 2020-10-27 Completed [facility] (Maria Elena) (Maria Elena) 11:28:00 - [facility] COVID-19 Vaccine COVID-19 Vaccine 2020-10-27 Completed [facility] (Maria Elena) (Maria Elena) 11:28:00 - [facility] COVID-19 Vaccine COVID-19 Vaccine 2020-10-27 Completed [facility] (Maria Elena) (Maria Elena) 11:28:00 - [facility] COVID-19 Vaccine COVID-19 Vaccine 2020-10-27 Completed [facility] (Maria Elena) (Maria Elena) 11:28:00 - [facility] COVID-19 Vaccine COVID-19 Vaccine 2020-10-27 Completed [facility] (Maria Elena) (Maria Elena) 11:28:00 - [facility] COVID-19 Vaccine COVID-19 Vaccine 2020-10-27 Completed [facility] (Maria Elena) (Maria Elena) 11:28:00 - [facility] COVID-19 Vaccine COVID-19 Vaccine 2020-10-27 Completed [facility] (Maria Elena) (Maria Elena) 11:28:00 [facility] COVID-19 Vaccine COVID-19 Vaccine 2020-10-27 Completed [facility] (Maria Elena) (Maria Elena) 11:28:00 - [facility] COVID-19 Vaccine COVID-19 Vaccine 2020-10-27 Completed [facility] (Maria Elena) (Maria Elena) 11:28:00 - [facility] COVID-19 Vaccine COVID-19 Vaccine 2020-10-27 Completed [facility] (Maria Elena) (Maria Elena) 11:28:00 [facility] COVID-19 Vaccine COVID-19 Vaccine 2020-10-27 Completed [facility] (Maria Elena) (Maria Elena) 11:28:00 [facility] COVID-19 Vaccine COVID-19 Vaccine 2020-10-27 Completed [facility] (Maria Elena) (Maria Elena) 11:28:00 [facility] FluAD Quad SD FluAD Quad SD Unknown Completed [facility] COVID-19 Vaccine COVID-19 Vaccine Unknown Completed [facility] (Maria Elena[facility] (Maria Elena) - [facility] FLUZONE HIGH DOSE FLUZONE HIGH DOSE Unknown Completed [facility] OVER 65 OVER 65 - [facility] FLUZONE HIGH DOSE FLUZONE HIGH DOSE Unknown Completed [facility] OVER 65 OVER 65 [facility] Prevnar 13 (PCV13) Prevnar 13 (PCV13) Unknown Completed [facility] FluAD Quad SD FluAD Quad SD Unknown Completed [facility] COVID-19 Vaccine COVID-19 Vaccine Unknown Completed [facility] (Maria Elena[facility] (Maria Elena) - [facility] FLUZONE HIGH DOSE FLUZONE HIGH DOSE Unknown Completed [facility] OVER 65 OVER 65 - [facility] FLUZONE HIGH DOSE FLUZONE HIGH DOSE Unknown Completed [facility] OVER 65 OVER 65 - [facility] Prevnar 13 (PCV13) Prevnar 13 (PCV13) Unknown Completed [facility] FluAD Quad SD FluAD Quad SD Unknown Completed [facility] COVID-19 Vaccine COVID-19 Vaccine Unknown Completed [facility] ([facility] Elena[facility] (Maria Elena) - [facility] FLUZONE HIGH DOSE FLUZONE HIGH DOSE Unknown Completed [facility] OVER 65 OVER 65 - [facility] FLUZONE HIGH DOSE FLUZONE HIGH DOSE Unknown Completed [facility] OVER 65 OVER 65 - [facility] Prevnar 13 (PCV13) Prevnar 13 (PCV13) Unknown Completed [facility] FluAD Quad SD FluAD Quad SD Unknown Completed [facility] COVID-19 Vaccine COVID-19 Vaccine Unknown Completed Ne [facility]mon [facility] (Maria Elena) (Maria Elena) [facility] FLUZONE HIGH DOSE FLUZONE HIGH DOSE Unknown Completed [facility] OVER 65 OVER 65 [facility] FLUZONE HIGH DOSE FLUZONE HIGH DOSE Unknown Completed [facility] OVER 65 OVER 65 [facility] Prevnar 13 (PCV13) Prevnar 13 (PCV13) Unknown Completed [facility] Vital Signs Vital Name Observation Time Observation Value Comments Source height 2022-10-08 10:40:00 65 [in_i] [facility] weight 2022-10-08 10:40:00 172.3 [lb_av] [facility] temperature 2022-10-08 10:40:00 97.2 [degF] [facility] bmi 2022-10-08 10:40:00 28.67 kg/m2 [facility] oximetry 2022-10-08 10:40:00 99 % [facility] respiratory rate 2022-10-08 10:40:00 18 /min Comm on [facility] blood pressure 2022-10-08 10:40:00 143 mm[Hg] [facility] - systolic [facility] blood pressure 2022-10-08 10:40:00 81 mm[Hg] [facility] - diastolic [facility] height 2022-10-08 10:40:00 65 [in_i] [facility] weight 2022-10-08 10:40:00 172.3 [lb_av] [facility] temperature 2022-10-08 10:40:00 97.2 [degF] [facility] bmi 2022-10-08 10:40:00 28.67 kg/m2 [facility] oximetry 2022-10-08 10:40:00 99 % [facility] respiratory rate 2022-10-08 10:40:00 18 /min Comm on [facility] blood pressure 2022-10-08 10:40:00 139 mm[Hg] Common [facility] - systolic [facility] blood pressure 2022-10-08 10:40:00 81 mm[Hg] Common [facility] - diastolic [facility] height 2022-06-07 15:50:00 65 [in_i] [facility] weight 2022-06-07 15:50:00 163 [lb_av] [facility] temperature 2022-06-07 15:50:00 98 [degF] [facility] bmi 2022-06-07 15:50:00 27.12 kg/m2 [facility] S [facility] blood pressure 2022-06-07 15:50:00 130 mm[Hg] Common [facility] - systolic [facility] blood pressure 2022-06-07 15:50:00 65 mm[Hg] Common [facility] - diastolic [facility] height 2022-01-18 15:20:00 65 [in_i] [facility] weight 2022-01-18 15:20:00 169.0 [lb_av] [facility] temperature 2022-01-18 15:20:00 98.2 [degF] [facility] 2022-01-18 15:20:00 28.12 kg/m2 [facility] oximetry 2022-01-18 15:20:00 99 % [facility] respiratory rate 2022-01-18 15:20:00 18 /min Comm on [facility] blood pressure 2022-01-18 15:20:00 132 mm[Hg] Common [facility] - systolic [facility] blood pressure 2022-01-18 15:20:00 66 mm[Hg] [facility] height 2021-09-26 13:00:00 65 [in_i] [facility] S [facility]irit [facility] weight 2021-09-26 13:00:00 168 [lb_av] [facility] temperature 2021-09-26 13:00:00 96.8 [degF] [facility] bmi 2021-09-26 13:00:00 27.95 kg/m2 Common S pirit [facility] oximetry 2021-09-26 13:00:00 98 % [facility] respiratory rate 2021-09-26 13:00:00 16 /min Comm on [facility] blood pressure 2021-09-26 13:00:00 164 mm[Hg] Common [facility] - systolic [facility] blood pressure 2021-09-26 13:00:00 77 mm[Hg] [facility] - diastolic [facility] height 2021-09-06 15:50:00 65 [in_i] Common [facility] weight 2021-09-06 15:50:00 168.3 [lb_av] Common [facility] temperature 2021-09-06 15:50:00 97.6 [degF] Common [facility] bmi 2021-09-06 15:50:00 28 kg/m2 [facility] oximetry 2021-09-06 15:50:00 100 % [facility] respiratory rate 2021-09-06 15:50:00 18 /min Comm on [facility] blood pressure 2021-09-06 15:50:00 132 mm[Hg] Common [facility] - systolic [facility] blood pressure 2021-09-06 15:50:00 65 mm[Hg] Common [facility] - diastolic [facility] Systolic (mm Hg) 2020-05-11 20:22:00 Judd rial [facility] Diastolic (mm Hg) 2020-05-11 20:22:00 Mem orial [facility] Rate 2020-05-11 20:22:00 [facility] Temperature Oral (F) 2020-05-11 20:22:00 97.8 F [facility] Height 2020-05-11 20:22:00 165.1 cm [facility] Weight 2020-05-11 20:22:00 [facility] BMI Calculated 2020-05-11 20:22:00 Tricia Lee Procedures Procedure Date / Time Performed Performing Clinician Izzy jorgensen [id number] 2022-01-03 00:00:00 RASSA [facility] [id number] 2022-01-03 00:00:00 RASSA [facility] Encounters Start End Encounter Admission Attending Care Care Encounter Source Date/Time Date/Time Type Type Clinicians Facility Department ID 2023-05-15 Outpatient Marsh, STLMLC STLC [id number] Common 14:51:01 Ranjit [id number] [facility] 2023-04-08 Outpatient Marsh, STLMLC STLMLC [id number] Common 14:09:00 Ranjit [id number] [facility] 2023-01-16 Outpatient Marsh, STLMLC STLMLC [id number] Common 14:16:00 Ranjit [id number] [facility] 2022-10-04 Outpatient Marsh, STLMLC STLMLC [id number] Common 07:24:00 Ranjit [id number] [facility] 2022-09-07 Outpatient Marsh, STLMLC STLMLC [id number] Common 15:52:00 Ranjit [id number] [facility] 2022-06-05 Outpatient Marsh, STLMLC STLMLC [id number] Common 11:47:01 Ranjit [id number] [facility] 2022-01-03 Inpatient CHRISTIANO MatuteCL INTE.02 [id number] [facility] 12:00:00 Guy [id number] [facility] 2021-09-06 Outpatient Marsh, STLMLC STLMLC [id number] Common 16:07:01 Ranjit [facility] 2021-09-06 Outpatient Marsh, STLMLC STLMLC [id number] Common 12:42:20 Ranjit [id number] [facility] 2021-09-06 Outpatient Marsh, STLMLC STLMLC [id number] Common 12:41:42 Ranjit [id number] [facility] 2021-09-06 Outpatient Marsh, STLMLC STLMLC [id number] Common 12:41:19 Ranjit [id number] [facility] 2021-09-06 Outpatient Marsh, STLMLC STLMLC [id number] Common 12:38:45 Ranjit [id number] [facility] 2021-09-06 Outpatient Amrsh, STLMLC STLMLC [id number] Common 12:36:45 Ranjit [id number] [facility] 2021-09-06 Outpatient Marsh, STLMLC STLMLC [id number] Common 12:36:29 Ranjit [id number] [facility] 2021-09-06 Outpatient Marsh, STLMLC STLMLC [id number] Common 12:29:46 Ranjit [id number] [facility] 2021-09-06 Outpatient Marsh, STLMLC STLMLC [id number] Common 12:20:24 Ranjit [id number] [facility] 2022-10-15 2022-10-15 (TEL) STLMLC STLMLC [id number] Co mmon 00:00:00 00:00:00 [facility] 2022-10-08 2022-10-08 OFFICE STLMLC STLMLC [id number] Co mmon 00:00:00 00:00:00 [facility]IT [facility] ESTAB PT - CHI LEVEL 4 [facility] 2022-10-08 2022-10-08 SUB ANNUAL STLMLC STLMLC [id number] Common 00:00:00 00:00:00 MCR [facility] WELLNESS - CHI VISIT [facility] 2022-10-08 2022-10-08 (TEL) STLMLC STLMLC [id number] Co mmon 00:00:00 00:00:00 [facility] 2022-07-20 2022-07-20 (INJ) STLMLC STLMLC [id number] Co mmon 00:00:00 00:00:00 Injection [facility]ir it [facility] 2022-07-20 2022-07-20 (TEL) STLMLC STLMLC [id number] Co mmon 00:00:00 00:00:00 [facility] 2022-07-19 2022-07-19 (TEL) STLMLC STLMLC [id number] Co mmon 00:00:00 00:00:00 [facility] 2022-06-07 2022-06-07 OFFICE STLMLC STLMLC [id number] Co mmon 00:00:00 00:00:00 [facility] PT - CHI LEVEL 4 [facility] 2022-06-05 2022-06-05 (TEL) STLMLC STLMLC [id number] Co mmon 00:00:00 00:00:00 [facility] 2022-02-21 2022-02-21 Outpatient EL Raslan, HCACL OUTD [id number] [facility] 05:12:00 05:12:00 Guy 42 [facility] 2022-02-21 2022-02-21 Outpatient EL Raslan, HCACL HCACL [id number] [facility] 05:12:00 05:12:00 Guy [id number] [facility] 2022-01-23 2022-01-23 (TEL) STLMLC STLMLC [id number] Co mmon 00:00:00 00:00:00 [facility] 2022-01-18 2022-01-18 OFFICE STLMLC STLMLC [id number] Co mmon 00:00:00 00:00:00 [facility]IT [facility] PT - CHI LEVEL 4 [facility] 2022-01-16 2022-01-16 (TEL) STLMLC STLMLC [id number] Co mmon 00:00:00 00:00:00 [facility] 2022-01-03 2022-01-04 Inpatient EL Raslan, HCACL INTE.02 [id number] [facility] 12:00:00 19:00:00 Guy 67 [facility] 2021-12-29 2021-12-29 Outpatient EL Raslan, HCACL 3DAY [id number] [facility] 08:00:00 23:00:00 [facility] 2021-12-22 2021-12-22 (TEL) STLMLC STLMLC [id number] Co mmon 00:00:00 00:00:00 [facility] 2021-12-21 2021-12-21 (TEL) STLMLC STLMLC [id number] Co mmon 00:00:00 00:00:00 [facility] 2021-10-30 2021-10-30 (TEL) STLMLC STLMLC [id number] Co mmon 00:00:00 00:00:00 [facility] 2021-10-19 2021-10-19 (TEL) STLMLC STLMLC [id number] Co mmon 00:00:00 00:00:00 [facility] 2021-09-28 2021-09-28 (TEL) STLMLC STLMLC [id number] Co mmon 00:00:00 00:00:00 [facility] 2021-09-26 2021-09-26 OFFICE STLMLC STLMLC [id number] Co mmon 00:00:00 00:00:00 VISIT [facility] LEVEL 4 [facility] 2021-09-25 2021-09-25 (TEL) STLMLC STLMLC [id number] Co mmon 00:00:00 00:00:00 [facility] 2021-09-06 2021-09-06 PREV VISIT STLMLC STLMLC [id number] Common 00:00:00 00:00:00 EST AGE 64 Spi rit & OVER [facility] 2021-08-24 2021-08-24 (TEL) STLMLC STLMLC [id number] Co mmon 00:00:00 00:00:00 [facility] 2021-03-27 2021-03-27 (TEL) STLMLC STLMLC [id number] Co mmon 00:00:00 00:00:00 [facility] 2020-12-05 2020-12-05 Outpatient STLMLC STLMLC [id number] Common 00:00:00 00:00:00 [facility] 2020-12-05 2020-12-05 Outpatient STLMLC STLMLC [id number] Common 00:00:00 00:00:00 [facility] 2020-10-27 2020-10-27 Outpatient STLMLC STLMLC [id number] Common 00:00:00 00:00:00 [facility] 2020-10-26 2020-10-26 Outpatient STLMLC STLMLC [id number] Common 00:00:00 00:00:00 [facility] 2020-10-04 2020-10-04 Outpatient STLMLC STLMLC [id number] Common 00:00:00 00:00:00 [facility] 2020-08-23 2020-08-23 Outpatient STLMLC STLMLC [id number] Common 00:00:00 00:00:00 [facility] 2020-05-11 2020-05-12 Outpatient nullFlavo [facility] [id number] Memoria 20:30:00 04:59:59 r Primary 00 l Care [place] 2020-05-11 2020-05-11 Outpatient Elhor [facility] [id number] 15:30:00 23:59:59 Gbito, 00 Akuvi Afef 2020-05-11 2020-05-[address] [facility] [id number] Memoria 15:30:00 15:30:00 00 l [place] Results Test Description Test Time Test Comments Results Result Comments Source RETICULOCYTE WITH ABSOLUTE 2023-01-15 00:00:00 Test Item Value Reference Range Interpretation Comme nts ABSOLUTE RETICULOCYTE (test 95.0 K/UL See_Comment [Automated message] The system code = 47998-9) which genera roney this result transmitted ref erence range: 32.0-105.0 K/UL . The reference range was not u sed to interpret this result as normal/abnormal. RETICULOCYTE COUNT (test code 2.11 % See_Comment [Automated message] The system = 4679-7) which generated this result transmitted ref erence range: 0.80-2.40 %. Th e reference range was not used to interpret this result as german l/abnormal. [id number] 00:00:00 Test Item Value Reference Range Interpretation Comments FERRITIN (test code = 11 NG/ML See_Comment L [Auto mated message] The ) system which ge nerated this result tra nsmitted reference range : 13-200 NG/ML. The refe rence range was not u sed to interpret this result as normal/abnormal . VITAMIN D, 25 [id number] 00:00:00 Test Item Value Reference Range Interpretation Comments VITAMIN D, 25 OH (test code = 32 NG/ML SEE BELOW NG/ML 1988-10) LIPID PANEL WITH REFLEX DIRECT [id number] 00:00:00 Test Item Value Reference Range Interpretation Comments CALC LDL CHOL (test 96 MG/DL See_Comment [Automa roney message] code = 31971-2) The system [facility] generated this result transmit roney reference range : <100 MG/DL. The reference range was not used to interpret this result as normal/abnormal . CHOLESTEROL (test code 241 MG/DL See_Comment H [Aut omated message] = 2092-) The system [facility] generated this result transmit roney reference range : <200 MG/DL. The reference range was not used to interpret this result as normal/abnormal . HDL CHOLESTEROL (test 126 MG/DL See_Comment [Auto mated message] code = 2084-9) The system [facility] generated this result transmit roney reference range : >39 MG/DL. The refe rence range was not u sed to interpret th is result as normal/abnormal . RISK RATIO LDL/HDL 0.76 RATIO See_Comment [Automat ed message] (test code = 02555-3) The sy stem which generated this result transmit roney reference range : <3.22 RATIO. Th e reference range was not used to interpret this result as normal/abnormal . TRIGLYCERIDES (test 97 MG/DL See_Comment [Automa roney message] code = 2571-8) The system [facility] generated this result transmit roney reference range : <150 MG/DL. The reference range was not used to interpret this result as normal/abnormal . PATHOLOGIST SMEAR [id number] 00:00:00 Test Item Value Reference Range Interpretation Comments BASOPHILS (test code 0.8 % = 96165-6) COMMENTS (test code (NOTE) = 52586-9) DIAGNOSIS: (test (NOTE) code = 82561-8) EOSINOPHILS (test 2.5 % code = 54211-2) HEMATOCRIT (test 38.9 % See_Comment [Automated message] code = 83418-2) The system [employer] generated this result transmit roney reference range : 34.0-45.0 %. Th e reference range was not used to interpret this result as normal/abnormal . HEMOGLOBIN (test 12.6 G/DL See_Comment [Automated message] code = 718-7) The system [employer] generated this result transmit roney reference range : 11.5-15.5 G/DL. The reference range was not used to interpret this result as normal/abnormal . LYMPHOCYTES (test 27.9 % code = 22460-0) MCH (test code = 28.0 PG See_Comment [Automated message] 55126-2) The system [employer] generated this result transmit roney reference range : 25.0-33.0 PG. T he reference range was not used to interpret this result as normal/abnormal . MCHC (test code = 32.4 G/DL See_Comment [Automate d message] 16524-8) The system [employer] generated this result transmit roney reference range : 31.0-36.0 G/DL. The reference range was not used to interpret this result as normal/abnormal . MCV (test code = 86.4 fL See_Comment [Automated message] 33848-8) The system [employer] generated this result transmit roney reference range : 80.0-99.0 fL. T he reference range was not used to interpret this result as normal/abnormal . MICROSCOPIC (NOTE) DESCRIPTION: (test code = 42472-3) MONOCYTES (test code 11.8 % = 69434-9) NEUTROPHILS (test 56.3 % code = 87383-5) NUCLEATED RBCS (test 0.0 /100 WBC'S See_Comment [Aut omated message] code = 41403-2) The system [employer] generated this result transmit roney reference range : 0.0 /100 WBC'S. The reference range was not used to interpret this result as normal/abnormal . PATHOLOGIST: (test (NOTE) code = 60161-3) PLATELET COUNT (test 262 K/UL See_Comment [Autom ated message] code = 71420-2) The system [facility] generated this result transmit roney reference range : 130-400 K/UL. T he reference range was not used to interpret this result as normal/abnormal . RBC (test code = 4.50 M/UL See_Comment [Automated message] 28944-3) The system [employer] generated this result transmit roney reference range : 3.80-5.40 M/UL. The reference range was not used to interpret this result as normal/abnormal . RDW (test code = 18.5 % See_Comment H [Automated message] 47181-7) The system [employer] generated this result transmit roney reference range : 11.5-15.0 %. Th e reference range was not used to interpret this result as normal/abnormal . WBC (test code = 6.0 K/UL See_Comment [Automated message] 04684-2) The system [employer] generated this result transmit roney reference range : 3.5-11.0 K/UL. The reference range was not used to interpret this result as normal/abnormal . VITAMIN B 12 AND FOLIC [id number] 00:00:00 Test Item Value Reference Range Interpretation Comments FOLIC ACID (test 7.8 UG/L SEE BELOW UG/L code = 2284-8) VITAMIN B-12 (test 844 PG/ML See_Comment [Automat ed message] The code = 2132-9) system which generated this result tra nsmitted reference range : 200-950 PG/ML. The refe rence range was not u sed to interpret this result as normal/abnormal . COMPREHENSIVE METABOLIC [id number] 00:00:00 Test Item Value Reference Range Interpretation Comments ALBUMIN (test code = 4.8 G/DL See_Comment [Autom ated message] 1751-7) The system [employer] generated this result transmit roney reference range : 3.5-5.2 G/DL. T he reference range was not used to interpret this result as normal/abnormal . ALKALINE PHOSPHATASE 57 U/L See_Comment [Autom ated message] (test code = 6768-6) The sys tem which generated this result transmit roney reference range : 40-142 U/L. The reference range was not used to interpret this result as normal/abnormal . BILIRUBIN, TOTAL 0.2 MG/DL See_Comment [Automated message] (test code = 1974-2) The sys tem which generated this result transmit roney reference range : <=1.2 MG/DL. Th e reference range was not used to interpret this result as normal/abnormal . BUN (test code = 20 MG/DL See_Comment [Automated message] 3094-0) The system [facility] generated this result transmit roney reference range : 8-23 MG/DL. The reference range was not used to interpret this result as normal/abnormal . CALCIUM (test code = 10.1 MG/DL See_Comment [Autom ated message] 29617-1) The system [facility] generated this result transmit roney reference range : 8.5-10.5 MG/DL. The reference range was not used to interpret this result as normal/abnormal . CALC A/G RATIO (test 2.3 RATIO See_Comment [Autom ated message] code = 1759-0) The system [facility] generated this result transmit roney reference range : 1.0-2.6 RATIO. The reference range was not used to interpret this result as normal/abnormal . CALC BUN/CREAT (test 22 RATIO See_Comment [Autom ated message] code = 3097-3) The system [facility] generated this result transmit roney reference range : 6-28 RATIO. The reference range was not used to interpret this result as normal/abnormal . CALC GLOBULIN (test 2.1 G/DL See_Comment [Automa roney message] code = 74975-8) The system [facility] generated this result transmit roney reference range : 1.9-3.7 G/DL. T he reference range was not used to interpret this result as normal/abnormal . CARBON DIOXIDE (test 24 MEQ/L See_Comment [Autom ated message] code = 1963-8) The system [facility] generated this result transmit roney reference range : 19-31 MEQ/L. Th e reference range was not used to interpret this result as normal/abnormal . CHLORIDE (test code 99 MEQ/L See_Comment [Automa roney message] = 2074-0) The system [facility] generated this result transmit roney reference range : 95-107 MEQ/L. T he reference range was not used to interpret this result as normal/abnormal . CREATININE (test 0.90 MG/DL See_Comment [Automated message] code = 2160-0) The system [facility] generated this result transmit roney reference range : 0.60-1.30 MG/DL . The reference range was not used to interpret this result as normal/abnormal . eGFR (2020 CKD-EPI) 70 ML/MIN/1.73 See_Comment [Auto mated message] (test code = The system [employer] 46886-9) generated this result transmit roney reference range : >60 ML/MIN/1.73. Th e reference range was not used to interpret this result as normal/abnormal . GLUCOSE (test code = 93 MG/DL See_Comment [Autom ated message] 1558-6) The system [employer] generated this result transmit roney reference range : 70-99 MG/DL. Th e reference range was not used to interpret this result as normal/abnormal . POTASSIUM (test code 4.4 MEQ/L See_Comment [Autom ated message] = 2823-3) The system [employer] generated this result transmit roney reference range : 3.5-5.4 MEQ/L. The reference range was not used to interpret this result as normal/abnormal . PROTEIN, TOTAL (test 6.9 G/DL See_Comment [Autom ated message] code = 2885-2) The system [employer] generated this result transmit roney reference range : 6.1-8.3 G/DL. T he reference range was not used to interpret this result as normal/abnormal . AST (test code = 12 U/L See_Comment [Automated message] 1920-8) The system [employer] generated this result transmit roney reference range : 9-40 U/L. The reference range was not used to interpret this result as normal/abnormal . ALT (test code = 9 U/L See_Comment [Automated message] 1742-6) The system [employer] generated this result transmit roney reference range : 5-40 U/L. The reference range was not used to interpret this result as normal/abnormal . SODIUM (test code = 139 MEQ/L See_Comment [Automa roney message] 5591-2) The system [employer] generated this result transmit roney reference range : 133-146 MEQ/L. The reference range was not used to interpret this result as normal/abnormal . PROTHROMBIN [id number] 08:56:00 Test Item Value Reference Range Interpretation Comments PROTHROMBIN TIME 13.0 SECONDS 9.3-12.9 H PATIENT (test code = PTP) INTERNATIONAL NORMAL 1.2 0.8-1.2 N TARGET INR BY RATIO (test code = INDICATIO N Indication INR) INR1. Prophylax is of venous thrombos is 2.0 - 3.0 (orthoped ic surgery), Proph ylaxis of venous throm bosis (other than hig h-risk surgery), Treat ment of Deep Vein Thrombosis/Pulm onary Embolism, Preve ntion of systemic emb olism - Tissue heart va lves, Acute Myocardia l Infarction (to prevent systemic emboli sm), Valvular heart disease, Atria l Fibrillation, Bileaflet mecha nical valve in aortic position.2. Mec hanical prosthetic valv es (high risk), 2. 5 - 3.5 Presence of Lup us Anticoagulant o r Antiphospholipi d Antibodies, Pre vention of systemic emb olism - Acute Myocardia l Infarction (to prevent recurrent infar ct). BASIC METABOLIC [id number] 08:38:00 Test Item Value Reference Range Interpretation Comments SODIUM (test code = NA) 135 mEq/L 134-147 N POTASSIUM (test code = 3.8 mEq/L 3.4-5.0 N K) CHLORIDE (test code = 102 mEq/L 100-108 N CL) CARBON DIOXIDE (test 27 mEq/l 21-33 N code = CO2) ANION GAP (test code = 10 0-20 N GAP) GLUCOSE (test code = 86 mg/dL 70-110 N GLU) BLOOD UREA NITROGEN 13 mg/dL 7-18 N (test code = BUN) GLOMERULAR FILTRATION 71.5 80-90 L Units of measure = RATE (test code = GFR) ml/mi n/1.73 m2 CREATININE (test code = 0.8 mg/dL 0.6-1.3 N CREAT) CALCIUM (test code = 9.3 mg/dL 8.0-10.5 N CA) CBC W/AUTO [id number] 08:27:00 Test Item Value Reference Range Interpretation Comments WHITE BLOOD CELL (test code = 4.7 x10 3/uL 4.5-11.0 N WBC) RED BLOOD CELL (test code = 3.99 x10 6/uL 3.54-5.02 N RBC) HEMOGLOBIN (test code = HGB) 11.5 g/dL 11.0-15.0 N HEMATOCRIT (test code = HCT) 35.2 % 33.0-45.0 N MEAN CELL VOLUME (test code = 88.2 fL 81.0-99.0 N MCV) MEAN CELL HGB (test code = MCH) 28.8 pg 27.0-33.0 N MEAN CELL HGB CONCETRATION 32.7 g/dL 33.0-37.0 L (test code = MCHC) RED CELL DISTRIBUTION WIDTH CV 13.5 % 11.5-14.5 N (test code = RDW) RED CELL DISTRIBUTION WIDTH SD 44.0 fL 37.0-54.0 N (test code = RDW-SD) PLATELET COUNT (test code = 312 x10 3/uL 150-400 N PLT) MEAN PLATELET VOLUME (test code 9.2 fL 7.0-9.0 H = MPV) NEUTROPHIL % (test code = NT%) 47.4 % 56.0-77.0 L IMMATURE GRANULOCYTE % (test 0.4 % 0.0-2.0 N code = IG%) LYMPHOCYTE % (test code = LY%) 36.1 % 14.0-32.0 H MONOCYTE % (test code = MO%) 13.8 % 4.8-9.0 H EOSINOPHIL % (test code = EO%) 1.7 % 0.3-3.7 N BASOPHIL % (test code = BA%) 0.6 % 0.0-2.0 N NUCLEATED RBC % (test code = 0.0 % 0-0 N NRBC%) NEUTROPHIL # (test code = NT#) 2.23 x10 3/uL 2.0-7.6 N IMMATURE GRANULOCYTE # (test 0.02 x10 3/uL 0.00-0.03 N code = IG#) LYMPHOCYTE # (test code = LY#) 1.70 x10 3/uL 1.0-3.8 N MONOCYTE # (test code = MO#) 0.65 x10 3/uL 0.1-0.8 N EOSINOPHIL # (test code = EO#) 0.08 x10 3/uL 0.0-0.2 N BASOPHIL # (test code = BA#) 0.03 x10 3/uL 0.0-0.2 N NUCLEATED RBC # (test code = 0.00 x10 3/uL 0.0-0.1 N NRBC#) MANUAL DIFF REQUIRED (test code NO = MDIFF) [id number] 11:22:00 Test Item Value Reference Range Interpretation Comments ACT-ISTAT (test code 254 SEC 74-137 H Perform ed by certified = ANGELY) viner operator at [facility] - XR CHEST 1 [id number] 00:00:00 [facility] : 1955 Sex: F FAX: Guy Cifuentes MD [phone] [place]: St: ADM FAX: Shoaib Duran [phone] Name: KIANNA LAN [facility] : 1955 Age/S: 66/F [address] [place] [address] Unit #: [id number] Loc: JANELL Mccormack, [id number] Phys: Shoaib Duran [facility] Acct: [id number] Dis Date: Status: ADM IN PHONE #: [phone] Exam Date: 01/03/2022 1606 FAX #: [phone] Reason: WATCHMAN EXAMS: CPT CODE: [id number] XR CHEST 1V 24541 PROCEDURE INFORMATION: Exam: XR Chest Exam date and time: 01/03/2022 3:40 PM Age: 66 years old Clinical indication: Other: Watchman TECHNIQUE: Imaging protocol: XR of the chest. Views: 1 view. COMPARISON: DX XR CHEST 2 V 12/29/2021 2:09 PM FINDINGS: Tubes, catheters and devices: None. Lungs: Thelungs appear clear. Pleural spaces: Unremarkable. No pleural effusion. No pneumothorax. Heart/Mediastinum: Mediastinum and armen appear unremarkable. Vasculature: Mild atherosclerotic calcification demonstrated within the aorta. Bones/joints: Diffusely decreased bone density. Mild to moderate generalized bony degenerative changes. Bony structures appear otherwise unremarkable. IMPRESSION: No evidence for acute abnormality identified in the chest. at 1615 Reported and signed by: Howard Yeung M.D. CC: Guy Toth; Shoaib Duran Technologist: Marquita Pizarro RT(R) Trnscrd Date/Time/By: 01/03/2022 (4787): By: [email or web address] Orig Print D/T: S: 01/03/2022 (1615) PAGE 1 Signed ReportNovel Coronavirus 2019 [id number] 23:44:00 Test Item Value Reference Range Interpretation Comments Novel Coronavirus Negative Negative Positive r esults are 2019 Inhouse (test indicativ e of the presence code = COVNONPUI) ofSARS-CoV -2 RNA, clinical correlation wit h patient historyand othe r diagnostic info rmation is necessary to determinepatien t infection status. Positiv e results do not rule out bacterial infection or co -infection with other viru ses. Negative result s do not preclude SARS-C oV-2 infection andsh ould not be used as the scarlett e basis for patient managementdecis ions. Negative result s must be combined with otherclinical observations, p atient history, and epidemiological information . Detection of SARS-CoV-2 RNA may be affe cted bysample collec tion methods, storag e conditions, and /or stageof infection. [place] l RNA mutations, vacc inations, antiviraltherap eutics, antibiotics, chemotherapeuti c orimmunosuppres niesha drugs have not been e valuated for effectson d etection. Results are for the identification of SARS-CoV-2 RNA usingreal-time (RT) polymerase yamel n reaction (PCR) technolog yfor the qualitative det ection of nucleic acids f rom fmeVPES-OkC-4 v irus and diagnosis of SA RS-CoV-2 virusinfection. It is an Emergency Use Authorization ( EUA) testauthorized by the U.S. FDA. [id number] 13:44:00 Test Item Value Reference Range Interpretation Comments PREALBUMIN (test code = PREALB) 28.3 mg/dL 16.0-40.0 N BASIC METABOLIC [id number] 13:44:00 Test Item Value Reference Range Interpretation Comments SODIUM (test code = NA) 136 mEq/L 134-147 N POTASSIUM (test code = 4.2 mEq/L 3.4-5.0 N K) CHLORIDE (test code = 104 mEq/L 100-108 N CL) CARBON DIOXIDE (test 26 mEq/l 21-33 N code = CO2) ANION GAP (test code = 11 0-20 N GAP) GLUCOSE (test code = 84 mg/dL 70-110 N GLU) BLOOD UREA NITROGEN 13 mg/dL 7-18 N (test code = BUN) GLOMERULAR FILTRATION 71.5 80-90 L Units of measure = RATE (test code = GFR) ml/mi n/1.73 m2 CREATININE (test code = 0.8 mg/dL 0.6-1.3 N CREAT) CALCIUM (test code = 9.1 mg/dL 8.0-10.5 N CA) PROTHROMBIN [id number] 13:34:00 Test Item Value Reference Range Interpretation Comments PROTHROMBIN TIME 12.5 SECONDS 9.3-12.9 N PATIENT (test code = PTP) INTERNATIONAL NORMAL 1.1 0.8-1.2 N TARGET INR BY RATIO (test code = INDICATIO N Indication INR) INR1. Prophylax is of venous thrombos is 2.0 - 3.0 (orthoped ic surgery), Proph ylaxis of venous throm bosis (other than hig h-risk surgery), Treat ment of Deep Vein Thrombosis/Pulm onary Embolism, Preve ntion of systemic emb olism - Tissue heart va lves, Acute Myocardia l Infarction (to prevent systemic emboli sm), Valvular heart disease, Atrial Fibrillation, Bileaflet mecha nical valve in aortic position.2. Mec hanical prosthetic valv es (high risk), 2. 5 - 3.5 Presence of Lup us Anticoagulant o r Antiphospholipi d Antibodies, Pre vention of systemic emb olism - Acute Myocardia l Infarction (to prevent recurrent infar ct). CBC W/AUTO [id number] 13:29:00 Test Item Value Reference Range Interpretation Comments WHITE BLOOD CELL (test code = 4.5 x10 3/uL 4.5-11.0 N WBC) RED BLOOD CELL (test code = 4.10 x10 6/uL 3.54-5.02 N RBC) HEMOGLOBIN (test code = HGB) 12.0 g/dL 11.0-15.0 N HEMATOCRIT (test code = HCT) 38.5 % 33.0-45.0 N MEAN CELL VOLUME (test code = 93.9 fL 81.0-99.0 N MCV) MEAN CELL HGB (test code = MCH) 29.3 pg 27.0-33.0 N MEAN CELL HGB CONCETRATION 31.2 g/dL 33.0-37.0 L (test code = MCHC) RED CELL DISTRIBUTION WIDTH CV 14.4 % 11.5-14.5 N (test code = RDW) RED CELL DISTRIBUTION WIDTH SD 49.4 fL 37.0-54.0 N (test code = RDW-SD) PLATELET COUNT (test code = 213 x10 3/uL 150-400 N PLT) MEAN PLATELET VOLUME (test code 10.1 fL 7.0-9.0 H = MPV) NEUTROPHIL % (test code = NT%) 45.9 % 56.0-77.0 L IMMATURE GRANULOCYTE % (test 0.2 % 0.0-2.0 N code = IG%) LYMPHOCYTE % (test code = LY%) 38.6 % 14.0-32.0 H MONOCYTE % (test code = MO%) 12.8 % 4.8-9.0 H EOSINOPHIL % (test code = EO%) 1.6 % 0.3-3.7 N BASOPHIL % (test code = BA%) 0.9 % 0.0-2.0 N NUCLEATED RBC % (test code = 0.0 % 0-0 N NRBC%) NEUTROPHIL # (test code = NT#) 2.05 x10 3/uL 2.0-7.6 N IMMATURE GRANULOCYTE # (test 0.01 x10 3/uL 0.00-0.03 N code = IG#) LYMPHOCYTE # (test code = LY#) 1.72 x10 3/uL 1.0-3.8 N MONOCYTE # (test code = MO#) 0.57 x10 3/uL 0.1-0.8 N EOSINOPHIL # (test code = EO#) 0.07 x10 3/uL 0.0-0.2 N BASOPHIL # (test code = BA#) 0.04 x10 3/uL 0.0-0.2 N NUCLEATED RBC # (test code = 0.00 x10 3/uL 0.0-0.1 N NRBC#) MANUAL DIFF REQUIRED (test code NO = IFF) - XR CHEST 2 [id number] 00:00:00 [facility] : 1955 Sex: F FAX: Guy Cifuentes MD [phone] [place]: St: PRE Name: KIANNA LAN [facility] : 1955 Age/S: 66/F [address] [place] [address] Bl Unit #: [id number] Loc: [place] [address] Phys: Guy Devine MD Acct: [id number] Dis Date: Status: PRE [facility] PHONE #: [phone] Exam Date: 12/29/2021 1403 FAX #: [phone] Reason: PREOP EXAMS: CPT CODE: [id number] XR CHEST 2 V 64597 PROCEDURE INFORMATION: Exam: XR Chest Exam date and time: 12/29/2021 2:09 PM Age: 66 years old Clinical indication: Pre-operative exam; Respiratory screening exam; Additional info: Preop TECHNIQUE: Imaging protocol: XR of the chest. Views: 2 views. PA and Lateral COMPARISON: No relevant prior studies available. FINDINGS: Lungs: No consolidation. Pleural spaces: No pleural effusion. Heart/Mediastinum: The heart and vascular markings are within limits of normal. There is atherosclerotic calcification of the aorta. Bones/joints: No gross acute findings. IMPRESSION: No acute cardiopulmonary findings at 1525 Reported and signed by: James Marsh D.O. CC: Guy Devine MD Technologist: RT Adonis(R) Trnscrd Date/Time/By: 12/29/2021 (152) : By: [email or web address] Orig Print D/T: S: 12/29/2021 (799) PAGE 1 Signed ReportAmylase, [id number] 00:00:00 Test Item Value Reference Range Interpretation Comments Amylase (test code = 1798-8) 64 31-110 Lipase, [id number] 00:00:00 Test Item Value Reference Range Interpretation Comments Lipase (test code = 3040-3) 16 14-72 Comp. Metabolic Panel (14) (CMP)2021-09-26 00:00:00 Test Item Value Reference Range Interpretation Comments Glucose (test code = 2345-7) 90 65-99 BUN (test code = 3094-0) 18 8-27 Creatinine (test code = 2160-0) 0.65 0.57-1.00 eGFR If NonAfricn Am (test code = 92 >59 05130-4) eGFR If Africn Am (test code = 13616-4) 106 >59 BUN/Creatinine Ratio (test code = 28 12-28 3097-3) Sodium (test code = 2951-2) 137 134-144 Potassium (test code = 2823-3) 4.9 3.5-5.2 Chloride (test code = 2075-0) 101 96-106 Carbon Dioxide, Total (test code = -2027-9) Calcium (test code = 72644-1) 9.7 8.7-10.3 Protein, Total (test code = 2885-2) 6.7 6.0-8.5 Albumin (test code = 1751-7) 4.6 3.8-4.8 Globulin, Total (test code = 85648-4) 2.1 1.5-4.5 A/G Ratio (test code = 1759-0) 2.2 1.2-2.2 Bilirubin, Total (test code = 1974-2) 0.3 0.0-1.2 Alkaline Phosphatase (test code = 65 44-121 6768-6) AST (SGOT) (test code = 1920-8) 11 0-40 ALT (SGPT) (test code = 1742-6) 9 0-32 CBC With Differential/[id number] 00:00:00 Test Item Value Reference Range Interpretation Comments WBC (test code = 6690-2) 5.3 3.4-10.8 RBC (test code = 789-8) 4.05 3.77-5.28 Hemoglobin (test code = 718-7) 11.7 11.1-15.9 Hematocrit (test code = 4544-3) 36.0 34.0-46.6 MCV (test code = 787-2) 89 79-97 MCH (test code = 785-6) 28.9 26.6-33.0 MCHC (test code = 786-4) 32.5 31.5-35.7 RDW (test code = 788-0) 14.2 11.7-15.4 Platelets (test code = 777-3) 208 150-450 Neutrophils (test code = 770-8) 57 Not Estab. Lymphs (test code = 736-9) 33 Not Estab. Monocytes (test code = 5905-5) 9 Not Estab. Eos (test code = 713-8) 1 Not Estab. Basos (test code = 706-2) 0 Not Estab. Immature Cells (test code = UNLOINC) Neutrophils (Absolute) (test code = 3.0 1.4-7.0 751-8) Lymphs (Absolute) (test code = 731-0) 1.8 0.7-3.1 Monocytes(Absolute) (test code = 742-7) 0.5 0.1-0.9 Eos (Absolute) (test code = 711-2) 0.1 0.0-0.4 Baso (Absolute) (test code = 704-7) 0.0 0.0-0.2 Immature Granulocytes (test code = 0 Not Estab. 14333-2) Immature Grans (Abs) (test code = 0.0 0.0-0.1 72696-7) NRBC (test code = 74307-9) Hematology Comments: (test code = 64170-1) [id number] 21:08:00 Test Item Value Reference Range Interpretation Comments Chol (test code = Chol) 156 [id number] 21:08:00 Test Item Value Reference Range Interpretation Comments HDL (test code = HDL) 58 [facility] HospitalDfepnnbVWGJYE6446-01-10 21:08:00 Test Item Value Reference Range Interpretation Comments Trig (test code = Trig) 87 [facility] [id number] 21:08:00 Test Item Value Reference Range Interpretation Comments LDL (Calculated) (test code = LDL 81 (Calculated)) [facility]aglbvjTLTOCL6438-43-79 21:08:00 Test Item Value Reference Range Interpretation Comments CHD Risk (test code = CHD Risk) [facility]7 [facility] 21:08:00 Test Item Value Reference Range Interpretation Comments Non HDL Chol (test code = Non HDL Chol) 98 [facility] Notes Date/Time Note Provider Source 2022-03-14 12:33:00 [id number] [address] [facility] [address] [address] PATIENT NAME: KIANNA LAN ADMIT DATE: 02/21/22ACCOUNT NO: [id number] ROOM NO: AGE: 66 REPORT TYPE: eTRANSESOPHAGEA L ECHO REPORT SEX: F ADMITTING PHYSICIAN: SEVERIANO Caruso PHYSICIAN:Guy Devine MD *[address] [address]Werri: [phone]: [phone] Transesophageal Echocardiogram Patient: Ros Lan Date: 02/21/2022 BP: 108 / 77 Location: [place]: [id number] : 1955 Age: 66 Height: 65 in / 165.1 cmAccession#: [id number] Gender: F Weight: 167.6 lb / 76.2 kgBMI/BSA: 28 kg/m 2 / 1.89 m 2 *Ordering Physician: * Guy Devine *Interpreting Physician: * Sybil Tovar MD*Webbing Tacker: * Milka Thomas - Indications: Post WATCHMAN. - Study data: Consent: The risks, benefits, and alternatives to theprocedur e were explained to the patient and informed consent wasobtained. Procedure: Initial setup: The patient was brought to thelaboratory in the fasting state.Intravenous access was obtained. SurfaceECG leads and pulse oximetric signals wer e monitored. Sedation. Moderatesedation was administered by cardiology staff. Transesophagealechocardiography was performed. Topical anesthesia was obtained usingbenzocaine spray. A transesophageal probe (SN: [id number]) was inserted bythe attending crozer operator without difficulty. Images were obtainedusing a [employer] cardiac ultrasound machine. Image quality was adequate. Thetransesophageal probe was removed. Limited 2D, 3D, Doppler, and colorDoppler. Location: CVPREP. Patient status: Inpatient. Patient roomnumber: 18. Study status: Routine. Study completion: The patienttolerated the procedure well. There were no complications. PATIENT NAME: KIANNA LAN - Findings Left ventricle: The cavity size is normal. Wall thickness is normal.Systolic function is normal. The estimate d ejection fraction is 50-54%.Wall motion is normal; there are no regional wall motion abnormalities.Right ventricle: The cavity size i s normal. Systolic function isnormal.Left atrium: The atrium is normal in size. The appendage is o f normalsize. Emptying velocity is normal. Post Watchman: The 24 mm Watchman LAAoccluder device is well seated. There is no evidence of residual flowaround the Watchman occluder device. There i s no evidence of a thrombusin the atrial cavity or appendage. No spontaneous echo contrast isobserved.Aorta: A single aortic arch is present. Brachiocephalic branching isnormal. The right innominate artery is the first aortic branch. Theaorta is normal, normal size, and non-diseased.Mitral valve: There is mild regurgitation.Pericardium: There is no pericardial effusion. - Conclusions Summary: 1. Left ventricle: The cavity size is normal. Wall thickness is normal. Systolic function is normal . The estimated ejection fraction is 50-54%. Wall motion is normal; there are no regional wall motion abnormalities.2. Left atrium: There is no evidence of a thrombus in the atrial cavity or appendage. No spontaneous echo contrast is observed.3. Mitral valve: There is mild regurgitation. Prepared and electronically brayan d by Sybil Tovar MD03/14/2022 12:33 at 1233 PATIENT NAME: KIANNA LAN uqbwbcl4500-01-79R89:33:00G.[id number] a ilable for patient dcwqVYQKHGBLWGBTUI3598-98-87T74:34:21 2022-01-03 18:24:00 [id number]:24:[id number] [address] [place] [address] PATIENT NAME: KIANNA LAN ADMIT DATE: 01/03/22ACCOUNT NO: [id number] ROOM NO: JANELL AGE: 66 REPORT TYPE: eECHOCARDIOGRAM REPORT SEX: F ADMITTING PHYSICIAN:Guy Devine MD ATTENDING PHYSICIAN:Guy Devine MD *[place], [place] [address]Phone: Bot: [phone] Limited Transthoracic Echocardiogra m Patient: Kianna LanStudy Date: 01/03/2022 BP: 108 / 55 [id number] 1955 Age: 66 Height: 65 in / 165.1 cmAccession#: [id number] Gender: F Weight: 167.6 lb / 76.2 kgBMI/BSA: 28 kg/m 2 / 1.84 m 2 *Ordering Physician: * Shoaib Duran *Interpretin g Physician: * Nick Marsh MD*Webbing Tacker: * Dannielle Hendricks - Indications: POST WATCHMAN. - Study data: Transthoracic echocardiogram, limited study. Procedure:Transthoracic echocardiography was performed. Image quality wasadequate. Limited 2D and limited spectral Doppler. Location:Procedure room. Patient status: Inpatient. Patient room number:CVPACU. Study status: STALIN. - Findings Left ventricle: The cavity size is normal. Wall thickness is normal.Systolic function is normal. The estimate d ejection fraction is 50-54%.Wall motion is normal; there are no regional wall motion abnormalities.Left atrium: The atrium is normal in size.Pericardium: There is no pericardial effusion. PATIENT NAME: KIANNA LNA - Measurements Left ventricle Value Ref VLADIMIR, LAX 4.2 cm 3.8 - 5.2 ESD, LAX 3.1 cm 2.2 - 3.5 ESD/bsa, LAX 1.7 cm/m 2 1.3 - 2.1 FS, LAX 27 % 27 - 45 ESD/bsa major ax, A4C 3.0 cm/m 2 --------- VLADIMIR/bsa minor ax, A4C 3.0 cm/m 2 --------- VLADIMIR major ax, A2C 6.7 cm --------- VLADIMIR/bsa major ax, A2C 3.6 cm/m 2 --------- PW, ED 1.2 cm 0.6 - 0.9 IVS/PW, ED 1.0 1 --------- EF 52 % 54 - 74 LVOT Value Ref Diam, S 2.05 cm --------- Area 3.3 cm 2 --------- Ventricular septum Value Ref IVS, ED 1.2 cm 0.6 - 0.9 Right ventricle Value Ref VLADIMIR, LAX 2.9 cm --------- Left atrium Value Ref Vol/bsa, ES, 1-p A4C 16 ml/m 2 11 - 40 Vol/bsa, ES, A/L 18 ml/m 2 16 - 34 AP dim, ES MM 3.3 cm 2.7 - 3.8 LA/Ao min t ratio, MM 1.03 --------- Aortic valve Value Ref Leaflet sep, MM 1.68 cm --------- Mitral valve Value Ref E-septal separation 0.6 cm --------- E-F slope 0.07 m/sec --------- Aortic root Valu e Ref Root diam, ED MM 3.19 cm --------- - Conclusions Summary: 1. Left ventricle: The cavity size is normal. Wall thickness is normal. Systolic function is normal . The estimated ejection fraction is 50-54%. Wall motion is normal; there are no regional wall motion abnormalities.2. Pericardium, extracardiac: There is no pericardial effusion. Prepared and electronically signed byPATIENT NAME: KIANNA LAN Nick Marsh MD01/03/2022 18:24 Electronicall y Signed by Nick Marsh MD on 01/03/22 at 1824 PATIENT NAME: KIANNA LAN :24: 0 [id number] for patient esxpNLDDQGXYBOTLSN9696-78-44S70:25:06 2022-01-03 14:23:00 [id number] [facility] [place] [address] PATIENT NAME: KIANNA LAN ADMIT DATE: 01/03/22ACCOUNT NO: [id number] ROOM NO: JANELL AGE: 66 REPORT TYPE: OPERATIVE REPORT SEX: F ADMITTING PHYSICIAN:Guy Devine MD ATTENDING PHYSICIAN:Guy Devine MD OPERATION DATE: 01/03/2022 PROCEDURES PERFORMED: Left atrial appendage closure using a 24-mm Watchman FLXclosure device. INDICATIONS: Atrial fibrillation, high CHADS-VASc score, and inability totolerate anticoagulants. ACCESS: Right femoral vein, 16-Cuban closed with iruswm-rw-argks suture. COMPLICATIONS: None. BLEEDING: Less than 10 mL. DESCRIPTION OF PROCEDURE: After risks, benefits, and alternatives wereexplained, the patient agreed t o proceed and signed informed consent. Thepatient was brought into cardiac catheterization laboratory, prepped and drapedin usual sterile fashion. Anesthesia was applied by the anesthesi a team and TEEprobe was inserted and preprocedure PABLO was performed and then we took amicropunctur e kit and with ultrasound guidance, accessed right femoral vein,placed an 8-Cuban [place] sheath and upgraded to 16-Cuban Cook sheath andgave partial dose of heparin and then I took a SL1 sheath into the SVC,descended into the interatrial septum in the low mid position. Transseptalpuncture was performed and then advanced SL1 sheath into the LA. LA pressurewas measured at 19 mmHg. Then, I took a ProTrack wir e into the left atrium,exchanged for a Watchman double curve sheath. At this time, full dose heparinwas given to assure ACT level above 250 throughout the procedure. Then, I tooka pigtail through the Watchman sheath into the left atrium and navigated thatinto the appendage then advanced the sheath over it into the appendage andappendage angiogram was performed. Subsequently, we determined 24-mm devicewill be suitable for closure. The device was prepped and draped in the usualsterile fashion, took the device and after removing the pigtail after good bleedback, device was introduced with positive flush and then advanced into theappendage and deployed successfully without complications. PAS S criteria wereevaluated and met. Device was released in stable condition and then removed thedelivery system. Watchman sheath and the Cook sheath and jgbvzj-wi-tahdf suturewas used for closure with good hemostasis. CONCLUSION: Successful left atrial appendage closure using a 24-mm Watchman FLXclosure device. Dictated By: Guy Devine MD PATIENT NAME: KIANNA LAN WT: OP:GBREN/KRISTA/NTSDD : 01/03/2022 14:23:37DT: 01/03/2022 22:50:01Conf#: [id number]/DID#: [id number] Authenticated by Guy Devine MD On 06/13/2022 09:55:12 AM at 0955 PATIENT NAME: KIANNA LAN uojtar6244-84-49A14:50:00G.[id number] i lable for patient bklfWBQLJOFOXEJKKI3122-33-04L69:55:50 2022-01-03 12:02:00 [id number]:02:00 [facility]Discharge SummaryREPORT#:[id number] REPORT STATUS: SignedDATE:01/03/22 TIME: 1201 PATIENT: KIANNA LAN UNIT #: [id number]#: [id number] [address] AGE : 66 SEX: F ATTEND: Guy Devine [facility] AUTHOR: Shoaib Duran * ALL edits or amendments must be made on the electronic/computer document * PCP PCPDischarge to: [facility] General InformationDischarge date: 01/03/22Hospital course:Patient with paroxysmal atrial fibrillation, CHADSVASC score of 3, and intolerance to long-term anticoagulation due to risk bleeding. Patient is s/p successful implantation of a 24mm Watchman device in the left atrial appendage. Patient tolerated the procedure without post-op complications. No thrombus was identified in the pre-/intra-op PABLO . Postoperatively, chest x-ray is negative for any acute process. Post-op echo didnot show a pericardial effusion. Patient ambulated without any difficulty, and heart rate and blood pressur e are stable. Right groin suture removed by this ANIMAL ANATOMIST. No infection, bleeding, or hematoma. Dermabond applied and intact. Patient was provided with post-Watchman discharge instructions. Patient is to follow up with PCP and crozer operator in 1 to 2 weeks post discharge. Patient is to follow up with crozer operator for th e 45-day PABLO, and for anticoagulation recommendation. Patient is to continue Xarelto until the 45-day PABLO. If the 45-day PABLO shows a well-seated watchman device with no leaks or thrombus,then Xarelto will be discontinued and the patient will be initiated on aspirin and Plavix. Duration of aspirin is lifelong. Duratio n of Plavix is 6 months post 45-day PABLO. Post-Watchman discharge instructions given to th e patient who verbalized understanding, and patien t was instructed to report any complaints of chest pain, shortness of breath, lightheadedness, or dizziness to the crozer operator. Dispo: It is medically necessary that patients undergoing percutaneous left atrial appendage occlusion are admitted as an inpatient. This patient had a recovery that was earlier than expected and can be discharged today. Med Rec PCPPCP:PCP: No Primary or Family Physician Med RecDischarge meds:Continue taking these medications:DIVALPROE X (ISA PARRY) 500 MG TAB.DR 500 MILLIGRAM ORA L THREE TIMES A DAY. lamoTRIgine (LaMICtal) 100 MG TAB 100 MILLIGRAM ORAL TWICE DAILY. Comments: PT TAKES 75 MG RIVAROXABAN (XARELTO) 20 MG TAB 20 MILLIGRAM ORAL BEDTIME. IBUPROFEN (ADVIL) 400 MG TAB 400 MILLIGRAM ORAL EVERY 6 HOURS. ZOLPIDEM (AMBIEN) 5 MG TAB 5 MILLIGRAM ORAL AT BEDTIME NEEDED. as needed for SLEEP ObjectiveVS/I OLast Documented: Result Date Time Pulse Ox 100 01/03 719 B/P 196/77 01/03 719 O2 Delivery Room air 01/03 719 Temp 35.8 01/03 719 Pulse 67 01/03 719 Resp 18 01/03 719 PATIENT WEIGHT: Weight (lb): 168Weight (oz): 3.4Weight (kg): 76.300 General appearance: alert, awake, orientedCardiovascular: regular rate rhythmRespiratory: clear to auscultation, no distressGI: soft, non-tenderExtremities: moves allNeuro/NET REPAIRER: alert, oriented X 3Skin: dryWound/incision: Location:Right groin suture removed by this ANIMAL ANATOMIST. No infection, bleeding, or hematoma. Dermabond applied and intact. ResultsFindings/Data:Laboratory Tests: 01/03 111 2 Coagulation Activated Coag Time (74 - 137 SEC) 254 H Treatments ProceduresTreatments Procedures:Left atrial appendage closure using a 24-mm Watchman FLX closure device. Discharge Instructions PCPPCP:PCP: No Primary or Family Physician )( Discharge to: Home/Self Care Discharge InstructionsAdditional Discharge Routines: Attending Follow-Up)( Diet: Cardiac)( Activity: As Tolerated Follow-up AppointmentsAttending Physician: Attending Physician: Guy Devine MD Attending physician follow up timeframe: In 1-2 weeks at 0618 RPT #:[id number] OF REPORTDSDischarge [id number]:02:00G.[id number] v ailable for patient [id number]:18:17 2022-01-03 12:02:00 [id number]:02:00 [facility] ([facility])Discharge SummaryREPORT#:[id number] REPORT STATUS: SignedDATE:01/03/22 TIME: 1202 PATIENT: KIANNA LAN UNIT #: [id number]#: [id number] ROOM/BED: LUISOB: 54 AGE : 66 SEX: F ATTEND: Guy Devine [facility] AUTHOR: Shoaib Duran * ALL edits or amendments must be made on the electronic/computer document * PCP PCPDischarge to: home General InformationDischarge date: 01/03/22Hospital course:Patient with paroxysmal atrial fibrillation, CHADSVASC score of 3, and intolerance to long-term anticoagulation due to risk bleeding. Patient is s/p successful implantation of a 24mm Watchman device in the left atrial appendage. Patient tolerated the procedure without post-op complications. No thrombus was identified in the pre-/intra-op PABLO . Postoperatively, chest x-ray is negative for any acute process. Post-op echo didnot show a pericardial effusion. Patient ambulated without any difficulty, and heart rate and blood pressur e are stable. Right groin suture removed by this ANIMAL ANATOMIST. No infection, bleeding, or hematoma. Dermabond applied and intact. Patient was provided with post-Watchman discharge instructions. Patient is to follow up with PCP and crozer operator in 1 to 2 weeks post discharge. Patient is to follow up with crozer operator for th e 45-day PABLO, and for anticoagulation recommendation. Patient is to continue Xarelto until the 45-day PABLO. If the 45-day PABLO shows a well-seated watchman device with no leaks or thrombus,then Xarelto will be discontinued and the patient will be initiated on aspirin and Plavix. Duration of aspirin is lifelong. Duratio n of Plavix is 6 months post 45-day PABLO. Post-Watchman discharge instructions given to th e patient who verbalized understanding, and savanna haro was instructed to report any complaints of chest pain, shortness of breath, lightheadedness, or dizziness to the crozer operator. Dispo: It is medically necessary that patients undergoing percutaneous left atrial appendage occlusion are admitted as an inpatient. This patient had a recovery that was earlier than expected and can be discharged today. Med Rec PCPPCP:PCP: No Primary or Family Physician Med RecDischarge meds:Continue taking these medications:DIVALPROE X DR (DEPSONNY PARRY) 500 MG TAB.DR 500 MILLIGRAM ORA L THREE TIMES A DAY. lamoTRIgine (LaMICtal) 100 MG TAB 100 MILLIGRAM ORAL TWICE DAILY. Comments: PT TAKES 75 MG RIVAROXABAN (XARELTO) 20 MG TAB 20 MILLIGRAM ORAL BEDTIME. IBUPROFEN (ADVIL) 400 MG TAB 400 MILLIGRAM ORAL EVERY 6 HOURS. ZOLPIDEM (AMBIEN) 5 MG TAB 5 MILLIGRAM ORAL AT BEDTIME NEEDED. as needed for SLEEP ObjectiveVS/I OLast Documented: Result Date Time Pulse Ox 100 01/03 719 B/P 196/77 01/03 719 O2 Delivery Room air 01/03 719 Temp 35.8 01/03 719 Pulse 67 01/03 719 Resp 18 01/03 719 PATIENT WEIGHT: Weight (lb): 168Weight (oz): 3.4Weight (kg): 76.300 General appearance: alert, awake, orientedCardiovascular: regular rate rhythmRespiratory: clear to auscultation, no distressGI: soft, non-tenderExtremities: moves allNeuro/NET REPAIRER: alert, oriented X 3Skin: dryWound/incision: Location:Right groin suture removed by this ANIMAL ANATOMIST. No infection, bleeding, or hematoma. Dermabond applied and intact. ResultsFindings/Data:Laboratory Tests: 01/03 111 2 Coagulation Activated Coag Time (74 - 137 SEC) 254 H Treatments ProceduresTreatments Procedures:Left atrial appendage closure using a 24-mm Watchman FLX closure device. Discharge Instructions PCPPCP:PCP: No Primary or Family Physician )( Discharge to: Home/Self Care Discharge InstructionsAdditional Discharge Routines: Attending Follow-Up)( Diet: Cardiac)( Activity: As Tolerated Follow-up AppointmentsAttending Physician: Attending Physician: Guy Devine MD Attending physician follow up timeframe: In 1-2 weeks at 0618 at 0946 RPT #:[id number] OF REPORTDSDischarge [id number]:02:00G.[id number] v ailable for patient [id number]:46:47 2022-01-03 11:54:00 [id number] [facility] [address] PATIENT NAME: KIANNA LAN ADMIT DATE: 01/03/22ACCOUNT NO: [id number] ROOM NO: JANELL AGE: 66 REPORT TYPE: eELECTROCARDIOGRAM REPORT SEX: F ADMITTING PHYSICIAN:Guy Devine MD ATTENDING PHYSICIAN:Guy Devine MD Order:[id number] Reason : WATCHMAN Test Date/Time Stamp:SatJan 03 2022 11:54:19Blood Pressure : / mmHGVent. Rate : 067 BPM Atrial Rate : 067 BPM P-R Int : 168 ms QRS Dur : 090 ms QT Int : 428 ms P-R-T Axes : 039 052 068 degrees QTc Int : 452 ms Normal sinus rhythm wit h sinus arrhythmiaNonspecific ST abnormalityAbnormal ECG Confirmed by DARRIUS MISHRA MD ([id number]) on 01/03/2022 3:34:18 PM Referred By: Guy Devine Confirmed by:DARRIUS MISHRA MD at 1534 PATIENT NAME: KIANNA LAN .[id number] AVAvailable for patient [id number]:34:34 2021-12-29 13:16:00 [id number] [facility] [place] [id number] PATIENT NAME: KIANNA LAN ADMIT DATE: ACCOUNT NO: [id number] ROOM NO: AGE: 66 REPORT TYPE: eELECTROCARDIOGRAM REPORT SEX: F ADMITTING PHYSICIAN: ATTENDING PHYSICIAN:Guy Devine MD Order:[id number] Reason : PREOP Test Date/Time Stamp:SatDec 29 2021 13:16:11Blood Pressure : / mmHGVent. Rate : 082 BPM Atrial Rate : 082 BPM P-R Int : 188 ms QRS Dur : 090 ms QT Int : 396 ms P-R-T Axes : 033 072 054 degrees QTc Int : 462 ms Normal sinus rhythmNonspecific ST abnormalityAbnormal ECGPR_EOPConfirmed by DANICA GRIGGS, DARRIUS ([id number]) o n 12/29/2021 1:52:18 PM Referred By: Guy Devine Confirmed by:DARRIUS MISHRA MD at 135 2 PATIENT NAME: KIANNA LAN .[id number] AVAvailable for patient [id number]:52:42
[2023-07-05] MEDS ORDERED: ACETAMINOPHEN 500 MG TAB ONE ×2 (05:53→06:43)
[2023-07-05] MEDS ORDERED: NA CHLORIDE 0.9% 500 ML ONE ×2 (05:53→06:43)
[2023-07-05 06:22] LABS: SARS-CoV-2 Antigen Rapid Res Negative (Negative)
[2023-07-05 06:34] LABS: Protime INR 1.13
[2023-07-05 06:38] LABS: Absolute Lymphocytes (CBC) 0.2 K/uL (0.7-4.9); Hematocrit 44.1 % (36.0-45.0); Lymphocytes % 3.5 % (15.3-44.8); MCV 96.1 fL (80-100); MPV 9.3 fL (7.6-11.3); Platelets 112 thou/uL (152-406); RBC Red Blood Cell Count 4.58 M/uL (3.86-4.86)
[2023-07-05 06:47] LABS: Albumin 3.2 g/dL (3.4-5.0); Bilirubin Total 0.4 mg/dL (0.2-1.0); Potassium 3.4 mEq/L (3.5-5.1); Protein, Total 6.5 g/dL (6.4-8.2)
[2023-07-05] MEDS ORDERED: ONDANSETRON 4 MG/2 ML VIAL ONE ×2 (06:51→19:55)
[2023-07-05 07:11] LABS: Blood Morphology Comment NOT SEEN (NOT SEEN); Platelet Estimate DECR; White Blood Cell Scan OK (OK)
[2023-07-05] MEDS ORDERED: NA CHLORIDE 0.9% 1,000 ML ONE ×4 (07:21→14:55)
[2023-07-05] MEDS ORDERED: CEFEPIME 1 GM/VIAL ONE (07:31)
[2023-07-05] MEDS ORDERED: NA CHLORIDE 0.9% 100 ML ONE ×2 (07:31→22:23)
--- NOTE | 2023-07-05 08:26 | RAD REPORT ---
EXAM DESCRIPTION: CT - Abdomen Pelvis Wo Contrast - 07/05/2023 7:12 am CLINICAL HISTORY: Abdominal pain COMPARISON: 2019 TECHNIQUE: Computed axial tomography of the abdomen and pelvis was obtained. IV and oral contrast we re not requested. All CT scans are performed using dose optimization technique as appropriate and may include automated exposure control or mA/KV adjustment according to patient size. FINDINGS: The evaluation of solid organs, vessels and bowel is limited secondary to the lack of con trast administration. The liver, spleen, pancreas, adrenals and kidneys appear grossly normal. Cholecystectomy. Postsurgical changes involve the stomach The appendix is normal. There is no evidence of diverticulitis. Hysterectomy. No adnexal masses. Diffuse stranding within the right perineum, right labia and right anterior subcutaneous fat pelvis. A fluid-filled abscess is not seen. IMPRESSION: Diffuse stranding within the right perineum, right labia and right anterior subcutaneous fat pelvis. A fluid-filled abscess is not seen. This may represent a cellulitis and should be correlated clinically
--- NOTE | 2023-07-05 09:41 | EDPHYS ---
Physician Documentation [facility] Name: Kianna Lan Age: 67 yrs Sex: Female : 1955 Arrival Date: 07/05/2023 Time: 05:18 Bed 7 Private MD: ED Physician Armaan Marsh HPI: 07/05 05:43 This 67 yrs old Female presents to ER via EMS with complaints of Weakness. rn 05:43 The patient reports fever, not measured (subjective). Onset: The symptoms/episode rn began/occurred yesterday. Modifying factors: The patient has had contact with sick. Severity of symptoms: At their worst the symptoms were moderate in the emergency department the symptoms have improved. The patient has not experienced similar symptoms in the past. The patient has not recently seen a physician. Patient reports feeling ill for the last 2 days with myalgias, generalized weakness, congestion, abdominal pain, decreased appetite. Reports grandchildren that are sick, she believes the flu. Patient denies cough or shortness of breath. Reports mild headache. EMS called out for weakness and concern from . IV fluids given for tachycardia and borderline blood pressure.. Historical: - Allergies: 05:32 Augmentin; vc1 05:32 Demerol; vc1 - Home Meds: 05:32 Depakote 500 mg Oral TbEC 1 tab 3 times per day [Active]; Lamictal 150 mg Oral tab 1 vc1 tab once daily [Active]; aspirin 81 mg oral tablet,chewable [Active]; - PMHx: 05:32 Hypertension; Seizures; vc1 - PSHx: 05:32 None; vc1 - Immunization history:: Client reports receiving the 1st dose of the Covid vaccine. - Social history:: Smoking status: Patient denies any tobacco usage or history of. - Family history:: not pertinent. - Hospitalizations: : No recent hospitalization is reported. ROS: 05:43 Constitutional: Negative for fever, chills, and weight loss, Eyes: Negative for injury, rn pain, redness, and discharge, ENT: Positive for nasal congestion Cardiovascular: Negative for chest pain, palpitations, and edema, Respiratory: Negative for shortness of breath, cough, wheezing, and pleuritic chest pain, Abdomen/GI: Positive for abdominal pain MS/Extremity: Negative for injury and deformity, Skin: Negative for injury, rash, and discoloration, Neuro: Positive for headache and generalized weakness Exam: 05:43 Constitutional: This is a well developed, well nourished patient who is awake, alert, rn and in no acute distress. Head/Face: Normocephalic, atraumatic. ENT: Dry mucous membranes, no stridor Neck: Trachea midline, no masses palpated, and no cervical lymphadenopathy. Supple, full range of motion without nuchal rigidity, or vertebral point tenderness. No Meningismus. Cardiovascular: Tachycardic, regular. Respiratory: No increased work of breathing, no retractions or nasal flaring. Abdomen/GI: Soft, mid abdominal tenderness, no rebound Skin: Warm, dry MS/ Extremity: Pulses equal, no cyanosis. Neuro: Awake and alert, GCS 15, oriented to person, place, time, and situation. Vital Signs: 05:29 BP 132 / 70; Pulse 111; Resp 14; Temp 102.1; Pulse Ox 96% on R/A; Weight 74.84 kg; vc1 Height 5 ft. 5 in. ; Pain 0/10; 07:35 BP 99 / 49; Pulse 112; Resp 20; Temp 99.5(O); Pulse Ox 99% on R/A; kc6 09:02 BP 115 / 65; Pulse 106; Resp 18 S; Pulse Ox 99% on R/A; kc6 09:08 Temp 98.5(O); kc6 05:29 Body Mass Index 27.46 (74.84 kg, 165.1 cm) vc1 05:29 Pain Scale: Adult vc1 Procedures: 15:00 Central Line: Right internal jugular central venous line placement note. Patient was sp3 prepped with Betadine and sterile fashion, an ultrasound-guided triple-lumen central venous catheter was placed without difficulty using Seldinger technique. Chest x-ray is pending. Procedure without known complications at this time. MDM: 05:28 Patient medically screened. rn 08:16 Data reviewed: vital signs, nurses notes, lab test result(s), EKG, radiologic studies. sp3 ED course: EKG demonstrates sinus tachycardia at 120 bpm with normal intervals, normal QRS, normal ST/T-segment's without evidence of acute ischemia.. ED course: Patient signed out to me by night physician at 7 AM. Patient is a 67-year-old female with history of hypertension and seizures now presents with generalized weakness, diffuse abdominal pain and now approximately 10 minutes ago I was informed by patient's nurse that patient has had vaginal bleeding currently and for the past 10 days. This is new information for me. Type and screen as well as further IV fluids have been ordered. We are awaiting CT scan of the abdomen pelvis and some remainder lab values. Patient denies any history of cancer in her family and she was menopausal at age 49 and this is the first time she has had vaginal bleeding since then. Disposition pending work-up and patient course.. 09:39 ED course: Cellulitis noted on bilateral labia. No cyst or abscess noted. CT scan sp3 confirms this. We will start on cefepime and inpatient team can decide from there.. 07/05 05:28 Order name: Blood Culture Adult (2) 07/05 05:28 Order name: CBC with Diff; Complete Time: 07:14 07/05 05:28 Order name: CMP; Complete Time: 06:47 07/05 05:28 Order name: Lactate w/ 2H reflex if indic.; Complete Time: 06:55 07/05 05:28 Order name: Protime (+inr); Complete Time: 06:35 07/05 05:28 Order name: Ptt, Activated; Complete Time: 06:35 07/05 05:28 Order name: Urinalysis w/ reflexes; Complete Time: 13:55 07/05 05:28 Order name: Flu; Complete Time: 07:14 07/05 05:28 Order name: SARS RAPID; Complete Time: 06:35 07/05 06:28 Order name: Depakote; Complete Time: 06:55 07/05 07:11 Order name: CBC Smear Scan; Complete Time: 07:14 EDNM 07/05 08:18 Order name: Type And Screen; Complete Time: 13:55 sp3 07/05 09:51 Order name: Magnesium; Complete Time: 23:29 EDNM 07/05 09:51 Order name: Phosphorus; Complete Time: 23:29 EDNM 07/05 09:51 Order name: Urinalysis w/ reflexes EDNM 07/05 09:51 Order name: Basic Metabolic Panel EDNM 07/05 09:51 Order name: Basic Metabolic Panel EDNM 07/05 09:51 Order name: CBC with Automated Diff EDMS 07/05 09:51 Order name: CBC with Automated Diff EDMS 07/05 09:51 Order name: Lipid Profile EDMS 07/05 09:51 Order name: Lipid Profile EDMS 07/05 10:36 Order name: Lactate Sepsis 2 HR Follow-up; Complete Time: 13:55 EDMS 07/05 05:28 Order name: Chest Single View XRAY; Complete Time: 23:29 rn 07/05 06:57 Order name: Abdomen ; Complete Time: 09:27 EDMS 07/05 08:25 Order name: US Transvaginal Study (Probe) sp3 07/05 14:57 Order name: Chest Single View XRAY em1 07/05 15:39 Order name: US; Complete Time: 23:29 EDMS 07/05 15:48 Order name: RAD; Complete Time: 23:29 EDMS 07/05 05:28 Order name: EKG; Complete Time: 05:31 rn 07/05 05:28 Order name: Accucheck; Complete Time: 07:16 rn 07/05 05:28 Order name: Cardiac monitoring; Complete Time: 06:22 rn 07/05 05:28 Order name: EKG - Nurse/Tech; Complete Time: 07:37 rn 07/05 05:28 Order name: IV Saline Lock - Large Bore; Complete Time: 06:22 rn 07/05 05:28 Order name: Labs collected and sent; Complete Time: 06:22 rn 07/05 05:28 Order name: O2 Per Protocol; Complete Time: 06:22 rn 07/05 05:28 Order name: O2 Sat Monitoring; Complete Time: 06:22 rn 07/05 05:28 Order name: Vital Signs; Complete Time: 07:16 rn 07/05 15:13 Order name: Misc. Order: OK to use right IJ central line; Complete Time: 15:18 sp3 Administered Medications: 06:34 Drug: Acetaminophen PO 1000 mg PO once Route: PO; jb4 07:37 Follow up: Response: No adverse reaction; Temperature is decreased kc6 06:35 Drug: NS 0.9% IV 500 ml IV at bolus once {Note: Finishing remaining EMS bolus.} Route: jb4 IV; Rate: bolus; Site: left antecubital; 07:37 Follow up: Response: No adverse reaction; IV Status: Completed infusion; IV Intake: kc6 500ml 06:41 Drug: Ondansetron IVP 4 mg IVP once; over 2 minutes Route: IVP; Site: right antecubital;jb4 07:37 Follow up: Response: No adverse reaction; Nausea is decreased; Vomiting decreased kc6 07:34 Drug: NS 0.9% IV 500 ml IV at bolus once Route: IV; Rate: bolus; Site: left antecubital;kc6 08:33 Follow up: Response: No adverse reaction; IV Status: Completed infusion; IV Intake: kc6 500ml 07:34 Drug: NS 0.9% IV 1000 ml IV at 1000 ml once Route: IV; Rate: 1000 ml; Site: right kc6 antecubital; 07:34 Drug: Cefepime IVPB 1 grams IVPB at 200 ml/hr once over 30 mins; (mix in NS 100 mL) kc6 Route: IVPB; Rate: 200 ml/hr; Infused Over: 30 mins; Site: right antecubital; 09:51 Follow up: Response: No adverse reaction; IV Status: Completed infusion; IV Intake: kc6 100ml 08:33 Drug: NS 0.9% IV 500 ml IV at bolus once Route: IV; Rate: bolus; Site: left antecubital;kc6 09:51 Follow up: Response: No adverse reaction; IV Status: Completed infusion; IV Intake: kc6 500ml Disposition Summary: 07/05/23 09:40 Hospitalization Ordered Notes: Hospitalization Status: Inpatient Admission sp3 Provider: Berry Ma sp3 Condition: Stable sp3 Problem: an acute exacerbation sp3 Symptoms: have worsened sp3 Bed/Room Type: Standard sp3 Location: [facility] ER HOLD(07/05/23 10:28) em1 Room Assignment: ERHOLD-(07/05/23 10:28) em1 Diagnosis - Sepsis, cellulitis, CHASITY sp3 Forms: - Medication Reconciliation Form sp3 - SBAR form sp3 - Leadership Thank You Letter sp3 Signatures: Dispatcher [employer] EDEvert Zhao MD MD rn Martinez, Eric em1 Macario Hartman RN RN jb4 Armaan Marsh MD MD sp3 Laxmi Guidry RN RN vc1 Harleen Ramirez RN RN kc6 Corrections: (The following items were deleted from the chart) 05:34 05:32 Home Meds: Depakote Oral; vc1 vc1 05:34 05:32 Home Meds: Lamictal Oral; vc1 vc1 06:57 05:36 Abdomen Pelvis W Con+CT.RAD.BRZ ordered. EDMS EDMS 07:45 07:45 Recheck Vital Signs ordered. sp3 sp3 10:28 09:40 Telemetry/MedSurg (Inpatient) sp3 em1 10:28 09:40 sp3 em1
--- NOTE | 2023-07-05 09:41 | ER ---
Nurse's Notes [facility] Name: Kianna Lan Age: 67 yrs Sex: Female : 1955 Arrival Date: 07/05/2023 Time: 05:18 Bed 7 Private MD: Diagnosis: Sepsis, cellulitis, CHASITY Presentation: 07/05 05:29 Chief complaint: EMS states: Her called this morning saying she is not acting vc1 normal. She is extremely weak and taking longer to respond. We noticed blood coming from her vagina. Coronavirus screen: Vaccine status: Patient reports receiving the 1st dose of the Covid vaccine. Client denies travel out of the [place] in the last 14 days. fever. Ebola Screen: Patient negative for fever greater than or equal to 101.5 degrees Fahrenheit, and additional compatible Ebola Virus Disease symptoms Patient denies exposure to infectious person. Patient denies travel to an Ebola-affected area in the 21 days before illness onset. No symptoms or risks identified at this time. Initial Sepsis Screen: Does the patient meet any 2 criteria? Temp <36.0*C (96.8*F)) or > 38.3*C (100.9*F). Altered Mental Status. HR > 90 bpm. Yes Does the patient have a suspected source of infection? Yes: Dysuria/Frequency/Urgency/UTI. Risk Assessment: Do you want to hurt yourself or someone else? Patient reports no desire to harm self or others. Onset of symptoms was July 04, 2023. 05:29 Method Of Arrival: EMS: [facility] vc1 05:29 Acuity: MICHAEL 3 vc1 05:35 Care prior to arrival: IV initiated. 20 GA, in the left antecubital area, Glucose vc1 check: 100. Triage Assessment: 05:32 The onset of the patients symptoms was July 04, 2023 at 08:00. General: Appears in vc1 no apparent distress. ill, Behavior is calm, cooperative, appropriate for age. Pain: Denies pain. EENT: No deficits noted. No signs and/or symptoms were reported regarding the EENT system. Neuro: Lam Agitation-Sedation Scale (RASS): 0 - Alert and Calm Level of Consciousness is awake, obeys commands, lethargic, Oriented to person, place, time, situation, Appropriate for age Reports weakness. Cardiovascular: No deficits noted. Respiratory: Airway is patent Respiratory effort is even, unlabored, Respiratory pattern is regular, symmetrical. GI: No deficits noted. No signs and/or symptoms were reported involving the gastrointestinal system. : Blood noted Reports pain in lower back Denies burning with urination. Derm: No deficits noted. No signs and/or symptoms reported regarding the dermatologic system. Musculoskeletal: No deficits noted. No signs and/or symptoms reported regarding the musculoskeletal system. Historical: - Allergies: 05:32 Augmentin; vc1 05:32 Demerol; vc1 - Home Meds: 05:32 Depakote 500 mg Oral TbEC 1 tab 3 times per day [Active]; Lamictal 150 mg Oral tab 1 vc1 tab once daily [Active]; aspirin 81 mg oral tablet,chewable [Active]; - PMHx: 05:32 Hypertension; Seizures; vc1 - PSHx: 05:32 None; vc1 - Immunization history:: Client reports receiving the 1st dose of the Covid vaccine. - Social history:: Smoking status: Patient denies any tobacco usage or history of. - Family history:: not pertinent. - Hospitalizations: : No recent hospitalization is reported. Screenin:36 [facility] ED Fall Risk Assessment (Adult) History of falling in the last 3 months, vc1 including since admission No falls in past 3 months (0 pts) Confusion or Disorientation Yes (5 pts) Intoxicated or Sedated No (0 pts) Impaired Gait Yes (1 pt) Mobility Assist Device Used No (0 pt) Altered Elimination No (0 pt) Score/Fall Risk Level 3 or more points = High Risk Oriented to surroundings, Maintained a safe environment, Educated pt \T\ family on fall prevention, incl call for assistance when getting out of bed, Utilized family, sitter, or virtual sales representative electric service as indicated. Abuse screen: Denies threats or abuse. Nutritional screening: No deficits noted. Tuberculosis screening: No symptoms or risk factors identified. Assessment: 07:00 General: Appears in no apparent distress. comfortable, Behavior is calm, cooperative, kc6 appropriate for age. Neuro: Level of Consciousness is awake, alert, obeys commands, Oriented to person, place, time, situation, Appropriate for age. Cardiovascular: Denies chest pain, Heart tones S1 S2 present Capillary refill < 3 seconds Rhythm is sinus tachycardia. Respiratory: Airway is patent Trachea midline Respiratory effort is even, unlabored, Respiratory pattern is regular, symmetrical, Denies cough, shortness of breath. GI: Reports diarrhea, Patient currently denies nausea, vomiting. : No signs and/or symptoms were reported regarding the genitourinary system. EENT: No signs and/or symptoms were reported regarding the EENT system. Derm: No signs and/or symptoms reported regarding the dermatologic system. Skin is intact, is healthy with good turgor, Skin is pink, warm \T\ dry. Musculoskeletal: No signs and/or symptoms reported regarding the musculoskeletal system. Circulation, motion, and sensation intact. Capillary refill < 3 seconds, Range of motion: intact in all extremities. 08:00 Reassessment: Patient appears in no apparent distress at this time. No changes from kc6 previously documented assessment. Patient and/or family updated on plan of care and expected duration. Pain level reassessed. Patient is alert, oriented x 3, equal unlabored respirations, skin warm/dry/pink. 09:00 Reassessment: Patient appears in no apparent distress at this time. No changes from kc6 previously documented assessment. Patient and/or family updated on plan of care and expected duration. Pain level reassessed. Patient is alert, oriented x 3, equal unlabored respirations, skin warm/dry/pink. Vital Signs: 05:29 BP 132 / 70; Pulse 111; Resp 14; Temp 102.1; Pulse Ox 96% on R/A; Weight 74.84 kg; vc1 Height 5 ft. 5 in. ; Pain 0/10; 07:35 BP 99 / 49; Pulse 112; Resp 20; Temp 99.5(O); Pulse Ox 99% on R/A; kc6 09:02 BP 115 / 65; Pulse 106; Resp 18 S; Pulse Ox 99% on R/A; kc6 09:08 Temp 98.5(O); kc6 05:29 Body Mass Index 27.46 (74.84 kg, 165.1 cm) vc1 05:29 Pain Scale: Adult vc1 ED Course: 05:27 Patient arrived in ED. rv1 05:28 Evert Reyes MD is Attending Physician. rn 05:32 Triage completed. vc1 05:32 Arm band placed on right wrist. vc1 05:36 Patient has correct armband on for positive identification. Bed in low position. Call vc1 light in reach. Side rails up X2. Client placed on continuous cardiac and pulse oximetry monitoring. NIBP monitoring applied. 05:47 Chest Single View XRAY In Process Unspecified. EDMS 06:21 SARS RAPID Sent. pf1 06:21 Flu Sent. pf1 06:22 CBC with Diff Sent. pf1 06:22 CMP Sent. pf1 06:22 Lactate w/ 2H reflex if indic. Sent. pf1 06:22 Protime (+inr) Sent. pf1 06:22 Ptt, Activated Sent. pf1 07:00 Report received from Lucien RN \T\ BRIDGER Medeiros. kc6 07:00 Inserted saline lock: 22 gauge in right antecubital area, using aseptic technique. kc6 07:00 Maintain EMS IV. Dressing intact. Good blood return noted. Site clean \T\ dry. Gauge \T\ jennie 6 site: 20G LAC. 07:08 Attending Physician role handed off by Evert Reyes MD sp3 07:08 Armaan Marsh MD is Attending Physician. sp3 07:13 Abdomen In Process Unspecified. EDMS 07:34 Harleen Ramirez, BRIDGER is Primary Nurse. kc6 08:33 Type And Screen Sent. kc6 09:40 Berry Ma MD is Hospitalizing Provider. sp3 15:00 Assisted provider with central line placement. Set up central line tray. Triple lumen kc6 line placed in right internal jugular. Line placed by Armaan Marsh MD Placement verified by CXR, blood return, Dressed with 4X4s, Tape, Tegaderm, Patient tolerated well. Before procedure, did Practitioner(s) obtain informed consent? Yes. Patient \T\ family education about procedure, CLABSI prevention and S/S of infection? Yes. Time-out/Briefing performed prior to start of procedure? Yes. Was handwashing/sanitizing done immediately prior to procedure? Yes. Was patient positioned to in a way to prevent air embolism? Yes. Was procedure site sterilized? Yes, with Was the site allowed to dry? Yes. Was local anesthetic and/or sedation utilized? No. During the procedure, did the Practitioner(s) maintain a sterile field? Yes. Was blood aspirated from each lumen? Yes. After the procedure, did the Practitioner(s) clean the site and apply a sterile dressing? Yes. 18:36 Patient admitted, IV remains in place. kc6 Administered Medications: 06:34 Drug: Acetaminophen PO 1000 mg PO once Route: PO; jb4 07:37 Follow up: Response: No adverse reaction; Temperature is decreased kc6 06:35 Drug: NS 0.9% IV 500 ml IV at bolus once {Note: Finishing remaining EMS bolus.} Route: jb4 IV; Rate: bolus; Site: left antecubital; 07:37 Follow up: Response: No adverse reaction; IV Status: Completed infusion; IV Intake: kc6 500ml 06:41 Drug: Ondansetron IVP 4 mg IVP once; over 2 minutes Route: IVP; Site: right antecubital;jb4 07:37 Follow up: Response: No adverse reaction; Nausea is decreased; Vomiting decreased kc6 07:34 Drug: NS 0.9% IV 500 ml IV at bolus once Route: IV; Rate: bolus; Site: left antecubital;kc6 08:33 Follow up: Response: No adverse reaction; IV Status: Completed infusion; IV Intake: kc6 500ml 07:34 Drug: NS 0.9% IV 1000 ml IV at 1000 ml once Route: IV; Rate: 1000 ml; Site: right kc6 antecubital; 07:34 Drug: Cefepime IVPB 1 grams IVPB at 200 ml/hr once over 30 mins; (mix in NS 100 mL) kc6 Route: IVPB; Rate: 200 ml/hr; Infused Over: 30 mins; Site: right antecubital; 09:51 Follow up: Response: No adverse reaction; IV Status: Completed infusion; IV Intake: kc6 100ml 08:33 Drug: NS 0.9% IV 500 ml IV at bolus once Route: IV; Rate: bolus; Site: left antecubital;kc6 09:51 Follow up: Response: No adverse reaction; IV Status: Completed infusion; IV Intake: kc6 500ml Medication: 05:37 VIS not applicable for this client. vc1 Intake: 07:37 IV: 500ml; Total: 500ml. kc6 08:33 IV: 500ml; Total: 1000ml. kc6 09:51 IV: 500ml; Total: 1500ml. kc6 09:51 IV: 100ml; Total: 1600ml. kc6 Outcome: 09:40 Decision to Hospitalize by Provider. sp3 18:36 Admitted to OR accompanied by nurse, via stretcher, with chart, kc6 18:36 critical 18:36 Instructed on the need for admit, 18:37 Patient left the ED. kc6 Signatures: Dispatcher [employer] EDEvert Zhao MD MD rn Bryson, James, RN RN jb4 Armaan Marsh MD MD sp3 Laxmi Guidry RN RN vc1 Harleen Ramirez RN RN kc6 Rebekah Ca RN RN pf1 Natalya Joseph rv1 Corrections: (The following items were deleted from the chart) 05:34 05:32 Home Meds: Depakote Oral; vc1 vc1 05:34 05:32 Home Meds: Lamictal Oral; vc1 vc1
[2023-07-05] MEDS ORDERED: ACETAMINOPHEN 325 MG TABLET PO PRN (09:45)
[2023-07-05] MEDS ORDERED: ONDANSETRON 4 MG/2 ML VIAL IV PRN (09:48)
[2023-07-05] MEDS ORDERED: LABETALOL 20 MG/4ML SYRINGE IV PRN (09:50)
--- NOTE | 2023-07-05 09:51 | P.HP ---
Certification for Inpatient Patient admitted to: Inpatient With expected LOS: >2 Midnights Patient will require the following post-hospital care: None Practitioner: I am a practitioner with admitting privileges, knowledge of patient current condition, hospital course, and medical plan of care. Services: Services provided to patient in accordance with Admission requirements found in Title 42 Section 412.3 of the Code of Federal Regulations Patient History Date of Service: 07/05/23 Reason for admission: Generalized weakness, bilateral labial swelling\redness History of Present Illness: Patient is a 67-year-old female with a past medical history significant for hypertension, seizures who presents with complaint of generalized weakness that has been ongoing for the past 1 week. Patient also reports that she has been having pain in the right lower quadrant that has been ongoing for the past 10 days. Patient reported that she felt some burning pain in her labia but did not check to see if there was any swelling or redness. Patient also reported that she noticed bleeding from her vaginal area. Patient reported associated signs and symptoms of diarrhea, generalized body pains, decreased appetite and malaise. Patient denies any other signs and symptoms. Symptoms are aggravated or relieved by nothing. Patient decided to present to the hospital for medical evaluation. Of note, patient was noted to have fever on presentation to the ER and also patient was noted to have bilateral labial swelling\redness worse on the right labia. Patient also noted with bleeding wound to the right labia. Allergies amoxicillin [From Augmentin] Allergy (Verified 05/18/20 17:12) Hives/Rash clavulanic acid [From Augmentin] Allergy (Verified 05/18/20 17:12) Hives/Rash meperidine [From Demerol] Allergy (Verified 05/18/20 17:12) Hives Home Medications: Divalproex Sodium 1 tab PO TID 04/24/20 Lamotrigine [Lamictal] 75 mg PO BID 04/24/20 Rivaroxaban [Xarelto] 20 mg PO DAILY #14 tablet 05/20/20 Amiodarone HCl [Cordarone*] 200 mg PO DAILY #30 tab 06/06/20 Cranberry Fruit Extract 400 mg PO BID #120 cap 06/06/20 Duloxetine [Cymbalta *] 20 mg PO DAILY #30 cap 06/06/20 Magnesium Oxide [Mag 0X*] 400 mg PO DAILY #30 tab 06/06/20 Meclizine HCl [Antivert*] 25 mg PO Q8H PRN tab 06/06/20 Pantoprazole [Protonix Tab*] 40 mg PO BEDTIME 08/09/20 Cefdinir [Omnicef] 300 mg PO Q12H #10 capsule 08/11/20 Codeine/APAP [Tylenol W/Codeine #3 tab] 1 - 2 tab PO Q6HP PRN #30 tab 08/11/20 - Past Medical/Surgical History Diabetic: No -: Seizure history -: Hypertension -: Gastric Bypass -: Colonoscopy -: Endoscopy -: Breast reduction -: Hysterectomy - Family History Father -: Cancer Mother -: Cancer, Other (see notes) Notes: Leukemia - Social History Smoking Status: Former smoker Alcohol use: No CD- Drugs: No Caffeine use: No Place of Residence: Home Review of Systems General: Fever, Weakness, Malaise Eyes: Unremarkable ENT: Unremarkable Respiratory: Unremarkable Cardiovascular: Unremarkable Gastrointestinal: Abdominal Pain, Diarrhea Genitourinary: Other (Labial swelling\redness) Musculoskeletal: Unremarkable Integumentary: Other (Labial redness, Right labial wound ) Neurological: Weakness Physical Examination - Physical Exam General: Alert, In no apparent distress, Oriented x3, Cooperative HEENT: Atraumatic, PERRLA, Mucous membr. moist/pink, EOMI, Sclerae nonicteric Neck: Supple, 2+ carotid pulse no bruit, No LAD, Without JVD or thyroid abnormality Respiratory: Clear to auscultation bilaterally, Normal air movement Cardiovascular: No edema, Regular rate/rhythm, Normal S1 S2 Capillary refill: <2 Seconds Gastrointestinal: Normal bowel sounds, No tenderness, Tenderness Musculoskeletal: No tenderness Integumentary: No rashes, Tenderness/swelling, Erythema, Other (Labial wound) Neurological: Normal speech, Normal tone, Normal affect Lymphatics: No axilla or inguinal lymphadenopathy - Studies Laboratory Data (last 24 hrs) 07/05/23 07/05/23 07/05/23 06:15 06:15 06:15 WBC 6.50 Hgb 14.9 Hct 44.1 Plt Count 112 L PT 12.4 INR 1.13 APTT 33.2 Sodium 138 Potassium 3.4 L BUN 40 H Creatinine 2.22 H Glucose 103 Total Bilirubin 0.4 AST 15 ALT 19 Alkaline Phosphatase 38 L Microbiology Data (last 24 hrs): 07/05/23 06:00 Nasopharnyx Influenza Type A Antigen Screen - Final 07/05/23 06:00 Nasopharnyx Influenza Type B Antigen Screen - Final Assessment and Plan - Plan --Labial cellulitis. Worse on the right side. CT abdomen indicates Diffuse stranding within the right perineum, right labia and right anterior subcutaneous fat pelvis. A fluid filled abscess is not seen. Transvaginal ultrasound pending for further evaluation. Right labia noted with bleeding wound. Bleeding controlled. Surgeon consulted for possible I&D. Surgeon recommends patient be kept n.p.o. after midnight. Patient placed on antibiotics. Blood cultures pending. Will await further recommendation from surgeon. --Right labia wound. Wound care consult initiated. Continue antibiotics. We will await further recommendations. -- Sepsis with septic shock. Patient not responding to IV bolus hydration. We will start pressors as soon as central line is in place. Blood cultures pending. Continue antibiotics. -- Acute pain. We will manage pain with current pain medication regimen. -- Diarrhea. Stool studies pending to rule out any infectious process. Continue IV hydration. --History of seizures. Continue home medications. Seizure precautions. --CHASITY. Likely prerenal. Secondary to dehydration. Continue IV hydration. Nephrology consulted. Will await further recommendations. --Hypokalemia. Replete as needed. -- GERD. Continue Protonix. --Hypertension. Patient currently hypotensive. Continue current treatment regimen. --DVT prophylaxis with Lovenox subQ. Discharge Plan: Home Plan to discharge in: Greater than 2 days - Advance Directives Does patient have a Living Will: No Does patient have a Durable POA for Healthcare: No - Code Status/Comfort Care Code Status Assessed: Yes Physician Review: Patient Assessed, Agree with Above Assessment and Plan Critical Care: Yes
[2023-07-05] MEDS ORDERED: NA CHLORIDE 0.9% 1,000 ML IV SCH ×2 (10:00→14:49)
[2023-07-05] MEDS ORDERED: HYDROCODONE/APAP 10/325 TAB ONE (11:36)
[2023-07-05] MEDS: HYDROCODONE/APAP 10/325 TAB PO PRN (11:42)
[2023-07-05 13:21] LABS: Specific Gravity 1.024 (1.005-1.030); Urine Bacteria None Seen /HPF (<20); Urine Bilirubin NEGATIVE (Negative); Urine Blood 2+ (Negative); Urine Clarity Extremely Turbid (Clear); Urine Color Yellow (Yellow); Urine Glucose NEGATIVE (Negative); Urine Granular Casts 0-5 /LPF (None Seen); Urine Mucus Slight /HPF (None Seen); Urine Protein 1+ (Negative); Urine RBC <5 /HPF (None Seen); Urine Urobilinogen Normal (Normal); Urine pH 5.5 (5.0-7.0)
--- NOTE | 2023-07-05 14:52 | P.CNS ---
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 She is referred to Nephrology for CHASITY. Serum creatinine 2.2 on admission. Baseline SCr is 0.6 as of September 2020. She received IVF & started on IV abx. On vasopressor. She underwent I&D of perineum today. Allergies amoxicillin [From Augmentin] Allergy (Verified 05/18/20 17:12) Hives/Rash clavulanic acid [From Augmentin] Allergy (Verified 05/18/20 17:12) Hives/Rash meperidine [From Demerol] Allergy (Verified 05/18/20 17:12) Hives Home Medications: Divalproex Sodium 1 tab PO TID 04/24/20 Lamotrigine [Lamictal] 75 mg PO BID 04/24/20 Pantoprazole [Protonix Tab*] 40 mg PO BEDTIME 08/09/20 Aspirin [Aspirin EC 81 MG] 1 tab PO DAILY 07/06/23 - Past Medical/Surgical History Diabetic: No -: Seizure history -: Hypertension -: Gastric Bypass -: Colonoscopy -: Endoscopy -: Breast reduction -: Hysterectomy - Family History Father Medical History: Cancer Mother Medical History: Cancer, Other (see notes) Notes: Leukemia - Social History Smoking Status: Unknown if ever smoked Alcohol use: No CD- Drugs: No Caffeine use: No Review of Systems General: Weakness ENT: Unremarkable Respiratory: Unremarkable Cardiovascular: Unremarkable Gastrointestinal: Abdominal Pain Genitourinary: Other (vaginal labial pain) Musculoskeletal: Unremarkable Integumentary: Unremarkable Neurological: Weakness Lymphatics: Unremarkable Physical Examination Temp Pulse Resp BP Pulse Ox 18 100 07/05/23 11:42 07/05/23 11:42 General: Other (Appears as her stated age) HEENT: Atraumatic, Normocephalic Neck: Supple Respiratory: Other (Symmetric chest expansion) Cardiovascular: No rubs, No murmurs Gastrointestinal: Soft and benign, No guarding Musculoskeletal: No clubbing Integumentary: No warmth Neurological: Normal speech, Normal tone Urinary: Other (no bladder distention) External genitalia: Deferred Rectal: Deferred Laboratory Data (last 24 hrs) 07/05/23 07/05/23 07/05/23 06:15 06:15 06:15 WBC 6.50 Hgb 14.9 Hct 44.1 Plt Count 112 L PT 12.4 INR 1.13 APTT 33.2 Sodium 138 Potassium 3.4 L BUN 40 H Creatinine 2.22 H Glucose 103 Total Bilirubin 0.4 AST 15 ALT 19 Alkaline Phosphatase 38 L Conclusions/Impression: # CHASITY 2/2 ATN/septic shock SCr 2.2 on adm Baseline SCr 0.6 as of Sep 2020 Urinalysis with 1+ proteinuria but no hematuria & no pyuria Titrate vasopressor's to keep MAP > 65 Strict I&O # Hypokalemia KCl repletion prn # 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
[2023-07-05] MEDS ORDERED: NOREPINEPHRINE BITARTRATE/D5W 4 MG/250 ML BAG IV ONE ×2 (14:55→22:30)
[2023-07-05] MEDS ORDERED: VANCOMYCIN 1 GM in NA CHLORIDE 0.9% 250 ML IVPB SCH (15:00)
[2023-07-05] MEDS ORDERED: VANCOMYCIN 1.75 GM in NA CHLORIDE 0.9% 500 ML IVPB ONE (15:00)
--- NOTE | 2023-07-05 15:38 | RAD REPORT ---
EXAM DESCRIPTION: US - Transvaginal Study Probe - 07/05/2023 3:30 pm CLINICAL HISTORY: Vaginal bleeding COMPARISON: CT July 05, 2023 FINDINGS: Hysterectomy. Neither ovary seen perhaps secondary to surgery The right and left adnexa unremarkable No significant free fluid is seen. IMPRESSION: Unremarkable pelvic ultrasound
--- NOTE | 2023-07-05 15:47 | RAD REPORT ---
EXAM DESCRIPTION: KRISTYChest Single View07/05/2023 3:12 pm CLINICAL HISTORY: Device placement/central venous catheter placement IMPRESSION: Central venous catheter with its tip in the distal superior vena cava No pneumothorax
[2023-07-05] MEDS: NOREPINEPHRINE BITARTRATE/D5W 4 MG/250 ML BAG IV SCH ×2 (15:56→20:45)
[2023-07-05] MEDS ORDERED: PIPER TAZO 3.375 GM in NA CHLORIDE 0.9% 100 ML IV SCH (17:00)
[2023-07-05] MEDS: ENOXAPARIN 30 MG/0.3 ML SQ SCH (17:00)
--- NOTE | 2023-07-05 18:45 | P.BOP ---
Preoperative diagnosis: septic shock on vasopressors, fornier gangrene Postoperative diagnosis: same Primary procedure: Wide excisional debridement down to fascia Fornier gangrene [id number] Secondary procedure: Perineum, annalisa thigh, suprapubic ,abd wall, ext, genitalia w/Pulse lavage Estimated blood loss: <50cc Specimen: culture, necrotic tissue Findings: large gangrenous skin and subQ abd,suprapubic,perineum, ext genit,annalisa thigh Anesthesia: General Complications: None Drain(s): Urinary catheter Implants: several gauze rolls with silvadene Transferred to: ICU Condition: Critical
--- NOTE | 2023-07-05 18:46 | CON ---
Date of Consultation: 07/05/2023 Reason. For Service: Septic shock, on vasopressor with an ongoing cellulitis of the perineum, buttoc ks, perianal genitalia and also inguinal region and part of the abdominal wall consistent with a Four nier gangrene. She has also history of seizures. Allergies: AMOXICILLIN, MEPERIDINE. Medications: Include, Cymbalta, Antivert, Xarelto, Lamictal, divalproex. History Of Present Illness: The patient came to the ER complaining of a diarrhea, body ache, malaise , decreased appetite, fever, perineal swelling, perineal redness, even some bleeding from some of the skin. Past Surgical History: Include breast reductions, hysterectomy, endoscopies, colonoscopies, gastric bypass. Family History: Includes cancer, leukemia. Social History: She does not smoke. She does drink alcohol. Review of Systems: On vasopressor. The patient is awake, alert, fever present, weakness, malaise, increased temperature and redness and cellulitis over the groin, abdominal wall, genitalia, perianal region, buttocks, thi gh, with increased temperature and tenderness on those areas. Also, there is some necrotic skin pres ent with bleeding. Physical Examination: General: The patient is awake and oriented x3. Cooperative. Currently, in septic shock, and after 4 L of fluid is still trying to control the blood pressure. HEENT: Pupils are equal and reactive. Anicteric. Neck: Supple. Chest: Clear. Heart: S1, S2. Abdomen: Soft and depressible. There is some redness associated in the right lower quadrant, but is coming from the inguinal and genitalia area. Integumentary: Shows basically cellulitis and necrotic skin over the area of the genitalia. The rig ht side already is black with gangrene process on it. That cellulitis extending to the area of the ri ght lower quadrant inguinal region, right medial thigh, perineum, perianal, and present. There is necrotic skin. There is blisters present consistent with Tonie gangrene. Laboratory Data: Blood work shows a WBC count of 6.5, hemoglobin of 14.9, and platelets of 112. INR is 1.13. Lactic acid 3.6, potassium 3.4, creatinine 2.22. CAT scan of the abdomen and pelvis inter preted by Dr. Sotelo as diffuse stranding within the right perineum, right labia, anterior subcutane ous fat, pelvis. The appendix is normal. Assessment And Plan: A 67-year-old patient comes to us with a septic shock. She has been sick for f ew days, it got worse, has fevers. She has Tonie gangrene on perineum and genitalia. The extent of this disease include also not only the inguinal region, but also panniculitis, perineum, genitalia , and even medial thigh and buttocks. There is already necrotic skin and blisters forming at the ent manoj perineum with some necrotic black skin already present in some areas. I have to notice this logan ent is a white lady. The etiology of this is unknown, but with this current septic shock a nd , I believe this patient needs emergent taken to the OR for debridement docto rs are giving her fluid and resuscitation at this moment and antibiotics too. The OR was notified em ergently. The patient fully explained the benefits, alternatives, and risks of debridement of Fourni er gangrene on perineum, buttocks, abdominal wall, thigh with benefits, alternatives, and risks inclu ding, but not limited to infection, bleeding, damage to adjacent structures, anesthesia complication, nonhealing wound, myocardial infarction, and even . She also understands this may not relieve any symptoms. She might need one or more surgical intervention. HM/MODL Voice ID: [id number] Report ID: [id number]
[2023-07-05] MEDS ORDERED: propofoL 200 MG/20 ML VIAL IV ONE (18:51)
[2023-07-05] MEDS ORDERED: FENTANYL CITR 100 MCG/2 ML ONE ×2 (18:51→19:12)
[2023-07-05] MEDS ORDERED: MIDAZOLAM HCL 2 MG/2 ML INJ ONE (18:51)
[2023-07-05] MEDS ORDERED: Phenylephrine HCl 10 MG/ML 1 ML VIAL ONE (19:13)
[2023-07-05] MEDS ORDERED: SILVER SULFADIAZINE 1% 25 GM TOP ONE (19:37)
[2023-07-05] MEDS ORDERED: dexAMETHasone 10 MG/ML VIAL ONE (19:50)
--- NOTE | 2023-07-05 20:04 | RAD REPORT ---
EXAM DESCRIPTION: RAD - Chest Single View - 07/05/2023 5:45 am CLINICAL HISTORY: 67 years Female, AMS COMPARISON: None. TECHNIQUE: Single portable x-ray view of the chest performed on 07/05/2023 at 5:38 AM FINDINGS: The lungs are well expanded and are clear. There is no evidence of a pneumothorax. The cardiac silhouette is normal in size and configuration. The mediastinal contours are normal. No acute osseous abnormality is identified. No focal soft tissue abnormalities are seen. Lines and tubes: None. IMPRESSION: No evidence of acute intrathoracic disease. Electronically signed by: Dunia Mishra DO 07/05/2023 06:15 AM WEB APPLICATION DEV SPECIALIST Due to temporary technical issues with the PACS/Fluency reporting system, reports are being signed by the in house radiologists without review as a courtesy to insure prompt reporting. The interpreting radiologist is fully responsible for the content of the report.
[2023-07-05] MEDS: HYDROMORPHONE HCL 1 MG/ML INJ IV PRN ×2 (20:30→20:36)
[2023-07-05] MEDS ORDERED: Ringers Lactate 1,000 ML IV ONE ×2 (20:35)
[2023-07-05] MEDS ORDERED: HYDROMORPHONE HCL 1 MG/ML INJ ONE (20:41)
[2023-07-05 20:57] LABS: Magnesium 1.5 mg/dL (1.6-2.4); Phosphorus 4.8 mg/dL (2.5-4.9)
[2023-07-05] MEDS ORDERED: CEFEPIME 1 GM in NA CHLORIDE 0.9% 100 ML IV SCH (21:00)
[2023-07-05 21:16] LABS: Absolute Lymphocytes (CBC) 0.4 K/uL (0.7-4.9); Hematocrit 40.8 % (36.0-45.0); MCV 97.2 fL (80-100); MPV 10.5 fL (7.6-11.3); Platelets 105 thou/uL (152-406)
[2023-07-05 21:47] LABS: Albumin 2.3 g/dL (3.4-5.0); Bilirubin Total 0.3 mg/dL (0.2-1.0); Magnesium 1.6 mg/dL (1.6-2.4); Potassium 3.2 mEq/L (3.5-5.1); Protein, Total 5.1 g/dL (6.4-8.2)
--- NOTE | 2023-07-05 21:49 | OP ---
Surgeon: Loi Call MD Preoperative Diagnoses: Septic shock; hypotension, on vasopressor; Tonie gangrene including exte rnal genitalia, perineum, suprapubic abdominal wall, bilateral thigh. Postoperative Diagnoses: Septic shock; hypotension, on vasopressor; Tonie gangrene including exte rnal genitalia, perineum, suprapubic abdominal wall, bilateral thigh. Procedure: Wide excision and debridement of Tonie gangrene in the area complex about 60 x 30 x 3 cm. Estimated Blood Loss: Less than 50 cc. Specimens: Culture and necrotic tissue. Findings: Large passes of gangrenous skin multiple areas. The entire area that we mentioned above e ncompassed an area at least 60 x 30 cm. Anesthesia: General plus local. Complications: None. Drain: Urinary catheter. Some of this wound encompass also external genitalia making the urine collection contamination to the area of the wound care. She will not be able to urinate without urinating on her wounds. Dressing: Several, a large Kerlix roll with Silvadene on it. Indications For Procedure: This is the case of a 67-year-old patient who comes to us with hypotensio n, septic shock, had to take the patient emergently to OR due to rapidly progressing Tonie gangren e. Patient was seen in the ER. Seen with several patches of black tissue. She is a . Pat elissa in the OR was immediately called. The patient was stabilized to go for surgery and the patient understood the benefits, alternatives, and risks of wide resection of the Tonie gangrene, which in clude, but not limited to infection, bleeding, damage to adjacent structures, anesthesia complication , VT, and even . She also understands this may not relieve the symptoms. She might need more t gabriel one surgical intervention. She understood, signed a consent. Patient's was at bedside. Description Of Procedure: Patient was brought to the operating room, placed in supine position. Ane sthesia was done without complication. Time-out was called. Patient was placed in lithotomy positio n with proper protection. The abdomen, perineum, suprapubic, perineal area, external genitalia, and bilateral thigh and buttocks were prepped and draped in sterile fashion. After that, I proceeded wit h debridement of all those areas. All the necrotic tissue was removed. The wound goes beyond what w e see in the incisions. I can put my hand through the area suprapubic and also part of the abdominal wall, left and right side. The wound extends into the bilateral thigh region, buttock area, externa l genitalia, and perineum. Anus seems to be spared. After removal of necrotic tissue, we proceeded to obtain hemostasis, obtain pulse lavage, and after that, put Silvadene over that area and packed al l those areas. Patient tolerated the procedure well. Patient was sent to ICU in critical condition. Sponge count and instrument counts were correct. HM/MODL Voice ID: [id number] Report ID: [id number]
[2023-07-05] MEDS ORDERED: Ciprofloxacin 200mg IV 200 MG/100 ML IV.SOLN. IV SCH (21:58)
[2023-07-05 21:59] LABS: Blood Morphology Comment NOT SEEN (NOT SEEN); Dohle Bodies PRESENT; Platelet Estimate DECR; White Blood Cell Scan OK (OK)
[2023-07-05] MEDS: Meropenem 500 MG in NA CHLORIDE 0.9% 100 ML IV SCH (22:12)
[2023-07-05] MEDS ORDERED: CALCIUM GLUC 10% INJ 4.65 MEQ in NA CHLORIDE 0.9% 100 ML IV ONE (22:20)
[2023-07-05] MEDS ORDERED: Meropenem 500 MG VIAL IV ONE (22:23)
[2023-07-05] MEDS: NA CHLORIDE 0.9% 1,000 ML IV SCH (22:40)
[2023-07-06] MEDS: HYDROMORPHONE HCL 1 MG/ML INJ IV PRN (00:59)
[2023-07-06] MEDS ORDERED: METRONIDAZOLE 500mg IVPB 500 MG/100 ML BAG IV SCH (01:00)
[2023-07-06] MEDS ORDERED: CALCIUM GLUCONATE 1 GM IVPB 1 GM/50 ML BAG IV ONE (02:07)
[2023-07-06] MEDS ORDERED: CALCIUM GLUC 10% INJ 4.65 MEQ in NA CHLORIDE 0.9% 100 ML IV ONE (02:09)
[2023-07-06] MEDS ORDERED: CALCIUM GLUC 10% INJ 4.65 MEQ in NA CHLORIDE 0.9% 50 ML IV ONE (03:00)
[2023-07-06] MEDS: NOREPINEPHRINE BITARTRATE/D5W 4 MG/250 ML BAG IV SCH (03:20)
[2023-07-06] MEDS ORDERED: NOREPINEPHRINE BITARTRATE/D5W 4 MG/250 ML BAG IV ONE (03:31)
[2023-07-06 04:57] LABS: Absolute Lymphocytes (CBC) 0.3 K/uL (0.7-4.9); Hematocrit 36.3 % (36.0-45.0); Lymphocytes % 3.7 % (15.3-44.8); MCV 97.2 fL (80-100); MPV 9.7 fL (7.6-11.3); Platelets 84 thou/uL (152-406); RBC Red Blood Cell Count 3.73 M/uL (3.86-4.86)
[2023-07-06] MEDS: NA CHLORIDE 0.9% 1,000 ML IV SCH ×3 (05:01→16:42)
[2023-07-06] MEDS ORDERED: NA CHLORIDE 0.9% 1,000 ML ONE (05:13)
[2023-07-06 05:21] LABS: Potassium 3.4 mEq/L (3.5-5.1)
[2023-07-06] MEDS ORDERED: ALBUMIN HUMAN 25% 100 ML IV ONE ×2 (06:08→06:36)
[2023-07-06] MEDS ORDERED: NA CHLORIDE 0.9% 500 ML IV ONE (06:08)
[2023-07-06] MEDS ORDERED: SODIUM CHLORIDE 0.9% 10ML INJ IV PRN (06:10)
[2023-07-06 06:28] LABS: Magnesium 1.7 mg/dL (1.6-2.4); Phosphorus 3.8 mg/dL (2.5-4.9)
[2023-07-06] MEDS ORDERED: NA CHLORIDE 0.9% 500 ML ONE (06:35)
[2023-07-06] MEDS ORDERED: MAGNESIUM SULFATE 1 gm IVPB 1 GM/100 ML BAG IV ONE (07:07)
[2023-07-06] MEDS: FENTANYL CITR 100 MCG/2 ML IV PRN ×4 (07:20→23:30)
[2023-07-06] MEDS: ASPIRIN 81 MG CHEWABLE TABLET PO SCH (08:44)
[2023-07-06] MEDS: KCL 20 MEQ/100 mL IVPB 20 MEQ/100 ML BAG IV SCH ×2 (08:44→10:49)
[2023-07-06] MEDS: PANTOPRAZOLE 40 MG INJ IVP SCH ×2 (08:44→20:29)
[2023-07-06] MEDS ORDERED: NA CHLORIDE 0.9% 0 ML ONE (08:55)
[2023-07-06] MEDS ORDERED: VALPROATE NA 500 MG/5 ML INJ IV ONE (08:55)
[2023-07-06] MEDS: VALPROATE SODIUM INJ 500 MG in NA CHLORIDE 0.9% 100 ML IV SCH ×2 (08:59→20:28)
[2023-07-06] MEDS: Meropenem 500 MG in NA CHLORIDE 0.9% 100 ML IV SCH ×2 (10:50→20:28)
[2023-07-06] MEDS ORDERED: NA CHLORIDE 0.9% 100 ML ONE ×2 (10:56→20:41)
[2023-07-06] MEDS ORDERED: Meropenem 500 MG VIAL IV ONE ×2 (10:57→20:41)
--- NOTE | 2023-07-06 13:16 | P.PN ---
Subjective Date of Service: 07/06/23 Chief Complaint: Generalized weakness Subjective: No new changes, Improving Physical Examination - Vital Signs Temperature: 97.4 F Blood Pressure: 102/67 Pulse: 108 Respirations: 14 Pulse Ox (%): 98 - Physical Exam General: Alert HEENT: Atraumatic Neck: Supple Respiratory: Normal air movement Cardiovascular: Regular rate/rhythm, Normal S1 S2 Gastrointestinal: Soft and benign Musculoskeletal: Other (post op changes noted.) Neurological: Normal speech - Studies Microbiology Data (last 24 hrs): 07/05/23 07:00 Blood - Blood Blood Culture Gram Stain - Final 07/05/23 06:15 Blood - Blood Blood Culture Gram Stain - Final 07/05/23 06:15 Blood - Blood Gram Stain - Final Assessment And Plan - Plan Assessment and Plan - Plan --Labial cellulitis/necrotizing fasciitis/Tonie's gangrene. Had I&D and extensive debridement. Surgeon following for recommendation. Antibiotic therapy to be continued pending further review. -- Sepsis with septic shock. Resolved post administration of IV antibiotic and I&D and debridement of suspected necrotizing fasciitis. Lactic acid is now within normal limit. Will continue IV hydration. -- Acute pain. We will manage pain with current pain medication regimen. -- Diarrhea. Stool studies pending to rule out any infectious process. Continue IV hydration. --History of seizures. Continue home medications. Seizure precautions. --CHASITY. Likely prerenal. Secondary to dehydration and is resolving.. Continue IV hydration. Nephrology consulted. Will await further recommendations. --Hypokalemia. Replete as needed. -- GERD. Continue Protonix. --Hypertension. No further need for antihypertensive medications at this time. Will follow vitals closely. --DVT prophylaxis with Lovenox subQ. Discharge Plan: Home Plan to discharge in: Greater than 2 days - Advance Directives Does patient have a Living Will: No Does patient have a Durable POA for Healthcare: No Disposition: Pending finalization of cultures and surgeon recs. Physician Review: Patient Assessed, Agree with Above Assessment and Plan
[2023-07-06] MEDS: VANCOMYCIN 1.25 GM in NA CHLORIDE 0.9% 250 ML IVPB SCH (14:57)
[2023-07-06] MEDS: HYDROCODONE/APAP 10/325 TAB PO PRN ×2 (15:10→20:29)
[2023-07-06] MEDS ORDERED: HYDROCODONE/APAP 10/325 TAB ONE ×2 (15:22→20:40)
--- NOTE | 2023-07-06 15:38 | P.PN ---
Subjective Date of Service: 07/06/23 Chief Complaint: Generalized weakness Subjective: Other (No complaints of dysuria or flank pain.) Physical Examination - Vital Signs Temperature: 97.4 F Blood Pressure: 101/56 Pulse: 91 Respirations: 17 Pulse Ox (%): 100 - Physical Exam General: In no apparent distress HEENT: Atraumatic, Normocephalic Neck: Supple Respiratory: Other (symmetric chest expansion) Cardiovascular: No rubs, No murmurs Gastrointestinal: Soft and benign, No guarding Musculoskeletal: No clubbing Integumentary: No warmth Neurological: Normal tone Urinary: Other (No bladder distention) External genitalia: Deferred Rectal: Deferred - Studies Microbiology Data (last 24 hrs): 07/05/23 07:00 Blood - Blood Blood Culture Gram Stain - Final 07/05/23 06:15 Blood - Blood Blood Culture Gram Stain - Final 07/05/23 06:15 Blood - Blood Gram Stain - Final Assessment And Plan - Plan # CHASITY 2/2 ATN/septic shock SCr 2.2 on adm, improved to 1.0 today Baseline SCr 0.6 as of Sep 2020 Urinalysis with 1+ proteinuria but no hematuria & no pyuria Titrate vasopressor/s to keep MAP > 65 Decrease NS gtt to 75 cc/hr Strict I&O # Hypokalemia KCl repletion prn # Septic shock 2/2 Tonei's gangrene Hx of Htn S/p debridement on 07/05 Titrate vasopressor/s as above IV abx F/u cultures # Acute diarrhea F/u stool studies # GERD Protonix # Hx of seizures Continue home antiepileptic medication regimen Physician Review: Patient Assessed, Agree with Above Assessment and Plan
[2023-07-06] MEDS: ENOXAPARIN 30 MG/0.3 ML SQ SCH (16:59)
[2023-07-06] MEDS ORDERED: FENTANYL CITR 100 MCG/2 ML ONE (17:13)
[2023-07-06] MEDS ORDERED: FENTANYL CITR 100 MCG/2 ML IV ONE (19:30)
[2023-07-06 20:38] LABS: Magnesium 2.2 mg/dL (1.6-2.4); Phosphorus 1.7 mg/dL (2.5-4.9)
[2023-07-06] MEDS ORDERED: PANTOPRAZOLE 40 MG INJ ONE (20:40)
--- NOTE | 2023-07-06 21:07 | PN ---
Date of Progress Note: 07/06/2023 Reason For Service: Tonie gangrene, perineum, suprapubic, thigh, abdominal wall, bilateral buttoc ks, and genitalia. Subjective: The patient came in septic shock and hypotension. Right now, she feels better. She is awake, alert. Objective: Vital Signs: Look stable without epinephrine at this moment. Chest: Clear. Abdomen: Soft and depressible. Extremities: Good capillary refill. Integumentary: Showed this all extensive wounds. We spent about an hour today just doing dressing c samira, me and the nurse. The redness looks under control. No more new areas. No more necrotic tis heber seen at this moment. Plan: Follow up the cultures. Continue on antibiotics. Continue dressing changes. I may have to t jaclyn her in the next 48-72 hours for further debridement and most likely pulse lavage. The family is at bedside. We instructed them or at least showed them since they requested that, the dressing danny morales. JORDYN/MANI Voice ID: [id number] Report ID: [id number]
[2023-07-07] MEDS ORDERED: VANCOMYCIN 1.25 GM in NA CHLORIDE 0.9% 250 ML IVPB SCH ×2 (03:00→15:00)
[2023-07-07 05:17] LABS: Absolute Lymphocytes (CBC) 0.4 K/uL (0.7-4.9); Lymphocytes % 5.9 % (15.3-44.8); MCV 96.4 fL (80-100); MPV 9.5 fL (7.6-11.3); Platelets 64 thou/uL (152-406); RBC Red Blood Cell Count 3.12 M/uL (3.86-4.86)
[2023-07-07] MEDS ORDERED: HYDROCODONE/APAP 10/325 TAB ONE ×3 (05:17→20:38)
[2023-07-07] MEDS ORDERED: NA CHLORIDE 0.9% 1,000 ML ONE (05:17)
[2023-07-07] MEDS: HYDROCODONE/APAP 10/325 TAB PO PRN ×3 (05:30→21:04)
[2023-07-07 05:46] LABS: Bilirubin Total 0.4 mg/dL (0.2-1.0); Magnesium 2.3 mg/dL (1.6-2.4); Potassium 3.9 mEq/L (3.5-5.1); Protein, Total 4.4 g/dL (6.4-8.2)
[2023-07-07] MEDS: NA CHLORIDE 0.9% 1,000 ML IV SCH ×2 (05:49→19:25)
[2023-07-07 05:53] LABS: Phosphorus 1.5 mg/dL (2.5-4.9)
[2023-07-07] MEDS ORDERED: POTASSIUM PHOS IN 0.9 % NACL 15 MMOL/250 ML BAG IV ONE (06:01)
[2023-07-07 07:43] LABS: Blood Morphology Comment NOT SEEN (NOT SEEN); Dohle Bodies PRESENT; Platelet Estimate DECR
[2023-07-07] MEDS: PANTOPRAZOLE 40 MG INJ IVP SCH (08:28)
[2023-07-07] MEDS: ASPIRIN 81 MG CHEWABLE TABLET PO SCH (08:30)
[2023-07-07] MEDS ORDERED: VALPROATE NA 500 MG/5 ML INJ IV ONE (08:33)
[2023-07-07] MEDS ORDERED: Meropenem 500 MG VIAL IV ONE ×2 (08:33→20:15)
[2023-07-07] MEDS ORDERED: NA CHLORIDE 0.9% 100 ML ONE ×2 (08:33→20:15)
[2023-07-07] MEDS: VALPROATE SODIUM INJ 500 MG in NA CHLORIDE 0.9% 100 ML IV SCH (09:14)
[2023-07-07] MEDS: Meropenem 500 MG in NA CHLORIDE 0.9% 100 ML IV SCH ×2 (09:14→21:04)
--- NOTE | 2023-07-07 09:31 | P.PN ---
Subjective Date of Service: 07/07/23 Chief Complaint: Generalized weakness Subjective: No new changes, Improving Physical Examination - Vital Signs Temperature: 97.7 F Blood Pressure: 112/78 Pulse: 85 Respirations: 15 Pulse Ox (%): 99 - Physical Exam General: Alert, Oriented x3 HEENT: Atraumatic Respiratory: Normal air movement Cardiovascular: Regular rate/rhythm - Studies Laboratory Data (last 24 hrs) 07/06/23 15:40 Phosphorus 1.7 L Magnesium 2.2 Microbiology Data (last 24 hrs): 07/05/23 07:00 Blood - Blood Blood Culture Gram Stain - Final 07/05/23 06:15 Blood - Blood Blood Culture Gram Stain - Final 07/05/23 06:15 Blood - Blood Gram Stain - Final Assessment And Plan - Plan Assessment and Plan - Plan --Labial cellulitis/necrotizing fasciitis/Tonie's gangrene. Had I&D and extensive debridement. Surgeon following for recommendation. Antibiotic therapy to be continued pending further review. -- Sepsis with septic shock. Resolved post administration of IV antibiotic and I&D and debridement of necrotizing fasciitis. Lactic acid is now within normal limit. Will continue IV hydration. -- Acute pain. We will manage pain with current pain medication regimen. -- Diarrhea. Stool studies pending to rule out any infectious process. Continue IV hydration. --History of seizures. Continue home medications. Seizure precautions. --CHASITY. Likely prerenal. Secondary to dehydration and is resolved. Continue IV hydration. Nephrology consulted. recommendations being followed. --Hypokalemia. Low potassium at 3.1 today. Replete as needed. -- GERD. Continue Protonix. --Hypertension. No further need for antihypertensive medications at this time. Will follow vitals closely. --DVT prophylaxis with Lovenox subQ. Discharge Plan: Home Plan to discharge in: Greater than 2 days - Advance Directives Does patient have a Living Will: No Does patient have a Durable POA for Healthcare: No Disposition: Pending finalization of cultures and surgeon recs. Physician Review: Patient Assessed, Agree with Above Assessment and Plan
[2023-07-07] MEDS ORDERED: CYANOCOBALAMIN 1000MCG/ML INJ IM ONE ×2 (11:28→15:00)
[2023-07-07] MEDS ORDERED: FENTANYL CITR 100 MCG/2 ML IV ONE (13:00)
[2023-07-07] MEDS: FENTANYL CITR 100 MCG/2 ML IV PRN ×2 (13:37→21:05)
[2023-07-07] MEDS: VANCOMYCIN 1.25 GM in NA CHLORIDE 0.9% 250 ML IVPB SCH ×2 (14:50→15:00)
[2023-07-07] MEDS: DIVALPROEX DR 500MG TAB PO SCH ×2 (14:51→21:02)
--- NOTE | 2023-07-07 15:19 | PN ---
Subjective: Very sick lady of 67-year-old patient with Tonie gangrene including a large area of t he perineum, suprapubic, abdomen, bilateral thighs, buttocks. Patient is doing well. We are doing t he dressing changes again today. Takes about an hour to do dressing changes. She is looking good. She has good spirits. Objective: Chest: Clear. Abdomen: Soft and depressible. Extremities: Good capillary refill. Integumentary: Shows there are large open wounds over areas that I mentioned above. Deep down to my wrist in some areas. There were some regions that the redness is getting better. Some other ones h ave not moved much. Plan: For that reason, we are going to take her once again tomorrow once again under anesthesia and do a recheck as planned even after the previous surgery. She understands the benefits, alternatives, and risks. JORDYN/MANI Voice ID: [id number] Report ID: [id number]
--- NOTE | 2023-07-07 15:36 | P.PN ---
Subjective Date of Service: 07/07/23 Chief Complaint: Generalized weakness Subjective: Other (no urinary complaints) Physical Examination - Vital Signs Temperature: 97.7 F Blood Pressure: 123/63 Pulse: 84 Respirations: 13 Pulse Ox (%): 100 - Physical Exam General: In no apparent distress HEENT: Atraumatic, Normocephalic Neck: Supple Respiratory: Other (symmetric chest expansion) Cardiovascular: No rubs, No murmurs Gastrointestinal: Soft and benign Musculoskeletal: No clubbing Integumentary: No warmth Neurological: Normal speech, Normal tone Urinary: Other (no bladder distention) External genitalia: Deferred Rectal: Deferred - Studies Laboratory Data (last 24 hrs) 07/06/23 15:40 Phosphorus 1.7 L Magnesium 2.2 Microbiology Data (last 24 hrs): 07/05/23 19:10 Wound - Labial Gram Stain - Final 07/05/23 19:10 Wound - Labial Gram Stain - Final 07/05/23 07:00 Blood - Blood Blood Culture Gram Stain - Final 07/05/23 06:15 Blood - Blood Blood Culture Gram Stain - Final 07/05/23 06:15 Blood - Blood Gram Stain - Final Assessment And Plan - Plan # CHASITY 2/2 ATN/septic shock SCr 2.2 on adm, improved to 0.6 today Baseline SCr 0.6 as of Sep 2020 Urinalysis with 1+ proteinuria but no hematuria & no pyuria Titrate vasopressor/s to keep MAP > 65 [place] po fluid intake Cont NS gtt 75 cc/hr Strict I&O # Hypokalemia Improved, KCl repletion prn # Hypophosphatemia Phos repletion when necessary # Acidosis Mild, monitor # Septic shock 2/2 Tonie's gangrene Shock resolved, off levo gtt Hx of Htn S/p debridement on 07/05; for I&D on 07/08 Titrate vasopressor/s as above IV abx F/u cultures # Acute diarrhea F/u stool studies # GERD Protonix # Hx of seizures Continue home antiepileptic medication regimen Physician Review: Patient Assessed, Agree with Above Assessment and Plan
[2023-07-07] MEDS: lamoTRIgine 150 MG TAB PO SCH (21:00)
[2023-07-07] MEDS: PANTOPRAZOLE 40MG TABLET PO SCH (21:03)
[2023-07-08] MEDS: FENTANYL CITR 100 MCG/2 ML IV PRN ×3 (01:01→23:28)
[2023-07-08] MEDS: VANCOMYCIN 1.25 GM in NA CHLORIDE 0.9% 250 ML IVPB SCH ×3 (04:55→15:00)
--- NOTE | 2023-07-08 05:31 | P.PN ---
Date of Service: 07/08/23 Subjective: Patient clinically doing better. Plan to go back for debridement today or tomorrow. Appreciate general surgery input. Physical Exam: Vitals: reviewed GEN: Alert, oriented, NAD CV: Regular rate & rhythm, no edema Pulm: Nonlabored respiraitons, clear bilaterally ABD: Soft, nontender, nondistended Integumentary: Dressing intact; Left inguinal wound with dressing intact Neuro: No focal deficits Problem List: Septic Shock secondary to Tonie's gangrene / necrotizing fasciitis, s/p I&D 07/05 CHASITY, resolved Hypokalemia GERD Hypertension h/o seizure disorder Plan: 1. Septic shock secondary to Tonie's gangrene/necrotizing fasciitis status post I&D 07/05. Continue with IV antibiotic therapy. Plan to do second debridement today or tomorrow. Continue monitoring wound closely. 2. Acute kidney injury; renal function has stabilized 3. Hypokalemia; potassium levels are stable 4. GERD; continue with PPI 5. History of hypertension; blood pressure stable 6. Seizure disorder; continue with antiepileptic 7. GI and DVT prophylaxis
[2023-07-08 05:40] LABS: Magnesium 1.8 mg/dL (1.6-2.4); Phosphorus 1.8 mg/dL (2.5-4.9); Potassium 3.5 mEq/L (3.5-5.1)
[2023-07-08] MEDS ORDERED: MAGNESIUM SULFATE 1 gm IVPB 1 GM/100 ML BAG IV ONE (08:00)
--- NOTE | 2023-07-08 08:36 | P.CNS ---
Date of Consult: 07/08/23 Reason for Consult: josette's gangrene Chief Complaint: Generalized weakness History of Present Illness: Patient is a 67-year-old female with a past medical history hypertension, seizure disorder and gastric bypass who presented to the ED with complaints of generalized weakness, right lower quadrant abdominal pain, labial pain. In the ED patient was noted to have fever of 102 F and labial edema/erythema. Patient was admitted for labial cellulitis. General surgery was consulted at that time and she underwent a excisional debridement on 07/[address] Call with findings of Josette's gangrene 60 x 30 x 3 cm. Infectious disease was consulted. Allergies amoxicillin [From Augmentin] Allergy (Verified 05/18/20 17:12) Hives/Rash clavulanic acid [From Augmentin] Allergy (Verified 05/18/20 17:12) Hives/Rash meperidine [From Demerol] Allergy (Verified 05/18/20 17:12) Hives Home medications list reviewed: Yes Home Medications: Divalproex Sodium 1 tab PO TID 04/24/20 Lamotrigine [Lamictal] 75 mg PO BID 04/24/20 Pantoprazole [Protonix Tab*] 40 mg PO BEDTIME 08/09/20 Aspirin [Aspirin EC 81 MG] 1 tab PO DAILY 07/06/23 - Past Medical/Surgical History Diabetic: No -: Seizure history -: Hypertension -: Gastric Bypass -: Colonoscopy -: Endoscopy -: Breast reduction -: Hysterectomy - Family History Father Medical History: Cancer Mother Medical History: Cancer, Other (see notes) Notes: Leukemia - Social History Smoking Status: Unknown if ever smoked Alcohol use: No CD- Drugs: No Caffeine use: No Place of Residence: Home Review of Systems 10-point ROS is otherwise unremarkable Integumentary: As per HPI Physical Examination Temp Pulse Resp BP Pulse Ox 97 F 86 20 127/65 95 07/08/23 07:00 07/08/23 07:00 07/08/23 07:00 07/08/23 07:00 07/08/23 07:00 General: Alert, In no apparent distress, Oriented x3 HEENT: Atraumatic, Normocephalic Neck: Supple, JVD not distended Respiratory: Clear to auscultation bilaterally, Normal air movement Cardiovascular: Regular rate/rhythm Gastrointestinal: Normal bowel sounds, Soft and benign Integumentary: Other (s/p debridement of josette's gangrene. Dressing clean dry and intact. ) Neurological: Normal speech, Normal tone, Normal affect Urinary: Hoskins catheter Laboratory data -Reviewed Microbiology data -Reviewed Imagings Data: -Reviewed Conclusions/Impression: Problem list Josette's gangrene /necrotizing fasciitis Seizure disorder Obesity Hypertension Josette's gangrene /necrotizing fasciitis - Patient underwent debridement on 07/[address] Call with findings of Josette's gangrene 60 x 30 x 3 cm, gangrenous skin and subcutaneous abdominal, suprapubic, perineum, and external genitalia, bilateral thigh. -Labial wound culture 07/05: Streptococcus pyogenes -Blood cultures 07/05: Streptococcus pyogenes -Currently on meropenem (07/05-) and vancomycin (07/06-) Recommendations - Continue Meropenem and Vancomycin for now. Patient is scheduled for another debridement tomorrow 07/[address] Call. Continue wound care per Dr. Call - Monitor WBC and fever trends Case discussed with Melita Resendez
[2023-07-08] MEDS ORDERED: POTASSIUM PHOS IN 0.9 % NACL 15 MMOL/250 ML BAG IV ONE (09:00)
[2023-07-08] MEDS: DIVALPROEX DR 500MG TAB PO SCH ×3 (09:00→21:55)
[2023-07-08] MEDS ORDERED: ASPIRIN EC 81 MG TAB PO ONE (09:19)
[2023-07-08] MEDS ORDERED: DIVALPROEX DR 250 MG TAB PO ONE ×3 (09:19→14:03)
[2023-07-08] MEDS ORDERED: Meropenem 1000 MG/VIAL IV ONE ×2 (09:19→17:22)
[2023-07-08] MEDS: HYDROCODONE/APAP 10/325 TAB PO PRN ×3 (09:21→21:55)
[2023-07-08] MEDS: lamoTRIgine 150 MG TAB PO SCH ×2 (09:22→21:55)
[2023-07-08] MEDS: ASPIRIN EC 81 MG TAB PO SCH (09:24)
[2023-07-08] MEDS: Meropenem 1,000 MG in NA CHLORIDE 0.9% 100 ML IV SCH ×2 (09:24→17:09)
[2023-07-08] MEDS ORDERED: NA CHLORIDE 0.9% 100 ML ONE ×2 (09:25→17:22)
[2023-07-08] MEDS ORDERED: HYDROCODONE/APAP 10/325 TAB ONE ×4 (09:30→22:03)
[2023-07-08] MEDS ORDERED: NA CHLORIDE 0.9% 1,000 ML ONE (12:17)
[2023-07-08] MEDS: NA CHLORIDE 0.9% 1,000 ML IV SCH (14:03)
--- NOTE | 2023-07-08 16:56 | EKG ---
Test Date: 2023-07-05 Test Time: 07:21:53 Lining Vamper: HOLLY MEASUREMENT RESULTS: Intervals: Rate: 123 [place]: 156 QRSD: 82 QT: 316 QTc: 452 [place]: P: 1 NJ: 156 QRS: 67 T: 62 INTERPRETIVE STATEMENTS: Sinus tachycardia Nonspecific ST abnormality Abnormal ECG Compared to ECG 05/29/2020 15:09:37 ST (T wave) deviation now present Sinus rhythm no longer present T-wave abnormality no longer present Possible ischemia no longer present Electronically Signed On 07-08-23 16:52:48 TOBACCO CLASSER by Guy Devine
[2023-07-08] MEDS ORDERED: FENTANYL CITR 100 MCG/2 ML ONE ×2 (17:08→21:57)
[2023-07-08] MEDS ORDERED: HYDROCODONE/APAP 10/325 TAB PO STA (18:06)
[2023-07-08] MEDS: PANTOPRAZOLE 40MG TABLET PO SCH (21:55)
--- NOTE | 2023-07-08 22:37 | PN ---
Date of Progress Note: 07/08/2023 Diagnosis: Tonie's gangrene. Subjective: The patient is doing great. She is in good spirit. Objective: Vital Signs: Stable. Chest: Clear. Abdomen: Soft and depressible. Dressings are improving. Redness is improving. I changed all the d ressings today, took about an hour to do this dressing changes. Extremities: Good capillary refill. Plan: We are going to take her tomorrow to surgery. There is some areas of redness that has not dec reased in size. We suspect may be fluid in those areas. So under anesthesia, we are going to go [place] k there and do the planned surgery that we already did plan a several days ago. This is just to sche dule a surgery already planned. She understands the risk. She is going to be n.p.o. after midnight. We had her scheduled for that today, but unfortunately her electrolytes were not safe enough for th e anesthesia to put her to sleep, so we are going to try tomorrow morning again. JORDYN/MANI Voice ID: [id number] Report ID: [id number]
--- NOTE | 2023-07-08 22:52 | PN ---
Date of Progress Note: 07/08/2023 Chief Complaint: Acute kidney injury, nonoliguric secondary to septic shock. Subjective: On arrival to the hospital, the patient had elevated creatinine level up to 0.2. The som james was on vasopressors. Urinalysis showed 1+ proteinuria, no hematuria, and no pyuria. Renal fun ction has gradually improved. Previous serum creatinine baseline was 0.6 on arrival to the hospital. Serum creatinine was 2.2. Review of Systems: The patient denies chest pain, palpitations. Physical Examination: Lungs: Clear to auscultation bilaterally. Heart: S1, S2. Abdomen: Soft, benign. Extremities: Slight edema. Blood work, wound culture, blood culture, Gram stain pending. Magnesium 2.2, phosphorus 1.7. Laboratory Work: Hemoglobin 10.0, WBC 7.0, platelet count is 64,000. Sodium 142, potassium 3.5, chl oride 117, carbon dioxide 19, BUN 12, creatinine 0.35, phosphorus 1.8, calcium 7.3, magnesium 1.8. Impression And Plan: 1.Acute kidney injury secondary to septic shock, nonoliguric acute tubular necrosis was due to septi c shock and hypotension. The patient required vasopressors. Plan is to continue normal saline infus ion and monitor strict I's and O's. Urinalysis showed 1+ proteinuria, no hematuria, and no pyuria. Renal function has improved and plan is to reevaluate proteinuria panel. 2.Hypophosphatemia. Treatment with IV medication. Monitor phosphorus level. 3.Hypokalemia, improved. Potassium chloride as needed by mouth. 4.Acidosis, mild. Monitor. 5.Septic shock secondary to Tonie gangrene. Shock resolved. The patient is to have debridement. Surgery scheduled for July 09. Titrate vasopressors according to MAP greater than 65. Continu e IV antibiotics. Continue to follow up culture. 6.Acute diarrhea. Follow up. EB/MANI Voice ID: [id number] Report ID: [id number]
[2023-07-09] MEDS: Meropenem 1,000 MG in NA CHLORIDE 0.9% 100 ML IV SCH ×3 (01:55→17:48)
[2023-07-09] MEDS: NA CHLORIDE 0.9% 1,000 ML IV SCH ×2 (03:51→12:31)
[2023-07-09] MEDS: VANCOMYCIN 1.25 GM in NA CHLORIDE 0.9% 250 ML IVPB SCH ×2 (03:52→14:37)
[2023-07-09] MEDS: FENTANYL CITR 100 MCG/2 ML IV PRN ×3 (03:59→21:11)
[2023-07-09] MEDS ORDERED: NA CHLORIDE 0.9% 1,000 ML ONE (04:04)
[2023-07-09] MEDS ORDERED: FENTANYL CITR 100 MCG/2 ML ONE ×3 (04:12→21:24)
[2023-07-09 05:54] LABS: Magnesium 1.7 mg/dL (1.6-2.4); Phosphorus 2.6 mg/dL (2.5-4.9); Potassium 3.4 mEq/L (3.5-5.1)
[2023-07-09 05:55] LABS: Absolute Lymphocytes (CBC) 0.9 K/uL (0.7-4.9); Hematocrit 30.8 % (36.0-45.0); Lymphocytes % 10.1 % (15.3-44.8); MCV 96.1 fL (80-100); MPV 9.3 fL (7.6-11.3); Platelets 86 thou/uL (152-406)
[2023-07-09 05:58] LABS: Protime INR 0.97
[2023-07-09] MEDS ORDERED: MAGNESIUM SULFATE 1 gm IVPB 1 GM/100 ML BAG IV ONE (07:05)
[2023-07-09] MEDS ORDERED: propofoL 200 MG/20 ML VIAL IV ONE (08:09)
[2023-07-09] MEDS ORDERED: KETOROLAC 30 MG/ML INJ ONE (08:09)
[2023-07-09] MEDS ORDERED: MIDAZOLAM HCL 2 MG/2 ML INJ ONE (08:09)
[2023-07-09] MEDS ORDERED: ONDANSETRON 4 MG/2 ML VIAL ONE (08:09)
[2023-07-09] MEDS ORDERED: LIDOCAINE 2% MPF 5 ML VIAL ONE (08:09)
[2023-07-09] MEDS ORDERED: dexAMETHasone 4 MG/ML VIAL ONE (08:09)
[2023-07-09] MEDS: KCL 20 MEQ/100 mL IVPB 20 MEQ/100 ML BAG IV SCH ×2 (08:10→13:53)
[2023-07-09] MEDS: lamoTRIgine 150 MG TAB PO SCH ×2 (08:11→21:00)
[2023-07-09] MEDS: ASPIRIN EC 81 MG TAB PO SCH (08:11)
[2023-07-09] MEDS: DIVALPROEX DR 500MG TAB PO SCH ×3 (08:11→21:04)
[2023-07-09] MEDS ORDERED: NA CHLORIDE 0.9% 100 ML ONE ×2 (08:16→17:48)
[2023-07-09] MEDS ORDERED: Meropenem 1000 MG/VIAL IV ONE ×2 (08:16→17:48)
[2023-07-09] MEDS ORDERED: POTASSIUM PHOS IN 0.9 % NACL 15 MMOL/250 ML BAG IV ONE (09:15)
[2023-07-09] MEDS ORDERED: SILVER SULFADIAZINE 1% 25 GM TOP ONE (10:07)
--- NOTE | 2023-07-09 11:05 | P.BOP ---
Preoperative diagnosis: fornier gangrene multifocal Postoperative diagnosis: same Primary procedure: Wide excisional debridement down to muscle Fornier gangrene: Secondary procedure: Perineum [id number], Left [id number], suprapubic 0d4f36tk, R thigh [id number] Other procedure(s): abd wall [id number], ext. genitalia 15w22z6vs with Pulse lavage Estimated blood loss: <40cc Specimen: none Findings: devitalized tissue Anesthesia: General Complications: None Drain(s): Urinary catheter Implants: several gauze rolls with silvadene Transferred to: Recovery Room Condition: Fair
[2023-07-09] MEDS: HYDROMORPHONE HCL 1 MG/ML INJ ONE ×2 (11:20→11:30)
[2023-07-09] MEDS: FENTANYL CITR 100 MCG/2 ML ONE ×2 (11:33→11:43)
--- NOTE | 2023-07-09 13:34 | P.PN ---
Date of Service: 07/09/23 Chief Complaint: Generalized weakness Subjective: No acute events reported overnight. Pending second debridement this morning by Dr. Call. Physical Examination Temp Pulse Resp BP Pulse Ox 99.2 F 100 H 14 111/68 99 07/09/23 12:05 07/09/23 12:05 07/09/23 12:32 07/09/23 12:05 07/09/23 12:32 General: Alert, In no apparent distress, Oriented x3 HEENT: Atraumatic, Normocephalic Neck: Supple, JVD not distended Respiratory: Clear to auscultation bilaterally, Normal air movement Cardiovascular: Regular rate/rhythm Gastrointestinal: Normal bowel sounds, Soft and benign. Integumentary: s/p debridement of josette's gangrene/suprapubic, perineum, external genitalia, bilateral thigh-Dressing clean dry and intact Neurological: Normal speech, Normal tone, Normal affect Urinary: Hoskins catheter Laboratory data -Reviewed Microbiology data -Reviewed Imagings Data: -Reviewed Medications List: Reviewed Assessment and Plan Problem list Josette's gangrene /necrotizing fasciitis Seizure disorder Obesity Hypertension Josette's gangrene /necrotizing fasciitis - Patient underwent debridement on 07/[address] Call with findings of Josette's gangrene 60 x 30 x 3 cm, gangrenous skin and subcutaneous abdominal, suprapubic, perineum, and external genitalia, bilateral thigh. -Labial wound culture 07/05: Streptococcus pyogenes -Blood cultures 07/05: Streptococcus pyogenes -Currently on meropenem (07/05-) and vancomycin (07/06-) WBC 9.4 Afebrile Recommendations - Josette's gangrene: Continue Meropenem and Vancomycin for now. - Continue wound care per Dr. Call - Monitor WBC and fever trends Scheduled for second debridement today. Follow up with operative report. Case discussed with Melita Resendez
[2023-07-09] MEDS: HYDROCODONE/APAP 10/325 TAB PO PRN ×2 (13:53→19:05)
[2023-07-09] MEDS ORDERED: HYDROCODONE/APAP 10/325 TAB ONE ×2 (14:06→18:52)
--- NOTE | 2023-07-09 14:34 | PN ---
Date of Progress Note: 07/09/2023 Subjective: The patient was admitted with cellulitis/abscess. The patient had acute kidney injury. Creatinine upon admission 2.2 secondary to toxic ATN, poor perfusion ATN, kidney number has been improved to normalize. Objective: General: When I saw the patient, the patient is status post debridement today. Vital Signs: Blood pressure 111/68, pulse of 100. Chest: Decreased entry bilateral base. Heart: S1, S2 regular. Abdomen: Soft, nontender. Extremities: Dressing. Laboratory Data: Hemoglobin is 10.3, sodium 144, potassium 3.4, bicarb 22, BUN 5, creatinine 0.3, calcium 7.6, phosphorus 2.6, magnesium 1.7. Current Medications: 1. Aspirin. 2. Meropenem. 3. Vancomycin. 4. IV fluid. 5. Magnesium sulfate. Assessment And Plan: 1. Acute kidney injury secondary to toxic ATN, resolved. We will continue to monitor. 2. Hypertension, controlled, optimal. Please avoid any WILBERTO inhibitor or ARB. 3. Cellulitis/abscess, status post debridement today. We will follow up with Surgery. Continue current antibiotic. 4. Hypomagnesemia. Hypokalemia. We will supplement. time spend exam the patient face to face reviewing data lab and radiology placing order , discussing with the patient , discussing with the stationary steam engineer including hospitalist and nursing staff >35 min JULIAN Voice ID: [id number] Report ID: [id number] VIRGEN
[2023-07-09] MEDS: PANTOPRAZOLE 40MG TABLET PO SCH (21:04)
[2023-07-10] MEDS: NA CHLORIDE 0.9% 1,000 ML IV SCH (00:47)
[2023-07-10] MEDS: Meropenem 1,000 MG in NA CHLORIDE 0.9% 100 ML IV SCH ×3 (00:47→16:53)
[2023-07-10] MEDS: HYDROCODONE/APAP 10/325 TAB PO PRN ×3 (00:50→20:24)
[2023-07-10] MEDS ORDERED: HYDROCODONE/APAP 10/325 TAB ONE ×3 (00:58→20:32)
[2023-07-10] MEDS ORDERED: NA CHLORIDE 0.9% 100 ML ONE ×3 (00:59→17:05)
[2023-07-10] MEDS ORDERED: Meropenem 500 MG VIAL IV ONE (00:59)
[2023-07-10] MEDS ORDERED: NA CHLORIDE 0.9% 1,000 ML ONE (01:00)
[2023-07-10] MEDS: FENTANYL CITR 100 MCG/2 ML IV PRN ×4 (02:56→17:54)
[2023-07-10] MEDS: VANCOMYCIN 1.25 GM in NA CHLORIDE 0.9% 250 ML IVPB SCH ×2 (03:55→14:39)
[2023-07-10 07:11] LABS: Absolute Lymphocytes (CBC) 1.1 K/uL (0.7-4.9); Hematocrit 28.8 % (36.0-45.0); Lymphocytes % 10.3 % (15.3-44.8); MCV 96.7 fL (80-100); Platelets 128 thou/uL (152-406); RBC Red Blood Cell Count 2.98 M/uL (3.86-4.86)
[2023-07-10 07:25] LABS: Magnesium 1.9 mg/dL (1.6-2.4); Phosphorus 2.1 mg/dL (2.5-4.9); Potassium 3.6 mEq/L (3.5-5.1)
[2023-07-10] MEDS ORDERED: POTASSIUM PHOS IN 0.9 % NACL 15 MMOL/250 ML BAG IV ONE (07:45)
[2023-07-10] MEDS: ASPIRIN EC 81 MG TAB PO SCH (08:39)
[2023-07-10] MEDS ORDERED: VALPROATE NA 500 MG/5 ML INJ IV ONE (08:47)
[2023-07-10] MEDS ORDERED: Meropenem 1000 MG/VIAL IV ONE ×2 (08:47→17:04)
[2023-07-10] MEDS ORDERED: ASPIRIN EC 81 MG TAB PO ONE (08:47)
--- NOTE | 2023-07-10 08:59 | P.PN ---
Date of Service: 07/10/23 Chief Complaint: Generalized weakness Subjective: Patient underwent second debridement yesterday (07/09) by Dr. Call. Patient reports some pain at debridement sites, controlled by PRN pain medication. Otherwise no new or worsening complaints at this time. Continue current plan of care. Physical Examination Temp Pulse Resp BP Pulse Ox 98.3 F 84 13 120/63 96 07/10/23 04:00 07/10/23 06:00 07/10/23 06:00 07/10/23 06:00 07/10/23 06:00 General: Alert, In no apparent distress, Oriented x3 HEENT: Atraumatic, Normocephalic Neck: Supple, JVD not distended Respiratory: Clear to auscultation bilaterally, Normal air movement Cardiovascular: Regular rate/rhythm Gastrointestinal: Normal bowel sounds, Soft and benign. Integumentary: s/p debridement of josette's gangrene/suprapubic, perineum, external genitalia, bilateral thigh-Dressing clean dry and intact Neurological: Normal speech, Normal tone, Normal affect Urinary: Hoskins catheter Laboratory data -Reviewed Microbiology data -Reviewed Imagings Data: -Reviewed Medications List: Reviewed Assessment and Plan Problem list Josette's gangrene /necrotizing fasciitis Seizure disorder Obesity Hypertension Josette's gangrene /necrotizing fasciitis, Streptococcus pyogenes s/p debridement 07/05 and 07/09 - Patient underwent debridement on 07/[address] Call with findings of Josette's gangrene 60 x 30 x 3 cm, gangrenous skin and subcutaneous abdominal, suprapubic, perineum, and external genitalia, bilateral thigh. -Labial wound culture 07/05: Streptococcus pyogenes. No anaerobes grown -Blood cultures 07/05: Streptococcus pyogenes - s/p 2nd debridement 07/09: Wide excisional debridement down to muscle Fornier gangrene: Perineum 90z34he, Left ycohe52s50g8l, suprapubic 0v8c49ho, R thigh 1n7i74nv, abd wall 88k25u1uc, ext. genitalia 49m09o0on with Pulse lavage -Currently on meropenem (07/05-) and vancomycin (07/06-) WBC 11 Afebrile *allergy: amoxicillin * Recommendations - Josette's gangrene: Continue Meropenem and Vancomycin for now. - Strep bacteremia: Continue antibiotic therapy for 14 days. Currently on Vancomycin, continue for now - Pending negative culture. Repeat blood cultures pending-follow up - Continue wound care per Dr. Call - Monitor WBC and fever trends Patient would benefit from LTAC placement for extensive wound care and continued IV antibiotics. Case discussed with Melita Resendez
[2023-07-10] MEDS: DIVALPROEX DR 500MG TAB PO SCH ×3 (09:00→20:23)
[2023-07-10] MEDS: lamoTRIgine 150 MG TAB PO SCH ×2 (09:01→20:23)
[2023-07-10] MEDS ORDERED: POTASSIUM CL SA 10 MEQ TAB PO ONE (11:19)
[2023-07-10] MEDS ORDERED: POTASSIUM 25 MEQ EFFERV TAB PO ONE (11:23)
--- NOTE | 2023-07-10 12:10 | PN ---
Date of Progress Note: 07/10/2023 Subjective: The patient was admitted with abdominal wall cellulitis/abscess. The patient had acute kidney injury secondary to septic shock, poor perfusion ATN, toxic ATN. The patient's kidney functio n has been improved after fluid resuscitation. The patient had I and D again yesterday. Objective: Vital Signs: When I saw the patient, blood pressure 113/62, pulse of 97, afebrile. Chest: Faint rales on the left base. Heart: S1, S2. Systolic murmur. Abdomen: Soft. Dressing on the lower quadrant. Mild tenderness. No guarding. Extremities: Trace edema. Neurologic: Alert. No focality. Laboratory Data: Sodium 140, potassium 3.6, bicarb 19, BUN 4, creatinine 0.3, calcium 7.2, magnesium 1.9, phosphorus 2.1. WBC 11, hemoglobin 9.5. Current Medications: The patient is on include meropenem 1 g t.i.d., vancomycin, Tylenol, Zofran, IV fluid normal saline at 75 per hour. Assessment And Plan: 1.Acute kidney injury secondary to toxic ATN, poor perfusion ATN, secondary to septic shock, recover ed, resolved, look to me normal volume. I am going to go ahead and continue to monitor the patient. Discontinue IV fluid for the time being and we will follow up. 2.Hypokalemia, hypophosphatemia. We will supplement. 3.Non-anion gap metabolic acidosis, mostly secondary to the fluid resuscitation. I am going to go a head and discontinue IV fluid and we will follow up. 4.Abdominal wall cellulitis/abscess. Continue current antibiotic dose appropriate. We will follow up with ID and primary. 5.Septic shock, status post treatment, recovered, resolved. MA/MODL Voice ID: [id number] Report ID: [id number]
[2023-07-10] MEDS: PANTOPRAZOLE 40MG TABLET PO SCH (20:23)
[2023-07-11] MEDS: Meropenem 1,000 MG in NA CHLORIDE 0.9% 100 ML IV SCH ×3 (00:47→17:16)
[2023-07-11] MEDS: FENTANYL CITR 100 MCG/2 ML IV PRN ×5 (00:57→20:56)
[2023-07-11] MEDS ORDERED: Meropenem 1000 MG/VIAL IV ONE ×3 (00:58→16:31)
[2023-07-11] MEDS ORDERED: NA CHLORIDE 0.9% 100 ML ONE ×3 (00:58→16:31)
[2023-07-11] MEDS ORDERED: FENTANYL CITR 100 MCG/2 ML ONE ×2 (01:08→20:56)
[2023-07-11] MEDS: VANCOMYCIN 1.25 GM in NA CHLORIDE 0.9% 250 ML IVPB SCH ×2 (02:01→15:13)
[2023-07-11] MEDS ORDERED: HYDROCODONE/APAP 10/325 TAB ONE ×3 (04:45→18:49)
[2023-07-11 06:14] LABS: AST/SGOT < 4 U/L (15-37); Albumin 1.6 g/dL (3.4-5.0); Alkaline Phosphatase 42 U/L (45-117); BUN Blood Urea Nitrogen 3 mg/dL (7-18); Bicarbonate 24 mEq/L (21-32); Bilirubin Total 0.4 mg/dL (0.2-1.0); Glomerular Filtration Rate 122 ml/min (=/>90); Glucose Level 84 mg/dL (74-106); Magnesium 1.8 mg/dL (1.6-2.4); Phosphorus 1.8 mg/dL (2.5-4.9); Potassium 3.7 mEq/L (3.5-5.1); Protein, Total 4.4 g/dL (6.4-8.2); Sodium Level 138 mEq/L (136-145)
[2023-07-11 06:15] LABS: ALT/SGPT < 10 U/L (13-56)
[2023-07-11] MEDS ORDERED: MAGNESIUM SULFATE 1 gm IVPB 1 GM/100 ML BAG IV ONE (06:31)
[2023-07-11] MEDS ORDERED: POTASSIUM PHOS IN 0.9 % NACL 15 MMOL/250 ML BAG IV ONE (07:00)
--- NOTE | 2023-07-11 07:55 | P.PN ---
Date of Service: 07/11/23 Chief Complaint: Generalized weakness Subjective: No acute events reported overnight. + pain at debridement sites groin/perineum/external genitalia/bilateral thigh Continue current plan of care. Pending LTAC placement. Physical Examination Temp Pulse Resp BP Pulse Ox 97.2 F 95 H 14 133/63 97 07/11/23 00:00 07/11/23 04:00 07/11/23 04:00 07/11/23 04:00 07/11/23 04:00 General: Alert, In no apparent distress, Oriented x3 HEENT: Atraumatic, Normocephalic Neck: Supple, JVD not distended Respiratory: Clear to auscultation bilaterally, Normal air movement Cardiovascular: Regular rate/rhythm. Gastrointestinal: Normal bowel sounds, Soft and benign. Non-distended. Non- tender. Integumentary: s/p debridement of josette's gangrene/suprapubic, perineum, external genitalia, bilateral thigh-Dressing clean dry and intact Neurological: Normal speech, Normal tone, Normal affect Urinary: Hoskins catheter Laboratory data -Reviewed Microbiology data -Reviewed Imagings Data: -Reviewed Medications List: Reviewed Assessment and Plan Problem list Josette's gangrene /necrotizing fasciitis Seizure disorder Obesity Hypertension Josette's gangrene /necrotizing fasciitis, Streptococcus pyogenes s/p debridement 07/05 and 07/09 - Patient underwent debridement on 07/[address] Call with findings of Josette's gangrene 60 x 30 x 3 cm, gangrenous skin and subcutaneous abdominal, suprapubic, perineum, and external genitalia, bilateral thigh. -Labial wound culture 07/05: Streptococcus pyogenes. No anaerobes grown -Blood cultures 07/05: Streptococcus pyogenes - s/p 2nd debridement 07/09: Wide excisional debridement down to muscle Fornier gangrene: Perineum 10o22ew, Left [id number], suprapubic 1x8x77xk, R thigh 8j5y78kx, abd wall 52c92l3nb, ext. genitalia 34f20z2pi with Pulse lavage -Currently on meropenem (07/05-) and vancomycin (07/06-) - Repeat blood cultures 07/10: pending *allergy: amoxicillin * Recommendations - Josette's gangrene: Continue Meropenem and Vancomycin for now. - Strep bacteremia: Continue antibiotic therapy for 14 days. Currently on Vancomycin, continue for now - Pending negative culture. Follow up with repeat blood cultures - Continue wound care per Dr. Call - Monitor WBC and fever trends Patient would benefit from LTAC placement for extensive wound care and continued IV antibiotics. CM/SS consulted. Case discussed with Melita Resendez
[2023-07-11] MEDS: DIVALPROEX DR 500MG TAB PO SCH ×3 (08:47→20:56)
[2023-07-11] MEDS: lamoTRIgine 150 MG TAB PO SCH ×2 (08:47→20:56)
[2023-07-11] MEDS: ASPIRIN EC 81 MG TAB PO SCH (08:47)
[2023-07-11] MEDS ORDERED: ASPIRIN EC 81 MG TAB PO ONE (08:56)
[2023-07-11] MEDS ORDERED: FENTANYL CITR 100 MCG/2 ML IV ONE (09:26)
[2023-07-11] MEDS: HYDROCODONE/APAP 10/325 TAB PO PRN ×2 (11:16→18:36)
[2023-07-11 12:36] LABS: Absolute Lymphocytes (CBC) 1.7 K/uL (0.7-4.9); Hematocrit 29.5 % (36.0-45.0); Lymphocytes % 14.5 % (15.3-44.8); MCV 96.4 fL (80-100); MPV 8.4 fL (7.6-11.3); Platelets 218 thou/uL (152-406); RBC Red Blood Cell Count 3.06 M/uL (3.86-4.86)
[2023-07-11 13:34] LABS: Blood Morphology Comment NOTED (NOT SEEN); Platelet Estimate ADEQ; Polychromasia SLIGHT
[2023-07-11 13:35] LABS: Dohle Bodies PRESENT
--- NOTE | 2023-07-11 15:25 | PN ---
Date of Progress Note: 07/11/2023 Subjective: Patient was admitted with sepsis and acute kidney injury secondary to poor perfusion DONA and toxic ATN. Patient's kidney function has been improved. IV fluid has been discontinued yesterday. Patient had I and D couple of days ago. Physical Examination: Vital Signs: Blood pressure 122/63, pulse of 107, afebrile. Patient had good urine output of 2300. Chest: Clear to auscultation. Heart: S1, S2. Regular. Abdomen: Soft, nontender. Dressing in the lower quadrant. Extremities: Trace edema. Neurologic: Alert. No focality. Laboratory Data: Hemoglobin 9.9. Sodium 138 potassium 3.7, bicarb 24, BUN 3, creatinine 0.2, calcium 7.7. Phosphorus 1.8, magnesium 1.8. Current Medications: The patient is on include: 1. Aspirin. 2. Meropenem. 3. Vancomycin. 4. Lamictal. 5. Zofran. 6. Pantoprazole. 7. Magnesium sulfate. 8. Potassium phosphate. Assessment And Plan: 1. Acute kidney injury, secondary to toxic acute tubular necrosis, poor perfusion acute tubular necrosis, normal volume. Off IV fluid. Will continue holding IV fluid. We will monitor the patient. 2. Hypokalemia, hypophosphatemia, and hypomagnesemia. We will continue supplement. 3. Non-anion gap metabolic acidosis secondary to IV fluids, recovered, resolved. Keep holding IV fluid. 4. Abdominal wall cellulitis/abscess, status post incision and drainage. We will follow up with Surgery. Continue current antibiotic, dose appropriate. 5. Septic shock. Continue antibiotic. Blood pressure stable, off pressor. time spend exam the patient face to face reviewing data lab and radiology placing order , discussing with the patient , discussing with the valve steamer including hospitalist and nursing staff >35 min RENEA/MANI Voice ID: [id number] Report ID: [id number] MTDAlirio
[2023-07-11] MEDS: PANTOPRAZOLE 40MG TABLET PO SCH (20:56)
[2023-07-12] MEDS: Meropenem 1,000 MG in NA CHLORIDE 0.9% 100 ML IV SCH ×3 (00:50→17:35)
[2023-07-12] MEDS: HYDROCODONE/APAP 10/325 TAB PO PRN ×3 (00:51→14:16)
[2023-07-12] MEDS ORDERED: HYDROCODONE/APAP 10/325 TAB ONE ×3 (01:00→14:26)
[2023-07-12] MEDS ORDERED: Meropenem 1000 MG/VIAL IV ONE ×4 (01:00→23:53)
[2023-07-12] MEDS ORDERED: NA CHLORIDE 0.9% 100 ML ONE ×4 (01:01→23:54)
[2023-07-12] MEDS: VANCOMYCIN 1.25 GM in NA CHLORIDE 0.9% 250 ML IVPB SCH ×2 (03:00→14:48)
[2023-07-12] MEDS: FENTANYL CITR 100 MCG/2 ML IV PRN ×3 (05:04→19:54)
[2023-07-12 05:32] LABS: Albumin 1.6 g/dL (3.4-5.0); Alkaline Phosphatase 46 U/L (45-117); Bicarbonate 29 mEq/L (21-32); Bilirubin Total 0.3 mg/dL (0.2-1.0); Glomerular Filtration Rate 118 ml/min (=/>90); Glucose Level 93 mg/dL (74-106); Magnesium 1.9 mg/dL (1.6-2.4); Phosphorus 2.7 mg/dL (2.5-4.9); Potassium 3.7 mEq/L (3.5-5.1); Protein, Total 4.8 g/dL (6.4-8.2); Sodium Level 138 mEq/L (136-145)
[2023-07-12 05:37] LABS: ALT/SGPT < 10 U/L (13-56); AST/SGOT < 4 U/L (15-37); BUN Blood Urea Nitrogen < 3 mg/dL (7-18)
[2023-07-12] MEDS ORDERED: POTASSIUM 25 MEQ EFFERV TAB PO ONE (07:00)
--- NOTE | 2023-07-12 07:48 | P.PN ---
Date of Service: 07/12/23 Chief Complaint: Generalized weakness Subjective: Patient seen and examined at bedside. No acute events overnight. Denies any new or worsening complaints at this time. In no apparent distress. Continue current plan of care. Physical Examination Temp Pulse Resp BP Pulse Ox 96.9 F 95 H 18 128/79 98 07/12/23 04:00 07/12/23 04:00 07/12/23 05:04 07/12/23 04:00 07/12/23 05:04 General: Alert, In no apparent distress, Oriented x3 HEENT: Atraumatic, Normocephalic Neck: Supple, JVD not distended Respiratory: Clear to auscultation bilaterally, Normal air movement Cardiovascular: Regular rate/rhythm. Gastrointestinal: Normal bowel sounds, Soft and benign. Non-distended. Non- tender. Integumentary: s/p debridement of josette's gangrene/suprapubic, perineum, external genitalia, bilateral thigh-Dressing clean dry and intact Neurological: Normal speech, Normal tone, Normal affect Urinary: Hoskins catheter Laboratory data -Reviewed Microbiology data -Reviewed Imagings Data: -Reviewed Medications List: Reviewed Assessment and Plan Problem list Josette's gangrene /necrotizing fasciitis Seizure disorder Obesity Hypertension Josette's gangrene /necrotizing fasciitis, Streptococcus pyogenes s/p debridement 07/05 and 07/09 - Patient underwent debridement on 07/[address] Call with findings of Josette's gangrene 60 x 30 x 3 cm, gangrenous skin and subcutaneous abdominal, suprapubic, perineum, and external genitalia, bilateral thigh. -Labial wound culture 07/05: Streptococcus pyogenes. No anaerobes grown -Blood cultures 07/05: Streptococcus pyogenes - s/p 2nd debridement 07/09: Wide excisional debridement down to muscle Fornier gangrene: Perineum 77o92gk, Left [id number], suprapubic 1k5b62hm, R thigh 3r7s83is, abd wall 40t97y1ir, ext. genitalia 17h51y2co with Pulse lavage -Currently on meropenem (07/05-) and vancomycin (07/06-) - Repeat blood cultures 07/10: pending *allergy: amoxicillin * Recommendations - Josette's gangrene: Continue Meropenem and Vancomycin - Strep bacteremia: Continue antibiotic therapy for 14 days. Currently on Vancomycin, continue for now Due to severity and location of infection, patient is high risk for re-infection- Recommend continuing with IV antibiotics. - Continue wound care per Dr. Call - Monitor WBC and fever trends Patient would benefit from LTAC placement for extensive wound care and continued IV antibiotics. CM/SS consulted. Case discussed with Melita Resendez
[2023-07-12] MEDS: DIVALPROEX DR 500MG TAB PO SCH ×3 (08:37→19:55)
[2023-07-12] MEDS: lamoTRIgine 150 MG TAB PO SCH ×2 (08:37→19:55)
[2023-07-12] MEDS: ASPIRIN EC 81 MG TAB PO SCH (08:37)
[2023-07-12] MEDS: CLINDAMYCIN 900MG/D5W 900 MG/50 ML IVPB IV SCH ×2 (14:16→19:54)
[2023-07-12] MEDS ORDERED: FENTANYL CITR 100 MCG/2 ML ONE (16:14)
--- NOTE | 2023-07-12 16:40 | PN ---
Date of Progress Note: 07/12/2023 Diagnosis: Tonie gangrene, abdomen, bilateral thigh, buttocks, perineal region, genitalia, suprap ubic. Subjective: Patient is doing better. Dressing change has been done. Physical Examination: Chest: Clear. Abdomen: Soft and depressible. Extremities: Good capillary refill. Integumentary: Once again, she was taken several hours ago for another debridement. The things are improving. There is only 1 area still delineated on the medial thigh region. Plan: She will require extensive wound care. We are approaching the hospital to see what options we have for this extensive wound care in the future so when she improved clinically, she can be transfe rred or discharged. JORDYN/MANI Voice ID: [id number] Report ID: [id number]
--- NOTE | 2023-07-12 17:14 | P.PN ---
Subjective Date of Service: 07/13/23 Chief Complaint: Generalized weakness Subjective: No new changes Physical Examination - Vital Signs Temperature: 97.6 F Blood Pressure: 135/88 Pulse: 104 Respirations: 20 Pulse Ox (%): 96 - Physical Exam General: In no apparent distress HEENT: Atraumatic, Normocephalic Neck: Supple Respiratory: Other (symmetric chest expansion) Cardiovascular: No rubs, No murmurs Gastrointestinal: Soft and benign, No guarding Musculoskeletal: No clubbing Integumentary: No warmth Neurological: Normal speech, Normal tone Urinary: Other (no bladder distention) External genitalia: Deferred Rectal: Deferred Assessment And Plan - Plan # CHASITY 2/2 ATN/septic shock SCr 2.2 on adm, improved to 0.3 Baseline SCr 0.6 as of Sep 2020 Urinalysis with 1+ proteinuria but no hematuria & no pyuria Lamont po fluid intake at least 2L/d Strict I&O # Hypokalemia, hypoPO4 Lytes repletion prn # Hypophosphatemia Phos repletion when necessary # Acidosis Mild, monitor # Septic shock 2/2 Tonie's gangrene Shock improved Hx of Htn S/p debridement Local wound care IV abx F/u cultures # GERD Protonix # Hx of seizures On depakote Physician Review: Patient Assessed, Agree with Above Assessment and Plan
[2023-07-12] MEDS: PANTOPRAZOLE 40MG TABLET PO SCH (19:56)
[2023-07-13] MEDS: Meropenem 1,000 MG in NA CHLORIDE 0.9% 100 ML IV SCH ×3 (00:10→16:27)
[2023-07-13] MEDS: HYDROCODONE/APAP 7.5/325 MG TAB PO PRN ×4 (00:18→23:58)
[2023-07-13] MEDS: VANCOMYCIN 1.25 GM in NA CHLORIDE 0.9% 250 ML IVPB SCH ×2 (02:34→15:38)
[2023-07-13] MEDS: FENTANYL CITR 100 MCG/2 ML IV PRN ×3 (03:24→19:41)
[2023-07-13] MEDS: CLINDAMYCIN 900MG/D5W 900 MG/50 ML IVPB IV SCH ×3 (04:50→19:40)
[2023-07-13 05:11] LABS: Hematocrit 27.6 % (36.0-45.0); MCV 94.5 fL (80-100); RBC Red Blood Cell Count 2.92 M/uL (3.86-4.86)
[2023-07-13 05:12] LABS: Absolute Lymphocytes (CBC) 1.5 K/uL (0.7-4.9); Lymphocytes % 20.4 % (15.3-44.8); MPV 7.9 fL (7.6-11.3); Platelets 326 thou/uL (152-406)
[2023-07-13 05:37] LABS: Magnesium 1.9 mg/dL (1.6-2.4); Phosphorus 3.5 mg/dL (2.5-4.9); Potassium 3.9 mEq/L (3.5-5.1)
[2023-07-13 05:59] LABS: Blood Morphology Comment NOTED (NOT SEEN); Platelet Estimate ADEQ; White Blood Cell Scan OK (OK)
[2023-07-13 06:00] LABS: Polychromasia SLIGHT
[2023-07-13] MEDS ORDERED: ASPIRIN EC 81 MG TAB PO ONE (08:30)
[2023-07-13] MEDS: DIVALPROEX DR 500MG TAB PO SCH ×3 (08:38→19:40)
[2023-07-13] MEDS: ASPIRIN EC 81 MG TAB PO SCH (08:38)
[2023-07-13] MEDS: lamoTRIgine 150 MG TAB PO SCH ×2 (08:38→19:41)
[2023-07-13] MEDS ORDERED: Meropenem 1000 MG/VIAL IV ONE ×2 (08:43→15:32)
[2023-07-13] MEDS ORDERED: NA CHLORIDE 0.9% 100 ML ONE ×2 (08:43→15:32)
[2023-07-13] MEDS ORDERED: POTASSIUM CL SA 10 MEQ TAB PO ONE (09:00)
--- NOTE | 2023-07-13 14:03 | P.PN ---
Subjective Date of Service: 07/13/23 Chief Complaint: Generalized weakness today No overnight event s labs reviewed Good UO Physical exam General: Awake, NAD HEENT: Atraumatic, Normocephalic Neck: Supple, no elevated JVD Respiratory: CTAB Cardiovascular: No rubs, No murmurs Abdomen, wounds : Non-distended Musculoskeletal: No clubbing Integumentary: No warmth Neurological: Normal tone, Sensation intact # CHASITY 2/2 ATN/septic shock SCr 2.2 on adm, improved to 0.3 Strict I&O # Hypokalemia, hypoPO4 Lytes repletion prn # Hypophosphatemia Phos repletion when necessary # Acidosis Mild, monitor # Septic shock 2/2 Tonie's gangrene Shock improved Hx of Htn S/p debridement Local wound care IV abx # GERD Protonix # Hx of seizures On depakote Physical Examination - Vital Signs Temperature: 97.1 F Blood Pressure: 142/71 Pulse: 87 Respirations: 18 Pulse Ox (%): 98 Assessment And Plan Physician Review: Patient Assessed, Agree with Above Assessment and Plan
[2023-07-13] MEDS ORDERED: WATER FOR INJ,STERILE 10 ML ONE (16:50)
[2023-07-13] MEDS: PANTOPRAZOLE 40MG TABLET PO SCH (19:41)
[2023-07-14] MEDS ORDERED: Meropenem 1000 MG/VIAL IV ONE ×3 (00:07→16:07)
[2023-07-14] MEDS ORDERED: NA CHLORIDE 0.9% 100 ML ONE ×3 (00:08→16:07)
[2023-07-14] MEDS: Meropenem 1,000 MG in NA CHLORIDE 0.9% 100 ML IV SCH ×3 (00:19→16:14)
[2023-07-14] MEDS: VANCOMYCIN 1.25 GM in NA CHLORIDE 0.9% 250 ML IVPB SCH ×2 (02:27→15:26)
[2023-07-14] MEDS: CLINDAMYCIN 900MG/D5W 900 MG/50 ML IVPB IV SCH ×3 (04:22→20:26)
[2023-07-14] MEDS: FENTANYL CITR 100 MCG/2 ML IV PRN ×4 (04:40→20:28)
[2023-07-14 04:48] LABS: Absolute Lymphocytes (CBC) 1.4 K/uL (0.7-4.9); Hematocrit 27.3 % (36.0-45.0); Lymphocytes % 21.7 % (15.3-44.8); MCV 94.5 fL (80-100); MPV 7.6 fL (7.6-11.3); Platelets 411 thou/uL (152-406); RBC Red Blood Cell Count 2.89 M/uL (3.86-4.86)
[2023-07-14 05:02] LABS: Potassium 3.9 mEq/L (3.5-5.1)
[2023-07-14 05:09] LABS: Magnesium 1.9 mg/dL (1.6-2.4); Phosphorus 3.2 mg/dL (2.5-4.9)
[2023-07-14] MEDS: ASPIRIN EC 81 MG TAB PO SCH (07:41)
[2023-07-14] MEDS: lamoTRIgine 150 MG TAB PO SCH ×2 (07:41→20:28)
[2023-07-14] MEDS: DIVALPROEX DR 500MG TAB PO SCH ×3 (07:41→20:26)
[2023-07-14] MEDS ORDERED: ASPIRIN EC 81 MG TAB PO ONE (07:41)
[2023-07-14] MEDS ORDERED: FENTANYL CITR 100 MCG/2 ML ONE ×2 (10:30→14:04)
[2023-07-14] MEDS: HYDROCODONE/APAP 7.5/325 MG TAB PO PRN ×2 (11:05→17:53)
[2023-07-14] MEDS ORDERED: HYDROCODONE/APAP 7.5/325 MG TAB ONE ×2 (11:17→18:04)
--- NOTE | 2023-07-14 13:18 | P.PN ---
Subjective Date of Service: 07/14/23 Chief Complaint: Generalized weakness today No overnight event s Cont ABx and wound care Good UO pending placement Physical exam General: Awake, NAD HEENT: Atraumatic, Normocephalic Neck: Supple, no elevated JVD Respiratory: CTAB Cardiovascular: No rubs, No murmurs Abdomen, wounds : Non-distended Musculoskeletal: No clubbing Integumentary: No warmth Neurological: Normal tone, Sensation intact # CHASITY 2/2 ATN/septic shock SCr 2.2 on adm, improved to 0.3 Strict I&O # Hypokalemia, hypoPO4 Lytes repletion prn # Hypophosphatemia Phos repletion when necessary # Acidosis Mild, monitor # Septic shock 2/2 Tonie's gangrene Shock improved Hx of Htn S/p debridement Local wound care IV abx # GERD Protonix # Hx of seizures On depakote Physical Examination - Vital Signs Temperature: 97.5 F Blood Pressure: 139/65 Pulse: 93 Respirations: 20 Pulse Ox (%): 96 Assessment And Plan Physician Review: Patient Assessed, Agree with Above Assessment and Plan
--- NOTE | 2023-07-14 14:26 | P.PN ---
Date of Service: 07/09/23 Subjective: Patient had her second wound debridement today. Patient continues to improve. Patient denies any new complaints. Physical Exam: Vitals: reviewed GEN: Alert, oriented, NAD CV: Regular rate & rhythm, no edema Pulm: Clear bilaterally ABD: Soft, nontender, nondistended Integumentary: Dressing intact; Left inguinal wound with dressing intact Neuro: No focal deficits Problem List: Septic Shock secondary to Tonie's gangrene / necrotizing fasciitis, s/p I&D 07/05 and 07/09 CHASITY, resolved Hypokalemia GERD Hypertension h/o seizure disorder Plan: 1. Septic shock secondary to Tonie's gangrene/necrotizing fasciitis status post I&D 07/05 and 07/09. Continue with IV antibiotic therapy. Patient is status post second debridement today. Continue monitoring wound closely. Continue wound care daily. Arranging for LTAC placement. Continue with multiple antibiotics. 2. Acute kidney injury; renal function has stabilized 3. Hypokalemia; potassium levels are stable 4. GERD; continue with PPI 5. History of hypertension; blood pressure stable 6. Seizure disorder; continue with antiepileptic 7. GI and DVT prophylaxis
--- NOTE | 2023-07-14 14:40 | P.PN ---
Date of Service: 07/10/23 Subjective: Patient is doing well no new complaints. Patient denies any new complaints at this time. Clinical symptoms are stable. Physical Exam: Vitals: reviewed GEN: Alert, oriented, NAD CV: Regular rate & rhythm, no edema Pulm: Clear bilaterally ABD: Soft, nontender, nondistended Integumentary: Dressing intact; Left inguinal wound with dressing intact Neuro: No focal deficits Problem List: Septic Shock secondary to Tonie's gangrene / necrotizing fasciitis, s/p I&D 07/05 and 07/09 CHASITY, resolved Hypokalemia GERD Hypertension h/o seizure disorder Plan: 1. Septic shock secondary to Tonie's gangrene/necrotizing fasciitis status post I&D 07/05 and 07/09. Continue with IV antibiotic therapy. Patient is status post second debridement today. Continue monitoring wound closely. Continue wound care daily. Arranging for LTAC placement. Continue with multiple antibiotics. 2. Acute kidney injury; renal function has stabilized 3. Hypokalemia; potassium levels are stable 4. GERD; continue with PPI 5. History of hypertension; blood pressure stable 6. Seizure disorder; continue with antiepileptic 7. GI and DVT prophylaxis
--- NOTE | 2023-07-14 14:52 | P.PN ---
Date of Service: 07/11/23 Subjective: Patient continues to improve. Postop day #2. Last surgery was July 09. Patient is clinically doing well. Physical therapy pending. Long-term acute care hospital pending. Physical Exam: Vitals: reviewed GEN: Alert, oriented, NAD CV: Regular rate & rhythm, no edema Pulm: Clear bilaterally ABD: Soft, nontender, nondistended Integumentary: Dressing intact; Left inguinal wound with dressing intact Neuro: No focal deficits Problem List: Septic Shock secondary to Tonie's gangrene / necrotizing fasciitis, s/p I&D 07/05 and 07/09 CHASITY, resolved Hypokalemia GERD Hypertension h/o seizure disorder Plan: 1. Septic shock secondary to Tonie's gangrene/necrotizing fasciitis status post I&D 07/05 and 07/09. Continue with IV antibiotic therapy. Patient is status post second debridement today. Continue monitoring wound closely. Continue wound care daily. Arranging for LTAC placement. Continue with multiple antibiotics. Prognosis is improved. Hemodynamically stabilized. Will downgrade from critical care services to medical surge care. 2. Acute kidney injury; renal function has stabilized 3. Hypokalemia; potassium levels are stable 4. GERD; continue with PPI 5. History of hypertension; blood pressure stable 6. Seizure disorder; continue with antiepileptic 7. GI and DVT prophylaxis
--- NOTE | 2023-07-14 14:55 | P.PN ---
Date of Service: 07/12/23 Subjective: Patient continues to improve. Postop day #3. Last surgery was July 09. Patient is clinically doing well. Continue with physical therapy services. Physical Exam: Vitals: reviewed GEN: Alert, oriented, NAD CV: Regular rate & rhythm, no edema Pulm: Clear bilaterally ABD: Soft, nontender, nondistended Integumentary: Dressing intact; Left inguinal wound with dressing intact Neuro: No focal deficits Problem List: Septic Shock secondary to Tonie's gangrene / necrotizing fasciitis, s/p I&D 07/05 and 07/09 CHASITY, resolved Hypokalemia GERD Hypertension h/o seizure disorder Plan: 1. Septic shock secondary to Tonie's gangrene/necrotizing fasciitis status post I&D 07/05 and 07/09. Continue with IV antibiotic therapy. Continue with wound care per surgery recommendations. Continue monitoring wound closely. Arranging for LTAC placement. Continue with multiple antibiotics. Prognosis is improved. Hemodynamically stabilized. Will downgrade from critical care services to medical surge care. 2. Acute kidney injury; renal function has stabilized 3. Hypokalemia; potassium levels are stable 4. GERD; continue with PPI 5. History of hypertension; blood pressure stable 6. Seizure disorder; continue with antiepileptic 7. GI and DVT prophylaxis
--- NOTE | 2023-07-14 14:56 | P.PN ---
Date of Service: 07/13/23 Subjective: Patient continues to do well. Patient denies any new complaints. Currently downgraded from critical care. Awaiting for placement at LTAC. Physical Exam: Vitals: reviewed GEN: Alert, oriented, NAD CV: Regular rate & rhythm, no edema Pulm: Clear bilaterally ABD: Soft, nontender, nondistended Integumentary: Dressing intact; Left inguinal wound with dressing intact Neuro: No focal deficits Problem List: Septic Shock secondary to Tonie's gangrene / necrotizing fasciitis, s/p I&D 07/05 and 07/09 CHASITY, resolved Hypokalemia GERD Hypertension h/o seizure disorder Plan: 1. Septic shock secondary to Tonie's gangrene/necrotizing fasciitis status post I&D 07/05 and 07/09. Continue with IV antibiotic therapy. Continue with wound care per surgery recommendations. Continue monitoring wound closely. Arranging for LTAC placement. Continue with multiple antibiotics. Prognosis is improved. Hemodynamically stabilized. Will downgrade from critical care services to medical surge care. 2. Acute kidney injury; renal function has stabilized 3. Hypokalemia; potassium levels are stable 4. GERD; continue with PPI 5. History of hypertension; blood pressure stable 6. Seizure disorder; continue with antiepileptic 7. GI and DVT prophylaxis
--- NOTE | 2023-07-14 14:59 | P.PN ---
Date of Service: 07/14/23 Subjective: Patient continues to improve. Will discuss with surgery if patient can get transferred out of the ICU unit to the general medical floor tomorrow. Patient has been downgraded for many days now. Patient is getting out of bed and ambulating. Will continue with wound care. Continue with pain control. Patient will need aggressive wound care therapy along with IV antibiotic and close monitoring of her wound. Continue monitoring hemodynamics and renal function. Anticipate transfer to LTAC over the next 48 to 72 hours if approved. Physical Exam: Vitals: reviewed GEN: Alert, oriented, NAD CV: Regular rate & rhythm, no edema Pulm: Clear bilaterally ABD: Soft, nontender, nondistended Integumentary: Dressing intact; Left inguinal wound with dressing intact Neuro: No focal deficits Problem List: Septic Shock secondary to Tonie's gangrene / necrotizing fasciitis, s/p I&D 07/05 and 07/09 CHASITY, resolved Hypokalemia GERD Hypertension h/o seizure disorder Plan: 1. Septic shock secondary to Tonie's gangrene/necrotizing fasciitis status post I&D 07/05 and 07/09. Continue with IV antibiotic therapy. Continue with wound care per surgery recommendations. Continue monitoring wound closely. Arranging for LTAC placement. Continue with multiple antibiotics. Prognosis is improved. Hemodynamically stabilized. Patient has been downgraded from critical care services for many days. Surgery wanted to monitor the wound in a stepdown unit which we do not have so we kept patient in ICU under MedSurg. Currently patient should be able to go to medical surgical floor as patient is doing much better and getting out of bed and ambulating. She has wanted more space and she states that she gets discombobulated being in her room without windows. She is not able to tell if is not her day sometimes which gets her very confused. If okay with surgery will let patient go to medical surgical floor in the morning. 2. Acute kidney injury; renal function has stabilized 3. Hypokalemia; potassium levels are stable 4. GERD; continue with PPI 5. History of hypertension; blood pressure stable 6. Seizure disorder; continue with antiepileptic 7. GI and DVT prophylaxis
[2023-07-14] MEDS: PANTOPRAZOLE 40MG TABLET PO SCH (20:26)
[2023-07-15] MEDS: HYDROCODONE/APAP 7.5/325 MG TAB PO PRN ×2 (00:04→19:54)
[2023-07-15] MEDS: Meropenem 1,000 MG in NA CHLORIDE 0.9% 100 ML IV SCH ×3 (00:04→16:37)
[2023-07-15] MEDS ORDERED: Meropenem 1000 MG/VIAL IV ONE ×3 (00:14→16:42)
[2023-07-15] MEDS ORDERED: NA CHLORIDE 0.9% 100 ML ONE ×3 (00:14→16:42)
[2023-07-15] MEDS: VANCOMYCIN 1.25 GM in NA CHLORIDE 0.9% 250 ML IVPB SCH ×2 (02:35→16:38)
[2023-07-15] MEDS: FENTANYL CITR 100 MCG/2 ML IV PRN ×2 (03:52→21:41)
[2023-07-15] MEDS: CLINDAMYCIN 900MG/D5W 900 MG/50 ML IVPB IV SCH ×2 (05:03→13:09)
[2023-07-15 05:14] LABS: Absolute Lymphocytes (CBC) 1.6 K/uL (0.7-4.9); Hematocrit 28.7 % (36.0-45.0); Lymphocytes % 26.3 % (15.3-44.8); MCV 95.1 fL (80-100); MPV 7.8 fL (7.6-11.3); Platelets 470 thou/uL (152-406); RBC Red Blood Cell Count 3.02 M/uL (3.86-4.86)
[2023-07-15 05:31] LABS: Magnesium 1.9 mg/dL (1.6-2.4); Potassium 3.6 mEq/L (3.5-5.1)
[2023-07-15] MEDS: lamoTRIgine 150 MG TAB PO SCH ×2 (08:15→21:00)
[2023-07-15] MEDS: DIVALPROEX DR 500MG TAB PO SCH ×3 (08:15→21:35)
[2023-07-15] MEDS: ASPIRIN EC 81 MG TAB PO SCH (08:15)
--- NOTE | 2023-07-15 08:37 | P.PN ---
Date of Service: 07/15/23 Chief Complaint: Generalized weakness Subjective: Patient seen and examined at bedside. + pain at wound sites. No other complaints at this time. No acute events reported overnight. Scheduled for debridement this afternoon. Physical Examination Temp Pulse Resp BP Pulse Ox 97.2 F 88 14 136/65 100 07/15/23 04:00 07/15/23 04:00 07/15/23 04:00 07/15/23 04:00 07/15/23 04:00 General: Alert, In no apparent distress, Oriented x3 HEENT: Atraumatic, Normocephalic Neck: Supple, JVD not distended Respiratory: Clear to auscultation bilaterally, Normal air movement Cardiovascular: Regular rate/rhythm. Gastrointestinal: Normal bowel sounds, Soft and benign. Non-distended. Non- tender. Integumentary: s/p debridement of josette's gangrene/suprapubic, perineum, external genitalia, bilateral thigh-Dressing clean dry and intact Neurological: Normal speech, Normal tone, Normal affect Urinary: Hoskins catheter Laboratory data -Reviewed Microbiology data -Reviewed Imagings Data: -Reviewed Medications List: Reviewed Assessment and Plan Problem list Josette's gangrene /necrotizing fasciitis Seizure disorder Obesity Hypertension Josette's gangrene /necrotizing fasciitis, Streptococcus pyogenes s/p debridement 07/05 and 07/09 - Patient underwent debridement on 07/[address] Call with findings of Josette's gangrene 60 x 30 x 3 cm, gangrenous skin and subcutaneous abdominal, suprapubic, perineum, and external genitalia, bilateral thigh. -Labial wound culture 07/05: Streptococcus pyogenes. No anaerobes grown -Blood cultures 07/05: Streptococcus pyogenes - Repeat blood cultures 07/10 & 07/11: no growth to date - s/p 2nd debridement 07/09: Wide excisional debridement down to muscle Fornier gangrene: Perineum [id number], Left [id number], suprapubic 1t0m34vr, R thigh 5f2h44yv, abd wall [id number], ext. genitalia [id number] with Pulse lavage -Currently on meropenem (07/05-) and vancomycin (07/06-) and Clindamycin *allergy: amoxicillin * Recommendations - Josette's gangrene: Continue Meropenem and Vancomycin for now. Scheduled for debridement this afternoon (07/15) - Strep bacteremia: Continue antibiotic therapy for 14 days. Currently on Vancomycin, continue for now Due to severity and location of infection, patient is high risk for re-infection- Recommend continuing with IV antibiotics. - Continue wound care per Dr. Call - Monitor WBC and fever trends Patient would benefit from LTAC placement for extensive wound care and continued IV antibiotics. CM/SS consulted. Case discussed with Melita Resendez
--- NOTE | 2023-07-15 11:59 | P.PN ---
Subjective Date of Service: 07/15/23 Chief Complaint: Generalized weakness Pt is resting comfortable in bed. She is waiting for the 3rd debridement by the Gen Surgeon. Pt is tolerating iv antibiotics. No other complaints. Review of Systems 10-point ROS is otherwise unremarkable Physical Examination - Vital Signs Temperature: 97.6 F Blood Pressure: 136/82 Pulse: 91 Respirations: 20 Pulse Ox (%): 100 - Physical Exam General: In no apparent distress, Oriented x3, Cooperative HEENT: Atraumatic, Normocephalic, PERRLA Neck: Supple, 2+ carotid pulse no bruit, No Thyromegaly Respiratory: Clear to auscultation bilaterally, Normal air movement Cardiovascular: No edema, Normal pulses, Normal S1 S2 Capillary refill: <2 Seconds Gastrointestinal: Normal bowel sounds, Soft and benign, Non-distended Musculoskeletal: No clubbing, No swelling, No erythema Integumentary: No rashes, No breakdown, No tenderness/swelling, No erythema Neurological: Normal speech, Normal strength at 5/5 x4 extr, Normal tone Lymphatics: No axilla or inguinal lymphadenopathy External genitalia: Lesions Assessment And Plan - Current Problems (Diagnosis) (1) Acute appendicitis Current Visit: No Status: Acute (2) Acute cholecystitis Current Visit: No Status: Acute - Plan Septic shock secondary to Tonie's gangrene/necrotizing fasciitis status post I&D 07/05 and 07/09. Will continue iv antibiotics. Gen Surgeon will take pt to the OR for the 3rd debridement today. Will continue wound care. Will continue to observe pt in the ICU since we don't have a step down unit. Will transfer to med/surg floor when cleared by Gen surgeon. Acute kidney injury: Cr is 0.35. Will avoid nephrotoxins and monitor renal function. Hypokalemia: potassium level is 3.6. Will monitor. GERD: continue with PPI History of hypertension: Will monitor BP. Seizure disorder: continue with antiepileptic GI ppx: protonix DVT prophylaxis: SCD Dispo: pending hospital course. Discharge Plan: Home Plan to discharge in: Greater than 2 days - Code Status/Comfort Care Code Status Assessed: Yes Code Status: Full Code Physician Review: Patient Assessed, Agree with Above Assessment and Plan Critical Care: Yes Time Spent Managing PTS Care (In Minutes): 40 (minutes)
[2023-07-15] MEDS ORDERED: Ringers Lactate 1,000 ML IV ONE (12:08)
[2023-07-15] MEDS ORDERED: MIDAZOLAM HCL 2 MG/2 ML INJ ONE (12:52)
[2023-07-15] MEDS ORDERED: KETOROLAC 30 MG/ML INJ ONE (12:52)
[2023-07-15] MEDS ORDERED: LIDOCAINE 2% MPF 5 ML VIAL ONE (12:52)
[2023-07-15] MEDS ORDERED: propofoL 200 MG/20 ML VIAL IV ONE (12:52)
[2023-07-15] MEDS ORDERED: ONDANSETRON 4 MG/2 ML VIAL ONE (12:52)
[2023-07-15] MEDS ORDERED: FENTANYL CITR 100 MCG/2 ML ONE ×2 (12:53→14:41)
[2023-07-15] MEDS ORDERED: SILVER SULFADIAZINE 1% 25 GM TOP ONE (13:56)
--- NOTE | 2023-07-15 15:21 | P.BOP ---
Preoperative diagnosis: josette gangrene multifocal Postoperative diagnosis: same Primary procedure: Wide excisional debridement down to muscle Josette gangrene: Secondary procedure: Perineum [id number], Left [id number], suprapubic 6b1e04ey, R thigh 7p2h35si Other procedure(s): abd wall [id number], ext. genitalia 1j8v2yo with Pulse lavage Estimated blood loss: <50cc Specimen: none Anesthesia: General Complications: None Drain(s): Urinary catheter Implants: several gauze rolls with silvadene Transferred to: Recovery Room Condition: Fair
[2023-07-15] MEDS: HYDROMORPHONE HCL 1 MG/ML INJ ONE ×2 (15:45→15:55)
--- NOTE | 2023-07-15 15:56 | OP ---
Date of Procedure: 07/15/2023 Surgeon: Loi Call MD Preoperative Diagnosis: Tonie gangrene, multifocal. Postoperative Diagnosis: Tonie gangrene, multifocal. Procedures: Wide excision with debridement down to muscle of Tonie gangrene: 1.Perineum 30 x 20 cm. 2.Left thigh 14 x 12 x 3 cm. 3.Suprapubic 5 x 5 x 12 cm. 4.Right thigh 5 x 5 x 10 cm. 5.Abdominal wall 15 x 15 x 3 cm. 6.External genitalia 8 x 8 x 3 cm. All this done with pulse lavage. Estimated Blood Loss: Less than 50 cc. Specimen: None. Anesthesia: General. Also we did a change of a Hoskins catheter since it has been there for 7 to 10 days, but it happened to be going right through the wound itself with external genitalia involved. I believe the urinary cat heter is needed at this moment. The area was packed with several gauze of large Kerlix rolls with Si lvadene. Indication: This is a case of a 67-year-old patient who has gone through subsequent debridements of the Tonie gangrene more than a week ago. Patient is hemodynamically stable. Vital signs stable r ight now with the long-term process of dressing changes. We took her today, did a final check of anish t area with excision and debridement before she goes to an LTAC. We do not see any new areas forming and no new necrotic region other than obviously some devitalized tissue present in the wounds and al l over the area that was debrided today. The benefits, alternatives, and risks fully explained, whic h include, but not limited to, infection, bleeding, damage to adjacent structures, anesthesia complic ations, nonhealing wound, MD, and even . She also understands this may not relieve any symptoms . She might need more than one surgical intervention. She understood, signed a consent. Description Of Procedure: The patient was brought to the operating room, placed in supine position. Anesthesia was done without complication. The abdomen, perineum, genitalia, thigh, buttocks were pr epped and draped in the usual sterile fashion in lithotomy position. Then we proceeded to do wide ex cision and debridement with the help of sharp knife of all the areas mentioned above in these procedu re. All was done using the same technique which consisted with the help of knife, scissors, pickup, we proceeded to do subcutaneous debridement until devitalized tissue was removed and then after that, I proceeded to irrigate all that area with at least 6 L of pulse lavage irrigation. The patient vonnie erated the procedure well. Area was covered with Silvadene. Hemostasis was obtained and covered wit h dressing changes. Sponge counts and instrument counts were correct. Patient tolerated the procedu re well. Patient was sent to Recovery in stable condition. JORDYN/MANI Voice ID: [id number] Report ID: [id number]
[2023-07-15] MEDS: PANTOPRAZOLE 40MG TABLET PO SCH (21:35)
[2023-07-16] MEDS: Meropenem 1,000 MG in NA CHLORIDE 0.9% 100 ML IV SCH ×3 (01:29→17:10)
[2023-07-16] MEDS: HYDROCODONE/APAP 7.5/325 MG TAB PO PRN ×4 (01:30→21:10)
[2023-07-16] MEDS ORDERED: NA CHLORIDE 0.9% 100 ML ONE ×4 (01:40→17:21)
[2023-07-16] MEDS ORDERED: Meropenem 1000 MG/VIAL IV ONE ×3 (01:40→17:21)
[2023-07-16] MEDS: VANCOMYCIN 1.25 GM in NA CHLORIDE 0.9% 250 ML IVPB SCH ×2 (03:03→15:03)
--- NOTE | 2023-07-16 03:32 | PN ---
Date of Progress Note: 07/15/2023 Chief Complaint: Generalized weakness. Review of Systems: Denies chest pain, palpitation. Denies fever, chills. Denies nausea, vomiting, melena, hematemesis. Physical Examination: General: Patient is not in acute distress. Lungs: Normal respiratory efforts. Clear to auscultation bilaterally. Heart: S1, S2. Abdomen: Soft, benign, nontender. Extremities: No edema. No clubbing. Dressing in place. Impression And Plan: 1.Acute kidney injury secondary to acute tubular necrosis, septic shock. Serum creatinine level imp roved from 2.2 on admission to 0.3, which is the most recent baseline. 2.Hypokalemia. Continue potassium replacement. 3.Hypophosphatemia, phos repletion when necessary. 4.Acidosis, mild. Monitor renal panel. 5.Septic shock secondary to Tonie's gangrene. Shock, improved. The patient has history of hyper tension. Continue antibiotics and wound care. 6.Gastroesophageal reflux disease, on Protonix. 7.History of seizures, on Depakote. EB/MODL Voice ID: [id number] Report ID: [id number]
[2023-07-16] MEDS ORDERED: FENTANYL CITR 100 MCG/2 ML ONE ×2 (05:15→11:33)
[2023-07-16] MEDS: FENTANYL CITR 100 MCG/2 ML IV PRN ×3 (05:15→18:21)
[2023-07-16 05:24] LABS: Absolute Lymphocytes (CBC) 1.3 K/uL (0.7-4.9); Hematocrit 27.2 % (36.0-45.0); Lymphocytes % 18.4 % (15.3-44.8); MCV 94.9 fL (80-100); MPV 7.5 fL (7.6-11.3); Platelets 507 thou/uL (152-406); RBC Red Blood Cell Count 2.87 M/uL (3.86-4.86)
[2023-07-16 05:39] LABS: Potassium 3.9 mEq/L (3.5-5.1)
[2023-07-16] MEDS ORDERED: POTASSIUM CL SA 10 MEQ TAB PO ONE ×2 (08:01→09:00)
[2023-07-16] MEDS ORDERED: HYDROCODONE/APAP 7.5/325 MG TAB ONE ×2 (08:02→12:23)
--- NOTE | 2023-07-16 08:17 | P.PN ---
Date of Service: 07/16/23 Chief Complaint: Generalized weakness Subjective: s/p debridement yesterday by Dr. Call. In no apparent distress. No new or worsening complaints. + pain at debridement sites Physical Examination Temp Pulse Resp BP Pulse Ox 99.1 F 91 H 18 106/49 L 100 07/16/23 04:00 07/16/23 04:00 07/16/23 07:48 07/16/23 04:00 07/16/23 07:48 General: Alert, In no apparent distress, Oriented x3 HEENT: Atraumatic, Normocephalic Neck: Supple, JVD not distended Respiratory: Clear to auscultation bilaterally, Normal air movement Cardiovascular: Regular rate/rhythm. Gastrointestinal: Normal bowel sounds, Soft and benign. Non-distended. Non- tender. Integumentary: s/p debridement of josette's gangrene/suprapubic, perineum, external genitalia, bilateral thigh-Dressing clean dry and intact Neurological: Normal speech, Normal tone, Normal affect Urinary: Hoskins catheter Laboratory data -Reviewed Microbiology data -Reviewed Imagings Data: -Reviewed Medications List: Reviewed Assessment and Plan Problem list Josette's gangrene /necrotizing fasciitis Seizure disorder Obesity Hypertension Josette's gangrene /necrotizing fasciitis, Streptococcus pyogenes s/p debridement 07/05 and 07/09 - Patient underwent debridement on 07/[address] Call with findings of Josette's gangrene 60 x 30 x 3 cm, gangrenous skin and subcutaneous abdominal, suprapubic, perineum, and external genitalia, bilateral thigh. -Labial wound culture 07/05: Streptococcus pyogenes. No anaerobes grown -Blood cultures 07/05: Streptococcus pyogenes - Repeat blood cultures 07/10 & 07/11: no growth to date - s/p 2nd debridement 07/09: Wide excisional debridement down to muscle Fornier gangrene: Perineum 22y11pz, Left [id number], suprapubic 4m3x44hg, R thigh 4r3y55db, abd wall 94u41e6kz, ext. genitalia 11l34n7rg with Pulse lavage -Currently on meropenem (07/05-) and vancomycin (07/06-) Recommendations - Josette's gangrene: Continue Meropenem and Vancomycin for now. - Strep bacteremia: Continue antibiotic therapy for 14 days. Currently on Vancomycin day 11. Due to severity and location of infection, patient is high risk for re-infecti on- Recommend continuing with IV antibiotics. - Continue wound care per Dr. Call - Monitor WBC and fever trends Patient would benefit from LTAC placement for extensive wound care and continued IV antibiotics. CM/SS consulted. Case discussed with Melita Resendez
[2023-07-16] MEDS: ASPIRIN EC 81 MG TAB PO SCH (08:53)
[2023-07-16] MEDS: DIVALPROEX DR 500MG TAB PO SCH ×3 (08:53→21:10)
[2023-07-16] MEDS: lamoTRIgine 150 MG TAB PO SCH ×2 (08:53→21:00)
[2023-07-16] MEDS ORDERED: ASPIRIN 81 MG CHEWABLE TABLET ONE (09:00)
[2023-07-16] MEDS ORDERED: ASPIRIN EC 81 MG TAB PO ONE (09:02)
--- NOTE | 2023-07-16 10:14 | P.PN ---
Subjective Date of Service: 07/16/23 Chief Complaint: Generalized weakness Pt is resting comfortable in bed. She had the 3rd debridement by the Gen Surgeon on 07/16/23. Pt complains of pain in her sacral area. No other complaints. Review of Systems 10-point ROS is otherwise unremarkable (except pain in the sacral area) Physical Examination - Vital Signs Temperature: 97.8 F Blood Pressure: 131/59 Pulse: 104 Respirations: 18 Pulse Ox (%): 97 - Physical Exam General: Alert, In no apparent distress, Oriented x3 HEENT: Atraumatic, Normocephalic Neck: Supple, 2+ carotid pulse no bruit, No Thyromegaly Respiratory: Clear to auscultation bilaterally, Normal air movement Cardiovascular: No edema, Normal pulses Capillary refill: <2 Seconds Gastrointestinal: Normal bowel sounds, Soft and benign, Non-distended Musculoskeletal: No clubbing, No swelling Integumentary: No rashes, Other (necrotizing fascitis) Assessment And Plan - Current Problems (Diagnosis) (1) Acute appendicitis Current Visit: No Status: Acute (2) Acute cholecystitis Current Visit: No Status: Acute - Plan Septic shock secondary to Tonie's gangrene/necrotizing fasciitis status post I&D 07/05 and 07/09. Will continue iv antibiotics. Gen Surgeon took pt to the OR for the 3rd debridement on 07/16/23. Will continue wound care. Will continue to observe pt in the ICU since we don't have a step down unit. Will transfer to med/surg floor when cleared by Gen surgeon. Acute kidney injury: Cr is 0.36. Will avoid nephrotoxins and monitor renal function. Hypokalemia: potassium level is 3.9. Will monitor. GERD: continue with PPI History of hypertension: Will monitor BP. Seizure disorder: continue with antiepileptic GI ppx: protonix DVT prophylaxis: SCD Dispo: pending hospital course. Physician Review: Patient Assessed, Agree with Above Assessment and Plan
--- NOTE | 2023-07-16 14:53 | PN ---
Date of Progress Note: 07/16/2023 Subjective: Patient was admitted to the hospital with cellulitis, septic shock. Patient had acute k idney injury secondary to toxic ATN, poor perfusion ATN. Patient was treated, recovered. Physical Examination: Vital Signs: Blood pressure 131/59, pulse of 104, afebrile. Patient had good urine output of 3900, negative of 1800. Chest: Clear to auscultation. Heart: S1, S2 regular. Abdomen: Soft. Dressing on the lower quadrant with drainage much clean. Extremities: Trace edema. Neuro: Alert. No focality. Laboratory Data: Hemoglobin 9.1. Sodium 138, potassium 3.9, bicarb 28, BUN 5, creatinine 0.3, calci um 7.4. Current Medications: The patient on include: 1.Vancomycin. 2.Meropenem. 3.Lamotrigine. 4.Depakote. 5.Fentanyl. Assessment And Plan: 1.Acute kidney injury secondary to toxic acute tubular necrosis, poor perfusion, acute tubular necro sis secondary to septic shock, trending down. Looks to me normal volume. I am going to continue to monitor the patient. 2.Hypokalemia, hypophosphatemia, status post supplement, resolved. 3.Septic shock secondary to abdominal wall cellulitis/abscess. Continue current antibiotic, dose ap propriate. RENEA/MANI Voice ID: [id number] Report ID: [id number]
[2023-07-16] MEDS ORDERED: NA CHLORIDE 0.9% 250 ML ONE (15:12)
[2023-07-16] MEDS: PANTOPRAZOLE 40MG TABLET PO SCH (21:04)
[2023-07-17] MEDS: Meropenem 1,000 MG in NA CHLORIDE 0.9% 100 ML IV SCH ×3 (00:57→16:49)
[2023-07-17] MEDS: FENTANYL CITR 100 MCG/2 ML IV PRN ×4 (01:04→18:53)
[2023-07-17] MEDS ORDERED: Meropenem 1000 MG/VIAL IV ONE ×4 (01:11→23:28)
[2023-07-17] MEDS ORDERED: NA CHLORIDE 0.9% 100 ML ONE ×4 (01:11→23:29)
[2023-07-17] MEDS ORDERED: FENTANYL CITR 100 MCG/2 ML ONE ×2 (01:18→13:55)
[2023-07-17] MEDS: VANCOMYCIN 1.25 GM in NA CHLORIDE 0.9% 250 ML IVPB SCH ×2 (02:45→14:28)
[2023-07-17] MEDS: HYDROCODONE/APAP 7.5/325 MG TAB PO PRN ×4 (04:42→23:20)
[2023-07-17] MEDS ORDERED: HYDROCODONE/APAP 7.5/325 MG TAB ONE (04:57)
[2023-07-17 05:24] LABS: Absolute Lymphocytes (CBC) 1.7 K/uL (0.7-4.9); Hematocrit 25.9 % (36.0-45.0); Lymphocytes % 31.3 % (15.3-44.8); MCV 94.8 fL (80-100); MPV 7.5 fL (7.6-11.3); Platelets 521 thou/uL (152-406); RBC Red Blood Cell Count 2.73 M/uL (3.86-4.86)
[2023-07-17 05:34] LABS: Potassium 3.9 mEq/L (3.5-5.1)
[2023-07-17 07:16] LABS: Platelet Estimate ADEQ
[2023-07-17 07:17] LABS: Blood Morphology Comment NOT SEEN (NOT SEEN)
[2023-07-17] MEDS: lamoTRIgine 150 MG TAB PO SCH ×2 (08:38→20:16)
[2023-07-17] MEDS: DIVALPROEX DR 500MG TAB PO SCH ×3 (08:38→20:15)
[2023-07-17] MEDS: ASPIRIN EC 81 MG TAB PO SCH (08:39)
[2023-07-17] MEDS ORDERED: POTASSIUM CL SA 10 MEQ TAB PO ONE ×2 (08:47→09:00)
[2023-07-17] MEDS ORDERED: ASPIRIN 81 MG CHEWABLE TABLET ONE (08:47)
--- NOTE | 2023-07-17 08:50 | P.PN ---
Date of Service: 07/17/23 Chief Complaint: Generalized weakness Subjective: Improving. In no apparent distress. No new or worsening complaints. LTAC appeal initiated. CM/SS following. Physical Examination Temp Pulse Resp BP Pulse Ox 97.8 F 89 14 113/68 93 07/17/23 04:00 07/17/23 04:00 07/17/23 05:42 07/17/23 04:00 07/17/23 05:42 General: Alert, In no apparent distress, Oriented x3 HEENT: Atraumatic, Normocephalic Neck: Supple, JVD not distended Respiratory: Clear to auscultation bilaterally, Normal air movement Cardiovascular: Regular rate/rhythm. Gastrointestinal: Normal bowel sounds, Soft and benign. Non-distended. Non- tender. Integumentary: s/p debridement of josette's gangrene/suprapubic, perineum, external genitalia, bilateral thigh-Dressing clean dry and intact Neurological: Normal speech, Normal tone, Normal affect Urinary: Hoskins catheter Laboratory data -Reviewed Microbiology data -Reviewed Imagings Data: -Reviewed Medications List: Reviewed Assessment and Plan Problem list Josette's gangrene /necrotizing fasciitis Seizure disorder Obesity Hypertension Josette's gangrene /necrotizing fasciitis, Streptococcus pyogenes s/p debridement 07/05 and 07/09 - Patient underwent debridement on 07/[address] Call with findings of Josette's gangrene 60 x 30 x 3 cm, gangrenous skin and subcutaneous abdominal, suprapubic, perineum, and external genitalia, bilateral thigh. -Labial wound culture 07/05: Streptococcus pyogenes. No anaerobes grown -Blood cultures 07/05: Streptococcus pyogenes - Repeat blood cultures 07/10 & 07/11: no growth to date - s/p 2nd debridement 07/09: Wide excisional debridement down to muscle Fornier gangrene: Perineum [id number], Left [id number], suprapubic 4e9v91jx, R thigh 4f1i77dj, abd wall [id number], ext. genitalia 03v12x2dd with Pulse lavage - s/p 3rd debridement on 06/[address] Call -Currently on meropenem (07/05-) and vancomycin (07/06-) Recommendations - Josette's gangrene: Continue Meropenem and Vancomycin for now. - Strep bacteremia: Continue antibiotic therapy for 14 days. Currently on Vancomycin day 12. Due to severity and location of infection, patient is high risk for re-infection- Recommend continuing with IV antibiotics. - Continue wound care per Dr. Call - Monitor WBC and fever trends Patient would benefit from LTAC placement for extensive wound care and continued IV antibiotics. CM/SS following. Case discussed with Melita Resendez
--- NOTE | 2023-07-17 10:29 | P.PN ---
Subjective Date of Service: 07/17/23 Chief Complaint: Generalized weakness Pt is resting comfortable in bed. She had the 3rd debridement by the Gen Surgeon on 07/16/23. Pt complains of hip pain. No other complaints. Review of Systems 10-point ROS is otherwise unremarkable General: Unremarkable Eyes: Unremarkable ENT: Unremarkable Respiratory: Unremarkable Cardiovascular: Unremarkable Gastrointestinal: Unremarkable Genitourinary: Unremarkable Musculoskeletal: Unremarkable Integumentary: Other (necrotizing fascitis) Neurological: Unremarkable Lymphatics: Unremarkable Physical Examination - Vital Signs Temperature: 98.0 F Blood Pressure: 109/56 Pulse: 92 Respirations: 14 Pulse Ox (%): 98 - Physical Exam General: Alert, In no apparent distress, Oriented x3, Cooperative HEENT: Atraumatic, Normocephalic Neck: Supple, 2+ carotid pulse no bruit Respiratory: Clear to auscultation bilaterally, Normal air movement Cardiovascular: No edema, Normal pulses, Normal S1 S2 Capillary refill: <2 Seconds Gastrointestinal: Normal bowel sounds, Soft and benign, Non-distended Musculoskeletal: No clubbing, No swelling Integumentary: No rashes, Skin lesion Neurological: Normal speech, Normal strength at 5/5 x4 extr, Sensation intact Lymphatics: No axilla or inguinal lymphadenopathy Assessment And Plan - Current Problems (Diagnosis) (1) Acute appendicitis Current Visit: No Status: Acute (2) Acute cholecystitis Current Visit: No Status: Acute - Plan Septic shock secondary to Tonie's gangrene/necrotizing fasciitis status post I&D 07/05 and 07/09. Will continue iv antibiotics. Gen Surgeon took pt to the OR for the 3rd debridement on 07/16/23. Will continue wound care. Will continue to observe pt in the ICU since we don't have a step down unit. Will transfer to med/surg floor when cleared by Gen surgeon. Acute kidney injury: Cr is 0.32. Will avoid nephrotoxins and monitor renal function. Hypokalemia: potassium level is 3.9. Will monitor. Hypocalcemia: Calcium is 7.7. Albumin is 1.6. Likely due to low albumin. Corrected calcium is within normal limit. Will follow up ionized calcium and vitamin D level. GERD: continue with PPI History of hypertension: Will monitor BP. Seizure disorder: continue with antiepileptic GI ppx: protonix DVT prophylaxis: SCD Dispo: pending hospital course. Physician Review: Patient Assessed, Agree with Above Assessment and Plan
[2023-07-17] MEDS ORDERED: ALBUMIN HUMAN 25% 100 ML IV ONE ×2 (10:58→11:00)
--- NOTE | 2023-07-17 11:56 | PN ---
Date of Progress Note: 07/17/2023 Subjective: Patient was admitted to the hospital for cellulitis; septic shock; abdominal wall absces s, status post I and D. patient had acute kidney injury secondary to poor perfusion ATN and toxic AT N. Patient recovered. Physical Examination: Vital Signs: Blood pressure 109/56, pulse of 92, afebrile. Chest: Clear to auscultation. Heart: S1, S2. Regular. Abdomen: Soft, nontender. Extremities: Trace edema on skin on the abdominal wall, drainage in the left lower quadrant with winnie thema involving the lower inguinal area extended to the upper part of the thigh much better than befo re. Neurologic: Alert. No focality. Laboratory Data: Hemoglobin 8.8. Sodium 139, potassium 3.9, bicarb 27, BUN 4, creatinine 0.3, calci um 7.7. Current Medications: The patient is on include meropenem 1 g t.i.d., vancomycin, labetalol, Keppra, pantoprazole, Zofran, fentanyl. Assessment And Plan: 1.Acute kidney injury secondary to toxic acute tubular necrosis, poor perfusion acute tubular necros is secondary to septic shock recovered, resolved, normal volume. I am going to continue to monitor t he patient. 2.Hypokalemia, resolved. 3.Septic shock secondary to abdominal wall abscess and cellulitis, recovered. Dose appropriate. Continue current treatment. 4.Deconditioning. Continue physical therapy, occupational therapy. RENEA/MANI Voice ID: [id number] Report ID: [id number]
[2023-07-17] MEDS: HYDROMORPHONE HCL 1 MG/ML INJ IV PRN ×2 (12:49→17:45)
[2023-07-17] MEDS: PANTOPRAZOLE 40MG TABLET PO SCH (20:15)
[2023-07-17] MEDS: JUVEN PACKET PO SCH (20:16)
[2023-07-18] MEDS: Meropenem 1,000 MG in NA CHLORIDE 0.9% 100 ML IV SCH ×3 (00:25→16:09)
[2023-07-18] MEDS: FENTANYL CITR 100 MCG/2 ML IV PRN ×5 (02:15→21:50)
[2023-07-18] MEDS: VANCOMYCIN 1.25 GM in NA CHLORIDE 0.9% 250 ML IVPB SCH ×2 (02:16→14:42)
[2023-07-18 05:14] LABS: Absolute Lymphocytes (CBC) 2.6 K/uL (0.7-4.9); Hematocrit 27.8 % (36.0-45.0); Lymphocytes % 40.7 % (15.3-44.8); MCV 95.1 fL (80-100); Platelets 553 thou/uL (152-406); RBC Red Blood Cell Count 2.92 M/uL (3.86-4.86)
[2023-07-18 05:21] LABS: Potassium 4.1 mEq/L (3.5-5.1)
[2023-07-18] MEDS ORDERED: FENTANYL CITR 100 MCG/2 ML ONE ×3 (07:21→18:40)
--- NOTE | 2023-07-18 08:15 | P.PN ---
Date of Service: 07/18/23 Chief Complaint: Generalized weakness Subjective: Improving. No acute events overnight. In no apparent distress. Unlabored respirations on room air. + debridement site pain Otherwise no new or worsening complaints at this time. LTAC appeal initiated, pending approval/denial. Physical Examination Temp Pulse Resp BP Pulse Ox 98.7 F 86 20 122/67 97 07/18/23 00:00 07/18/23 04:00 07/18/23 04:00 07/18/23 04:00 07/18/23 04:00 General: Alert, In no apparent distress, Oriented x3 HEENT: Atraumatic, Normocephalic Neck: Supple, JVD not distended Respiratory: Clear to auscultation bilaterally, Normal air movement Cardiovascular: Regular rate/rhythm. No edema. Right IJ central line. Gastrointestinal: Normal bowel sounds, Soft and benign. Non-distended. Non- tender. Integumentary: s/p debridement of josette's gangrene/suprapubic, perineum, external genitalia, bilateral thigh-Dressing clean dry and intact Neurological: Normal speech, Normal tone, Normal affect Urinary: Hoskins catheter Laboratory data -Reviewed Microbiology data -Reviewed Imagings Data: -Reviewed Medications List: Reviewed Assessment and Plan Problem list Josette's gangrene /necrotizing fasciitis Obesity Hypertension GERD Hx of Seizure disorder CHASITY- resolved Josette's gangrene /necrotizing fasciitis, Streptococcus pyogenes s/p debridement 07/05 and 07/09 - Patient underwent debridement on 07/[address] Call with findings of Josette's gangrene 60 x 30 x 3 cm, gangrenous skin and subcutaneous abdominal, suprapubic, perineum, and external genitalia, bilateral thigh. -Labial wound culture 07/05: Streptococcus pyogenes. No anaerobes grown -Blood cultures 07/05: Streptococcus pyogenes - Repeat blood cultures 07/10 & 07/11: no growth to date - s/p 2nd debridement 07/09: Wide excisional debridement down to muscle Fornier gangrene: Perineum [id number], Left [id number], suprapubic [id number], R thigh [id number], abd wall [id number], ext. genitalia [id number] with Pulse lavage - s/p 3rd debridement on 06/[address] Call -Currently on meropenem (07/05-) and vancomycin (07/06-) Recommendations - Josette's gangrene: Continue Meropenem and Vancomycin for now. - Strep bacteremia: Continue antibiotic therapy for 14 days. Currently on Vancomycin day 13. Due to severity and location of infection, patient is high risk for re-infect ion- Recommend continuing with IV antibiotics. - Continue wound care per Dr. Call - Monitor WBC and fever trends Patient would benefit from LTAC placement for extensive wound care and continued IV antibiotics. CM/SS following. LTAC appeal initiated. Case discussed with Estrella Resendez.
[2023-07-18] MEDS ORDERED: Meropenem 1000 MG/VIAL IV ONE ×2 (08:17→16:20)
[2023-07-18] MEDS ORDERED: ASPIRIN EC 81 MG TAB PO ONE (08:17)
[2023-07-18] MEDS ORDERED: NA CHLORIDE 0.9% 100 ML ONE ×2 (08:18→16:20)
[2023-07-18] MEDS: JUVEN PACKET PO SCH ×2 (09:00→20:35)
[2023-07-18] MEDS: lamoTRIgine 150 MG TAB PO SCH ×2 (09:07→20:36)
[2023-07-18] MEDS: DIVALPROEX DR 500MG TAB PO SCH ×3 (09:07→20:35)
[2023-07-18] MEDS: ASPIRIN EC 81 MG TAB PO SCH (09:07)
[2023-07-18] MEDS: HYDROCODONE/APAP 7.5/325 MG TAB PO PRN ×3 (09:31→21:54)
--- NOTE | 2023-07-18 10:01 | P.PN ---
Subjective Date of Service: 07/18/23 Chief Complaint: Generalized weakness Pt is resting comfortable in bed. She had the 3rd debridement by the Gen Surgeon on 07/16/23. Pt complains of pain in her groin. No other complaints. Review of Systems General: Unremarkable Eyes: Unremarkable ENT: Unremarkable Respiratory: Unremarkable Cardiovascular: Unremarkable Gastrointestinal: Unremarkable Genitourinary: Unremarkable Musculoskeletal: Unremarkable Integumentary: Unremarkable Neurological: Unremarkable Lymphatics: Unremarkable Physical Examination - Vital Signs Temperature: 98.1 F Blood Pressure: 116/67 Pulse: 78 Respirations: 14 Pulse Ox (%): 96 - Physical Exam General: Alert, In no apparent distress, Oriented x3, Cooperative HEENT: Atraumatic, Normocephalic, PERRLA Neck: Supple, 2+ carotid pulse no bruit Respiratory: Clear to auscultation bilaterally, Normal air movement Cardiovascular: No edema, Normal pulses, Normal S1 S2 Capillary refill: <2 Seconds Gastrointestinal: Normal bowel sounds, Soft and benign, Non-distended Musculoskeletal: No clubbing, No swelling Integumentary: No rashes, Erythema, Other (Necrotizing fascitis) Neurological: Normal gait, Normal strength at 5/5 x4 extr, Cranial nerves 3-12 intact Lymphatics: No axilla or inguinal lymphadenopathy Assessment And Plan - Current Problems (Diagnosis) (1) Acute appendicitis Current Visit: No Status: Acute (2) Acute cholecystitis Current Visit: No Status: Acute - Plan Septic shock secondary to Tonie's gangrene/necrotizing fasciitis status post I&D 07/05 and 07/09. Will continue iv antibiotics. Gen Surgeon took pt to the OR for the 3rd debridement on 07/16/23. wound vac was placed on 07/17/23. Will continue wound care. Will continue to observe pt in the ICU since we don't have a step down unit. Will transfer to med/surg floor when cleared by Gen surgeon. Acute kidney injury: Cr is 0.32. Will avoid nephrotoxins and monitor renal function. Hypokalemia: potassium level is 4.1<- 3.9. Will monitor. Hypocalcemia: Calcium is 7.7. Albumin is 1.6. Likely due to low albumin. Corrected calcium is within normal limit. Will follow up ionized calcium and vitamin D level. Vitamin D def: Vitamin D is 15.6. Will replete. GERD: continue with PPI History of hypertension: Will monitor BP. Seizure disorder: continue with antiepileptic GI ppx: protonix DVT prophylaxis: SCD Dispo: pending hospital course. Physician Review: Patient Assessed, Agree with Above Assessment and Plan
--- NOTE | 2023-07-18 12:40 | PN ---
Date of Progress Note: 07/18/2023 Subjective: Patient was admitted to the hospital with acute kidney injury secondary to septic shock, secondary to cellulitis, abdominal wall abscess. Patient is status post I and D, tolerated well. W ound VAC has been placed. Physical Examination: Vital Signs: When I saw the patient, blood pressure of 116/67, pulse of 78, afebrile. Chest: Clear to auscultation. Heart: S1, S2. Regular. Abdomen: Wound VAC on the lower part. Erythema has been subsided. Extremities: No edema. Neuro: Alert. No focality. Laboratory Data: Hemoglobin 9.5. Sodium 137, potassium 4.1, bicarb 27, BUN 7, creatinine 0.3, calci um 8.4. Current Medications: The patient is on includes meropenem, vancomycin, Tylenol, Keppra, lamotrigine, fentanyl, KCl, Vitamin D. Assessment And Plan: 1.Acute kidney injury secondary to toxic acute tubular necrosis; poor perfusion; acute tubular necro sis, recovered, resolved. Patient has normal volume. We will monitor. 2.Hypertension, controlled, optimal. 3.Hypokalemia, status post supplement, resolved. 4.Hypophosphatemia, resolved. 5.Cellulitis, abdominal abscess with septic shock. Follow up with primary. RENEA/MANI Voice ID: [id number] Report ID: [id number]
[2023-07-18] MEDS: SILVER SULFADIAZINE 1% 25 GM TOP SCH (12:58)
[2023-07-18] MEDS: HYDROMORPHONE HCL 1 MG/ML INJ IV PRN (12:58)
--- NOTE | 2023-07-18 13:28 | P.PN ---
Subjective Date of Service: 07/17/23 Chief Complaint: Tonie gangrene, septic shock Subjective: Tolerating diet, Improving Review of Systems General: Unremarkable Eyes: Unremarkable ENT: Unremarkable Respiratory: Unremarkable Genitourinary: Unremarkable Physical Examination - Vital Signs Temperature: 98.1 F Blood Pressure: 116/67 Pulse: 78 Respirations: 14 Pulse Ox (%): 96 - Physical Exam General: Alert, In no apparent distress, Oriented x3, Cooperative HEENT: PERRLA, EOMI Neck: Supple Gastrointestinal: Soft and benign Integumentary: Other (granulation tissue in all the wound starting, ) Assessment And Plan - Plan wound vac oob is abx LTAC Physician Review: Patient Assessed, Agree with Above Assessment and Plan
[2023-07-18] MEDS: PANTOPRAZOLE 40MG TABLET PO SCH (20:35)
[2023-07-19] MEDS: Meropenem 1,000 MG in NA CHLORIDE 0.9% 100 ML IV SCH ×3 (00:55→16:49)
[2023-07-19] MEDS: FENTANYL CITR 100 MCG/2 ML IV PRN ×4 (01:20→20:55)
[2023-07-19] MEDS: VANCOMYCIN 1.25 GM in NA CHLORIDE 0.9% 250 ML IVPB SCH (03:00)
[2023-07-19] MEDS: HYDROCODONE/APAP 7.5/325 MG TAB PO PRN ×4 (04:36→23:51)
[2023-07-19 05:42] LABS: Absolute Lymphocytes (CBC) 2.4 K/uL (0.7-4.9); Hematocrit 26.9 % (36.0-45.0); Lymphocytes % 36.7 % (15.3-44.8); MCV 94.7 fL (80-100); Platelets 605 thou/uL (152-406); RBC Red Blood Cell Count 2.84 M/uL (3.86-4.86)
[2023-07-19 05:44] LABS: Potassium 4.1 mEq/L (3.5-5.1)
--- NOTE | 2023-07-19 08:46 | P.PN ---
Date of Service: 07/19/23 Chief Complaint: Generalized weakness Subjective: Improving. No acute events overnight. Transferred out of ICU to 2nd floor. In no apparent distress. Patient denies any new or worsening complaints at this time. Physical Examination Temp Pulse Resp BP Pulse Ox 97.9 F 92 H 19 113/61 98 07/19/23 04:00 07/19/23 04:00 07/19/23 04:36 07/19/23 04:00 07/19/23 04:36 General: Alert, In no apparent distress, Oriented x3 HEENT: Atraumatic, Normocephalic Neck: Supple, JVD not distended Respiratory: Clear to auscultation bilaterally, Normal air movement Cardiovascular: Regular rate/rhythm. No edema. Gastrointestinal: Normal bowel sounds, Soft and benign. Non-distended. Non- tender. Integumentary: s/p debridement of josette's gangrene/suprapubic, perineum, external genitalia, bilateral thigh-Dressing clean dry and intact Neurological: Normal speech, Normal tone, Normal affect Urinary: Hoskins catheter Laboratory data -Reviewed Microbiology data -Reviewed Imagings Data: -Reviewed Medications List: Reviewed Assessment and Plan Problem list Josette's gangrene /necrotizing fasciitis Obesity Hypertension GERD Hx of Seizure disorder CHASITY- resolved Josette's gangrene /necrotizing fasciitis, Streptococcus pyogenes s/p debridement 07/05, 07/09 and 07/15 - Patient underwent debridement on 07/[address] Call with findings of Josette's gangrene 60 x 30 x 3 cm, gangrenous skin and subcutaneous abdominal, suprapubic, perineum, and external genitalia, bilateral thigh. -Labial wound culture 07/05: Streptococcus pyogenes. No anaerobes grown -Blood cultures 07/05: Streptococcus pyogenes - Repeat blood cultures 07/10 & 07/11: no growth to date - s/p 2nd debridement 07/09: Wide excisional debridement down to muscle Fornier gangrene: Perineum [id number], Left [id number], suprapubic [id number], R thigh [id number], abd wall [id number], ext. genitalia [id number] with Pulse lavage - s/p 3rd debridement on 07/[address] Call -Currently on meropenem (07/05-) and vancomycin (07/06-) Streptococcus pyogenes Bacteremia - Completed 14 days of Vancomycin IV. Recommendations - Josette's gangrene: Continue Meropenem and Vancomycin for now. Due to severity and location of infection, patient is high risk for re-infection- Recommend continuing with IV antibiotics. - Continue wound care per Dr. Call - Monitor WBC and fever trends Patient would benefit from LTAC placement for extensive wound care and continued IV antibiotics. CM/SS following. LTAC appeal initiated. Case discussed with Melita Resendez
[2023-07-19] MEDS: JUVEN PACKET PO SCH ×2 (09:00→20:57)
[2023-07-19] MEDS: lamoTRIgine 150 MG TAB PO SCH ×2 (09:00→20:56)
[2023-07-19] MEDS ORDERED: VITAMIN D 5,000 UNIT CAP PO SCH (09:00)
--- NOTE | 2023-07-19 10:26 | P.PN ---
Subjective Date of Service: 07/19/23 Chief Complaint: Tonie gangrene, septic shock Pt is resting comfortable in bed. She had the 3rd debridement by the Gen Surgeon on 07/16/23. Pt complains of pain in her groin. He was transferred out of the ICU on 07/18/23. No other complaints. Review of Systems 10-point ROS is otherwise unremarkable General: Unremarkable Eyes: Unremarkable ENT: Unremarkable Respiratory: Unremarkable Cardiovascular: Unremarkable Gastrointestinal: Unremarkable Genitourinary: Unremarkable Musculoskeletal: Unremarkable Integumentary: Unremarkable Neurological: Unremarkable Lymphatics: Unremarkable Physical Examination - Vital Signs Temperature: 96.9 F Blood Pressure: 120/52 Pulse: 91 Respirations: 16 Pulse Ox (%): 94 - Physical Exam General: Alert, In no apparent distress, Oriented x3, Cooperative HEENT: Atraumatic, Normocephalic, PERRLA Neck: Supple, 2+ carotid pulse no bruit Respiratory: Clear to auscultation bilaterally, Normal air movement Cardiovascular: No edema, Normal pulses, Normal S1 S2 Capillary refill: <2 Seconds Gastrointestinal: Normal bowel sounds, Hypoactive Musculoskeletal: No clubbing, No swelling Integumentary: No rashes, Other (Necrotizing fascitis) Neurological: Normal gait, Normal speech, Sensation intact Lymphatics: No axilla or inguinal lymphadenopathy Assessment And Plan - Current Problems (Diagnosis) (1) Acute appendicitis Current Visit: No Status: Acute (2) Acute cholecystitis Current Visit: No Status: Acute - Plan Septic shock secondary to Tonie's gangrene/necrotizing fasciitis status post I&D 07/05 and 07/09. Will continue iv antibiotics. Gen Surgeon took pt to the OR for the 3rd debridement on 07/16/23. wound vac was placed on 07/17/23. Will continue wound care. Pt was transferred transferred to med/surg floor on 07/18/23. Acute kidney injury: Cr is 0.39. Will avoid nephrotoxins and monitor renal function. Hypokalemia: potassium level is 4.1<- 3.9. Will monitor. Hypocalcemia: Calcium is 7.7. Albumin is 1.6. Likely due to low albumin. Corrected calcium is within normal limit. Will follow up ionized calcium and vitamin D level. Vitamin D def: Vitamin D is 15.6. Will replete. GERD: continue with PPI History of hypertension: Will monitor BP. Seizure disorder: continue with antiepileptic GI ppx: protonix DVT prophylaxis: SCD Dispo: Waiting for LTAC placement Physician Review: Patient Assessed, Agree with Above Assessment and Plan
[2023-07-19] MEDS: DIVALPROEX DR 500MG TAB PO SCH ×3 (10:49→20:54)
[2023-07-19] MEDS: ASPIRIN EC 81 MG TAB PO SCH (10:49)
[2023-07-19] MEDS: SILVER SULFADIAZINE 1% 25 GM TOP SCH (10:50)
[2023-07-19] MEDS: VANCOMYCIN 1 GM in NA CHLORIDE 0.9% 250 ML IVPB SCH ×2 (13:49→21:00)
--- NOTE | 2023-07-19 14:23 | P.DS ---
Admission Date: 07/06/23 Discharge Date: 07/19/23 Disposition: ROUTINE DISCHARGE Discharge Condition: GOOD Reason for Admission: Tonie gangrene, septic shock - Problems (1) Acute appendicitis Current Visit: No Status: Acute (2) Acute cholecystitis Current Visit: No Status: Acute Brief History of Present Illness: Patient is a 67-year-old female with a past medical history significant for hypertension, seizures who presents with complaint of generalized weakness that has been ongoing for the past 1 week. Patient also reports that she has been having pain in the right lower quadrant that has been ongoing for the past 10 days. Patient reported that she felt some burning pain in her labia but did not check to see if there was any swelling or redness. Patient also reported that she noticed bleeding from her vaginal area. Patient reported associated signs and symptoms of diarrhea, generalized body pains, decreased appetite and malaise. Patient denies any other signs and symptoms. Symptoms are aggravated or relieved by nothing. Patient decided to present to the hospital for medical evaluation. Of note, patient was noted to have fever on presentation to the ER and also patient was noted to have bilateral labial swelling\redness worse on the right labia. Patient also noted with bleeding wound to the right labia. Hospital Course: Patient is a 67yo female with a past medical history significant for hypertension and seizures who presented with fever, generalized weakness, pain in her right lower quadrant and burning sensation in her labia, vaginal bleeding for 1 week. Patient reported associated signs and symptoms of diarrhea, generalized body pains, decreased appetite and malaise. On admission, ER physician noticed bilateral labial swelling\redness worse on the right labia and bleeding wound to the right labia. We admitted pt for necrotizing fascitis and gave iv vancomycin and merrem for 2 weeks. Gen surgery took pt for I&D and later did 3 debridements before placing a wound vac and transferring pt from the ICU to med/surg floor. Pt continued iv vanc and merrem. Wound culture grew Strep Pyogenes. Pt was later sent to [facility] with iv vanc and merrem. She will follow up with Dr. Snell. We repleted electrolytes and started vitamin D supplements due to vitamin D deficiency ( vit D level 15.6). We continued home med for other chronic medical problems. Pt was in NAD prior to discharge. Vital Signs/Physical Exam: Temp Pulse Resp BP Pulse Ox 97.0 F 87 16 123/54 L 94 07/19/23 12:00 07/19/23 12:00 07/19/23 12:00 07/19/23 12:00 07/19/23 12:00 Laboratory Data at Discharge: WBC 6.50 thou/uL (4.3-10.9) 07/19/23 04:43 Hgb 9.1 g/dL (12.0-15.0) L 07/19/23 04:43 Hct 26.9 % (36.0-45.0) L 07/19/23 04:43 Plt Count 605 thou/uL (152-406) H 07/19/23 04:43 PT 10.7 SECONDS (9.5-12.5) 07/09/23 04:45 INR 0.97 07/09/23 04:45 APTT 28.4 SECONDS (24.3-36.9) 07/09/23 04:45 Sodium 138 mEq/L (136-145) 07/19/23 04:43 Potassium 4.1 mEq/L (3.5-5.1) 07/19/23 04:43 BUN 12 mg/dL (7-18) 07/19/23 04:43 Creatinine 0.39 mg/dL (0.55-1.02) L 07/19/23 04:43 Glucose 90 mg/dL (74-106) 07/19/23 04:43 Phosphorus 3.2 mg/dL (2.5-4.9) 07/14/23 04:30 Magnesium 1.9 mg/dL (1.6-2.4) 07/15/23 04:45 Total Bilirubin 0.3 mg/dL (0.2-1.0) 07/12/23 05:00 AST < 4 U/L (15-37) L 07/12/23 05:00 ALT < 10 U/L (13-56) L 07/12/23 05:00 Alkaline Phosphatase 46 U/L (45-117) 07/12/23 05:00 Triglycerides 91 mg/dL (<150) 07/06/23 04:20 Cholesterol 101 mg/dL (<200) 07/06/23 04:20 HDL Cholesterol 41 mg/dL (40-60) 07/06/23 04:20 Cholesterol/HDL Ratio 2.46 07/06/23 04:20 Home Medications: Divalproex Sodium 1 tab PO TID 04/24/20 Lamotrigine [Lamictal] 75 mg PO BID 04/24/20 Pantoprazole [Protonix Tab*] 40 mg PO BEDTIME 08/09/20 Aspirin [Aspirin EC 81 MG] 1 tab PO DAILY 07/06/23 Ergocalciferol (Vitamin D2) [Drisdol] 50,000 unit PO Q7D #8 07/19/23 Hydrocodone 7.5/APAP 325 [[place] 7.5/325 mg*] 1 tab PO Q6H PRN #12 tab 07/19/23 New Medications: Ergocalciferol (Vitamin D2) [Drisdol] 50,000 unit PO Q7D #8 Hydrocodone 7.5/APAP 325 [[place] 7.5/325 mg*] 1 tab PO Q6H PRN #12 tab PRN Reason: Pain Scale 5-7 (Moderate) Physician Discharge Instructions: Continue ad bryon activity as tolerated. Take home meds as prescribed. Continue ivvanc and merrem. Follow up with Dr. Serna and PCP within 2 weeks Diet: AHA Activity: Ad bryon Followup: Rocael Snell MD [ACTIVE - CAN ADMIT] -
[2023-07-19] MEDS: HYDROMORPHONE HCL 1 MG/ML INJ IV PRN ×2 (15:10→22:27)
--- NOTE | 2023-07-19 16:22 | P.PN ---
Subjective Date of Service: 07/19/23 Chief Complaint: Tonie gangrene, septic shock Subjective: No new changes Physical Examination - Vital Signs Temperature: 97.0 F Blood Pressure: 123/54 Pulse: 87 Respirations: 16 Pulse Ox (%): 94 - Physical Exam General: Other (appears as her stated age) HEENT: Atraumatic, Normocephalic Neck: Supple Respiratory: Other (symmetric chest expansion) Cardiovascular: No rubs, No murmurs Gastrointestinal: Soft and benign, No guarding Musculoskeletal: No clubbing Integumentary: No warmth Neurological: Normal tone Urinary: Other (no bladder distention) External genitalia: Deferred Rectal: Deferred Assessment And Plan - Plan # CHASITY 2/2 ATN/septic shock SCr 2.2 on adm, improved to 0.3-0.4 Baseline SCr 0.6 as of Sep 2020 Urinalysis with 1+ proteinuria but no hematuria & no pyuria [place] fluid intake at least 2L/d Strict I&O # Hypokalemia, hypoPO4 Lytes repletion prn # Hypophosphatemia Phos repletion when necessary # Acidosis Improved, monitor # Septic shock 2/2 Tonie's gangrene Shock resolved Hx of Htn S/p debridement Local wound care IV abx F/u cultures # GERD Protonix # Hx of seizures Cont anti-epileptic med # Anemia Monitor CBC # Vit D deificiency Start high dose D3 repletion Physician Review: Patient Assessed, Agree with Above Assessment and Plan
[2023-07-19] MEDS ORDERED: Meropenem 1000 MG/VIAL IV ONE (16:49)
[2023-07-19 20:37] VITALS: O2SAT 97
[2023-07-19] MEDS: PANTOPRAZOLE 40MG TABLET PO SCH (20:54)
--- NOTE | 2023-07-19 21:05 | PN ---
Date of Progress Note: 07/19/2023 Reason For Service: Tonie gangrene, perineum, abdomen, thigh, buttocks, genitalia. Subjective: The patient is doing great, feeling comfortable. Objective: Vital Signs: Stable. Afebrile. Chest: Clear. Abdomen: Soft and depressible. Intact surgical site. Wound VAC in place. Laboratory Data: WBC count of 6 with hemoglobin of 9.1. Plan: Continue wound care. There are plans for LTAC for her. [facility] she gets discharged with open wounds when she comes back to this area. JORDYN/MANI Voice ID: [id number] Report ID: [id number]
--- NOTE | 2023-07-19 21:47 | OP ---
Date of Procedure: 07/09/2023 Surgeon: Loi Call MD Preoperative Diagnosis: Tonie gangrene, multifocal. Postoperative Diagnosis: Tonie gangrene, multifocal. Procedures: Wide debridement down to muscle of Tonie gangrene, perineum 30 x 20 cm, left thigh 15 x 12 x 3 cm, suprapubic 5 x 5 x 12 cm, right thigh 5 x 5 x 12 cm, abdominal wall 15 x 15 x 3 cm, ext ernal genitalia 12 x 12 x 3 cm and all that was done with the help of pulse lavage. Replacement of u rinary catheter. Estimated Blood Loss: Less than 40 cc. Specimen: None. Findings: Devitalized tissue. Anesthesia: General plus local. Sterile gauze packing rolls with Silvadene. Indication For Procedure: This is the case of a 67-year-old patient with septic shock and Tonie g angrene, taken to the OR for excisional debridement of multiple devitalized tissue related to Fournie r gangrene. The benefits, alternatives, and risks were fully explained to the patient, which include , but not limited to infection, bleeding, damage to adjacent structures, anesthesia complication, NE, and even . She also understands this may not relieve symptoms. She might need more than 1 karen gical intervention. She understood, signed a consent. Procedure In Detail: Patient was brought to the operating room, placed in supine position. Anesthes ia was done without complication. Then, the patient was placed in lateral position with proper prote ction. After that, we proceeded with the help of sharp knife after time-out to do excision and debri jaspreet of devitalized tissue present, which is still delineating in the area mentioned above with all these places done. Then, after that, we will follow with pulse lavage. Hemostasis was obtained. P atient tolerated the procedure well. Then, patient was sent to recovery in stable condition after pa cking the area with several gauze rolls and Silvadene. Patient tolerated the procedure well. Patien t will require further debridements after the septic shock is addressed. HM/MODL Voice ID: [id number] Report ID: [id number]
[2023-07-20 07:33] VITALS: BP 123/54; TEMP 97
== END 2023-07-20 00:02 | DRG 853 ==
LOC: ER 05:18 → ERHOLD 10:05 → 3RD-ICU 21:02 → OBSVTOIN 07-06 15:50 → 2ND 07-18 23:09
PROVIDERS: ADMIT Internal Medicine Nephrology; ATTEND Hospitalist
PROC: 02HV33Z Insertion of Infusion Device into Superior Vena Cava, Percutaneous Approach (ICD-10-PCS; 2023-07-05)
PROC: 0JBB0ZZ Excision of Perineum Subcutaneous Tissue and Fascia, Open Approach (ICD-10-PCS; principal; 2023-07-05 18:15)
PROC: 0KBR0ZZ Excision of Left Upper Leg Muscle, Open Approach (ICD-10-PCS; 2023-07-09)
PROC: 0KBQ0ZZ Excision of Right Upper Leg Muscle, Open Approach (ICD-10-PCS; 2023-07-09)
PROC: 0KBM0ZZ Excision of Perineum Muscle, Open Approach (ICD-10-PCS; 2023-07-15)
PROC: 0KDP0ZZ Extraction of Left Hip Muscle, Open Approach (ICD-10-PCS; 2023-07-15)
PROC: 0KDM0ZZ Extraction of Perineum Muscle, Open Approach (ICD-10-PCS; 2023-07-15)
PROC: 0KDN0ZZ Extraction of Right Hip Muscle, Open Approach (ICD-10-PCS; 2023-07-15)
PROC: 3E043XZ Introduction of Vasopressor into Central Vein, Percutaneous Approach (ICD-10-PCS; 2023-07-15)
DX: A40.0 Sepsis due to streptococcus, group A (principal); M72.6 Necrotizing fasciitis; N17.0 Acute kidney failure with tubular necrosis; R65.21 Severe sepsis with septic shock; E87.20 Acidosis, unspecified; N76.4 Abscess of vulva; K35.80 Unspecified acute appendicitis; K81.0 Acute cholecystitis; L03.311 Cellulitis of abdominal wall; L02.211 Cutaneous abscess of abdominal wall; I10 Essential (primary) hypertension; N76.2 Acute vulvitis; E87.6 Hypokalemia; E86.0 Dehydration; E83.51 Hypocalcemia; E83.42 Hypomagnesemia; E83.39 Other disorders of phosphorus metabolism; G40.909 Epilepsy, unspecified, not intractable, without status epilepticus; N76.82 Fournier disease of vagina and vulva; D75.839 Thrombocytosis, unspecified; K21.9 Gastro-esophageal reflux disease without esophagitis; R19.7 Diarrhea, unspecified; Z88.1 Allergy status to other antibiotic agents; Z88.5 Allergy status to narcotic agent; Z79.82 Long term (current) use of aspirin; Z11.52 Encounter for screening for COVID-19; Z79.01 Long term (current) use of anticoagulants; Z98.84 Bariatric surgery status; Z87.891 Personal history of nicotine dependence; Z79.899 Other long term (current) drug therapy; Z90.710 Acquired absence of both cervix and uterus
CPT/HCPCS: 36415; 71045; 74176; 76830; 80048; 80053; 80061; 80164; 80202; 81001; 82306; 82330; 83605; 83735; 84100; 84132; 84145; 85025; 85610; 85730; 86850; 86900; 86901; 87040; 87070; 87075; 87077; 87186; 87205; 87804; 87811; 88304; 93005; 94010; 96361; 96365; 96366; 96375; 97110; 97116; 97161; 97530; 99285; C9113; G0378; J0612; J0692; J0744; J1100; J1170; J1650; J2001; J2185; J2250; J2371; J2405; J2704; J3010; J3420; J3475; J3480; J7030; J7040; J7050; J7120; P9047